=== PATIENT | female | born 1935 | race Caucasian/White ===

== ENCOUNTER → 2017-04-29 10:22 | Outpatient (CLI) | payer MEDICARE, SELFPAY ==
--- NOTE | 2017-04-29 10:33 | XR_ITS ---
XR DEXA axial skeleton HISTORY: Postmenopausal, chronic renal disease ITS.REASON: CKD 111 ORDERING PHYSICIAN: Sy Etienne PATIENT AGE: 81 years COMPARISON: 08/08/2013 FINDINGS: Lowest measurements are described. The BMD measured at the left femoral neck is 0.582 g/cm squared with a T score of -3.3. This is considered osteoporotic according to the World Health Organization criteria. Fracture risk is high. Pharmacological treatment should be started if not already prescribed. Recommend follow-up bone density in one year to monitor response. L1-L4 density has a T score of -1.5 with a 10% decrease in bone density of the lumbar spine and 9% decrease in density of the hips compared to 08/08/2013 IMPRESSION: Osteoporosis. Please see above for detail. Recommend follow-up exam in May 16, 2018
== END ==
PROVIDERS: PCP Family Medicine; Visit Provider Internal Medicine Nephrology
DX: N18.3 Chronic kidney disease, stage 3 (moderate) (principal); Z78.0 Asymptomatic menopausal state
CPT/HCPCS: 77080

== ENCOUNTER → 2017-05-19 10:42 | Outpatient (CLI) | payer MEDICARE, SELFPAY ==
[2017-05-19 14:01] LABS: Basophils % 0.3 % (0.1-2.0); Eosinophils # 0.1 K/mm3 (0.0-0.4); Eosinophils % 1.2 % (0.1-12.0); Lymphocytes # 1.1 K/mm3 (0.7-4.5); Lymphocytes % 21.2 K/mm3 (10-50); Mean Corpuscular HGB Conc 32.5 g/dL (31.8-35.4); Mean Corpuscular Hemoglobin 31.4 pg (27.0-31.2); Mean Corpuscular Volume 96.6 fl (81-99); Mean Platelet Volume 7.8 fl (7.4-10.4); Monocytes # 0.4 K/mm3 (0.1-1.0); Monocytes % 6.6 % (1.7-9.3); Neutrophils # 3.8 K/mm3 (1.8-7.8); Neutrophils % 70.7 % (37.0-80.0); Platelet Count 222 K/mm3 (142-424); Red Blood Count 3.83 M/mm3 (4.20-5.40); Red Cell Distribution Width 13.8 % (11.5-17.5); White Blood Count 5.3 K/mm3 (4.8-10.8)
[2017-05-19 14:11] LABS: Albumin Level 3.2 gm/dL (3.4-5.0); Anion Gap 14.1 mEq/L (5-15); Blood Urea Nitrogen 25 mg/dL (7-18); Calcium 8.9 mg/dL (8.5-10.1); Carbon Dioxide 25 mmol/L (21.0-32.0); Chloride 107 mmol/L (98-107); Estimated Glomerular Filt Rate 25 ml/min (>60); GFR (African American) 31 ML/MIN (>60); Glucose 113 mg/dL (74-106); Phosphorous 2.8 mg/dL (2.4-4.9); Potassium 4.1 mmoL/L (3.5-5.1); Sodium 142 mmol/L (136-145)
[2017-05-20 15:19] LABS: Albumin 3.1 g/dL (2.9-4.4); Alpha-1-Globulin 0.3 g/dL (0.0-0.4); Alpha-2-Globulin 0.9 g/dL (0.4-1.0); Gamma Globulin 1.4 g/dL (0.4-1.8); Protein, Total 6.7 g/dL (6.0-8.5)
[2017-05-21 08:49] LABS: Vitamin D 25 Hydroxy 36.4 ng/mL (30.0-100.0)
== END ==
PROVIDERS: PCP Family Medicine; Visit Provider Internal Medicine Nephrology
DX: N18.3 Chronic kidney disease, stage 3 (moderate) (principal)
CPT/HCPCS: 36415; 80069; 82652; 84165; 85025

== ENCOUNTER → 2017-05-20 11:21 | Outpatient (REF) | payer MEDICARE, SELFPAY ==
[2017-05-20 14:06] LABS: Creatinine,Urine Random 35 mg/dL (20-320); Total Protein,Urine Random 16.1 mg/dL (0.0-11.9)
== END ==
LOC: LAB.CARL 11:21
PROVIDERS: Visit Provider Internal Medicine Nephrology
DX: N18.3 Chronic kidney disease, stage 3 (moderate) (principal)
CPT/HCPCS: 82570; 84155

== ENCOUNTER → 2017-05-25 15:19 | Outpatient (POV) | payer MEDICARE, SELFPAY | PROVIDERS: Family Provider Family Medicine; PCP Family Medicine; Visit Provider Internal Medicine Nephrology | DX: Z00.00 Encounter for general adult medical examination without abnormal findings (principal) ==

== ENCOUNTER 2017-06-25 13:53 | Outpatient (CLI) | payer MEDICARE, SELFPAY ==
[2017-06-25 14:01] VITALS: BP 132/79; PULSE 74; RESP 18; TEMP 36.4; O2SAT 96
== END 2017-06-25 14:45 | disposition home or self-care (01) ==
LOC: INF 14:12
PROVIDERS: Family Provider Family Medicine; PCP Family Medicine; Visit Provider Internal Medicine Nephrology
DX: M81.0 Age-related osteoporosis without current pathological fracture (principal)
CPT/HCPCS: 96372; J0897

== ENCOUNTER 2017-07-25 12:54 | Emergency (ER) | payer MEDICARE, SELFPAY ==
[2017-07-25 13:07] VITALS: BP 151/73; PULSE 76; RESP 20; TEMP 36.7; O2SAT 99; BMI 24.1
--- NOTE | 2017-07-25 13:12 | HMH.EDUTC ---
[facility] [place] Disposition Clinical Impression: Right otitis media Qualifiers: Otitis media type: suppurative Chronicity: acute Recurrence: not specified as recurrent Spontaneous tympanic membrane rupture: without spontaneous rupture Qualified Code(s): H66.001 - Acute suppurative otitis media without spontaneous rupture of ear drum, right ear Sinusitis Qualifiers: Sinusitis location: frontal Chronicity: acute Disposition: Home, Self-Care Condition on Discharge: Good Instructions: DI for Sinusitis Prescriptions: Fluticasone Propionate [Flonase Allergy Relief NS] 1 spray NS BID 10 Days #1 bot cephALEXin [Keflex 500mg Cap] 500 mg PO TID 10 Days #30 cap Referrals: Danny Cano MD [Primary Care Provider] - Time of Disposition: 13:30 Medical Decision Making - Ed Inquiry Pt receiving controlled substance: No Vital Signs: 07/25/17 13:07 Temperature 98.1 F Temperature Source Oral Pulse Rate [Right Radial] 76 Respiratory Rate 20 Blood Pressure [Right Arm] 151/73 Blood Pressure Mean [Right Arm] 99 02 Sat by Pulse Oximetry 99 Oxygen Delivery Method Room Air - Lab Data Lab results reviewed: Yes: I reviewed the patient's lab results. [facility] [place] HPI - General Stated complaint: Sore throat Time Seen by Provider: 07/25/17 13:12 Mode of Arrival: Family Vehicle Source of Information: Patient Limitations: No Limitations Description of Symptoms (Recalled from Triage Doc. by RN): PT C/O SORE THROAT, HEADACHE. PT STATES SHE SEEN A WEEK AGO AND IS NOT ANY BETTER. HEENT Symptoms (Recalled from RN notes): Yes (SORE THROAT, HEADACHE) Resp Symptoms (Recalled from RN notes): No Skin Symptoms (Recalled from RN notes): No MS Symptoms (Recalled from RN notes): No Functional Status (Recalled from RN notes): NA - History of Present Illness Provider Complaint: Patient states that she has had right ear pain, headache, right sided throat pain and nasal congestion for several days. She has a history of allergies and asthma. She saw Dr Cano two weeks ago or so and was put on Prednisone for chest congestion. She states that is better but the headaches are keeping her awake at night and her throat feels swollen. No fever. No cough. No vomiting or diarrhea. Onset (ago): day(s) (5) Location: head - Related Data Previous Rx's Medication Instructions Recorded Fluticasone Propionate [Flonase 1 spray NS BID 10 Days #1 bot 07/25/17 Allergy Relief NS] cephALEXin [Keflex 500mg Cap] 500 mg PO TID 10 Days #30 cap 07/25/17 Allergies Allergy/AdvReac Type Severity Reaction Status Date / Time Penicillins [PENICILLINS] Allergy Severe S-SWELLS-OR Verified 07/25/17 13:07 AL/THROAT codeine [CODEINE] Allergy Unknown NA-DIARRHEA Verified 07/25/17 13:07 - Worker's Comp Is this a Worker's Comp case?: No [facility] History I have reviewed the patient's past medical history: Yes Medical History: Reports:: Asthma, Depression, Gastroesophageal Reflux Disease(GERD), Hyperlipidemia, Hypertension Denies:: Cancer, Diabetes Mellitus Type 1, Diabetes Mellitus Type 2, MRSA Amputation: No - Social History Smoking Status: Never smoker Alcohol Intake: never - Psychiatric History Expresses thoughts of harming self/others: None Suicide Plan Description: No Plan ROS Obtained: Yes All systems reviewed & no additional complaints - Constitutional Constitutional: Denies body ache, Denies fever(s), Reports headache(s), Reports malaise - ENT Ears, Nose, Mouth, and Throat: Reports otalgia, Reports headache(s), Reports nasal discharge, Reports sinus pain, Reports sinus pressure, Reports sore throat, Reports throat swelling Physical Exam - General General appearance: alert, in no apparent distress - Head Head exam: atraumatic, normocephalic, normal inspection - Eye Eye exam: Present: normal appearance, PERRL, EOMI - ENT ENT exam: Present: normal exam, normal oropharynx, mucous membranes moist, TM's normal bilaterally, normal evs tech
[2017-07-25 13:15] LABS: UTC Strep Screen (Rapid) Negative (Negative)
--- NOTE | 2017-07-25 13:24 | ED_ITS ---
[facility] [place] Clinical Impression: Right otitis media Qualifiers: Otitis media type: suppurative Chronicity: acute Recurrence: not specified as recurrent Spontaneous tympanic membrane rupture: without spontaneous rupture Qualified Code(s): H66.001 - Acute suppurative otitis media without spontaneous rupture of ear drum, right ear Sinusitis Qualifiers: Sinusitis location: frontal Chronicity: acute Disposition: Home, Self-Care Condition on Discharge: Good Instructions: DI for Sinusitis Prescriptions: Fluticasone Propionate [Flonase Allergy Relief NS] 1 spray NS BID 10 Days #1 bot cephALEXin [Keflex 500mg Cap] 500 mg PO TID 10 Days #30 cap Referrals: Danny Cano MD [Primary Care Provider] - Time of Disposition: 13:30 Medical Decision Making - Ed Inquiry Pt receiving controlled substance: No Vital Signs: 07/25/17 13:07 Temperature 98.1 F Temperature Source Oral Pulse Rate [Right Radial] 76 Respiratory Rate 20 Blood Pressure [Right Arm] 151/73 Blood Pressure Mean [Right Arm] 99 02 Sat by Pulse Oximetry 99 Oxygen Delivery Method Room Air - Lab Data Lab results reviewed: Yes: I reviewed the patient's lab results. [facility] [place]PI - General Stated complaint: Sore throat Time Seen by Provider: 07/25/17 13:12 Mode of Arrival: Family Vehicle Source of Information: Patient Limitations: No Limitations Description of Symptoms (Recalled from Triage Doc. by RN): PT C/O SORE THROAT, HEADACHE. PT STATES SHE SEEN A WEEK AGO AND IS NOT ANY BETTER. HEENT Symptoms (Recalled from RN notes): Yes (SORE THROAT, HEADACHE) Resp Symptoms (Recalled from RN notes): No Skin Symptoms (Recalled from RN notes): No MS Symptoms (Recalled from RN notes): No Functional Status (Recalled from RN notes): NA - History of Present Illness Provider Complaint: Patient states that she has had right ear pain, headache, right sided throat pain and nasal congestion for several days. She has a history of allergies and asthma. She saw Dr Cano two weeks ago or so and was put on Prednisone for chest congestion. She states that is better but the headaches are keeping her awake at night and her throat feels swollen. No fever. No cough. No vomiting or diarrhea. Onset (ago): day(s) (5) Location: head - Related Data Previous Rx's Medication Instructions Recorded Fluticasone Propionate [Flonase 1 spray NS BID 10 Days #1 bot 07/25/17 Allergy Relief NS] cephALEXin [Keflex 500mg Cap] 500 mg PO TID 10 Days #30 cap 07/25/17 Allergies Allergy/AdvReac Type Severity Reaction Status Date / Time Penicillins [PENICILLINS] Allergy Severe S-SWELLS-OR Verified 07/25/17 13:07 AL/THROAT codeine [CODEINE] Allergy Unknown NA-DIARRHEA Verified 07/25/17 13:07 - Worker's Comp Is this a Worker's Comp case?: No [facility] History I have reviewed the patient's past medical history: Yes Medical History: Reports:: Asthma, Depression, Gastroesophageal Reflux Disease( GERD), Hyperlipidemia, Hypertension Denies:: Cancer, Diabetes Mellitus Type 1, Diabetes Mellitus Type 2, MRSA Amputation: No - Social History Smoking Status: Never smoker Alcohol Intake: never - Psychiatric History Expresses thoughts of harming self/others: None Suicide Plan Description: No Plan ROS Obtained: Yes All systems reviewed & no additional complaints - Constitutional Constitutiona
[2017-07-25 13:41] VITALS: BP 146/79; PULSE 79; RESP 18; TEMP 36.8; O2SAT 100
== END 2017-07-25 13:42 | disposition home or self-care (01) ==
PROVIDERS: Emergency Provider Physician Assistant; Family Provider Family Medicine; PCP Family Medicine
DX: H66.001 Acute suppurative otitis media without spontaneous rupture of ear drum, right ear (principal); K21.9 Gastro-esophageal reflux disease without esophagitis; E78.5 Hyperlipidemia, unspecified; I10 Essential (primary) hypertension; J45.909 Unspecified asthma, uncomplicated
CPT/HCPCS: G0463; 87880; 99201

== ENCOUNTER → 2018-02-01 09:00 | Outpatient (CLI) | payer MEDICARE, SELFPAY ==
[2018-02-01 13:31] LABS: Basophils % 0.3 % (0.1-2.0); Eosinophils # 0.3 K/mm3 (0.0-0.4); Eosinophils % 5.8 % (0.1-12.0); Hematocrit 38.9 % (37.0-47.0); Hemoglobin 12.3 g/dL (12.2-16.2); Lymphocytes # 1.7 K/mm3 (0.7-4.5); Lymphocytes % 36.9 K/mm3 (10-50); Mean Corpuscular HGB Conc 31.6 g/dL (31.8-35.4); Mean Corpuscular Hemoglobin 31.3 pg (27.0-31.2); Mean Platelet Volume 7.7 fl (7.4-10.4); Monocytes # 0.3 K/mm3 (0.1-1.0); Monocytes % 6.5 % (1.7-9.3); Neutrophils # 2.4 K/mm3 (1.8-7.8); Neutrophils % 50.5 % (37.0-80.0); Platelet Count 290 K/mm3 (142-424); Red Blood Count 3.93 M/mm3 (4.20-5.40); Red Cell Distribution Width 13.4 % (11.5-17.5); White Blood Count 4.7 K/mm3 (4.8-10.8)
[2018-02-01 14:13] LABS: Albumin Level 3.1 gm/dL (3.4-5.0); Anion Gap 14.2 mEq/L (5-15); Blood Urea Nitrogen 24 mg/dL (7-18); Calcium 8.8 mg/dL (8.5-10.1); Carbon Dioxide 23 mmol/L (21.0-32.0); Chloride 110 mmol/L (98-107); Creatinine,Serum 2.01 mg/dL (0.55-1.02); Estimated Glomerular Filt Rate 24 ml/min (>60); GFR (African American) 29 ML/MIN (>60); Glucose 171 mg/dL (74-106); Phosphorous 3.1 mg/dL (2.4-4.9); Potassium 4.2 mmoL/L (3.5-5.1); Sodium 143 mmol/L (136-145); Uric Acid 6.3 mg/dL (2.6-7.2)
[2018-02-01 16:05] LABS: Creatinine,Urine Random 159 mg/dL (20-320); Total Protein,Urine Random 29.7 mg/dL (0.0-11.9)
[2018-02-02 07:39] LABS: Vitamin D 25 Hydroxy 42.4 ng/mL (30.0-100.0)
[2018-02-03 07:29] LABS: Calcium, Ionized 5.3 mg/dL (4.5-5.6); Parathyroid Hormone Intact 62 pg/mL (15-65)
[2018-02-04 07:10] LABS: Tandem-R Ostase 13.8 ug/L (.)
== END ==
PROVIDERS: PCP Family Medicine; Visit Provider Internal Medicine Nephrology
DX: M81.0 Age-related osteoporosis without current pathological fracture (principal); R71.8 Other abnormality of red blood cells
CPT/HCPCS: 36415; 80069; 82330; 82570; 82652; 83520; 83970; 84080; 84155; 84550; 85025

== ENCOUNTER → 2018-02-08 15:19 | Outpatient (POV) | payer MEDICARE, SELFPAY | PROVIDERS: Family Provider Family Medicine; PCP Family Medicine; Visit Provider Internal Medicine Nephrology | DX: Z00.00 Encounter for general adult medical examination without abnormal findings (principal) ==

== ENCOUNTER → 2018-09-22 12:43 | Outpatient (CLI) | payer MEDICARE, SELFPAY ==
--- NOTE | 2018-09-22 | CA_ITS ---
PROCEDURE: 2-D M-mode and color Doppler study INDICATIONS FOR THE TEST: Chest pain COPD Heart Murmur Tobacco Smoking Palpitations Fatigue Syncope Edema+ Hypertension+Diabetes Mellitus Rheumatic Fever SOB BURCH+Obesity Hyperlipidemia Family History HD+ Additional History Asthma, dizziness PATIENT INFORMATION HEIGHT: 65 WEIGHT: 150 GENDER: Female B/P: 151/73 2-D/M-MODE INTERPRETATION: 2-D MEASUREMENTS OBSERVED VALUES IN CMS Right Ventricular Dimension (RVDd) 2.0 Interventricular Septum (Thickness)(IVsd) 1.1 Left Ventricular Internal Dimensions(LVIDd) 4.5 Left Ventricular Posterior Wall (Thickness)(LVPWd) 0.9 Aortic Root 2.7 Aortic Cusp Separation 2.0 Left Atrial Dimensions (LAD) 3.7 2D 1. Left atrium is mildly enlarged, left ventricle is normal size, mild concentric left ventricular hypertrophy, visually estimated ejection fraction 55% with no regional wall motion abnormality. 2. The right atrium and right ventricle are normal size and contractility. 3. The aortic valve is thickened and calcified leaflet continue to display mobility. 4. The mitral and tricuspid valve leaflets are minimally thickened. 5. The pulmonic valve is poorly visualized. 6. No significant pericardial effusion noted. DOPPLER INTERROGATION: Doppler interrogation of the aortic, mitral and tricuspid valvular presence of trace aortic, mild mitral and tricuspid regurgitation, tricuspid regurgitation jet velocity is inadequate for calculation of the right ventricular systolic pressure, grade 1 diastolic dysfunction seen with tissue Doppler evidence of raised left atrial pressure. CONCLUSION: 1. Mildly enlarged left atrium, normal left ventricular size, mild concentric left ventricular hypertrophy, visually estimated ejection fraction 55% with no regional wall motion abnormality, grade 1 diastolic dysfunction seen with tissue Doppler evidence of raised left atrial pressure. 2. Trace aortic, mild mitral and tricuspid regurgitation 3. No significant pericardial effusion noted.
== END ==
PROVIDERS: PCP Family Medicine; Visit Provider Family Medicine
DX: I50.21 Acute systolic (congestive) heart failure (principal)
CPT/HCPCS: 93306

== ENCOUNTER 2018-10-09 19:17 | Emergency (ER) | payer MEDICARE, SELFPAY ==
[2018-10-09 19:18] VITALS: BP 195/110; PULSE 83; RESP 18; TEMP 36.6; O2SAT 95; BMI 25.7
--- NOTE | 2018-10-09 19:29 | XR_ITS ---
XR pelvis 1-2V HISTORY: Fall with injury and pain ITS.REASON: Fall ORDERING PHYSICIAN: Marvin Lutz MD PATIENT AGE: 82 years Comparison: None FINDINGS: There are mild osteoarthritic changes of the hips and SI joints. No acute fracture or dislocation. IMPRESSION: No acute finding
--- NOTE | 2018-10-09 19:29 | CT_ITS ---
CT CERVICAL SPINE WITHOUT CONTRAST CT RECONSTRUCTIONS HISTORY:Neck pain following injury ORDERING PHYSICIAN: Marvin Lutz MD PATIENT AGE: 82 years COMPARISON: 11/29/2016 Technique: All CT scans at the facility use one or more dose reduction, viz: automated exposure control, ma/kV adjustment per patient size (including targeted exams where dose is matched to indication, i.e. head), or iterative reconstruction technique PROCEDURE: Axial spiral CT scanning performed of the cervical spine beginning at the base of the skull and continuing to the upper T-spine. 3-D multiplanar reconstruction with 3-D manipulation of volumetric data set in image rendering was completed by the radiologist and/or technologist with the supervision of the radiologist on independent workstation. FINDINGS: There is normal alignment. No fracture or dislocation. There are slight reversal of the cervical lordosis. Minimal anterolisthesis noted at C4-C5 of 4 mm likely degenerative in nature. Mild multilevel spondylosis. C2-C3: Mild degenerative disc disease. Left-sided facet hypertrophic change. C3-C4: 2 mm anterolisthesis of C3 with degenerative disc disease and left-sided foraminal narrowing from uncovertebral and facet hypertrophy. C4-C5: Degenerative disc disease with facet hypertrophy and 4 mm anterolisthesis of C4 on spine. C5-C6: Degenerative disc disease with bilateral foraminal narrowing. C6-C7: Unremarkable. Fibrotic changes are present in the lung apices. IMPRESSION: 1. No acute fracture. 2. Multilevel cervical spondylosis. PLEASE SEE ABOVE FOR DETAILED DESCRIPTION AT EACH LEVEL
--- NOTE | 2018-10-09 19:29 | XR_ITS ---
XR knee LT 3V HISTORY: Posttraumatic pain ITS.REASON: fall ORDERING PHYSICIAN: Marvin Lutz MD PATIENT AGE: 82 years COMPARISON: None FINDINGS: There are severe osteoarthritic changes of the medial compartment with moderate osteoarthritis of the patellofemoral joint. Small calcific density is present medially at the knee joint but does appear chronic adjacent old fracture or loose body. No acute fracture or dislocation. There is a small suprapatellar effusion. IMPRESSION: No acute fracture. Osteoarthritis with chronic changes and small knee joint effusion
--- NOTE | 2018-10-09 19:29 | XR_ITS ---
XR chest AP HISTORY: Posttraumatic pain ITS.REASON: FALL ORDERING PHYSICIAN: Marvin Lutz MD PATIENT AGE: 82 years COMPARISON: None FINDINGS: Mild cardiomegaly without failure. Lungs are clear bilaterally. There are surgical clips in the left axilla. There is an old mid shaft clavicular fracture. IMPRESSION: Cardiomegaly, no change with no acute finding
--- NOTE | 2018-10-09 19:29 | CT_ITS ---
CT head/brain wo con HISTORY: Headache, pain, blunt trauma with contusion/hematoma ITS.REASON: Fall ORDERING PHYSICIAN: Marvin Lutz MD PATIENT AGE: 82 years COMPARISON: None TECHNIQUE: Axial images obtained without contrast. Brain and bone windows reviewed. All CT scans at the facility use one or more dose reduction, viz: automated exposure control, ma/kV adjustment per patient size (including targeted exams where dose is matched to indication, i.e. head), or iterative reconstruction technique. FINDINGS: No midline shift, mass effect, intracranial hemorrhage, or hydrocephalus. There is mild generalized atrophy with periventricular ischemic gliotic change. Encephalomalacia changes are present in the right frontal lobe. Prior right frontal/parietal craniotomy. There is a large hematoma in the left frontal area and supraorbital region of the scalp. Air-fluid levels are present in both maxillary sinuses and sphenoid sinus with intermediate density fluid and small air bubbles along the left orbital floor and with irregularity of the left sphenoid wall with possible pneumocephalus in the parasellar region. Skull base fracture is a consideration. Please see facial CT report for further discussion. There is mucosal thickening of the ethmoid sinuses. IMPRESSION: 1. No acute intracranial hemorrhage. 2. Moderate amount of intermediate density fluid within the bilateral maxillary sinuses with tiny gas bubbles along the left orbital floor and a moderate amount of fluid within the bilateral sphenoid sinuses with irregularity along the left sphenoid sinus wall with possible trace amount of pneumocephalus in the region of the sella. This does raise suspicion of a skull base fracture. Please see facial CT report 3. Large left frontal scalp hematoma
--- NOTE | 2018-10-09 19:29 | XR_ITS ---
XR wrist LT min 3V HISTORY posttraumatic pain ITS.REASON: fall ORDERING PHYSICIAN: Marvin Lutz MD PATIENT AGE: 82 years Comparison: FINDINGS: No obvious fracture or dislocation. There are mild osteoarthritic changes of the first metacarpal carpal joint. IMPRESSION: No acute finding
--- NOTE | 2018-10-09 19:29 | XR_ITS ---
XR shoulder LT min 2V HISTORY: Posttraumatic pain ITS.REASON: Fall ORDERING PHYSICIAN: Marvin Lutz MD PATIENT AGE: 82 years Comparison: FINDINGS: There is an old mid shaft clavicular fracture. Surgical clips present in the axilla. No acute fracture or dislocation. No lytic or blastic change. IMPRESSION: No acute finding
[2018-10-09 19:46] VITALS: BP 182/96
[2018-10-09 19:58] LABS: Basophils % 0.6 % (0.1-2.0); Eosinophils # 0.1 K/mm3 (0.0-0.4); Eosinophils % 2.7 % (0.1-12.0); Hematocrit 37.2 % (37.0-47.0); Hemoglobin 11.4 g/dL (12.2-16.2); Lymphocytes # 2.2 K/mm3 (0.7-4.5); Lymphocytes % 41.7 % (10-50); Mean Corpuscular HGB Conc 30.6 g/dL (31.8-35.4); Mean Corpuscular Hemoglobin 27.8 pg (27.0-31.2); Mean Platelet Volume 6.9 fl (7.4-10.4); Monocytes # 0.4 K/mm3 (0.1-1.0); Monocytes % 7.6 % (1.7-9.3); Neutrophils # 2.5 K/mm3 (1.8-7.8); Neutrophils % 47.6 % (37.0-80.0); Platelet Count 271 K/mm3 (142-424); Red Blood Count 4.09 M/mm3 (4.20-5.40); Red Cell Distribution Width 12.4 % (11.5-17.5); White Blood Count 5.3 K/mm3 (4.8-10.8)
[2018-10-09 20:10] LABS: Alanine Aminotransferase 27 U/L (12-78); Albumin Level 3.2 gm/dL (3.4-5.0); Albumin/Globulin Ratio 0.8 (1.1-1.8); Alkaline Phosphatase 118 U/L (46-116); Anion Gap 16.2 mEq/L (5-15); Aspartate Amino Transferase 22 U/L (15-37); Bilirubin,Total 0.7 mg/dL (0.2-1.0); Blood Urea Nitrogen 25 mg/dL (7-18); Calcium 8.8 mg/dL (8.5-10.1); Carbon Dioxide 25 mmol/L (21.0-32.0); Chloride 106 mmol/L (98-107); Creatinine Clearance Estimated 27 mL/min (50-200); Creatinine,Serum 1.77 mg/dL (0.55-1.02); Estimated Glomerular Filt Rate 27 ml/min (>60); GFR (African American) 33 ML/MIN (>60); Globulin 4.1 gm/dl (1.3-3.2); Glucose 183 mg/dL (74-106); Potassium 4.2 mmoL/L (3.5-5.1); Sodium 143 mmol/L (136-145); Total Protein,Serum 7.3 gm/dL (6.4-8.2)
[2018-10-09 20:23] VITALS: BP 182/100; PULSE 70; RESP 19; O2SAT 94
--- NOTE | 2018-10-09 20:32 | HMH.EDFALL ---
ED Disposition Clinical Impression: Pneumocephalus, traumatic, Fall Facial fracture due to fall Qualifiers: Encounter type: initial encounter Fracture type: closed Qualified Code(s): S02.92XA - Unspecified fracture of facial bones, initial encounter for closed fracture; W19.XXXA - Unspecified fall, initial encounter Orbital floor fracture Qualifiers: Encounter type: initial encounter Fracture type: closed Laterality: left Qualified Code(s): S02.32XA - Fracture of orbital floor, left side, initial encounter for closed fracture Disposition: Xfer Short-Term Hosp Condition on Discharge: Fair Referrals: Danny Cano MD [Primary Care Provider] - - Critical Care Critical Care Time: No Attestation: On 10/09/18, the high probability of a clinically significant, sudden or life threatening deterioration of the following system(s) required my full and direct attention, intervention and personal management. The time I documented below is in addition to time spent performing reported procedures but includes the following listed in this critical care notation. Medical Decision Making - Medical Records Medical records reviewed: Yes: I reviewed the patient's medical records. - Ed Inquiry Pt receiving controlled substance: No Vital Signs: 10/09/18 19:18 10/09/18 19:46 10/09/18 20:23 Temperature 97.9 F Temperature Source Oral Pulse Rate [Right Brachial] 83 70 Respiratory Rate 18 19 Blood Pressure [Right Arm] 195/110 H 182/96 H 182/100 H Blood Pressure Mean [Right Arm] 138 124 127 Blood Pressure Source [Right Arm] Automatic Cuff Manual Cuff/ Palpation Manual Cuff/ Auscultation Blood Pressure Position [Right Arm] Sitting Supine 02 Sat by Pulse Oximetry 95 94 L Oxygen Delivery Method Room Air Room Air 10/09/18 21:42 Temperature Temperature Source Pulse Rate [Right Brachial] 82 Respiratory Rate 18 Blood Pressure [Right Arm] 180/92 H Blood Pressure Mean [Right Arm] 121 Blood Pressure Source [Right Arm] Manual Cuff/ Palpation Blood Pressure Position [Right Arm] Sitting 02 Sat by Pulse Oximetry 97 Oxygen Delivery Method Room Air - Lab Data Lab results reviewed: Yes: I reviewed the patient's lab results. Lab Results 10/09/18 19:45: WBC 5.3, RBC 4.09 L, Hgb 11.4 L, Hct 37.2, MCV 91.0, MCH 27.8, MCHC 30.6 L, RDW 12.4, Plt Count 271, MPV 6.9 L, Neut % (Auto) 47.6, Lymph % (Auto) 41.7, Blair % (Auto) 7.6, Eos % (Auto) 2.7, Baso % (Auto) 0.6, Neut # (Auto) 2.5, Lymph # (Auto) 2.2, Blair # (Auto) 0.4, Eos # (Auto) 0.1, Baso # (Auto) 0.0 10/09/18 19:45: Sodium 143, Potassium 4.2, Chloride 106, Carbon Dioxide 25, Anion Gap 16.2 H, BUN 25 H, Creatinine 1.77 H, Estimated Creat Clear 27, Estimated GFR 27 L, Est GFR ( Amer) 33 L, Glucose 183 H, Calcium 8.8, Total Bilirubin 0.7, AST 22, ALT 27, Alkaline Phosphatase 118 H, Total Protein 7.3, Albumin 3.2 L, Globulin 4.1 H, Albumin/Globulin Ratio 0.8 L Result diagrams: 10/09/18 19:45 10/09/18 19:45 Orders (Tests/Meds): ORDERS Category Date Time Status CT cervical spine wo con Stat Cat Scan 10/09/18 19:[address] facial bones wo con Stat Cat Scan 10/09/18 21:[address] head/brain wo con Stat Cat Scan 10/09/18 19:29 Taken - Radiology Data #1 Image(s): Chest, Shoulder, Wrist, Pelvis, Knee Image Reviewed: Yes I reviewed the patient's radiology image Preliminary Findings: No Fracture Seen - CT Data CT Scan: Head, C-Spine, Sinus Time Received: 22:[address] Reviewed: Yes: I have viewed the radiologist's interpretation Preliminary Findings: Abnormal (facial fx pneumocephalus) - Physician Consults Physician Consulted: [facility]- trauma - dr brooks Reason -: Transfer to another facilty Fall HPI - General Chief Complaint: Fall Stated Complaint: Fall Time Seen by Provider: 10/09/18 20:00 Mode of Arrival: EMS Source of Information: Patient, Spouse, Relative, Medical Record Limitations: Physical Limitations Description of Symptoms (Recalled fro
--- NOTE | 2018-10-09 21:05 | CT_ITS ---
CT facial bones wo con CLINICAL INDICATION: Pain following injury, left periorbital hematoma ITS.REASON: fall ORDERING PHYSICIAN: Marvin Lutz MD PATIENT AGE: 82 years COMPARISON: None TECHNIQUE:Axial images obtained with sagittal and coronal reformats. All CT scans at the facility use one or more dose reduction, viz: automated exposure control, ma/kV adjustment per patient size (including targeted exams where dose is matched to indication, i.e. head), or iterative reconstruction technique. FINDINGS: There is a large left frontal and periorbital hematoma. There is a minimally displaced comminuted fracture of the floor of the left orbit with extension into the inferior orbital foramen. Nondisplaced fracture involves the posterior wall of the left maxillary sinus extending into the inferior wall. Nondisplaced fracture suspected of the right maxillary sinus anterior wall medially. Hyperdense fluid is present in both maxillary sinuses consistent with blood with air-fluid levels. There is cortical irregularity involving the lateral the left of the sphenoid sinus. Minimal amount of gas is present along the posterior clinoid and the anterior clinoid on the left. The orbits appear intact. There is mild mucosal thickening of the ethmoid sinuses. IMPRESSION: 1. Comminuted minimally displaced fracture of the left orbital floor involving the infraorbital foramen 2. Possible nondisplaced fracture of the left lateral wall the sphenoid sinus near the superior orbital fissure. 3. Trace amount of gas in the region of the sella suggesting a small pneumocephalus. 4. Air-fluid levels within the sphenoid sinus and bilateral maxillary sinuses with hyperdense material which may be due to blood. 5. Nondisplaced fracture posterior inferior wall of the left maxillary sinus and anterior wall the right maxillary sinus. 6. Large left frontal and supraorbital scalp hematoma
[2018-10-09 21:42] VITALS: BP 180/92; PULSE 82; RESP 18; O2SAT 97
[2018-10-09 22:19] VITALS: BP 188/94; PULSE 77; RESP 18; O2SAT 95
--- NOTE | 2018-10-09 22:32 | PC.NURSE ---
[facility] called for transport to [facility] pt excepted by Dr Chandler in the ER
--- NOTE | 2018-10-09 22:41 | PC.NURSE ---
Report called to Natalee Raphael RN from ER
[2018-10-09 22:43] VITALS: BP 186/90; PULSE 73; RESP 16; TEMP 36.9; O2SAT 96
== END 2018-10-09 22:49 | disposition short-term general hospital (02) ==
PROVIDERS: Emergency Provider Emergency Medicine; PCP Family Medicine
DX: S02.92XA Unspecified fracture of facial bones, initial encounter for closed fracture (principal); S02.32XA Fracture of orbital floor, left side, initial encounter for closed fracture; W01.0XXA Fall on same level from slipping, tripping and stumbling without subsequent striking against object, initial encounter; Y92.019 Unspecified place in single-family (private) house as the place of occurrence of the external cause; G93.89 Other specified disorders of brain; F33.1 Major depressive disorder, recurrent, moderate; K21.9 Gastro-esophageal reflux disease without esophagitis; J45.909 Unspecified asthma, uncomplicated; E78.5 Hyperlipidemia, unspecified; I10 Essential (primary) hypertension; Z88.0 Allergy status to penicillin; Z88.5 Allergy status to narcotic agent
CPT/HCPCS: 70450; 70486; 71045; 72125; 72170; 73030; 73110; 73562; 80053; 85025; 96374; 96375; 99285; J2405

== ENCOUNTER → 2018-11-24 13:00 | Outpatient (POV) | payer MEDICARE, SELFPAY ==
[2018-11-26 16:10] LABS: Calcium, Ionized 5.3 mg/dL (4.5-5.6)
[2018-11-26 17:09] LABS: Parathyroid Hormone Intact 41 pg/mL (15-65); Vitamin D 25 Hydroxy 36.8 ng/mL (30.0-100.0)
[2018-11-28 18:36] LABS: C-Telopeptide Serum 782 pg/mL (.)
[2018-11-29 20:27] LABS: Tandem-R Ostase 28.7 ug/L (.)
== END ==
PROVIDERS: Visit Provider Internal Medicine Nephrology
DX: M81.0 Age-related osteoporosis without current pathological fracture (principal)
CPT/HCPCS: 36415; 82330; 82523; 82652; 83970; 84080

== ENCOUNTER 2018-12-13 13:36 | Inpatient (IN) ==
[2018-12-13 16:03] LABS: Eosinophils % 0.2 % (0.1-12.0); Hematocrit 33.3 % (37.0-47.0); Hemoglobin 10.2 g/dL (12.2-16.2); Lymphocytes # 0.7 K/mm3 (0.7-4.5); Lymphocytes % 10.9 % (10-50); Mean Corpuscular HGB Conc 30.5 g/dL (31.8-35.4); Mean Corpuscular Volume 88.9 fl (81-99); Mean Platelet Volume 7.1 fl (7.4-10.4); Monocytes # 0.5 K/mm3 (0.1-1.0); Neutrophils # 5.4 K/mm3 (1.8-7.8); Neutrophils % 81.9 % (37.0-80.0); Platelet Count 370 K/mm3 (142-424); Red Blood Count 3.75 M/mm3 (4.20-5.40); Red Cell Distribution Width 14.3 % (11.5-17.5); White Blood Count 6.6 K/mm3 (4.8-10.8)
[2018-12-13 16:22] LABS: ABG Base Excess 0.9 mmol/L (-2.4-2.3); ABG HCO3 25.4 mmhg (22.0-26.0); ABG Oxygen Saturation 91 % (90-100); ABG PCO2 40.2 mmhg (35.0-45.0); ABG PH 7.42 mmol/L (7.35-7.45); ABG PO2 58.9 mmhg (80-100); ABG TCO2 26.6 mmhg (23-27)
[2018-12-13 16:25] LABS: Anion Gap 13.6 mEq/L (5-15); Blood Urea Nitrogen 28 mg/dL (7-18); Calcium 9.4 mg/dL (8.5-10.1); Carbon Dioxide 26 mmol/L (21.0-32.0); Chloride 103 mmol/L (98-107); Glucose 154 mg/dL (74-106); Sodium 139 mmol/L (136-145)
[2018-12-13 16:25] LABS: Allen's Test Acceptable; Oxygen 32 %
--- NOTE | 2018-12-13 17:46 | History & Physical Report ---
*Admission Date: 12/13/18 *Chief complaint: Shortness of breath *History of present illness: 82-year-old female seen in the office on December 10 with complaint of shortness of breath. Patient has long history of moderate to severe asthma for which she previously was also receiving allergy immunotherapy to help keep under control. At that visit patient reported cough and wheezing and cough was nonproductive. She was started on steroids and patient return to the office today when her called stating she was worse. Patient now had shortness of breath along with worsening wheezing. Cough remains nonproductive. She reported subjective chills and fevers. In the office patient appeared dehydrated and in mild distress with O2 sat of 84% on room air. Lung exam was abnormal and wheezing had improved but patient now had rhonchi on the right. Decision was made to admit the patient for higher hypoxia with a diagnosis of asthma exacerbation that did not respond to treatment with right lung pneumonia. Since admission patient has had a chest x-ray that shows bilateral pneumonia along with pleural effusion. Patient is been admitted and placed on oxygen via nasal cannula. [facility] History I have reviewed the patient's past medical history: Yes Medical History: Reports:: Asthma, Depression, Gastroesophageal Reflux Disease(GERD), Hyperlipidemia, Hypertension Denies:: Cancer, Diabetes Mellitus Type 1, Diabetes Mellitus Type 2, MRSA *Have you ever received a pneumonia vaccine?: Yes *Have you received a flu vaccine this season?: Yes Laterality Cases: Left: Mastectomy Amputation: No - *Social History Smoking Status: Never smoker Alcohol Intake: never *Occupational Status:: retired Housing: house Household Members: spouse *Travel in the last 8 weeks: None - Psychiatric History Pschychiatric History:: Reports:: Depression Family Hx:: Non-contributory Review of Systems - Review of Systems Review of systems:: unable to obtain, pertinent systems reviewed and negative unless documented below - Constitutional Reports anorexia, Reports chills, Reports fever(s), Denies body ache(s) - *Cardiovascular Denies chest pain, Denies chest pain at rest - *Respiratory Reports chest congestion, Reports cough, Reports shortness of breath, Reports wheezing - *Gastrointestinal Denies abdominal pain, Denies belching, Denies bloating Meds Home Medications Medication Instructions Recorded Confirmed Type Atorvastatin Calcium [Atorvastatin 40 mg PO HS 10/09/18 12/13/18 History 40mg Tab] Foreign Cit/D3/K/Mag Ox/Stron/Bor 1 each PO DAILY 10/09/18 12/13/18 History [Prosteon Tablet] Cetirizine HCl [24Hour Allergy] 10 mg PO DAILY 10/09/18 12/13/18 History Cranberry Fruit Extract [Cranberry] 250 mg PO DAILY 10/09/18 12/13/18 History Fluoxetine HCl [Prozac] 40 mg PO DAILY 10/09/18 12/13/18 History Montelukast Sodium 5 mg PO HS 10/09/18 12/13/18 History Omeprazole [Omeprazole 20mg 20 mg PO DAILY 10/09/18 12/13/18 History Capsule] Fluticasone Propionate [Flonase 1 spr NS DAILY 12/13/18 12/13/18 History 50mcg nasal spray 16gm] Fluticasone/Salmeterol [Advair 1 inh IH BID 12/13/18 12/13/18 History 250/50mcg Diskus] NIFEdipine [Procardia Xl] 30 mg PO DAILY 12/13/18 12/13/18 History Tiotropium [place] [Spiriva 2 puff IH DAILY 12/13/18 12/13/18 History 18mcg/puff inhaler] Allergies Allergy/AdvReac Type Severity Reaction Status Date / Time Penicillins [PENICILLINS] Allergy Severe S-SWELLS-OR Verified 12/13/18 15:46 AL/THROAT codeine [CODEINE] Allergy Unknown NA-DIARRHEA Verified 10/09/18 19:43 Exam Vital signs and Labs for Last 24 Hours: Temp Pulse Resp BP Pulse Ox 99.3 F 87 20 153/78 H 91 L 12/13/18 15:29 12/13/18 15:29 12/13/18 15:29 12/13/18 15:29 12/13/18 15:35 Laboratory Results - last 24 hr 12/13/18 15:17: Lactate 1.4 12/13/18 15:49: WBC 6.6, RBC 3.75 L, Hgb 10.2 L, Hct 33.3 L, MCV 88.9, MCH 27.2, MCHC 30.5 L, RDW 14.3, Plt Count 370, MPV 7.1 L, Neut % (Auto) 81.9 H, Lymph % (Auto) 10.9, [place] % (Auto) 7.0, Eos % (Auto) 0.2, Baso % (Auto) 0.0 L, Neut # (Auto) 5.4, Lymph # (Auto) 0.7, [place] # (Auto) 0.5, Eos # (Auto) 0.0, Baso # (Auto) 0.0 12/13/18 15:49: Mycoplasma pneumon IgM Non-reactive 12/13/18 15:49: Sodium 139, Potassium 3.6, Chloride 103, Carbon Dioxide 26, Anion Gap 13.6, BUN 28 H, Creatinine 1.47 H, Estimated Creat Clear 32, Estimated GFR 34 L, Est GFR ( Amer) 41 L, Glucose 154 H, Calcium 9.4, Troponin I < 0.02 12/13/18 15:49: B-Natriuretic Peptide 1070 H 12/13/18 16:15: Specimen Source Right brachial, O2 % 32, ABG pH 7.42, ABG pCO2 40.2, ABG pO2 58.9 L, ABG HCO3 25.4, ABG Total CO2 26.6, ABG O2 Saturation 91, ABG Base Excess 0.9, Colin Test Acceptable I & O for Last 24 hours: Intake & Output 12/11/18 12/12/18 12/13/18 12/14/18 11:59 11:59 11:59 11:59 Weight 154 lb 9 oz Narrative: Patient is in mild distress with increased work of breathing. While standing approximately 7 feet away from the patient I can hear an audible rattle coming from her chest. ENT exam is significant for dry mucous membranes of the oropharynx and dry lips. Neck is without lymphadenopathy or jugular venous distention. Lungs have faint expiratory wheezes bilaterally and rhonchi in the right midlung and right base. Heart has a rapid rate and rhythm. Abdomen is thin and soft. Extremities have 1-2+ edema Assessment and Plan (1) Bilateral pneumonia Current visit: Yes Status: Acute Category: Medical Code(s): J18.9 - Pneumonia, unspecified organism Patient will be treated as community-acquired pneumonia and has been started on Rocephin and azithromycin. (2) New onset atrial fibrillation Current visit: Yes Status: Acute Category: Medical Code(s): I48.91 - Unspecified atrial fibrillation Patient will be given Lovenox 1 mg/kg subcu. Echocardiogram is been ordered for the morning. Patient will be given oral Cardizem this evening (3) Asthma exacerbation Current visit: Yes Status: Acute Category: Medical Code(s): J45.901 - Unspecified asthma with (acute) exacerbation Patient will be given duo nebs 4 times daily with as needed Xopenex nebs. IV steroids have been ordered as well
[2018-12-14 03:54] LABS: Microscopic, Urine URINE MICROSCOPIC (MICROSCOPIC)
[2018-12-14 03:56] LABS: Appearance,Urine CLEAR (Clear); Bilirubin,Urine Negative (Negative); Blood, Urine TRACE-I (Negative); Color,Urine YELLOW (Yellow); Glucose,Urine (UA) Negative (Negative); Ketones,Urine Negative (Negative); Leukocyte Esterase,Urine Negative (Negative); PH,Urine 5.5 (5.0-8.5); Protein,Urine Negative (Negative); Urobilinogen,Urine 0.2 EU/dl (0.2)
[2018-12-14 04:02] LABS: Bacteria,Urine 1+ /lpf; RBC,Urine Occasional #/hpf (0-3)
--- NOTE | 2018-12-14 07:43 | Progress Note ---
Internal Medicine - PN: Subj *Date: 12/14/18 *Time: 07:41 Interval history: Patient reports resting better overnight. She still feels short of breath. Nursing staff reports cough is become more productive but they have still had difficulty obtaining a sample as the patient continually swallows her expectorated sputum Exam Vital signs and Labs for Last 24 Hours: Temp Pulse Resp BP Pulse Ox 97.8 F 98 H 22 125/62 91 L 12/14/18 04:00 12/14/18 06:11 12/14/18 04:00 12/14/18 04:00 12/14/18 06:11 Laboratory Results - last 24 hr 12/13/18 15:17: Lactate 1.4 12/13/18 15:49: WBC 6.6, RBC 3.75 L, Hgb 10.2 L, Hct 33.3 L, MCV 88.9, MCH 27.2, MCHC 30.5 L, RDW 14.3, Plt Count 370, MPV 7.1 L, Neut % (Auto) 81.9 H, Lymph % (Auto) 10.9, [place] % (Auto) 7.0, Eos % (Auto) 0.2, Baso % (Auto) 0.0 L, Neut # (Auto) 5.4, Lymph # (Auto) 0.7, [place] # (Auto) 0.5, Eos # (Auto) 0.0, Baso # (Auto) 0.0 12/13/18 15:49: Mycoplasma pneumon IgM Non-reactive 12/13/18 15:49: Sodium 139, Potassium 3.6, Chloride 103, Carbon Dioxide 26, Anion Gap 13.6, BUN 28 H, Creatinine 1.47 H, Estimated Creat Clear 32, Estimated GFR 34 L, Est GFR ( Amer) 41 L, Glucose 154 H, Calcium 9.4, Troponin I < 0.02 12/13/18 15:49: B-Natriuretic Peptide 1070 H 12/13/18 16:15: Specimen Source Right brachial, O2 % 32, ABG pH 7.42, ABG pCO2 40.2, ABG pO2 58.9 L, ABG HCO3 25.4, ABG Total CO2 26.6, ABG O2 Saturation 91, ABG Base Excess 0.9, Colin Test Acceptable 12/14/18 00:00: Urine Color Yellow, Urine Appearance Clear, Urine pH 5.5, Ur Specific [place] 1.010, Urine Protein Negative, Urine Glucose (UA) Negative, Urine Ketones Negative, Urine Blood Trace-i, Urine Nitrate Negative, Urine Bilirubin Negative, Urine Urobilinogen 0.2, Ur Leukocyte Esterase Negative, Urine RBC Occasional, Urine WBC 3-5, Urine Bacteria 1+, Hyaline Casts 3-5 I & O for Last 24 hours: Intake & Output 12/11/18 12/12/18 12/13/18 12/14/18 11:59 11:59 11:59 11:59 Intake Total 396 / 396 Output Total 600 / 600 Balance -204 / -204 Weight 154 lb 8.987 oz Narrative: Patient is resting comfortably. Physically she looks a little better and mucous membranes are not dry. Lungs have rhonchi bilaterally more audible today than yesterday. Right is louder than left. Heart rate is irregular. Abdomen is sof t. Swelling in the lower legs has improved slightly and there is less erythema. Patient has 2 superficial abrasions on the left [place] that were present on admission Assessment and Plan (1) Bilateral pneumonia Current visit: Yes Status: Acute Category: Medical Code(s): J18.9 - Pneumonia, unspecified organism (2) New onset atrial fibrillation Current visit: Yes Status: Acute Category: Medical Code(s): I48.91 - Unspecified atrial fibrillation (3) Asthma exacerbation Current visit: Yes Status: Acute Category: Medical Code(s): J45.901 - Unspecified asthma with (acute) exacerbation - Assessment and plan all Dx Assessment and Plan for all problems:: Continue current care. Echocardiogram is been ordered for this morning. Continue IV Lovenox. Oral Cardizem will be increased
--- NOTE | 2018-12-14 07:55 | Pharmacy Consult Notes ---
[facility] Pharmacy VTE Monitoring - Patient Demographics Admission date: 12/13/18 Report Date: 12/14/18 Time: 07:54 Allergies/Adverse Reactions: Patient Allergies Penicillins [PENICILLINS] Allergy (Severe, Verified 12/13/18 15:46) [id number]/THROAT codeine [CODEINE] Allergy (Unknown, Verified 10/09/18 19:43) NA-DIARRHEA Height: 1.65 m Weight: 70.108 kg Patient Problems: Current Active Problems Chronic anemia (Acute) Bilateral pneumonia (Acute) New onset atrial fibrillation (Acute) Asthma exacerbation (Acute) - VTE Risk Labs: VTE Related Lab Results Hgb 10.2 g/dL (12.2-16.2) L 12/13/18 15:49 Hct 33.3 % (37.0-47.0) L 12/13/18 15:49 Plt Count 370 K/mm3 (142-424) 12/13/18 15:49 BUN 28 mg/dL (7-18) H 12/13/18 15:49 Creatinine 1.47 mg/dL (0.55-1.02) H 12/13/18 15:49 Estimated Creat Clear 32 mL/min (50-200) 12/13/18 15:49 - Prophylaxis VTE Prophylaxis Ordered?: Yes Types of VTE Prophylaxis: Pharmacological Pharmacologic Type: Enoxaparin - VTE Diagnosis Confirmed Treatment or plan recommended: Continue Current Treatment
[2018-12-14 08:35] LABS: Hematocrit 31.7 % (37.0-47.0); Hemoglobin 9.9 g/dL (12.2-16.2); Lymphocytes # 0.5 K/mm3 (0.7-4.5); Lymphocytes % 7.5 % (10-50); Mean Corpuscular HGB Conc 31.2 g/dL (31.8-35.4); Mean Corpuscular Volume 89.3 fl (81-99); Mean Platelet Volume 7.4 fl (7.4-10.4); Monocytes # 0.2 K/mm3 (0.1-1.0); Monocytes % 3.5 % (1.7-9.3); Neutrophils # 5.6 K/mm3 (1.8-7.8); Neutrophils % 88.9 % (37.0-80.0); Platelet Count 339 K/mm3 (142-424); Red Blood Count 3.55 M/mm3 (4.20-5.40); Red Cell Distribution Width 14.3 % (11.5-17.5); White Blood Count 6.3 K/mm3 (4.8-10.8)
[2018-12-14 08:44] LABS: Anion Gap 12.6 mEq/L (5-15)
[2018-12-14 09:51] LABS: Hypochromasia 2+; Lymphocytes % 8 % (10-50); Monocytes % 1 % (2-9); Neutrophils % 84 % (42-76); Total Cells Counted 100
--- NOTE | 2018-12-14 17:09 | Electrocardiograph Report ---
APPROVED REPORT Exam: Resting ECG HR:101 bpm ECG Measurements Heart Rate 101 AXES QRSd 80 QRS 21 QT 374 T91 QTc 484 <Conclusion> Atrial fibrillation with rapid ventricular response with premature ventricular or aberrantly conducted complexes Nonspecific ST and T wave abnormality, probably digitalis effect Abnormal ECG Electronically signed by : Lev Quiroga, 12/14/2018 17:08:40
[2018-12-15 07:11] LABS: Hematocrit 31.8 % (37.0-47.0); Hemoglobin 9.8 g/dL (12.2-16.2); Lymphocytes # 0.4 K/mm3 (0.7-4.5); Lymphocytes % 4.7 % (10-50); Mean Corpuscular HGB Conc 30.7 g/dL (31.8-35.4); Mean Corpuscular Volume 89.1 fl (81-99); Mean Platelet Volume 7.4 fl (7.4-10.4); Monocytes # 0.4 K/mm3 (0.1-1.0); Monocytes % 4.7 % (1.7-9.3); Neutrophils # 8.5 K/mm3 (1.8-7.8); Neutrophils % 90.6 % (37.0-80.0); Platelet Count 402 K/mm3 (142-424); Red Blood Count 3.57 M/mm3 (4.20-5.40); Red Cell Distribution Width 14.3 % (11.5-17.5); White Blood Count 9.4 K/mm3 (4.8-10.8)
[2018-12-15 07:18] LABS: Anion Gap 11.2 mEq/L (5-15); Calcium 8.9 mg/dL (8.5-10.1)
--- NOTE | 2018-12-15 07:39 | Progress Note ---
Internal Medicine - PN: Subj *Date: 12/15/18 *Time: 07:36 Interval history: Patient did not sleep very well last night. Patient has still been unable to give a sputum sample. Exam Vital signs and Labs for Last 24 Hours: Temp Pulse Resp BP Pulse Ox 97.6 F 70 24 120/58 L 91 L 12/15/18 04:00 12/15/18 05:56 12/15/18 04:00 12/15/18 04:00 12/15/18 05:56 Laboratory Results - last 24 hr 12/14/18 08:20: WBC 6.3, RBC 3.55 L, Hgb 9.9 L, Hct 31.7 L, MCV 89.3, MCH 27.8, MCHC 31.2 L, RDW 14.3, Plt Count 339, MPV 7.4, Neut % (Auto) 88.9 H, Lymph % (Auto) 7.5 L, [place] % (Auto) 3.5, Eos % (Auto) 0.0 L, Baso % (Auto) 0.0 L, Neut # (Auto) 5.6, Lymph # (Auto) 0.5 L, [place] # (Auto) 0.2, Eos # (Auto) 0.0, Baso # (Auto) 0.0, Total Counted 100, Neutrophils % (Manual) 84 H, Band Neutrophils % 7.0, Lymphocytes % (Manual) 8 L, Monocytes % (Manual) 1 L, Platelet Estimate Normal, Hypochromasia 2+ 12/14/18 08:20: Sodium 141, Potassium 3.6, Chloride 104, Carbon Dioxide 28, Anion Gap 12.6, BUN 28 H, Creatinine 1.56 H, Estimated Creat Clear 30, Estimated GFR 32 L, Est GFR ( Amer) 38 L, Glucose 207 H D, Calcium 9.0 12/15/18 06:35: Sodium 141, Potassium 3.2 L, Chloride 105, Carbon Dioxide 28, Anion Gap 11.2, BUN 46 H D, Creatinine 2.01 H D, Estimated Creat Clear 23, Estimated GFR 24 L, Est GFR ( Amer) 29 L D, Glucose 239 H, Calcium 8.9 I & O for Last 24 hours: Intake & Output 12/12/18 12/13/18 12/14/18 12/15/18 11:59 11:59 11:59 11:59 Intake Total 516 / 516 581 / 581 Output Total 600 / 600 1100 / 1100 Balance -84 / -84 -519 / -519 Weight 154 lb 8.987 oz 154 lb 6 oz Narrative: She does not appear to be in any respiratory distress. Mucous membranes are dry again today which I believe is coming primarily from mouth breathing. Lungs have loud diffuse rhonchi on the right with audible rhonchi in the left base as well. Heart rate is irregularly irregular Assessment and Plan (1) Bilateral pneumonia Current visit: Yes Status: Acute Category: Medical Code(s): J18.9 - Pneumonia, unspecified organism (2) New onset atrial fibrillation Current visit: Yes Status: Acute Category: Medical Code(s): I48.91 - Unspecified atrial fibrillation (3) Asthma exacerbation Current visit: Yes Status: Acute Category: Medical Code(s): J45.901 - Unspecified asthma with (acute) exacerbation (4) Acute kidney injury (nontraumatic) Current visit: Yes Status: Acute Category: Medical Code(s): N17.9 - Acute kidney failure, unspecified - Assessment and plan all Dx Assessment and Plan for all problems:: 1. Restart IV fluids with D5 half-normal saline +20 mEq of potassium chloride. Repeat BMP in a.m. 2. DC Lovenox and start Xarelto 3. Patient be given Mucomyst nebs to try to produce a sputum. Also start incentive spirometry 4. Increase ambulation. DC [place] to allow for better movement.
[2018-12-15 11:19] LABS: Lymphocytes % 4 % (10-50); Monocytes % 3 % (2-9); Myelocytes % 1 (0-1); Neutrophils % 89 % (42-76); Total Cells Counted 100
[2018-12-15 11:20] LABS: Hypochromasia 2+
[2018-12-16 07:11] LABS: Anion Gap 12.5 mEq/L (5-15)
--- NOTE | 2018-12-16 07:22 | Progress Note ---
Internal Medicine - PN: Subj *Date: 12/16/18 *Time: 07:20 Interval history: Patient has no new complaints this morning. Patient reports she has still been unable to provide a sputum sample. Mucomyst breathing treatments did not aid with expectoration of sputum. Exam Vital signs and Labs for Last 24 Hours: Temp Pulse Resp BP Pulse Ox 97.9 F 82 24 149/72 H 91 L 12/16/18 03:50 12/16/18 06:19 12/16/18 03:50 12/16/18 03:50 12/16/18 06:19 Laboratory Results - last 24 hr 12/15/18 06:35: WBC 9.4 D, RBC 3.57 L, Hgb 9.8 L, Hct 31.8 L, MCV 89.1, MCH 27.4, MCHC 30.7 L, RDW 14.3, Plt Count 402, MPV 7.4, Neut % (Auto) 90.6 H, Lymph % (Auto) 4.7 L, [place] % (Auto) 4.7, Eos % (Auto) 0.0 L, Baso % (Auto) 0.0 L, Neut # (Auto) 8.5 H, Lymph # (Auto) 0.4 L, [place] # (Auto) 0.4, Eos # (Auto) 0.0, Baso # (Auto) 0.0, Total Counted 100, Neutrophils % (Manual) 89 H, Band Neutrophils % 1.0, Lymphocytes % (Manual) 4 L, Monocytes % (Manual) 3, Metamyelocytes % 2.0 H, Myelocytes % 1, Platelet Estimate Normal, Hypochromasia 2+ 12/15/18 06:35: Sodium 141, Potassium 3.2 L, Chloride 105, Carbon Dioxide 28, Anion Gap 11.2, BUN 46 H D, Creatinine 2.01 H D, Estimated Creat Clear 23, Estimated GFR 24 L, Est GFR ( Amer) 29 L D, Glucose 239 H, Calcium 8.9 12/16/18 06:22: Sodium 140, Potassium 3.5, Chloride 105, Carbon Dioxide 26, Anion Gap 12.5, BUN 47 H, Creatinine 2.01 H, Estimated Creat Clear 24, Estimated GFR 24 L, Est GFR ( Amer) 29 L, Glucose 279 H, Calcium 9.0 I & O for Last 24 hours: Intake & Output 08/19/19 08/20/19 08/21/19 08/22/19 11:59 11:59 11:59 11:59 Intake Total 516 / 516 821 / 821 1678 / 1678 Output Total 600 / 600 1100 / 1100 1500 / 1500 Balance -84 / -84 -279 / -279 178 / 178 Weight 154 lb 8.987 oz 154 lb 6 oz 155 lb 9 oz Microbiology Reports for the Last 24 Hours: Microbiology 12/13/18 16:30 Blood Blood Culture - Preliminary NO GROWTH AFTER 48 HOURS 12/13/18 15:49 Blood Blood Culture - Preliminary NO GROWTH AFTER 48 HOURS Narrative: She is resting comfortably and awakens easily. Her lung exam is unchanged with diffuse rhonchi bilaterally, right more prominent than left. Heart has an irregular rate and rhythm. Abdomen is soft. Extremities have no edema Assessment and Plan (1) Bilateral pneumonia Current visit: Yes Status: Acute Category: Medical Code(s): J18.9 - Pneumonia, unspecified organism (2) New onset atrial fibrillation Current visit: Yes Status: Acute Category: Medical Code(s): I48.91 - Unspecified atrial fibrillation (3) Asthma exacerbation Current visit: Yes Status: Acute Category: Medical Code(s): J45.901 - Unspecified asthma with (acute) exacerbation (4) Acute kidney injury (nontraumatic) Current visit: Yes Status: Acute Category: Medical Code(s): N17.9 - Acute kidney failure, unspecified - Assessment and plan all Dx Assessment and Plan for all problems:: 1. Repeat chest x-ray today as patient has clinically shown very little improvement 2. PT eval today 3. Continues to have spirometry 4. Care management consult to investigate whether patient has any available alf facility rehab days as she was recently discharged from [facility] after a stay there for a broken arm
[2018-12-16 08:14] LABS: Basophils % 0.1 % (0.1-2.0); Hematocrit 31.9 % (37.0-47.0); Hemoglobin 9.7 g/dL (12.2-16.2); Lymphocytes # 0.5 K/mm3 (0.7-4.5); Lymphocytes % 3.6 % (10-50); Mean Corpuscular HGB Conc 30.4 g/dL (31.8-35.4); Mean Platelet Volume 7.3 fl (7.4-10.4); Monocytes # 0.6 K/mm3 (0.1-1.0); Monocytes % 5.1 % (1.7-9.3); Neutrophils # 11.4 K/mm3 (1.8-7.8); Neutrophils % 91.1 % (37.0-80.0); Platelet Count 423 K/mm3 (142-424); Red Blood Count 3.58 M/mm3 (4.20-5.40); Red Cell Distribution Width 14.2 % (11.5-17.5); White Blood Count 12.5 K/mm3 (4.8-10.8)
--- NOTE | 2018-12-16 08:20 | Progress Note ---
Internal Medicine - PN: Subj *Date: 12/16/18 *Time: 08:19 Exam Vital signs and Labs for Last 24 Hours: Temp Pulse Resp BP Pulse Ox 97.9 F 82 24 149/72 H 91 L 12/16/18 03:50 12/16/18 06:19 12/16/18 03:50 12/16/18 03:50 12/16/18 06:19 Laboratory Results - last 24 hr 12/15/18 06:35: WBC 9.4 D, RBC 3.57 L, Hgb 9.8 L, Hct 31.8 L, MCV 89.1, MCH 27.4, MCHC 30.7 L, RDW 14.3, Plt Count 402, MPV 7.4, Neut % (Auto) 90.6 H, Lymph % (Auto) 4.7 L, [place] % (Auto) 4.7, Eos % (Auto) 0.0 L, Baso % (Auto) 0.0 L, Neut # (Auto) 8.5 H, Lymph # (Auto) 0.4 L, [place] # (Auto) 0.4, Eos # (Auto) 0.0, Baso # (Auto) 0.0, Total Counted 100, Neutrophils % (Manual) 89 H, Band Neutrophils % 1.0, Lymphocytes % (Manual) 4 L, Monocytes % (Manual) 3, Metamyelocytes % 2.0 H, Myelocytes % 1, Platelet Estimate Normal, Hypochromasia 2+ 12/16/18 06:22: Sodium 140, Potassium 3.5, Chloride 105, Carbon Dioxide 26, Anion Gap 12.5, BUN 47 H, Creatinine 2.01 H, Estimated Creat Clear 24, Estimated GFR 24 L, Est GFR ( Amer) 29 L, Glucose 279 H, Calcium 9.0 I & O for Last 24 hours: Intake & Output 12/13/18 12/14/18 12/15/18 12/16/18 23:59 23:59 23:59 23:59 Intake Total 396 / 396 581 / 581 840 / 960 1198 / 1198 Output Total 400 / 600 500 / 500 1100 / 1400 1200 / 1200 Balance -4 / -204 81 / 81 -260 / -440 -2 / -2 Weight 70.108 kg 70.108 kg 70.023 kg 70.562 kg Microbiology Reports for the Last 24 Hours: Microbiology 12/13/18 16:30 Blood Blood Culture - Preliminary NO GROWTH AFTER 48 HOURS 12/13/18 15:49 Blood Blood Culture - Preliminary NO GROWTH AFTER 48 HOURS Assessment and Plan (1) Bilateral pneumonia Current visit: Yes Status: Acute Category: Medical Code(s): J18.9 - Pneumonia, unspecified organism (2) New onset atrial fibrillation Current visit: Yes Status: Acute Category: Medical Code(s): I48.91 - Unspecified atrial fibrillation (3) Asthma exacerbation Current visit: Yes Status: Acute Category: Medical Code(s): J45.901 - Unspecified asthma with (acute) exacerbation (4) Acute kidney injury (nontraumatic) Current visit: Yes Status: Acute Category: Medical Code(s): N17.9 - Acute kidney failure, unspecified The patient's infection will respond to the chosen ABx?: Yes Is the patient receiving the right drug, dose, and route?: Yes Could a more targeted ABx be ordered?: No (AFEBRILE, NO GROWTH IN BLOOD CULTURES)
[2018-12-16 09:21] LABS: Lymphocytes % 5 % (10-50); Monocytes % 5 % (2-9); Neutrophils % 86 % (42-76); Total Cells Counted 100
--- NOTE | 2018-12-16 16:03 | Cardiology Report ---
[facility] RADIOLOGICAL CONSULTATION Patient Name : GUANAKITO OLIVA X-RAY # : [id number] Physician: JASEN GAUTAM AGE: 82Y : 1935 00:00:00 ( F ) Exam : CA ECHO DOPPLER COMPLETE ACC # : [id number] Study Date : 12/14/2018 07:02:48 Patient Class : I FINAL REPORT CLINICAL DATA: FINDINGS: IMPRESSION: Dictated by Kandy Dervies at 12/15/2018 12:43:58 PM Transcribed by at
[2018-12-17 05:32] LABS: Basophils % 0.2 % (0.1-2.0); Hematocrit 33.4 % (37.0-47.0); Hemoglobin 9.9 g/dL (12.2-16.2); Lymphocytes # 0.5 K/mm3 (0.7-4.5); Lymphocytes % 4.1 % (10-50); Mean Corpuscular HGB Conc 29.7 g/dL (31.8-35.4); Mean Platelet Volume 7.3 fl (7.4-10.4); Monocytes # 0.8 K/mm3 (0.1-1.0); Neutrophils # 11.5 K/mm3 (1.8-7.8); Neutrophils % 89.7 % (37.0-80.0); Platelet Count 391 K/mm3 (142-424); Red Blood Count 3.75 M/mm3 (4.20-5.40); Red Cell Distribution Width 14.3 % (11.5-17.5); White Blood Count 12.9 K/mm3 (4.8-10.8)
--- NOTE | 2018-12-17 07:08 | Progress Note ---
Internal Medicine - PN: Subj *Date: 12/17/18 *Time: 07:06 Interval history: Patient has no complaints this morning. Blood sugars have risen due to a combination of her IV fluids and steroids. She is now on medium intensity sliding scale. Nursing staff reports patient is eating well. Patient continues to cough but cough remains nonproductive Exam Vital signs and Labs for Last 24 Hours: Temp Pulse Resp BP Pulse Ox 97.5 F L 95 H 28 H 140/92 H 95 12/17/18 04:00 12/17/18 06:33 12/17/18 04:00 12/17/18 04:00 12/17/18 06:33 Laboratory Results - last 24 hr 12/16/18 06:22: WBC 12.5 H D, RBC 3.58 L, Hgb 9.7 L, Hct 31.9 L, MCV 89.0, MCH 27.1, MCHC 30.4 L, RDW 14.2, Plt Count 423, MPV 7.3 L, Neut % (Auto) 91.1 H, Lymph % (Auto) 3.6 L, [place] % (Auto) 5.1, Eos % (Auto) 0.0 L, Baso % (Auto) 0.1, Neut # (Auto) 11.4 H, Lymph # (Auto) 0.5 L, [place] # (Auto) 0.6, Eos # (Auto) 0.0, Baso # (Auto) 0.0, Total Counted 100, Neutrophils % (Manual) 86 H, Band Neutrophils % 2.0, Lymphocytes % (Manual) 5 L, Monocytes % (Manual) 5, Metamyelocytes % 2.0 H, Platelet Estimate Normal 12/16/18 06:22: Sodium 140, Potassium 3.5, Chloride 105, Carbon Dioxide 26, Anion Gap 12.5, BUN 47 H, Creatinine 2.01 H, Estimated Creat Clear 24, Estimated GFR 24 L, Est GFR ( Amer) 29 L, Glucose 279 H, Calcium 9.0 12/16/18 16:14: POC Glucose 378 H* 12/16/18 20:40: POC Glucose 417 H* 12/17/18 05:24: WBC 12.9 H, RBC 3.75 L, Hgb 9.9 L, Hct 33.4 L, MCV 89.0, MCH 26.4 L, MCHC 29.7 L, RDW 14.3, Plt Count 391, MPV 7.3 L, Neut % (Auto) 89.7 H, Lymph % (Auto) 4.1 L, [place] % (Auto) 6.0, Eos % (Auto) 0.0 L, Baso % (Auto) 0.2, Neut # (Auto) 11.5 H, Lymph # (Auto) 0.5 L, [place] # (Auto) 0.8, Eos # (Auto) 0.0, Baso # (Auto) 0.0 12/17/18 05:24: Sodium 137, Potassium 4.0, Chloride 105, Carbon Dioxide 25, Anion Gap 11.0, BUN 43 H, Creatinine 2.00 H, Estimated Creat Clear 24, Estimated GFR 24 L, Est GFR ( Amer) 29 L, Glucose 259 H, Calcium 9.0 12/17/18 06:19: POC Glucose 250 H I & O for Last 24 hours: Intake & Output 12/14/18 12/15/18 12/16/18 12/17/18 11:59 11:59 11:59 11:59 Intake Total 516 / 516 821 / 821 1918 / 1918 1810 / 1810 Output Total 600 / 600 1100 / 1100 1500 / 1500 700 / 700 Balance -84 / -84 -279 / -279 418 / 418 1110 / 1110 Weight 154 lb 8.987 oz 154 lb 6 oz 155 lb 9 oz 159 lb 6 oz Narrative: Patient appears comfortable laying in bed. She awakens easily. She is conversant. Lungs continue to have bilateral rhonchi. Rhonchi are not as loose today. Heart has an irregular rate and rhythm. Assessment and Plan (1) Bilateral pneumonia Current visit: Yes Status: Acute Category: Medical Code(s): J18.9 - Pneumonia, unspecified organism (2) New onset atrial fibrillation Current visit: Yes Status: Acute Category: Medical Code(s): I48.91 - Unspecified atrial fibrillation (3) Asthma exacerbation Current visit: Yes Status: Acute Category: Medical Code(s): J45.901 - Unspecified asthma with (acute) exacerbation (4) Acute kidney injury (nontraumatic) Current visit: Yes Status: Acute Category: Medical Code(s): N17.9 - Acute kidney failure, unspecified - Assessment and plan all Dx Assessment and Plan for all problems:: 1. Discontinue D5 half-normal saline with potassium 2. Continue sliding scale insulin 3. Due to mild elevation in white blood cell count that I do not think can be wholly attributed to her steroids of going to change antibiotics to cefepime and Levaquin for broader coverage. 4. Continue oral Cardizem and Xarelto for patient's atrial fibrillation
[2018-12-17 08:17] LABS: Hypochromasia 1+; Lymphocytes % 3 % (10-50); Monocytes % 3 % (2-9); Neutrophils % 94 % (42-76); Total Cells Counted 100
[2018-12-18 07:38] LABS: Basophils % 0.2 % (0.1-2.0); Hematocrit 34.5 % (37.0-47.0); Hemoglobin 10.1 g/dL (12.2-16.2); Lymphocytes # 0.6 K/mm3 (0.7-4.5); Lymphocytes % 4.2 % (10-50); Mean Corpuscular HGB Conc 29.3 g/dL (31.8-35.4); Mean Corpuscular Volume 90.4 fl (81-99); Mean Platelet Volume 7.1 fl (7.4-10.4); Monocytes # 0.6 K/mm3 (0.1-1.0); Monocytes % 4.1 % (1.7-9.3); Neutrophils % 91.6 % (37.0-80.0); Platelet Count 432 K/mm3 (142-424); Red Blood Count 3.81 M/mm3 (4.20-5.40); Red Cell Distribution Width 14.4 % (11.5-17.5); White Blood Count 15.3 K/mm3 (4.8-10.8)
[2018-12-18 07:53] LABS: Calcium 9.1 mg/dL (8.5-10.1)
[2018-12-18 08:04] LABS: Lymphocytes % 9 % (10-50); Monocytes % 3 % (2-9); Neutrophils % 88 % (42-76); RBC Morphology Normal; Total Cells Counted 100
--- NOTE | 2018-12-18 08:10 | Progress Note ---
Internal Medicine - PN: Subj *Date: 12/18/18 *Time: 08:08 Interval history: Patient had a fairly restful night. Continues to cough without much sputum production. Nurses report that she is been somewhat constipated. Exam Vital signs and Labs for Last 24 Hours: Temp Pulse Resp BP Pulse Ox 97.6 F 108 H 22 148/88 H 97 12/18/18 04:00 12/18/18 06:31 12/18/18 04:00 12/18/18 04:00 12/18/18 06:31 Laboratory Results - last 24 hr 12/17/18 05:24: Total Counted 100, Neutrophils % (Manual) 94 H, Lymphocytes % (Manual) 3 L, Monocytes % (Manual) 3, Platelet Estimate Normal, Hypochromasia 1+ 12/17/18 11:00: POC Glucose 372 H* 12/17/18 16:28: POC Glucose 290 H 12/17/18 20:03: POC Glucose 243 H 12/18/18 06:12: POC Glucose 268 H 12/18/18 06:40: WBC 15.3 H, RBC 3.81 L, Hgb 10.1 L, Hct 34.5 L, MCV 90.4, MCH 26.5 L, MCHC 29.3 L, RDW 14.4, Plt Count 432 H, MPV 7.1 L, Neut % (Auto) 91.6 H, Lymph % (Auto) 4.2 L, [place] % (Auto) 4.1, Eos % (Auto) 0.0 L, Baso % (Auto) 0.2, Neut # (Auto) 14.0 H, Lymph # (Auto) 0.6 L, [place] # (Auto) 0.6, Eos # (Auto) 0.0, Baso # (Auto) 0.0, Total Counted 100, Neutrophils % (Manual) 88 H, Lymphocytes % (Manual) 9 L, Monocytes % (Manual) 3, Platelet Estimate Normal, RBC Morphology Normal 12/18/18 06:40: Sodium 140, Potassium 4.0, Chloride 106, Carbon Dioxide 25, Anion Gap 13.0, BUN 41 H, Creatinine 1.93 H, Estimated Creat Clear 26, Estimated GFR 25 L, Est GFR ( Amer) 30 L, Glucose 283 H, Calcium 9.1 I & O for Last 24 hours: Intake & Output 12/15/18 12/16/18 12/17/18 12/18/18 11:59 11:59 11:59 11:59 Intake Total 821 / 821 1918 / 1918 2170 / 2170 580 / 580 Output Total 1100 / 1100 1500 / 1500 700 / 700 1600 / 1600 Balance -279 / -279 418 / 418 1470 / 1470 -1020 / -1020 Weight 154 lb 6 oz 155 lb 9 oz 159 lb 6 oz 162 lb Narrative: Patient is awake, eating breakfast, pleasant. Audible rhonchi. Lungs have rhonchi and some crackles in both bases. However air movement is good. Heart rate regular. Abdomen soft nontender. Neurologically she is intact. No perfusion deficits. No edema noted. Oropharynx clear. Assessment and Plan (1) Bilateral pneumonia Current visit: Yes Status: Acute Category: Medical Code(s): J18.9 - Pneumonia, unspecified organism (2) New onset atrial fibrillation Current visit: Yes Status: Acute Category: Medical Code(s): I48.91 - Unspecified atrial fibrillation (3) Asthma exacerbation Current visit: Yes Status: Acute Category: Medical Code(s): J45.901 - Unspecified asthma with (acute) exacerbation (4) Acute kidney injury (nontraumatic) Current visit: Yes Status: Acute Category: Medical Code(s): N17.9 - Acute kidney failure, unspecified - Assessment and plan all Dx Assessment and Plan for all problems:: Lacks for mild constipation. Mucomyst to try to mobilize secretions. Kidney injury improving. Will follow in the next 48 hours. Blood counts also improving with essentially stable white count
[2018-12-19 07:04] LABS: Basophils % 0.1 % (0.1-2.0); Hematocrit 33.6 % (37.0-47.0); Lymphocytes # 0.4 K/mm3 (0.7-4.5); Lymphocytes % 2.8 % (10-50); Mean Corpuscular HGB Conc 29.8 g/dL (31.8-35.4); Mean Corpuscular Volume 89.2 fl (81-99); Mean Platelet Volume 7.2 fl (7.4-10.4); Monocytes # 0.5 K/mm3 (0.1-1.0); Monocytes % 3.3 % (1.7-9.3); Neutrophils # 14.7 K/mm3 (1.8-7.8); Neutrophils % 93.8 % (37.0-80.0); Platelet Count 407 K/mm3 (142-424); Red Blood Count 3.76 M/mm3 (4.20-5.40); Red Cell Distribution Width 14.4 % (11.5-17.5); White Blood Count 15.7 K/mm3 (4.8-10.8)
[2018-12-19 07:14] LABS: Anion Gap 11.5 mEq/L (5-15); Calcium 8.9 mg/dL (8.5-10.1)
[2018-12-19 07:23] LABS: Hypochromasia 1+; Lymphocytes % 6 % (10-50); Monocytes % 1 % (2-9); Neutrophils % 86 % (42-76); Total Cells Counted 100
--- NOTE | 2018-12-19 08:29 | Progress Note ---
Internal Medicine - PN: Subj *Date: 12/19/18 *Time: 08:28 Interval history: Patient is up in a chair eating breakfast. States that Mucomyst has helped her a little bit but she has not been able to produce sputum. Exam Vital signs and Labs for Last 24 Hours: Temp Pulse Resp BP Pulse Ox 97.5 F L 96 H 24 153/87 H 97 12/19/18 04:00 12/19/18 06:58 12/19/18 04:00 12/19/18 04:00 12/19/18 06:58 Laboratory Results - last 24 hr 12/18/18 11:08: POC Glucose 255 H 12/18/18 16:35: POC Glucose 265 H 12/18/18 20:56: POC Glucose 265 H 12/19/18 06:25: WBC 15.7 H, RBC 3.76 L, Hgb 10.0 L, Hct 33.6 L, MCV 89.2, MCH 26.6 L, MCHC 29.8 L, RDW 14.4, Plt Count 407, MPV 7.2 L, Neut % (Auto) 93.8 H, Lymph % (Auto) 2.8 L, [place] % (Auto) 3.3, Eos % (Auto) 0.0 L, Baso % (Auto) 0.1, Neut # (Auto) 14.7 H, Lymph # (Auto) 0.4 L, [place] # (Auto) 0.5, Eos # (Auto) 0.0, Baso # (Auto) 0.0, Total Counted 100, Neutrophils % (Manual) 86 H, Band Neutrophils % 7.0, Lymphocytes % (Manual) 6 L, Monocytes % (Manual) 1 L, Platelet Estimate Normal, Hypochromasia 1+, Poikilocytosis 1+ 12/19/18 06:25: Sodium 141, Potassium 4.5, Chloride 106, Carbon Dioxide 28, Anion Gap 11.5, BUN 39 H, Creatinine 1.77 H, Estimated Creat Clear 28, Estimated GFR 27 L, Est GFR ( Amer) 33 L, Glucose 253 H, Calcium 8.9 I & O for Last 24 hours: Intake & Output 12/16/18 12/17/18 12/18/18 12/19/18 11:59 11:59 11:59 11:59 Intake Total 1918 / 1918 2170 / 2170 760 / 760 646 / 646 Output Total 1500 / 1500 700 / 700 1600 / 1600 400 / 400 Balance 418 / 418 1470 / 1470 -840 / -840 246 / 246 Weight 155 lb 9 oz 159 lb 6 oz 162 lb 161 lb 6 oz Microbiology Reports for the Last 24 Hours: Microbiology 12/13/18 16:30 Blood Blood Culture - Final NO GROWTH AFTER 5 DAYS 12/13/18 15:49 Blood Blood Culture - Final NO GROWTH AFTER 5 DAYS Narrative: Up in a chair, oriented. Talkative. Oropharynx clear. Heart rate regular. Lungs have loose rhonchi, slightly better air entry. No edema or clubbing. Abdomen soft and nontender. Assessment and Plan (1) Bilateral pneumonia Current visit: Yes Status: Acute Category: Medical Code(s): J18.9 - Pneumonia, unspecified organism (2) New onset atrial fibrillation Current visit: Yes Status: Acute Category: Medical Code(s): I48.91 - Unspecified atrial fibrillation (3) Asthma exacerbation Current visit: Yes Status: Acute Category: Medical Code(s): J45.901 - Unspecified asthma with (acute) exacerbation (4) Acute kidney injury (nontraumatic) Current visit: Yes Status: Acute Category: Medical Code(s): N17.9 - Acute kidney failure, unspecified - Assessment and plan all Dx Assessment and Plan for all problems:: Labs improving this morning. Continue current plan. Discussed increasing mobilization and using incentive spirometry.
[2018-12-20 06:34] LABS: Anion Gap 9.5 mEq/L (5-15); Calcium 8.7 mg/dL (8.5-10.1)
--- NOTE | 2018-12-20 07:00 | Progress Note ---
Internal Medicine - PN: Subj *Date: 12/20/18 *Time: 06:58 Interval history: Patient tells me she feels "about the same". Her cough remains nonproductive. She denies chest pain Exam Vital signs and Labs for Last 24 Hours: Temp Pulse Resp BP Pulse Ox 97.6 F 98 H 20 150/82 H 98 12/20/18 04:00 12/20/18 06:38 12/20/18 04:00 12/20/18 04:00 12/20/18 06:38 Laboratory Results - last 24 hr 12/19/18 06:25: WBC 15.7 H, RBC 3.76 L, Hgb 10.0 L, Hct 33.6 L, MCV 89.2, MCH 26.6 L, MCHC 29.8 L, RDW 14.4, Plt Count 407, MPV 7.2 L, Neut % (Auto) 93.8 H, Lymph % (Auto) 2.8 L, [place] % (Auto) 3.3, Eos % (Auto) 0.0 L, Baso % (Auto) 0.1, Neut # (Auto) 14.7 H, Lymph # (Auto) 0.4 L, [place] # (Auto) 0.5, Eos # (Auto) 0.0, Baso # (Auto) 0.0, Total Counted 100, Neutrophils % (Manual) 86 H, Band Neutrophils % 7.0, Lymphocytes % (Manual) 6 L, Monocytes % (Manual) 1 L, Plat elet Estimate Normal, Hypochromasia 1+, Poikilocytosis 1+ 12/19/18 06:25: Sodium 141, Potassium 4.5, Chloride 106, Carbon Dioxide 28, Anion Gap 11.5, BUN 39 H, Creatinine 1.77 H, Estimated Creat Clear 28, Estimated GFR 27 L, Est GFR ( Amer) 33 L, Glucose 253 H, Calcium 8.9 12/19/18 06:32: POC Glucose 255 H 12/19/18 11:16: POC Glucose 265 H 12/19/18 16:28: POC Glucose 260 H 12/20/18 05:45: Sodium 139, Potassium 4.5, Chloride 106, Carbon Dioxide 28, Anion Gap 9.5, BUN 38 H, Creatinine 1.56 H, Estimated Creat Clear 32, Estimated GFR 32 L, Est GFR ( Amer) 38 L, Glucose 261 H, Calcium 8.7 I & O for Last 24 hours: Intake & Output 12/17/18 12/18/18 12/19/18 12/20/18 11:59 11:59 11:59 11:59 Intake Total 2320 / 2320 760 / 760 1006 / 1006 511 / 511 Output Total 700 / 700 1600 / 1600 800 / 800 900 / 900 Balance 1620 / 1620 -840 / -840 206 / 206 -389 / -389 Weight 159 lb 6 oz 162 lb 161 lb 6 oz 165 lb 6 oz Narrative: Patient looks comfortable and is in no respiratory distress. Lungs have dry rhonchi that have decreased in intensity. Left is more prominent than right. There is expiratory wheezing. Heart has a regular rate and rhythm. Assessment and Plan (1) Bilateral pneumonia Current visit: Yes Status: Acute Category: Medical Code(s): J18.9 - Pneumonia, unspecified organism (2) New onset atrial fibrillation Current visit: Yes Status: Acute Category: Medical Code(s): I48.91 - Unspecified atrial fibrillation (3) Asthma exacerbation Current visit: Yes Status: Acute Category: Medical Code(s): J45.901 - Unspecified asthma with (acute) exacerbation (4) Acute kidney injury (nontraumatic) Current visit: Yes Status: Acute Category: Medical Code(s): N17.9 - Acute kidney failure, unspecified - Assessment and plan all Dx Assessment and Plan for all problems:: 1. Patient will be discharged to [facility] today to complete a course of rehab 2. Finish steroid taper as well as antibiotics
--- NOTE | 2018-12-20 07:03 | Discharge Summary ---
General - General Admission date:: 12/13/18 Discharge date: 12/20/18 HPI HPI: 82-year-old female seen in the office on December 10 with complaint of shortness of breath. Patient has long history of moderate to severe asthma for which she previously was also receiving allergy immunotherapy to help keep under control. At that visit patient reported cough and wheezing and cough was nonproductive. She was started on steroids and patient return to the office today when her called stating she was worse. Patient now had shortness of breath along with worsening wheezing. Cough remains nonproductive. She reported subjective chills and fevers. In the office patient appeared dehydrated and in mild distress with O2 sat of 84% on room air. Lung exam was abnormal and wheezing had improved but patient now had rhonchi on the right. Decision was made to admit the patient for higher hypoxia with a diagnosis of asthma exacerbation that did not respond to treatment with right lung pneumonia. Since admission patient has had a chest x-ray that shows bilateral pneumonia along with pleural effusion. Patient is been admitted and placed on oxygen via nasal cannula. Hospital Course Hospital Course: Patient was admitted with suspected pneumonia and asthma exacerbation. Chest x- ray confirmed the presence of bilateral pneumonia. Regarding patient's pneumonia she was placed on supplemental oxygen which improved her overall mentation, appearance, breathlessness. She was maintained on supplemental oxygen during the rest of hospitalization. She will need to continue supplemental oxygen at discharge. Bilateral pneumonia was treated as a community-acquired pneumonia with Rocephin and azithromycin. Antibiotics were changed midway through patient's hospitalization due to a gradually rising white count. Patient was changed to cefepime and Levaquin. Lung exam actually developed loose rhonchi which the patient was not able to clear and so a sputum culture was never collected. Wheezing was treated with duo nebs and as needed Xopenex nebs. Patient was started on Solu-Medrol 60 mg every 8 hours. [place] through admission weaning of steroids began. Patient was transitioned to oral steroids at discharge. On the day of discharge patient had better air entry with decreased intensity of rhonchi. Faint expiratory wheezing was heard intermittently. Patient was quite weak from her illness. Physical therapy eval confirmed patient's need for assistance. [facility] facility for rehab was felt best. Precertification was obtained. On admission patient's pulse was noted to be irregular and EKG confirmed atrial fibrillation which was a new diagnosis. Echocardiogram was performed which revealed a normal ejection fraction. Patient was started on Lovenox subcutaneously and this was transitioned to Xarelto. To keep atrial fibrillation under control patient was placed on Cardizem orally. This kept Patient's pulse under 100. During hospitalization patient's creatinine gradually erika to a high of 2.1 and then decrease to patient's baseline of around 1.5 Jack developed hyperglycemia while on steroids and Medium intensity SSI was started and will need to be continued until jack has completed steroid taper On December 20 patient was discharged to [facility] Re[facility] potential: Good Prognosis: Good Mental status: Average Objective Vital signs: Temp Pulse Resp BP Pulse Ox 97.6 F 98 H 20 150/82 H 98 12/20/18 04:00 12/20/18 06:38 12/20/18 04:00 12/20/18 04:00 12/20/18 06:38 Results Labs on day of discharge: Labs from last 24 hours 12/20/18 12/19/18 12/19/18 05:45 16:28 11:16 WBC RBC Hgb Hct MCV MCH MCHC RDW Plt Count MPV Neut % (Auto) Lymph % (Auto) [place] % (Auto) Eos % (Auto) Baso % (Auto) Neut # (Auto) Lymph # (Auto) [place] # (Auto) Eos # (Auto) Baso # (Auto) Total Counted Neutrophils % (Manual) Band Neutrophils % Lymphocytes % (Manual) Monocytes % (Manual) Platelet Estimate Hypochromasia Poikilocytosis Sodium 139 Potassium 4.5 Chloride 106 Carbon Dioxide 28 Anion Gap 9.5 BUN 38 H Creatinine 1.56 H Estimated Creat Clear 32 Estimated GFR 32 L Est GFR ( Amer) 38 L Glucose 261 H POC Glucose 260 H 265 H Calcium 8.7 12/19/18 12/19/18 12/19/18 06:32 06:25 06:25 WBC 15.7 H RBC 3.76 L Hgb 10.0 L Hct 33.6 L MCV 89.2 MCH 26.6 L MCHC 29.8 L RDW 14.4 Plt Count 407 MPV 7.2 L Neut % (Auto) 93.8 H Lymph % (Auto) 2.8 L [place] % (Auto) 3.3 Eos % (Auto) 0.0 L Baso % (Auto) 0.1 Neut # (Auto) 14.7 H Lymph # (Auto) 0.4 L [place] # (Auto) 0.5 Eos # (Auto) 0.0 Baso # (Auto) 0.0 Total Counted 100 Neutrophils % (Manual) 86 H Band Neutrophils % 7.0 Lymphocytes % (Manual) 6 L Monocytes % (Manual) 1 L Platelet Estimate Normal Hypochromasia 1+ Poikilocytosis 1+ Sodium 141 Potassium 4.5 Chloride 106 Carbon Dioxide 28 Anion Gap 11.5 BUN 39 H Creatinine 1.77 H Estimated Creat Clear 28 Estimated GFR 27 L Est GFR ( Amer) 33 L Glucose 253 H POC Glucose 255 H Calcium 8.9 DS: Diagnosis - Discharge Diagnosis (1) Bilateral pneumonia Status: Acute (2) New onset atrial fibrillation Status: Acute (3) Asthma exacerbation Status: Acute (4) Acute kidney injury (nontraumatic) Status: Acute Discharge Plan - Patient Discharge Instructions ACTIVITY: Continue current activity DIET: continue same diet Patient Instructions: Atrial Fibrillation, DI for Pneumonia -- Adult, DI for Atrial Fibrillation - Follow up Plan Follow up with: Danny Cano MD [Primary Care Provider] - 1 month Disposition: Xfer [facility] Home Medications: Home Medications Medication Instructions Recorded Confirmed Type Atorvastatin Calcium [Atorvastatin 40 mg PO HS 10/09/18 12/13/18 History 40mg Tab] Foreign Cit/D3/K/Mag Ox/Stron/Bor 1 each PO DAILY 10/09/18 12/13/18 History [Prosteon Tablet] Cetirizine HCl [24Hour Allergy] 10 mg PO DAILY 10/09/18 12/13/18 History Cranberry Fruit Extract [Cranberry] 250 mg PO DAILY 10/09/18 12/13/18 History Fluoxetine HCl [Prozac] 40 mg PO DAILY 10/09/18 12/13/18 History Montelukast Sodium 5 mg PO HS 10/09/18 12/13/18 History Omeprazole [Omeprazole 20mg 20 mg PO DAILY 10/09/18 12/13/18 History Capsule] Fluticasone Propionate [Flonase 1 spr NS DAILY 12/13/18 12/13/18 History 50mcg nasal spray 16gm] Fluticasone/Salmeterol [Advair 1 inh IH BID 12/13/18 12/13/18 History 250/50mcg Diskus] Tiotropium [place] [Spiriva 2 puff IH DAILY 12/13/18 12/13/18 History 18mcg/puff inhaler] Albuterol Sulfate [Albuterol HFA 2 puff IH Q4HP PRN 12/14/18 12/14/18 History Inhaler] Lisinopril [Lisinopril 5mg 5 mg PO DAILY 12/14/18 12/14/18 History Tablet] Insulin Lispro [HumaLOG 100 0 unit SQ ACHS ml 12/20/18 Rx units/mL 3mL vial (SSI)] Rivaroxaban [Xarelto 15mg tablet] 15 mg PO QPMWM #30 tab 12/20/18 Rx dilTIAZem HCl [Cardizem ER 240mg 240 mg PO DAILY #30 cap.er.24h 12/20/18 Rx Capsule] levoFLOXacin [Levofloxacin 750MG 750 mg PO QODHS #5 tab 12/20/18 Rx Tablet] predniSONE [Deltasone 10mg tablet] 10 mg PO DIRECTED #21 tab 12/20/18 Rx Prescriptions/Medication Reconciliation: New dilTIAZem HCl [Cardizem ER 240mg Capsule] 240 mg PO DAILY #30 cap.er.24h predniSONE [Deltasone 10mg tablet] 10 mg PO DIRECTED #21 tab levoFLOXacin [Levofloxacin 750MG Tablet] 750 mg PO QODHS #5 tab Rivaroxaban [Xarelto 15mg tablet] 15 mg PO QPMWM #30 tab Insulin Lispro [HumaLOG 100 units/mL 3mL vial (SSI)] 0 unit SQ ACHS ml Continued Omeprazole [Omeprazole 20mg Capsule] 20 mg PO DAILY Montelukast Sodium 5 mg PO HS Fluoxetine HCl [Prozac] 40 mg PO DAILY Cetirizine HCl [24Hour Allergy] 10 mg PO DAILY Cranberry Fruit Extract [Cranberry] 250 mg PO DAILY Fluticasone/Salmeterol [Advair 250/50mcg Diskus] 1 inh IH BID Fluticasone Propionate [Flonase 50mcg nasal spray 16gm] 1 spr NS DAILY Albuterol Sulfate [Albuterol HFA Inhaler] 2 puff IH Q4HP PRN PRN Reason: SHORTNESS OF BREATH Atorvastatin Calcium [Atorvastatin 40mg Tab] 40 mg PO HS Foreign Cit/D3/K/Mag Ox/Stron/Bor [Prosteon Tablet] 1 each PO DAILY Tiotropium [place] [Spiriva 18mcg/puff inhaler] 2 puff IH DAILY Lisinopril [Lisinopril 5mg Tablet] 5 mg PO DAILY Discontinued NIFEdipine [Procardia Xl] 30 mg PO DAILY - Problem Reconciliation Problems Reviewed?: Yes
== END 2018-12-20 10:47 | DRG 202 ==
LOC: RAD 13:36 → 2ND 13:36 → OBSVTOIN 14:34 → 2ND 14:54
PROVIDERS: ADMIT Family Medicine; ATTEND Family Medicine
CPT/HCPCS: 36415; 71020; 71046; 80048; 81001; 82803; 82962; 83605; 83880; 84484; 85007; 85025; 86738; 87040; 93005; 93306; 94640; 94761; 97110; 97116; 97162; J0456; J1956

== ENCOUNTER 2019-01-04 11:55 | Observation (INO) ==
[2019-01-04 12:23] LABS: Basophils % 0.2 % (0.1-2.0); Eosinophils # 0.1 K/mm3 (0.0-0.4); Eosinophils % 1.3 % (0.1-12.0); Lymphocytes # 0.8 K/mm3 (0.7-4.5); Lymphocytes % 15.3 % (10-50); Mean Corpuscular Volume 87.9 fl (81-99); Mean Platelet Volume 7.4 fl (7.4-10.4); Monocytes # 0.2 K/mm3 (0.1-1.0); Monocytes % 4.3 % (1.7-9.3); Neutrophils # 4.2 K/mm3 (1.8-7.8); Platelet Count 247 K/mm3 (142-424); Red Cell Distribution Width 17.6 % (11.5-17.5); White Blood Count 5.3 K/mm3 (4.8-10.8)
[2019-01-04 12:28] LABS: Hemoglobin 7.1 g/dL (12.2-16.2)
[2019-01-04 12:29] LABS: Hematocrit 22.9 % (37.0-47.0)
[2019-01-04 12:35] LABS: Albumin Level 2.2 gm/dL (3.4-5.0); Albumin/Globulin Ratio 0.5 (1.1-1.8); Bilirubin,Total 0.6 mg/dL (0.2-1.0); Calcium 8.5 mg/dL (8.5-10.1); Globulin 4.1 gm/dl (1.3-3.2); Total Protein,Serum 6.3 gm/dL (6.4-8.2)
--- NOTE | 2019-01-04 12:39 | Emergency Department Note ---
ED Disposition Clinical Impression: Blood loss anemia, Lower GI bleed Disposition: Admitted As Inpatient Condition on Discharge: Fair - Critical Care Critical Care Time: No Attestation: On , the high probability of a clinically significant, sudden or life threatening deterioration of the following system(s) required my full and direct attention, intervention and personal management. The time I documented below is in addition to time spent performing reported procedures but includes the following listed in this critical care notation. Medical Decision Making - Ed Inquiry Pt receiving controlled substance: No Vital Signs: 01/04/19 11:39 01/04/19 11:50 01/04/19 14:12 Temperature 97.9 F Temperature Source Oral Pulse Rate [Right Radial] 70 67 71 Respiratory Rate 20 Blood Pressure [Right Arm] 134/58 L 134/58 L 116/47 L Blood Pressure Mean [Right Arm] 83 83 70 Blood Pressure Source [Right Arm] Automatic Cuff Automatic Cuff Automatic Cuff Blood Pressure Position [Right Arm] Sitting Sitting Supine 02 Sat by Pulse Oximetry 98 98 96 Oxygen Delivery Method Nasal Cannula Room Air Nasal Cannula Oxygen Flow Rate (LPM) 2 2 - Lab Data Lab Results 01/04/19 12:05: WBC 5.3, RBC 2.60 L, Hgb 7.1 L*, Hct 22.9 L*, MCV 87.9, MCH 27.2, MCHC 31.0 L, RDW 17.6 H, Plt Count 247, MPV 7.4, Neut % (Auto) 79.0, Lymph % (Auto) 15.3, [place] % (Auto) 4.3, Eos % (Auto) 1.3, Baso % (Auto) 0.2, Neut # (Auto) 4.2, Lymph # (Auto) 0.8, [place] # (Auto) 0.2, Eos # (Auto) 0.1, Baso # (Auto) 0.0 01/04/19 12:05: Sodium 136, Potassium 5.0, Chloride 100, Carbon Dioxide 29, Anion Gap 12.0, BUN 64 H, Creatinine 2.35 H, Estimated Creat Clear 27, Estimated GFR 20 L, Est GFR ( Amer) 24 L, Glucose 201 H, Calcium 8.5, Total Bilirubin 0.6, AST 20, ALT 28, Alkaline Phosphatase 87, Total Protein 6.3 L, Albumin 2.2 L, Globulin 4.1 H, Albumin/Globulin Ratio 0.5 L 01/04/19 12:05: Troponin I < 0.02 01/04/19 12:45: Stool Occult Blood Positive A Result diagrams: 01/04/19 12:05 01/04/19 12:05 - CT Data CT Scan: Abdomen, Pelvis Time Received: 13:[address] Reviewed: Yes: I have viewed the radiologist's interpretation Findings Narrative: FINDINGS: Lower thoracic images show patchy density in the right middle lobe, lingula, right lower lobe, and left lower lobe. Focal parenchymal opacity in the right lower lobe posteriorly and in the left lung base posteriorly. These areas are incompletely imaged. There are trace bilateral effusions. Sub cm isodense to the is present in the hepatic dome. Hypodense lesion is present in the right hepatic lobe at 13 mm near the gallbladder fossa. An additional 5 mm isodense is present in the right hepatic lobe inferiorly. These areas are not readily apparent on the previous exam. The spleen, adrenal glands, and pancreas have an unremarkable appearance. There is bilateral renal cortical atrophy with a nonobstructing 3 mm stone in the mid polar region of the right kidney. There is mild bilateral ureteral dilatation to the lower aspect of the right ureter and lower aspect of the left ureter without obvious stones. There is a moderate amount of retained colonic feces throughout the colon with suspected rectal fecal impaction with the rectum measuring 7.3 cm. There is an appendicoliths present at the proximal aspect of the appendix with mild prominence at the appendix at this area however the distal aspect of the appendix does not appear distended. No definite evidence of appendicitis. There is diverticulosis of the colon but no evidence of diverticulitis. No evidence of small-bowel obstruction or free air. There are degenerative changes of the lumbar spine but no evidence acute bony abnormality. IMPRESSION: 1. Bilateral parenchymal opacities in the lower lung zones. These are incompletely imaged. Atelectasis and/or infiltrate is considered. Cannot exclude pulmonary nodules in the lower lobes as they are incompletely imaged. 2. Constipation with rectal fecal impaction. 3. Right nephrolithiasis. There is dilatation of the renal collecting systems to the lower ureteral level. No ureteral stones apparent. This could be due to reflux, urinary tract infections, or distal ureteral strictures. 4. Three isodense lesions of the liver nonspecific possibly due to developing hepatic cysts Dictated by: Colin Redding MD 01/04/2019 13:50 Electronically signed by Colin Redding MD in [place] 01/04/2019 13:50 - ECG Data Tracing #1 EKG interpreted by Marko Og MD: Rhythm: sinus Rate: 69 [place]: normal Ectopy: Premature atrial contractions Conduction: normal ST Segment Changes: none T Wave Changes: none Q Waves: none No evidence of acute ischemia or injury - Physician Consults Physician Consulted: Gilberto Cristobal Time: 14:04 Reason -: Admission Comment/Response: Agrees to admit the patient to the hospital. We discussed the patient's clinical information, including history, exam, laboratory and radiology results and ED course. Per hospital procedure, I will write temporary bridge inpatient orders on the patient. Specific orders requested by the admitting physician: Transfused 2 units of packed red blood cells, normal saline maintenance rate, hold Xarelto and continue other occasions. General Adult HPI - General Chief complaint: Recheck/Abnormal Lab/Rx Stated complaint: CRITICAL LABS Time Seen by Provider: 01/04/19 12:39 Mode of Arrival: EMS Limitations: No Limitations Description of Symptoms (Recalled from ER Triage Doc. by RN): PT BROUGHT IN VIA EMS FROM [facility] WHERE STAFF REPORTS PT HAD A CRITICAL H&H. - History of Present Illness HPI narrative: Brought in by ambulance from [facility]. Has a critically low H&H, 6.9 and 21.6. They report that she complained of shortness of breath. The patient complains of feeling generally weak to me. She denies prior history of anemia. No history of transfusions. When asked about any recent blood loss, she says that she bleeds from her hemorrhoids. She has bright red blood. She says her stool is dark, but not black. She denies hematemesis. She denies any other bleeding. She has lower abdominal pain, but no vomiting. She is noted to be on Xarelto, presumably for atrial fibrillation. - Related Data Home Medications Medication Instructions Recorded Confirmed Atorvastatin Calcium [Atorvastatin 40 mg PO HS 10/09/18 01/04/19 40mg Tab] Foreign Cit/D3/K/Mag Ox/Stron/Bor 1 each PO DAILY 10/09/18 01/04/19 [Prosteon Tablet] Cetirizine HCl [24Hour Allergy] 10 mg PO DAILY 10/09/18 01/04/19 Cranberry Fruit Extract [Cranberry] 250 mg PO DAILY 10/09/18 01/04/19 Fluoxetine HCl [Prozac] 40 mg PO DAILY 10/09/18 01/04/19 Montelukast Sodium 5 mg PO HS 10/09/18 01/04/19 Omeprazole [Omeprazole 20mg 20 mg PO DAILY 10/09/18 01/04/19 Capsule] Fluticasone Propionate [Flonase 1 spr NS DAILY 12/13/18 01/04/19 50mcg nasal spray 16gm] Tiotropium [place] [Spiriva 2 puff IH DAILY 12/13/18 01/04/19 18mcg/puff inhaler] Lisinopril [Lisinopril 5mg 5 mg PO DAILY 12/14/18 01/04/19 Tablet] Insulin Lispro [HumaLOG 100 0 unit SQ ACHS 01/04/19 01/04/19 units/mL 3mL vial (SSI)] NIFEdipine [Nifedipine ER] 30 mg PO DAILY 01/04/19 01/04/19 Rivaroxaban [Xarelto 15mg tablet] 15 mg PO QPMWM 01/04/19 01/04/19 dilTIAZem HCl [Cardizem ER 240mg 240 mg PO DAILY 01/04/19 01/04/19 Capsule] Previous Rx's Medication Instructions Recorded predniSONE [Deltasone 10mg tablet] 10 mg PO DIRECTED #21 tab 12/20/18 Allergies Allergy/AdvReac Type Severity Reaction Status Date / Time Penicillins [PENICILLINS] Allergy Severe S-SWELLS-OR Verified 12/13/18 15:46 AL/THROAT codeine [CODEINE] Allergy Unknown NA-DIARRHEA Verified 10/09/18 19:43 [facility] History - Hepatitis A Screen Drug use history?: No High risk sexual behaviors?: No History of sexually transmitted infection?: No Currently employed?: No Childcare worker?: No Do you have indoor plumbing?: Yes Do you have electricity?: Yes Attestation statement:: This patient has been screened for Hepatitis A risk factors. I have reviewed the patient's past medical history: Yes Medical History: Reports:: Asthma, Atrial Fibrillation, Depression, Gastroesophageal Reflux Disease(GERD), Hyperlipidemia, Hypertension Denies:: Cancer, Diabetes Mellitus Type 1, Diabetes Mellitus Type 2, MRSA Laterality Cases: Left: Mastectomy Amputation: No - Social History Smoking Status: Never smoker Alcohol Intake: never Occupational Status: retired Housing: [facility] Household Members: spouse - Psychiatric History Pschychiatric History:: Reports:: Depression Family Hx:: Non-contributory ROS Obtained: Yes All systems reviewed & no additional complaints - Constitutional Constitutional: Denies fever(s), Reports weakness - Cardiovascular Cardiovascular: Denies chest pain - Respiratory Respiratory: Yes dyspnea - Gastrointestinal Gastrointestingal: Reports: abdominal pain, bright red blood in stools. Denies: nausea, vomiting Physical Exam - General General appearance: alert, in no apparent distress - Head Head exam: atraumatic, normocephalic - Eye Eye exam: Present: normal appearance, EOMI. Absent: scleral icterus - ENT ENT exam: Present: mucous membranes moist - Neck Neck exam: Present: normal inspection, trachea midline - Chest Chest inspection: Present: normal inspection, symmetric chest wall rise - Respiratory Respiratory exam: Present: normal lung sounds bilaterally. Absent: respiratory distress - Cardiovascular Cardiovascular exam: Present: regular rate, normal rhythm, normal heart sounds - Abdominal Exam Abdominal exam: Present: distention, tenderness, guarding, normal bowel sounds. Absent: rebound - Rectal Exam Rectal exam: Present: bloody stool, hemorrhoids (Large external hemorrhoids) comment: Large amount of firm stool in the rectum mixed with bright red blood. - Extremities Exam Extremities exam: Absent: calf tenderness - Neurological Exam Neurological exam: Present: alert - Psychiatric Psychiatric exam: Present: normal affect, normal mood - Skin Skin exam: Present: warm, dry
--- NOTE | 2019-01-04 15:25 | Pharmacy Consult Notes ---
[facility] Pharmacy VTE Monitoring - Patient Demographics Admission date: 01/04/19 Report Date: 01/04/19 Time: 15:25 Allergies/Adverse Reactions: Patient Allergies Penicillins [PENICILLINS] Allergy (Severe, Verified 12/13/18 15:46) [id number]/THROAT codeine [CODEINE] Allergy (Unknown, Verified 10/09/18 19:43) NA-DIARRHEA Height: 1.65 m Weight: 75.07 kg Patient Problems: Current Active Problems Blood loss anemia (Acute) Lower GI bleed (Acute) - VTE Risk Labs: VTE Related Lab Results Hgb 7.1 g/dL (12.2-16.2) L* 01/04/19 12:05 Hct 22.9 % (37.0-47.0) L* 01/04/19 12:05 Plt Count 247 K/mm3 (142-424) 01/04/19 12:05 BUN 64 mg/dL (7-18) H 01/04/19 12:05 Creatinine 2.35 mg/dL (0.55-1.02) H 01/04/19 12:05 Estimated Creat Clear 27 mL/min (50-200) 01/04/19 12:05 - Prophylaxis VTE Prophylaxis Ordered?: Yes Types of VTE Prophylaxis: TEDS Knee High Location of Applied Device: Bilateral Lower Extremeties - VTE Diagnosis Confirmed Treatment or plan recommended: Continue Current Treatment
--- NOTE | 2019-01-04 17:11 | History & Physical Report ---
*Admission Date: 01/04/19 *Chief complaint: anemia, BRBPR *History of present illness: Ms. Curtis is an 83-year-old female who is been residing at [facility] since admitted to the hospital last month on 12/13/2018 for acute on chronic respiratory failure. She was treated for pneumonia and discharged to the long-term on supplemental oxygen. She presents to the ER today via ambulance from her long-term due to a critically low H&H, 6.9 and 21.6. They report that she complained of shortness of breath above baseline. She has been feeling weak and fatigued. No known history of prior anemia. Of note patient is on Xarelto for A. fib. Has been having bright red blood per rectum since being at the long-term attributed primarily to hemorrhoids, however she also notes she has not had a bowel movement since getting to the long-term on the of last month. No history of transfusions. She says her stool is dark, but not black. She denies hematemesis. She denies any other bleeding. She has lower abdominal pain, but no vomiting. She is afebrile, alert and oriented, hemodynamically stable. Complains of significant edema globally, baseline shortness of breath, and fullness in her abdomen due to constipation. Complains of incontinence and wears a diaper [facility] History Medical History: Reports:: Asthma, Atrial Fibrillation, Cancer (LEFT BREAST LUMPECTOMY), Depression, Gastroesophageal Reflux Disease(GERD), Hyperlipidemia, Hypertension Denies:: Diabetes Mellitus Type 1, Diabetes Mellitus Type 2, MRSA *Have you ever received a pneumonia vaccine?: Yes *Have you received a flu vaccine this season?: No (NOT FLU SEASON) Other Medical History: Reports: Anemia, Arthritis Laterality Cases: Left: Mastectomy Amputation: No Fractures: No - *Social History Educational Level: Attended Grade School Smoking Status: Former smoker Alcohol Intake: never *Occupational Status:: retired Housing: long-term Household Members: spouse *Travel in the last 8 weeks: None - Psychiatric History Pschychiatric History:: Reports:: Depression Family Hx:: Cancer, Hypertension Review of Systems - *Neurologic Reports weakness Meds Home Medications Medication Instructions Recorded Confirmed Type Atorvastatin Calcium [Atorvastatin 40 mg PO HS 10/09/18 01/04/19 History 40mg Tab] Cetirizine HCl [24Hour Allergy] 10 mg PO DAILY 10/09/18 01/04/19 History Cranberry Fruit Extract [Cranberry] 250 mg PO DAILY 10/09/18 01/04/19 History Fluoxetine HCl [Prozac] 40 mg PO DAILY 10/09/18 01/04/19 History Montelukast Sodium 5 mg PO HS 10/09/18 01/04/19 History Omeprazole [Omeprazole 20mg 20 mg PO DAILY 10/09/18 01/04/19 History Capsule] Fluticasone Propionate [Flonase 1 spr NS DAILY 12/13/18 01/04/19 History 50mcg nasal spray 16gm] Tiotropium [place] [Spiriva 2 puff IH DAILY 12/13/18 01/04/19 History 18mcg/puff inhaler] Lisinopril [Lisinopril 5mg 5 mg PO DAILY 12/14/18 01/04/19 History Tablet] Acetaminophen [Acetaminophen 325mg 650 mg PO Q6HP PRN 01/04/19 01/04/19 History tab] Albuterol Sulfate [Albuterol HFA 2 puff IH Q4HP PRN 01/04/19 01/04/19 History Inhaler] Arginine/Ascorbate Sod/[place] AC 1 each PO BID 01/04/19 01/04/19 History [Arginaid Powder] Calcium Citrate 500 mg PO DAILY 01/04/19 01/04/19 History Cholecalciferol (Vitamin D3) 1,000 unit PO DAILY 01/04/19 01/04/19 History [Vitamin D3 1,000 Unit Tab] Denosumab [Denosumab 60mg/mL 60 mg SQ DIRECTED 01/04/19 01/04/19 History syringe] Fluticasone Propion/Salmeterol 1 each IH BID 01/04/19 01/04/19 History [[place] 250-50 Inhub] Insulin Lispro [HumaLOG 100 0 unit SQ ACHS 01/04/19 01/04/19 History units/mL 3mL vial (SSI)] Loperamide HCl [Imodium 2 mg 4 mg PO NEEDED PRN 01/04/19 01/04/19 History capsule] Magnesium Oxide 125 mg PO DAILY 01/04/19 01/04/19 History NIFEdipine [Nifedipine ER] 30 mg PO DAILY 01/04/19 01/04/19 History Polyethylene Glycol 3350 [Miralax 17 gm PO DAILYP PRN 01/04/19 01/04/19 History 17gm Packet] Rivaroxaban [Xarelto 15mg tablet] 15 mg PO QPMWM 01/04/19 01/04/19 History dilTIAZem HCl [Cardizem ER 240mg 240 mg PO DAILY 01/04/19 01/04/19 History Capsule] guaiFENesin [Robitussin 200mg/10mL 200 mg PO QIDP PRN 01/04/19 01/04/19 History Syrup Udc] Allergies Allergy/AdvReac Type Severity Reaction Status Date / Time Penicillins [PENICILLINS] Allergy Severe S-SWELLS-OR Verified 12/13/18 15:46 AL/THROAT codeine [CODEINE] Allergy Unknown NA-DIARRHEA Verified 10/09/18 19:43 Exam Vital signs and Labs for Last 24 Hours: Temp Pulse Resp BP Pulse Ox 97.9 F 65 20 118/82 93 L 01/04/19 15:20 01/04/19 15:20 01/04/19 15:20 01/04/19 15:20 01/04/19 15:55 Laboratory Results - last 24 hr 01/04/19 12:05: WBC 5.3, RBC 2.60 L, Hgb 7.1 L*, Hct 22.9 L*, MCV 87.9, MCH 27.2, MCHC 31.0 L, RDW 17.6 H, Plt Count 247, MPV 7.4, Neut % (Auto) 79.0, Lymph % (Auto) 15.3, [place] % (Auto) 4.3, Eos % (Auto) 1.3, Baso % (Auto) 0.2, Neut # (Auto) 4.2, Lymph # (Auto) 0.8, [place] # (Auto) 0.2, Eos # (Auto) 0.1, Baso # (Auto) 0.0 01/04/19 12:05: Sodium 136, Potassium 5.0, Chloride 100, Carbon Dioxide 29, Anion Gap 12.0, BUN 64 H, Creatinine 2.35 H, Estimated Creat Clear 27, Estimated GFR 20 L, Est GFR ( Amer) 24 L, Glucose 201 H, Calcium 8.5, Total Bilirubin 0.6, AST 20, ALT 28, Alkaline Phosphatase 87, Total Protein 6.3 L, Albumin 2.2 L, Globulin 4.1 H, Albumin/Globulin Ratio 0.5 L 01/04/19 12:05: Troponin I < 0.02 01/04/19 12:45: Stool Occult Blood Positive A 01/04/19 15:29: Blood Type A Positive, Antibody Screen Negative, Crossmatch (AHG) See Detail 01/04/19 16:28: POC Glucose 172 H I & O for Last 24 hours: Intake & Output 01/01/19 01/02/19 01/03/19 01/04/19 23:59 23:59 23:59 23:59 Weight 75.07 kg - Constitutional mild distress Comments: Elderly appearing, chronically ill-appearing, anasarca - *Routine HEENT Exam Head: Present: normocephalic, atraumatic Eye: Present: EOMI, PERRL ENT: Present: mucous membranes moist - *Routine Neck Exam Present: supple, full ROM - *Routine Respiratory Exam Comments: Coarse breath sounds bilaterally with rhonchi that change with cough, bibasilar crackles, supplemental oxygen 2 L via nasal cannula. Respiratory sounds obscure heart sounds - *Routine Cardiovascular Exam Present: Normal S1, irregular rhythm. Absent: murmur - *Routine Abdominal Exam Present: soft, normoactive bowel sounds, tenderness (In lower abdomen), distended - *Routine Rectal Exam Comments: Large hemorrhoids that protrude from the anus, no active bleeding, fecal impaction with stool felt just inside rectal vault there is firm and blood- tinged - *Routine Exam Patient deferred: external exam - *Routine Extremities Exam Present: edema. Absent: cyanosis, clubbing Comments: 3+ edema globally - *Routine Skin Exam Present: intact, dry, pallor. Absent: cyanosis, erythema - *Routine Neurological Exam Present: alert, oriented X3. Absent: altered mental status Assessment and Plan (1) Hypoalbuminemia due to protein-calorie malnutrition Current visit: Yes Status: Chronic Category: Medical Code(s): E46 - Unspecified protein-calorie malnutrition (2) ARF (acute renal failure) Current visit: Yes Status: Chronic Category: Medical Code(s): N17.9 - Acute kidney failure, unspecified (3) Chronic respiratory failure Current visit: Yes Status: Acute Category: Medical Code(s): J96.10 - Chronic respiratory failure, unspecified whether with hypoxia or hypercapnia (4) Blood loss anemia Current visit: Yes Status: Acute Category: Medical Code(s): D50.0 - Iron deficiency anemia secondary to blood loss (chronic) (5) Acute kidney injury (nontraumatic) Current visit: No Status: Acute Category: Medical Code(s): N17.9 - Acute kidney failure, unspecified (6) Anasarca Current visit: Yes Status: Acute Category: Medical Code(s): R60.1 - Generalized edema - Assessment and plan all Dx Assessment and Plan for all problems:: 83-year-old female with finding of anemia on labs obtained at long-term. Continues to have respiratory distress suspect due to resolving pneumonia and anemia. Admitted for transfusion and further work-up. Plan to transfuse 2 units this afternoon. If develops respiratory distress will obtain chest x-ray and diuresis with 40 mg IV Lasix. Asked nursing to please wrap the patient's legs and right arm to assist with improvement in edema which is suspected to be secondary to her hypoalbuminemia. Renal failure noted on admission with creatinine of 2.4 with creatinine baseline of 1.8. Monitor for improvement with treatment of anemia. Elevated BUN secondary to either prerenal status of ELINOR or GI bleed. As patient has been constipated, have low suspicion for upper GI bleed. Will treat constipation with enema and MiraLAX. Initiate Protonix for GI prophylaxis in the setting of potential GI bleed. Patient's condition is serious, prognosis poor. Requires inpatient management for acute needs
--- NOTE | 2019-01-04 19:57 | Electrocardiograph Report ---
APPROVED REPORT Exam: Resting ECG HR:78 bpm ECG Measurements Heart Rate 78 AXES QRSd 80 QRS 35 QT 398 T44 QTc 453 <Conclusion> Atrial fibrillation with a competing junctional pacemaker Abnormal ECG Electronically signed by : Danny Cristobal, 01/04/2019 19:56:59
[2019-01-05 00:50] LABS: Hematocrit 31.1 % (37.0-47.0)
[2019-01-05 00:55] LABS: Hemoglobin 10.2 g/dL (12.2-16.2)
[2019-01-05 06:45] LABS: Basophils % 0.1 % (0.1-2.0); Eosinophils % 0.4 % (0.1-12.0); Hematocrit 33.1 % (37.0-47.0); Hemoglobin 10.5 g/dL (12.2-16.2); Lymphocytes # 0.4 K/mm3 (0.7-4.5); Lymphocytes % 8.5 % (10-50); Mean Corpuscular HGB Conc 31.8 g/dL (31.8-35.4); Mean Corpuscular Volume 87.1 fl (81-99); Mean Platelet Volume 7.4 fl (7.4-10.4); Monocytes # 0.2 K/mm3 (0.1-1.0); Monocytes % 4.1 % (1.7-9.3); Neutrophils # 4.2 K/mm3 (1.8-7.8); Neutrophils % 86.9 % (37.0-80.0); Platelet Count 255 K/mm3 (142-424); Red Cell Distribution Width 16.9 % (11.5-17.5); White Blood Count 4.8 K/mm3 (4.8-10.8)
[2019-01-05 07:02] LABS: Anion Gap 13.9 mEq/L (5-15); Calcium 9.1 mg/dL (8.5-10.1)
[2019-01-05 07:50] LABS: Lymphocytes % 5 % (10-50); Monocytes % 2 % (2-9); Neutrophils % 90 % (42-76); Total Cells Counted 100
--- NOTE | 2019-01-05 08:48 | Discharge Summary ---
General - General Admission date:: 01/04/19 Discharge date: 01/05/19 HPI HPI: Ms. Curtis is an 83-year-old female who is been residing at [facility] since admitted to the hospital last month on 12/13/2018 for acute on chronic respiratory failure. She was treated for pneumonia and discharged to the retirement on supplemental oxygen. She presents to the ER today via ambulance from her retirement due to a critically low H&H, 6.9 and 21.6. They report that she complained of shortness of breath above baseline. She has been feeling weak and fatigued. No known history of prior anemia. Of note patient is on Xarelto for A. fib. Has been having bright red blood per rectum since being at the retirement attributed primarily to hemorrhoids, however she also notes she has not had a bowel movement since getting to the retirement on the of last month. No history of transfusions. She says her stool is dark, but not black. She denies hematemesis. She denies any other bleeding. She has lower abdominal pa in, but no vomiting. She is afebrile, alert and oriented, hemodynamically stable. Complains of significant edema globally, baseline shortness of breath, and fullness in her abdomen due to constipation. Complains of incontinence and wears a diaper Hospital Course Hospital Course: Patient was admitted, given 2 units of packed cells responded well to this, hemoglobin up to 12. She did well overnight and had good bowel movements. This morning she is more alert, able to eat and drink fluids, has been taking some MiraLAX. Belly exam improved. Blood counts stabilized overnight. She continued to have renal insufficiency but at her baseline. Plan will be to discharge back to the retirement, I will hold her anticoagulation therapy given her significant bleeding episode, as well as her advanced age and comorbidities given the issues with anticoagulation therapy. We will put her on a daily bowel regimen, I will check labs again tomorrow bakari bro at the retirement. Please order BMP and CBC for tomorrow morning at [facility]. We will see her on regular nursing on rounds tomorrow. Objective Vital signs: Temp Pulse Resp BP Pulse Ox 98.0 F 67 20 125/74 93 L 01/05/19 08:00 01/05/19 08:36 01/05/19 08:00 01/05/19 08:00 01/05/19 08:36 Narrative: Patient is alert. Oriented x2. Lungs have rhonchi but clear than on admission. Heart rate regular. Abdomen soft, some distention in the lower abdominal areas but improved over admission. No perfusion deficits. Extremities are warm, good distal pulses. She is globally weak but otherwise neurologic exam intact, no oral lesions, no JVD. Results Labs on day of discharge: Labs from last 24 hours 01/05/19 01/05/19 01/05/19 05:35 05:35 05:33 WBC 4.8 RBC 3.80 L D Hgb 10.5 L Hct 33.1 L MCV 87.1 MCH 27.7 MCHC 31.8 RDW 16.9 Plt Count 255 MPV 7.4 Neut % (Auto) 86.9 H Lymph % (Auto) 8.5 L [place] % (Auto) 4.1 Eos % (Auto) 0.4 Baso % (Auto) 0.1 Neut # (Auto) 4.2 Lymph # (Auto) 0.4 L [place] # (Auto) 0.2 Eos # (Auto) 0.0 Baso # (Auto) 0.0 Total Counted 100 Neutrophils % (Manual) 90 H Band Neutrophils % 3.0 Lymphocytes % (Manual) 5 L Monocytes % (Manual) 2 Platelet Estimate Normal Sodium 137 Potassium 4.9 Chloride 101 Carbon Dioxide 27 Anion Gap 13.9 BUN 64 H Creatinine 2.43 H Estimated Creat Clear 20 Estimated GFR 19 L* Est GFR ( Amer) 23 L Glucose 175 H POC Glucose 183 H Calcium 9.1 Total Bilirubin AST ALT Alkaline Phosphatase Troponin I Total Protein Albumin Globulin Albumin/Globulin Ratio Stool Occult Blood Blood Type Blood Type Confirm Antibody Screen Crossmatch ([facility]) 01/05/19 01/04/19 01/04/19 00:30 20:54 16:28 WBC RBC Hgb 10.2 L D Hct 31.1 L MCV MCH MCHC RDW Plt Count MPV Neut % (Auto) Lymph % (Auto) [place] % (Auto) Eos % (Auto) Baso % (Auto) Neut # (Auto) Lymph # (Auto) [place] # (Auto) Eos # (Auto) Baso # (Auto) Total Counted Neutrophils % (Manual) Band Neutrophils % Lymphocytes % (Manual) Monocytes % (Manual) Platelet Estimate Sodium Potassium Chloride Carbon Dioxide Anion Gap BUN Creatinine Estimated Creat Clear Estimated GFR Est GFR ( Amer) Glucose POC Glucose 169 H 172 H Calcium Total Bilirubin AST ALT Alkaline Phosphatase Troponin I Total Protein Albumin Globulin Albumin/Globulin Ratio Stool Occult Blood Blood Type Blood Type Confirm Antibody Screen Crossmatch ([facility]) 01/04/19 01/04/19 01/04/19 15:29 15:29 12:45 WBC RBC Hgb Hct MCV MCH MCHC RDW Plt Count MPV Neut % (Auto) Lymph % (Auto) [place] % (Auto) Eos % (Auto) Baso % (Auto) Neut # (Auto) Lymph # (Auto) [place] # (Auto) Eos # (Auto) Baso # (Auto) Total Counted Neutrophils % (Manual) Band Neutrophils % Lymphocytes % (Manual) Monocytes % (Manual) Platelet Estimate Sodium Potassium Chloride Carbon Dioxide Anion Gap BUN Creatinine Estimated Creat Clear Estimated GFR Est GFR ( Amer) Glucose POC Glucose Calcium Total Bilirubin AST ALT Alkaline Phosphatase Troponin I Total Protein Albumin Globulin Albumin/Globulin Ratio Stool Occult Blood Positive A Blood Type A Positive Blood Type Confirm A Positive Antibody Screen Negative Crossmatch ([facility]) See Detail 01/04/19 01/04/19 01/04/19 12:05 12:05 12:05 WBC 5.3 RBC 2.60 L Hgb 7.1 L* Hct 22.9 L* MCV 87.9 MCH 27.2 MCHC 31.0 L RDW 17.6 H Plt Count 247 MPV 7.4 Neut % (Auto) 79.0 Lymph % (Auto) 15.3 [place] % (Auto) 4.3 Eos % (Auto) 1.3 Baso % (Auto) 0.2 Neut # (Auto) 4.2 Lymph # (Auto) 0.8 [place] # (Auto) 0.2 Eos # (Auto) 0.1 Baso # (Auto) 0.0 Total Counted Neutrophils % (Manual) Band Neutrophils % Lymphocytes % (Manual) Monocytes % (Manual) Platelet Estimate Sodium 136 Potassium 5.0 Chloride 100 Carbon Dioxide 29 Anion Gap 12.0 BUN 64 H Creatinine 2.35 H Estimated Creat Clear 27 Estimated GFR 20 L Est GFR ( Amer) 24 L Glucose 201 H POC Glucose Calcium 8.5 Total Bilirubin 0.6 AST 20 ALT 28 Alkaline Phosphatase 87 Troponin I < 0.02 Total Protein 6.3 L Albumin 2.2 L Globulin 4.1 H Albumin/Globulin Ratio 0.5 L Stool Occult Blood Blood Type Blood Type Confirm Antibody Screen Crossmatch ([facility]) DS: Diagnosis - Discharge Diagnosis (1) Hypoalbuminemia due to protein-calorie malnutrition Status: Chronic (2) ARF (acute renal failure) Status: Chronic (3) Chronic respiratory failure Status: Acute (4) Blood loss anemia Status: Resolved (5) Acute kidney injury (nontraumatic) Status: Acute (6) Anasarca Status: Acute Discharge Plan - Patient Discharge Instructions ACTIVITY: Continue current activity DIET: continue same diet Patient Instructions: Anemia, Gastrointestinal Bleeding - Follow up Plan Follow up with: Paulina Long APRN [Nurse Practitioner] - 1 day Disposition: er [facility] Home Medications: Home Medications Medication Instructions Recorded Confirmed Type Atorvastatin Calcium [Atorvastatin 40 mg PO HS 10/09/18 01/04/19 History 40mg Tab] Cetirizine HCl [24Hour Allergy] 10 mg PO DAILY 10/09/18 01/04/19 History Cranberry Fruit Extract [Cranberry] 250 mg PO DAILY 10/09/18 01/04/19 History Fluoxetine HCl [Prozac] 40 mg PO DAILY 10/09/18 01/04/19 History Montelukast Sodium 5 mg PO HS 10/09/18 01/04/19 History Omeprazole [Omeprazole 20mg 20 mg PO DAILY 10/09/18 01/04/19 History Capsule] Fluticasone Propionate [Flonase 1 spr NS DAILY 12/13/18 01/04/19 History 50mcg nasal spray 16gm] Tiotropium Epps [Spiriva 2 puff IH DAILY 12/13/18 01/04/19 History 18mcg/puff inhaler] Lisinopril [Lisinopril 5mg 5 mg PO DAILY 12/14/18 01/04/19 History Tablet] Acetaminophen [Acetaminophen 325mg 650 mg PO Q6HP PRN 01/04/19 01/04/19 History tab] Albuterol Sulfate [Albuterol HFA 2 puff IH Q4HP PRN 01/04/19 01/04/19 History Inhaler] Arginine/Ascorbate Sod/Byron AC 1 each PO BID 01/04/19 01/04/19 History [Arginaid Powder] Calcium Citrate 500 mg PO DAILY 01/04/19 01/04/19 History Cholecalciferol (Vitamin D3) 1,000 unit PO DAILY 01/04/19 01/04/19 History [Vitamin D3 1,000 Unit Tab] Denosumab [Denosumab 60mg/mL 60 mg SQ DIRECTED 01/04/19 01/04/19 History syringe] Insulin Lispro [HumaLOG 100 0 unit SQ ACHS 01/04/19 01/04/19 History units/mL 3mL vial (SSI)] Loperamide HCl [Imodium 2 mg 4 mg PO NEEDED PRN 01/04/19 01/04/19 History capsule] Magnesium Oxide 125 mg PO DAILY 01/04/19 01/04/19 History NIFEdipine [Nifedipine ER] 30 mg PO DAILY 01/04/19 01/04/19 History Polyethylene Glycol 3350 [Miralax 17 gm PO DAILYP PRN 01/04/19 01/04/19 History 17gm Packet] Rivaroxaban [Xarelto 15mg tablet] 15 mg PO QPMWM 01/04/19 01/04/19 History dilTIAZem HCl [Cardizem ER 240mg 240 mg PO DAILY 01/04/19 01/04/19 History Capsule] guaiFENesin [Robitussin 200mg/10mL 200 mg PO QIDP PRN 01/04/19 01/04/19 History Syrup Udc] Bisacodyl [Dulcolax 5mg Tab] 5 mg PO DAILY #30 tablet. 01/05/19 Rx Fluticasone Propion/Salmeterol 1 inh IH BID 01/05/19 01/05/19 History [Wixela 500-50 Inhub] Prescriptions/Medication Reconciliation: New Bisacodyl [Dulcolax 5mg Tab] 5 mg PO DAILY #30 tablet. Continued Omeprazole [Omeprazole 20mg Capsule] 20 mg PO DAILY Montelukast Sodium 5 mg PO HS Fluoxetine HCl [Prozac] 40 mg PO DAILY Cetirizine HCl [24Hour Allergy] 10 mg PO DAILY Cranberry Fruit Extract [Cranberry] 250 mg PO DAILY Fluticasone Propionate [Flonase 50mcg nasal spray 16gm] 1 spr NS DAILY Insulin Lispro [HumaLOG 100 units/mL 3mL vial (SSI)] 0 unit SQ ACHS Magnesium Oxide 125 mg PO DAILY Calcium Citrate 500 mg PO DAILY Arginine/Ascorbate Sod/Byron AC [Arginaid Powder] 1 each PO BID Denosumab [Denosumab 60mg/mL syringe] 60 mg SQ DIRECTED guaiFENesin [Robitussin 200mg/10mL Syrup Udc] 200 mg PO QIDP PRN PRN Reason: COUGH/COLD Polyethylene Glycol 3350 [Miralax 17gm Packet] 17 gm PO DAILYP PRN PRN Reason: Constipation Albuterol Sulfate [Albuterol HFA Inhaler] 2 puff IH Q4HP PRN PRN Reason: Shortness Of Breath Or Wheezing Acetaminophen [Acetaminophen 325mg tab] 650 mg PO Q6HP PRN PRN Reason: As Needed For Fever Or Pain Atorvastatin Calcium [Atorvastatin 40mg Tab] 40 mg PO HS Tiotropium Epps [Spiriva 18mcg/puff inhaler] 2 puff IH DAILY NIFEdipine [Nifedipine ER] 30 mg PO DAILY Cholecalciferol (Vitamin D3) [Vitamin D3 1,000 Unit Tab] 1,000 unit PO DAILY Fluticasone Propion/Salmeterol [Wixela 500-50 Inhub] 1 inh IH BID Discontinued Rivaroxaban [Xarelto 15mg tablet] 15 mg PO QPMWM dilTIAZem HCl [Cardizem ER 240mg Capsule] 240 mg PO DAILY Loperamide HCl [Imodium 2 mg capsule] 4 mg PO NEEDED PRN PRN Reason: LOOSE STOOLS Lisinopril [Lisinopril 5mg Tablet] 5 mg PO DAILY - Problem Reconciliation Problems Reviewed?: Yes
== END 2019-01-05 11:00 | disposition home or self-care (01) | DRG 812 ==
LOC: ER 11:55 → 2ND 14:30 → INTOOBSV 15:04
PROVIDERS: ADMIT Internal Medicine Adolescent Medicine; ATTEND Internal Medicine Adolescent Medicine
CPT/HCPCS: 36415; 71010; 71045; 74176; 80048; 80053; 82272; 82962; 84484; 85007; 85014; 85018; 85025; 86850; 93005; 94640; 94761; 99284; G0328; G0378; P9016

== ENCOUNTER → 2019-02-08 18:03 | Outpatient (CLI) | payer MEDICARE, SELFPAY ==
[2019-02-08 18:06] LABS: Microscopic, Urine URINE MICROSCOPIC (MICROSCOPIC)
[2019-02-08 18:34] LABS: Appearance,Urine CLEAR (Clear); Bilirubin,Urine Negative (Negative); Blood, Urine 2+ (Negative); Color,Urine YELLOW (Yellow); Glucose,Urine (UA) Negative (Negative); Ketones,Urine Negative (Negative); Leukocyte Esterase,Urine 2+ (Negative); Nitrate,Urine POSITIVE (Negative); PH,Urine 5.5 (5.0-8.5); Protein,Urine 1+ (Negative); Urobilinogen,Urine 0.2 EU/dl (0.2)
[2019-02-08 18:47] LABS: Bacteria,Urine 2+ /lpf; WBC,Urine TNTC #/hpf (0-3)
== END ==
PROVIDERS: Visit Provider Internal Medicine Adolescent Medicine
DX: R10.9 Unspecified abdominal pain (principal); R30.0 Dysuria
CPT/HCPCS: 81001; 87086; 87088; 87186

== ENCOUNTER → 2020-06-28 07:37 | Outpatient (CLI) | payer MEDICARE, SELFPAY ==
[2020-06-28 14:28] LABS: Basophils % 0.3 % (0.1-2.0); Eosinophils # 0.2 K/mm3 (0.0-0.4); Eosinophils % 3.1 % (0.1-12.0); Hematocrit 31.7 % (37.0-47.0); Hemoglobin 9.9 g/dL (12.2-16.2); Lymphocytes # 2.4 K/mm3 (0.7-4.5); Lymphocytes % 46.6 % (10-50); Mean Corpuscular HGB Conc 31.1 g/dL (31.8-35.4); Mean Corpuscular Hemoglobin 28.3 pg (27.0-31.2); Mean Corpuscular Volume 90.7 fl (81-99); Mean Platelet Volume 7.9 fl (7.4-10.4); Monocytes # 0.3 K/mm3 (0.1-1.0); Monocytes % 5.9 % (1.7-9.3); Neutrophils # 2.3 K/mm3 (1.8-7.8); Neutrophils % 44.2 % (37.0-80.0); Platelet Count 275 K/mm3 (142-424); Red Blood Count 3.49 M/mm3 (4.20-5.40); Red Cell Distribution Width 14.7 % (11.5-17.5); White Blood Count 5.1 K/mm3 (4.8-10.8)
[2020-06-28 14:50] LABS: Anion Gap 9.4 mEq/L (5-15); Blood Urea Nitrogen 31 mg/dl (7-17); Carbon Dioxide 27 mmol/L (22.0-30.0); Chloride 107 mmol/L (98-107); Estimated Glomerular Filt Rate 36 ml/min (>60); GFR (African American) 43 ML/MIN (>60); Glucose 116 mg/dl (74-100); Potassium 4.4 mmoL/L (3.5-5.1); Sodium 139 mmol/L (136-145)
[2020-06-28 15:02] LABS: Hemoglobin A1C 6.4 % (4.0-6.0)
== END ==
PROVIDERS: Visit Provider Internal Medicine Adolescent Medicine
DX: E11.9 Type 2 diabetes mellitus without complications (principal); Z79.4 Long term (current) use of insulin
CPT/HCPCS: 36415; 80048; 83036; 85025

== ENCOUNTER → 2020-07-03 09:30 | Outpatient (CLI) | payer MEDICARE, SELFPAY ==
[2020-07-03 14:07] LABS: Chloride 106 mmol/L (98-107); Sodium 141 mmol/L (136-145)
[2020-07-03 14:08] LABS: Potassium 3.9 mmoL/L (3.5-5.1)
[2020-07-03 14:11] LABS: Anion Gap 8.9 mEq/L (5-15); Blood Urea Nitrogen 28 mg/dl (7-17); Calcium 8.9 mg/dl (8.4-10.2); Carbon Dioxide 30 mmol/L (22.0-30.0); Estimated Glomerular Filt Rate 36 ml/min (>60); GFR (African American) 43 ML/MIN (>60); Glucose 110 mg/dl (74-100)
[2020-07-03 14:26] LABS: Basophils % 0.4 % (0.1-2.0); Eosinophils # 0.1 K/mm3 (0.0-0.4); Eosinophils % 1.5 % (0.1-12.0); Hematocrit 33.8 % (37.0-47.0); Hemoglobin 10.6 g/dL (12.2-16.2); Lymphocytes # 2.2 K/mm3 (0.7-4.5); Lymphocytes % 41.5 % (10-50); Mean Corpuscular HGB Conc 31.4 g/dL (31.8-35.4); Mean Corpuscular Hemoglobin 28.4 pg (27.0-31.2); Mean Corpuscular Volume 90.4 fl (81-99); Mean Platelet Volume 8.2 fl (7.4-10.4); Monocytes # 0.4 K/mm3 (0.1-1.0); Monocytes % 7.6 % (1.7-9.3); Neutrophils # 2.6 K/mm3 (1.8-7.8); Platelet Count 256 K/mm3 (142-424); Red Blood Count 3.74 M/mm3 (4.20-5.40); Red Cell Distribution Width 14.6 % (11.5-17.5); White Blood Count 5.4 K/mm3 (4.8-10.8)
[2020-07-03 15:07] LABS: Hemoglobin A1C 6.5 % (4.0-6.0)
== END ==
PROVIDERS: Visit Provider Internal Medicine Adolescent Medicine
DX: D64.9 Anemia, unspecified (principal); E11.9 Type 2 diabetes mellitus without complications; Z79.4 Long term (current) use of insulin
CPT/HCPCS: 36415; 80048; 83036; 85025

== ENCOUNTER → 2020-07-30 17:00 | Outpatient (CLI) | payer MEDICARE, MEDICAID, SELFPAY ==
[2020-07-31 07:05] LABS: Microscopic, Urine URINE MICROSCOPIC (MICROSCOPIC)
[2020-07-31 13:58] LABS: Appearance,Urine CLEAR (Clear); Bilirubin,Urine Negative (Negative); Blood, Urine Negative (Negative); Color,Urine YELLOW (Yellow); Glucose,Urine (UA) Negative (Negative); Ketones,Urine Negative (Negative); Leukocyte Esterase,Urine Negative (Negative); Nitrate,Urine Negative (Negative); Protein,Urine Negative (Negative); Urobilinogen,Urine 0.2 EU/dl (0.2)
[2020-07-31 14:43] LABS: Bacteria,Urine 1+ /lpf
== END ==
PROVIDERS: Visit Provider Internal Medicine Adolescent Medicine
DX: N18.9 Chronic kidney disease, unspecified (principal)
CPT/HCPCS: 81001

== ENCOUNTER → 2020-07-31 11:07 | Outpatient (CLI) | payer MEDICARE, MEDICAID, SELFPAY ==
[2020-07-31 14:17] LABS: Basophils % 0.8 % (0.1-2.0); Eosinophils # 0.1 K/mm3 (0.0-0.4); Eosinophils % 1.9 % (0.1-12.0); Hematocrit 35.1 % (37.0-47.0); Hemoglobin 11.2 g/dL (12.2-16.2); Lymphocytes # 2.2 K/mm3 (0.7-4.5); Lymphocytes % 40.8 % (10-50); Mean Corpuscular HGB Conc 31.8 g/dL (31.8-35.4); Mean Corpuscular Hemoglobin 28.5 pg (27.0-31.2); Mean Corpuscular Volume 89.5 fl (81-99); Monocytes # 0.4 K/mm3 (0.1-1.0); Monocytes % 7.5 % (1.7-9.3); Neutrophils # 2.6 K/mm3 (1.8-7.8); Platelet Count 254 K/mm3 (142-424); Red Blood Count 3.92 M/mm3 (4.20-5.40); Red Cell Distribution Width 15.3 % (11.5-17.5); White Blood Count 5.3 K/mm3 (4.8-10.8)
[2020-07-31 19:56] LABS: Chloride 108 mmol/L (98-107); Potassium 4.7 mmoL/L (3.5-5.1); Sodium 138 mmol/L (136-145)
[2020-07-31 19:59] LABS: Alanine Aminotransferase 15 U/L (12-78); Albumin Level 4.1 g/dl (3.5-5.0); Albumin/Globulin Ratio 1.3 (1.1-1.8); Alkaline Phosphatase 152 U/L (38-126); Anion Gap 14.7 mEq/L (5-15); Aspartate Amino Transferase 26 U/L (14-36); Bilirubin,Total 0.7 mg/dl (0.2-1.3); Blood Urea Nitrogen 34 mg/dl (7-17); Calcium 9.5 mg/dl (8.4-10.2); Carbon Dioxide 20 mmol/L (22.0-30.0); Estimated Glomerular Filt Rate 33 ml/min (>60); GFR (African American) 40 ML/MIN (>60); Globulin 3.2 g/dL (1.3-3.2); Glucose 115 mg/dl (74-100); Total Protein,Serum 7.3 g/dl (6.3-8.2)
== END ==
PROVIDERS: Visit Provider Internal Medicine Adolescent Medicine
DX: I10 Essential (primary) hypertension (principal); N18.9 Chronic kidney disease, unspecified
CPT/HCPCS: 80053; 85025

== ENCOUNTER → 2020-09-07 16:41 | Outpatient (CLI) | payer MEDICARE, MEDICAID, SELFPAY ==
[2020-09-07 16:55] LABS: Microscopic, Urine URINE MICROSCOPIC (MICROSCOPIC)
[2020-09-07 17:04] LABS: Appearance,Urine CLEAR (Clear); Bilirubin,Urine Negative (Negative); Blood, Urine 1+ (Negative); Color,Urine YELLOW (Yellow); Glucose,Urine (UA) Negative (Negative); Ketones,Urine Negative (Negative); Leukocyte Esterase,Urine Negative (Negative); Nitrate,Urine Negative (Negative); PH,Urine 6.5 (5.0-8.5); Protein,Urine Negative (Negative); Urobilinogen,Urine 0.2 EU/dl (0.2)
[2020-09-07 17:10] LABS: Estimated Glomerular Filt Rate 36 ml/min (>60); GFR (African American) 43 ML/MIN (>60); Uric Acid 4.6 mg/dl (2.5-6.2)
[2020-09-07 17:12] LABS: Bacteria,Urine Trace /lpf
[2020-09-07 17:22] LABS: Intact Parathyroid Hormone 55.6 pg/mL (7.5-53.5)
[2020-09-07 17:27] LABS: 25-OH Vitamin D, Total 45.6 ng/mL (30-100)
== END ==
PROVIDERS: Visit Provider Internal Medicine Adolescent Medicine
DX: M81.0 Age-related osteoporosis without current pathological fracture (principal); I50.9 Heart failure, unspecified; I11.0 Hypertensive heart disease with heart failure; N18.9 Chronic kidney disease, unspecified; E55.9 Vitamin D deficiency, unspecified
CPT/HCPCS: 81001; 82043; 82306; 82565; 83970; 84155; 84550

== ENCOUNTER → 2020-09-10 07:30 | Outpatient (CLI) | payer MEDICARE, MEDICAID, SELFPAY ==
[2020-09-10 14:58] LABS: Basophils % 0.3 % (0.1-2.0); Eosinophils # 0.1 K/mm3 (0.0-0.4); Eosinophils % 0.7 % (0.1-12.0); Hematocrit 36.7 % (37.0-47.0); Hemoglobin 11.1 g/dL (12.2-16.2); Lymphocytes # 1.6 K/mm3 (0.7-4.5); Lymphocytes % 16.2 % (10-50); Mean Corpuscular HGB Conc 30.2 g/dL (31.8-35.4); Mean Corpuscular Hemoglobin 27.4 pg (27.0-31.2); Mean Corpuscular Volume 90.7 fl (81-99); Mean Platelet Volume 7.6 fl (7.4-10.4); Monocytes # 0.6 K/mm3 (0.1-1.0); Monocytes % 6.2 % (1.7-9.3); Neutrophils # 7.7 K/mm3 (1.8-7.8); Neutrophils % 76.6 % (37.0-80.0); Platelet Count 218 K/mm3 (142-424); Red Blood Count 4.05 M/mm3 (4.20-5.40); Red Cell Distribution Width 15.1 % (11.5-17.5); White Blood Count 10.1 K/mm3 (4.8-10.8)
== END ==
PROVIDERS: Visit Provider Internal Medicine Adolescent Medicine
DX: I50.9 Heart failure, unspecified (principal)
CPT/HCPCS: 36415; 85025

== ENCOUNTER → 2020-09-12 14:46 | Outpatient (CLI) | payer MEDICARE, MEDICAID, SELFPAY ==
[2020-09-12 15:13] LABS: Basophils % 0.1 % (0.1-2.0); Eosinophils % 0.1 % (0.1-12.0); Hematocrit 32.9 % (37.0-47.0); Hemoglobin 10.2 g/dL (12.2-16.2); Lymphocytes # 0.5 K/mm3 (0.7-4.5); Lymphocytes % 3.7 % (10-50); Mean Corpuscular HGB Conc 30.9 g/dL (31.8-35.4); Mean Corpuscular Hemoglobin 28.1 pg (27.0-31.2); Mean Corpuscular Volume 90.7 fl (81-99); Mean Platelet Volume 8.8 fl (7.4-10.4); Monocytes # 0.3 K/mm3 (0.1-1.0); Monocytes % 1.9 % (1.7-9.3); Neutrophils # 12.8 K/mm3 (1.8-7.8); Neutrophils % 94.2 % (37.0-80.0); Platelet Count 230 K/mm3 (142-424); Red Blood Count 3.62 M/mm3 (4.20-5.40); Red Cell Distribution Width 15.5 % (11.5-17.5); White Blood Count 13.6 K/mm3 (4.8-10.8)
[2020-09-12 15:15] LABS: MANUAL DIFFERENTIAL MANUAL DIFFERENTIAL (MANUAL DIFF)
[2020-09-12 16:06] LABS: Lymphocytes % 8 % (10-50); Monocytes % 6 % (2-9); Neutrophils % 86 % (42-76); Total Cells Counted 100
[2020-09-12 16:07] LABS: Alanine Aminotransferase 22 U/L (12-78); Alkaline Phosphatase 122 U/L (38-126); Anion Gap 15.1 mEq/L (5-15); Aspartate Amino Transferase 27 U/L (14-36); Blood Urea Nitrogen 39 mg/dl (7-17); Calcium 8.4 mg/dl (8.4-10.2); Carbon Dioxide 20 mmol/L (22.0-30.0); Chloride 100 mmol/L (98-107); Estimated Glomerular Filt Rate 22 ml/min (>60); GFR (African American) 27 ML/MIN (>60); Hypochromasia 2+; Platelet Estimate Normal; Potassium 4.1 mmoL/L (3.5-5.1); Sodium 131 mmol/L (136-145)
[2020-09-12 16:25] LABS: Glucose 441 mg/dl (74-100)
== END ==
PROVIDERS: Visit Provider Nurse Practitioner Family
DX: D64.9 Anemia, unspecified (principal)
CPT/HCPCS: 80053; 85007; 85025

== ENCOUNTER → 2020-09-13 07:26 | Outpatient (CLI) | payer MEDICARE, MEDICAID, SELFPAY ==
[2020-09-13 07:31] LABS: Microscopic, Urine URINE MICROSCOPIC (MICROSCOPIC)
[2020-09-13 14:22] LABS: Chloride 100 mmol/L (98-107)
[2020-09-13 14:23] LABS: Potassium 3.9 mmoL/L (3.5-5.1); Sodium 134 mmol/L (136-145)
[2020-09-13 14:26] LABS: Anion Gap 17.9 mEq/L (5-15); Blood Urea Nitrogen 51 mg/dl (7-17); Calcium 9.1 mg/dl (8.4-10.2); Carbon Dioxide 20 mmol/L (22.0-30.0); Estimated Glomerular Filt Rate 19 ml/min (>60); GFR (African American) 23 ML/MIN (>60); Glucose 253 mg/dl (74-100)
[2020-09-13 14:45] LABS: Appearance,Urine CLEAR (Clear); Bilirubin,Urine Negative (Negative); Blood, Urine Negative (Negative); Color,Urine YELLOW (Yellow); Glucose,Urine (UA) Negative (Negative); Ketones,Urine TRACE (Negative); Leukocyte Esterase,Urine Negative (Negative); Nitrate,Urine Negative (Negative); Protein,Urine Negative (Negative); Urobilinogen,Urine 0.2 EU/dl (0.2)
[2020-09-13 16:34] LABS: WBC,Urine Occasional #/hpf (0-3)
[2020-09-13 17:04] LABS: Acetone, Serum (Rapid) None Detected (None Detect)
== END ==
PROVIDERS: Visit Provider Nurse Practitioner Family
DX: N31.9 Neuromuscular dysfunction of bladder, unspecified (principal)
CPT/HCPCS: 36415; 80048; 81001; 82009

== ENCOUNTER → 2020-09-14 10:00 | Outpatient (CLI) | payer MEDICARE, MEDICAID, SELFPAY ==
[2020-09-14 11:40] LABS: Chloride 105 mmol/L (98-107)
[2020-09-14 11:41] LABS: Sodium 139 mmol/L (136-145)
[2020-09-14 11:44] LABS: Blood Urea Nitrogen 49 mg/dl (7-17); Calcium 9.1 mg/dl (8.4-10.2); Carbon Dioxide 21 mmol/L (22.0-30.0); Estimated Glomerular Filt Rate 29 ml/min (>60); GFR (African American) 35 ML/MIN (>60); Glucose 127 mg/dl (74-100)
== END ==
PROVIDERS: Visit Provider Nurse Practitioner Family
DX: N17.9 Acute kidney failure, unspecified (principal)
CPT/HCPCS: 80048

== ENCOUNTER 2020-09-26 10:00 | Inpatient (IN) | payer MEDICARE, MEDICAID, SELFPAY ==
[2020-09-26] VITALS (25 sets, daily range): BP systolic 128–158; BP diastolic 50–69; PULSE 78–95; RESP 18–39; TEMP 36.6–36.7; O2SAT 76–96; BMI 29.0; BMI 25.2
--- NOTE | 2020-09-26 10:01 | XR_ITS ---
PROCEDURE: XR CHEST PORTABLE CLINICAL HISTORY: SOB COMPARISON: CR XR CHEST 2V from 12/13/2018 DX XR CHEST 2V from 12/16/2018 CR XR CHEST PORTABLE from 01/04/2019 FINDINGS: There is whiteout of the left lung mild mediastinal shift toward the left consistent with left lung collapse/volume loss.. Minimal aeration noted in the left upper lobe. Surgical clips are present in the left axilla. There are mild atelectatic changes in the right lower lobe. No acute bony abnormalities. There is an old left clavicular fracture. IMPRESSION: Nearly completely opacified left hemithorax with volume loss with right lower lobe atelectasis Dictated by: Colin Redding MD 09/26/2020 12:17 Colin Redding MD in [place] 09/26/2020 12:17
--- NOTE | 2020-09-26 10:03 | PC.NURSE ---
RT at bedside
--- NOTE | 2020-09-26 10:12 | ECG_ITS ---
APPROVED REPORT Exam: Resting ECG HR:92 bpm ECG Measurements Heart Rate [address] 204 P 83 QRSd 82 QRS 72 QT 348 T 64 QTc 430 Conclusion Normal sinus rhythm Normal ECG Electronically signed by : Danny Cristobal, 09/26/2020 17:56:22
--- NOTE | 2020-09-26 10:13 | HMH.EDGENADL ---
ED Disposition Clinical Impression: Lung collapse Respiratory failure with hypoxia Qualifiers: Chronicity: acute Qualified Code(s): J96.01 - Acute respiratory failure with hypoxia Disposition: Admitted As Inpatient Condition on Discharge: Serious - Critical Care Critical Care Time: Yes Attestation: On 09/26/20, the high probability of a clinically significant, sudden or life threatening deterioration of the following system(s) required my full and direct attention, intervention and personal management. The time I documented below is in addition to time spent performing reported procedures but includes the following listed in this critical care notation. Total Critical Care Time: 35 Vital system(s) involved:: Respiratory Failure My critical care processes included: Assessment & monitoring of V/S, Initial and Re-exams, Data Review/Interpretation, Coordinating Care, Medication Orders and management, Documentation Medical Decision Making - Ed Inquiry Pt receiving controlled substance: No Vital Signs: 09/26/20 10:00 09/26/20 10:40 09/26/20 11:09 Temperature 98.1 F Temperature Source Rectal Pulse Rate 88 88 Pulse Rate [Left Radial] 95 H Respiratory Rate 38 H 30 H Blood Pressure 144/67 H Blood Pressure [Right Arm] 155/62 H Blood Pressure Mean 80 Blood Pressure Mean [Right Arm] 93 Blood Pressure Source Blood Pressure Source [Right Arm] Automatic Cuff Blood Pressure Position Blood Pressure Position [Right Arm] Sitting 02 Sat by Pulse Oximetry 76 L 92 L 91 L Oxygen Delivery Method Non-Rebreather Oxygen Flow Rate (LPM) 15 09/26/20 11:12 09/26/20 11:30 09/26/20 12:00 Temperature Temperature Source Pulse Rate 89 87 87 Pulse Rate [Left Radial] Respiratory Rate 34 H 35 H 32 H Blood Pressure 145/61 H 150/57 H 136/50 L Blood Pressure [Right Arm] Blood Pressure Mean Blood Pressure Mean [Right Arm] Blood Pressure Source Blood Pressure Source [Right Arm] Blood Pressure Position Blood Pressure Position [Right Arm] 02 Sat by Pulse Oximetry 88 L 91 L 96 Oxygen Delivery Method Oxygen Flow Rate (LPM) 09/26/20 12:30 09/26/20 13:01 09/26/20 14:10 Temperature Temperature Source Pulse Rate 85 86 Pulse Rate [Left Radial] Respiratory Rate 30 H 36 H Blood Pressure 145/58 H 145/58 H Blood Pressure [Right Arm] Blood Pressure Mean 83 87 Blood Pressure Mean [Right Arm] Blood Pressure Source Blood Pressure Source [Right Arm] Blood Pressure Position Blood Pressure Position [Right Arm] 02 Sat by Pulse Oximetry 95 96 90 L Oxygen Delivery Method BiPAP BiPAP Vapotherm Oxygen Flow Rate (LPM) 40 09/26/20 14:26 09/26/20 14:28 09/26/20 14:30 Temperature Temperature Source Pulse Rate 83 82 78 Pulse Rate [Left Radial] Respiratory Rate 35 H 30 H 35 H Blood Pressure 148/56 H 148/56 H 137/62 Blood Pressure [Right Arm] Blood Pressure Mean 86 Blood Pressure Mean [Right Arm] Blood Pressure Source Automatic Cuff Blood Pressure Source [Right Arm] Blood Pressure Position Sitting Blood Pressure Position [Right Arm] 02 Sat by Pulse Oximetry 87 L 87 L 88 L Oxygen Delivery Method Vapotherm Vapotherm Vapotherm Oxygen Flow Rate (LPM) 09/26/20 15:00 Temperature Temperature Source Pulse Rate 86 Pulse Rate [Left Radial] Respiratory Rate 39 H Blood Pressure 139/59 L Blood Pressure [Right Arm] Blood Pressure Mean Blood Pressure Mean [Right Arm] Blood Pressure Source Blood Pressure Source [Right Arm] Blood Pressure Position Blood Pressure Position [Right Arm] 02 Sat by Pulse Oximetry 85 L Oxygen Delivery Method Vapotherm Oxygen Flow Rate (LPM) - Lab Data Lab Results 09/26/20 10:11: Specimen Source L radial, O2 % Nrb, ABG pH 7.46 H, ABG pCO2 42.3, ABG pO2 42.3 L, ABG HCO3 29.5 H, ABG Total CO2 30.8 H, ABG O2 Saturation 80 L*, ABG Base Excess 5.7 H, Colin Test Acceptable 09/26/20 10:11
[2020-09-26 10:14] LABS: ABG Base Excess 5.7 mmol/L (-2.4-2.3); ABG HCO3 29.5 mmhg (22.0-26.0); ABG Oxygen Saturation 80 % (90-100); ABG PCO2 42.3 mmhg (35.0-45.0); ABG PH 7.46 mmol/L (7.35-7.45); ABG TCO2 30.8 mmhg (23-27)
[2020-09-26 10:15] LABS: Allen's Test ACCEPTABLE; Oxygen NRB %; Source L RADIAL
[2020-09-26 10:16] LABS: ABG PO2 42.3 mmhg (80-100)
--- NOTE | 2020-09-26 10:16 | PC.NURSE ---
ABG results called to Janae Rodas RN and he gave them to
[2020-09-26 10:30] LABS: Microscopic, Urine URINE MICROSCOPIC (MICROSCOPIC)
[2020-09-26 10:37] LABS: Appearance,Urine CLEAR (Clear); Bilirubin,Urine Negative (Negative); Blood, Urine TRACE-I (Negative); Color,Urine YELLOW (Yellow); Glucose,Urine (UA) Negative (Negative); Ketones,Urine Negative (Negative); Leukocyte Esterase,Urine Negative (Negative); Nitrate,Urine Negative (Negative); PH,Urine 7.5 (5.0-8.5); Protein,Urine 1+ (Negative); Urobilinogen,Urine 0.2 EU/dl (0.2)
--- NOTE | 2020-09-26 10:40 | CT_ITS ---
PROCEDURE: CT CHEST WO CON Double syncope CLINICAL INDICATION: collapse left lung - white out COMPARISON: CT ABDPELW/O CT ABD PELVIS W/O CONTRAST from 11/16/[address] ABDOMEN PELVIS WO CON from 01/04/2019 CR XR CHEST PORTABLE from 09/26/2020 TECHNIQUE: Axial images obtained with sagittal and coronal reformats. All CT scans at the facility use one or more dose reduction, viz: automated exposure control, ma/kV adjustment per patient size (including targeted exams where dose is matched to indication, i.e. head), or iterative reconstruction technique. FINDINGS: There is left lung collapse with mediastinal shift toward the left. There are few small mediastinal lymph nodes. The left hilum is obscured by the collapse lung and unopacified vessels. On the coronal reformatted images it appears that there is occlusion the distal aspect of the left mainstem bronchus. The etiology of occlusion is undetermined. There is a small left pleural effusion. Motion artifact also obscures fine detail. The The right lung is hyperexpanded. Patchy atelectasis and/or infiltrate is noted in the right lower lobe in the lung base posteriorly. The are scattered areas of bronchial opacification in the right lower lobe posteriorly. Aspiration would be a consideration. Surgical clips are present in the left axilla. There is a irregular density just anterior to the chest wall within the posterior aspect of the left breast which measures approximately 13 mm and could be due to scarring or neoplasm.. This could be related to scar or neoplasm. I so density is a once again noted in the liver possibly due to hepatic cysts the largest in the left hepatic lobe segment 4 B. nonobstructing 3 mm stone is present in the right kidney. There is bilateral renal cortical thinning. No acute bony findings. There is an old right 4th and 5th rib fracture laterally. IMPRESSION: 1. Left lung collapse with mediastinal shift to the left and small left pleural effusion. Cannot exclude the possibility of pulmonary nodules within the collapse left lung. The left hilum is also somewhat obscured secondary to the unopacified vessels and collapse lung. There are some mildly prominent mediastinal lymph nodes present. 2. There is occlusion of the mid aspect of the left mainstem bronchus this could be due to aspiration or even neoplasm. 3. There is atelectasis/infiltrate in the right lower lobe with some fluid in the right lower lobe bronchi which may also be seen with aspiration. 4. Left breast lesion which could be due to scarring or neoplasm. There has been prior left axillary surgery. 5. Dictated by: Colin Redding MD 09/26/2020 11:41 Colin Redding MD in [place] 09/26/2020 11:41
--- NOTE | 2020-09-26 10:40 | PC.NURSE ---
BARI HUERTA has consulted with Dr. Arcos with pulmonology
--- NOTE | 2020-09-26 10:41 | PC.NURSE ---
Rad notified of Ct order
[2020-09-26 10:48] LABS: Bacteria,Urine Trace /lpf; RBC,Urine Occasional #/hpf (0-3); Squamous Epithelial Cell,Urine Occasional #/hpf (0-5); WBC,Urine Occasional #/hpf (0-3)
[2020-09-26 10:52] LABS: Basophils % 0.3 % (0.1-2.0); Eosinophils % 0.3 % (0.1-12.0); Hematocrit 33.4 % (37.0-47.0); Lymphocytes # 1.3 K/mm3 (0.7-4.5); Lymphocytes % 11.5 % (10-50); Mean Corpuscular Hemoglobin 28.9 pg (27.0-31.2); Mean Corpuscular Volume 87.8 fl (81-99); Mean Platelet Volume 7.4 fl (7.4-10.4); Monocytes # 0.5 K/mm3 (0.1-1.0); Monocytes % 4.6 % (1.7-9.3); Neutrophils # 9.3 K/mm3 (1.8-7.8); Neutrophils % 83.3 % (37.0-80.0); Platelet Count 438 K/mm3 (142-424); Red Cell Distribution Width 15.5 % (11.5-17.5); White Blood Count 11.2 K/mm3 (4.8-10.8)
[2020-09-26 11:03] LABS: Alanine Aminotransferase 16 U/L (12-78); Albumin Level 3.8 g/dl (3.5-5.0); Albumin/Globulin Ratio 0.8 (1.1-1.8); Alkaline Phosphatase 128 U/L (38-126); Aspartate Amino Transferase 25 U/L (14-36); Blood Urea Nitrogen 24 mg/dl (7-17); Calcium 8.9 mg/dl (8.4-10.2); Carbon Dioxide 33 mmol/L (22.0-30.0); Chloride 99 mmol/L (98-107); Creatinine Clearance Estimated 33 mL/min (50-200); Estimated Glomerular Filt Rate 31 ml/min (>60); GFR (African American) 37 ML/MIN (>60); Globulin 4.5 g/dL (1.3-3.2); Glucose 167 mg/dl (74-100); Lactic Acid 1.8 mmol/L (0.7-2.1); Sodium 136 mmol/L (136-145); Total Protein,Serum 8.3 g/dl (6.3-8.2)
[2020-09-26 11:33] LABS: NT Pro Brain Natriuretic Pep. 1790 pg/mL (0-450)
[2020-09-26 11:37] LABS: Troponin I < 0.01 ng/ml (0.00-0.034)
--- NOTE | 2020-09-26 12:00 | PC.NURSE ---
BARI HUERTA speaking with Dr. Cristobal
--- NOTE | 2020-09-26 12:03 | PC.NURSE ---
notified care management of admission
--- NOTE | 2020-09-26 12:03 | PC.NURSE ---
spoke with dr. cristobal to clarify type of bed pt needs, Dr. Cristobal states for pt to go to step down relayed the need for step down bed for pt to greenhouse technician. States she is working on a bed assignment for pt, pt will board in ER until a bed available.
--- NOTE | 2020-09-26 12:59 | PC.NURSE ---
Dr. Jensen with pt at this time.
--- NOTE | 2020-09-26 14:04 | PC.NURSE ---
RT at BS per percussion vest treatment on pt
[2020-09-26 14:20] LABS: Troponin I 0.02 ng/ml (0.00-0.034)
--- NOTE | 2020-09-26 14:29 | P.CONPHA_ITS ---
[facility] Pharmacy VTE Monitoring - Patient Demographics Admission date: 09/26/20 Report Date: 09/26/20 Time: 14:29 Allergies/Adverse Reactions: Patient Allergies Penicillins [PENICILLINS] Allergy (Severe, Verified 12/13/18 15:46) [id number]/THROAT codeine [CODEINE] Allergy (Unknown, Verified 10/09/18 19:43) NA-DIARRHEA Height: 1.68 m Weight: 81.647 kg Patient Problems: Current Active Problems Lung collapse (Acute) Respiratory failure with hypoxia (Acute) - VTE Risk Labs: VTE Related Lab Results Hgb 11.0 g/dL (12.2-16.2) L 09/26/20 10:35 Hct 33.4 % (37.0-47.0) L 09/26/20 10:35 Plt Count 438 K/mm3 (142-424) H 09/26/20 10:35 BUN 24 mg/dl (7-17) H 09/26/20 10:35 Creatinine 1.60 mg/dl (0.52-1.04) H 09/26/20 10:35 Estimated Creat Clear 33 mL/min (50-200) 09/26/20 10:35 Clinical Trial Participant: No - Prophylaxis VTE Prophylaxis Ordered?: Yes Types of VTE Prophylaxis: TEDS Knee High
--- NOTE | 2020-09-26 14:42 | HMH.PHAINT ---
HOME MEDICATION RECONCILIATION COMPLETED USING LIST FROM [facility]
--- NOTE | 2020-09-26 14:47 | SW/DCPLANNER ---
Addendum entered by Cherie Healy 10/03/20 10:51: PATIENT IS IMPROVING AND COULD BE READY TO DISCHARGE POSSIBLY IN THE AM AND IF NOT THEN MAYBE THURSDAY PENDING NO SETBACKS.. I HAVE NOTIFIED NAJMA NAVARRO SINCE SHE IS ON A BEDHOLD AND WILL SEND UPDATED MEDICAL INFORMATION.... Original Note: PATIENT WAS ADMITTED TO [facility] WITH RESPIRATORY DISTRESS AND HYPOXIA....SHE IS A RESIDENT OF [facility] AND IS ON A 14 DAY MEDICAID BEDHOLD... SHE WILL RETURN THERE ONCE SHE IS MEDICALLY STABLE TO DO SO....
--- NOTE | 2020-09-26 15:39 | PC.NURSE ---
allergy bracelet placed on patient
--- NOTE | 2020-09-26 16:48 | PC.NURSE ---
report called to [facility] Arenas on second floor will transport pt to assigned room when RT comes down to assist.
--- NOTE | 2020-09-26 17:44 | HMH.HP ---
*Admission Date: 09/26/20 *Chief complaint: Dyspnea and cough, hypoxia *History of present illness: 84-year-old white female, resident [facility]term [facility], came to the emergency department via EMS with relatively sudden onset of shortness of air, cough, difficulty breathing, new onset hypoxia. ER work-up revealed whiteout of the left lung, CT scan showed evidence of constricted bronchus and probable masses. Admitted to [facility] for high flow oxygen, pulmonary consultation and IV antibiotic therapy. [facility] History I have reviewed the patient's past medical history: Yes Medical History: Reports:: Asthma, Atrial Fibrillation, Cancer (LEFT BREAST LUMPECTOMY), Congestive Heart Failure, Depression, Diabetes Mellitus Type 2, Gastroesophageal Reflux Disease(GERD), Hyperlipidemia, Hypertension Denies:: Diabetes Mellitus Type 1, MRSA *Have you ever received a pneumonia vaccine?: Yes *Have you received a flu vaccine this season?: Yes Other Medical History: Reports: Anemia, Arthritis Laterality Cases: Left: Mastectomy Amputation: No Fractures: No - *Social History Smoking Status: Former smoker Alcohol Intake: never *Occupational Status:: unemployed Housing: [facility] Household Members: spouse *Travel in the last 8 weeks: None - Psychiatric History Pschychiatric History:: Reports:: Depression Family Hx:: Unable to obtain Review of Systems - Review of Systems Review of systems:: pertinent systems reviewed and negative unless documented below Other than dyspnea patient feels good. Feels much better on high flow Vapotherm oxygen. Denies pain. Denies angina, denies swelling Meds Home Medications Medication Instructions Recorded Confirmed Type Atorvastatin Calcium [Lipitor 40mg 40 mg PO HS 10/09/18 09/26/20 History Tab] Cetirizine HCl [24Hour Allergy] 10 mg PO DAILY 10/09/18 09/26/20 History Cranberry Fruit Extract [Cranberry] 250 mg PO DAILY 10/09/18 09/26/20 History Montelukast Sodium 5 mg PO HS 10/09/18 09/26/20 History Omeprazole [Omeprazole 20mg 20 mg PO DAILY 10/09/18 09/26/20 History Capsule] Fluticasone Propionate [Flonase 1 spr NS DAILY 12/13/18 09/26/20 History 50mcg nasal spray 16gm] Tiotropium [place] [Spiriva 2 puff IH DAILY 12/13/18 09/26/20 History 18mcg/puff inhaler] Acetaminophen [Acetaminophen 325mg 650 mg PO Q6HP PRN 01/04/19 09/26/20 History tab] Albuterol Sulfate [Ventolin HFA 2 puff IH Q4HP PRN 01/04/19 09/26/20 History Inhaler] Calcium Citrate 500 mg PO DAILY 01/04/19 09/26/20 History Cholecalciferol (Vitamin D3) 1,000 unit PO DAILY 01/04/19 09/26/20 History [Vitamin D3 1,000 Unit Tab] Magnesium Oxide 125 mg PO DAILY 01/04/19 09/26/20 History NIFEdipine [Nifedipine ER] 30 mg PO DAILY 01/04/19 09/26/20 History guaiFENesin [Robitussin 200mg/10mL 200 mg PO QIDP PRN 01/04/19 09/26/20 History Syrup Udc] Fluticasone Propion/Salmeterol 1 inh IH BID 01/05/19 09/26/20 History [Wixela 500-50 Inhub] Furosemide [Furosemide 40MG tAB*] 40 mg PO DAILY 09/26/20 09/26/20 History Insulin Regular, Human [Novolin R] 0 units SQ ACHS PRN 09/26/20 09/26/20 History Psyllium Husk [Metamucil] 0.36 gm PO DAILY 09/26/20 09/26/20 History bisacodyL [Dulcolax 5mg Tab] 5 mg PO DAILY 09/26/20 09/26/20 History Allergies Allergy/AdvReac Type Severity Reaction Status Date / Time Penicillins [PENICILLINS] Allergy Severe S-SWELLS-OR Verified 12/13/18 15:46 AL/THROAT codeine [CODEINE] Allergy Unknown NA-DIARRHEA Verified 10/09/18 19:43 Exam Vital signs and Labs for Last 24 Hours: Temp Pulse Resp BP Pulse Ox 98.1 F 83 38 H 128/60 91 L 09/26/20 16:54 09/26/20 16:54 09/26/20 16:54 09/26/20 16:54 09/26/20 16:30 Laboratory Results - last 24 hr 09/26/20 10:11: Specimen Source L radial, O2 % Nrb, ABG pH 7.46 H, ABG pCO2 42.3, ABG pO2 42.3 L, ABG HCO3 29.5 H, ABG Total CO2 30.8 H, ABG O2 Saturation 80 L*, ABG Base Excess 5.7 H, Colin Test Acceptable 09/26/20 10:11: U
[2020-09-26 17:58] LABS: POC Glucose,Bedside 117 (70-110)
--- NOTE | 2020-09-26 19:24 | PC.NURSE ---
GAVE PT SPUTUM CUP. PT UNABLE TO COUGH UP ANYTHING. INSTRUCTED PT USE SPUTUM CUP IF SHE COUGHS ANYTHING UP.
[2020-09-26 21:40] LABS: POC Glucose,Bedside 128 (70-110)
[2020-09-27] VITALS (28 sets, daily range): BP systolic 105–187; BP diastolic 47–87; PULSE 60–101; RESP 10–47; TEMP 36.6–38.2; O2SAT 80–95; BMI 24.9; BMI 24.4
--- NOTE | 2020-09-27 03:04 | PC.NURSE ---
0245 chest percussion started, patients o2 sats dropped to 79%. patient sustained sats 79-81% consistently for 15 min. resp rate in the 30s. patient does not appear labored, able to speak in full sentences. has began to cough more, bipap placed back on patient.
[2020-09-27 05:20] LABS: POC Glucose,Bedside 134 (70-110)
--- NOTE | 2020-09-27 05:42 | PC.NURSE ---
patient has had a difficult time tolerating bipap resulting in rr up to 45 and decrease in sats sustaining 85%. dr. josue feliz, new order received and carried out.
--- NOTE | 2020-09-27 08:34 | XR_ITS ---
PROCEDURE: XR CHEST PORTABLE CLINICAL HISTORY: hypoxia COMPARISON: DX XR CHEST 2V from 12/16/2018 CR XR CHEST PORTABLE from 01/04/2019 CR XR CHEST PORTABLE from 09/26/[address] CHEST WO CON from 09/26/2020 FINDINGS: Consolidation with volume loss of the left lung once again noted. There is some minimal improvement in aeration of the left upper lobe compared to the previous exam. Increasing alveolar opacification is present in the right lower lobe. The heart is obscured by the pulmonary opacification. There is an old left clavicular fracture. Surgical clips present in the left axilla. IMPRESSION: Consolidated left lung with volume loss/collapse once again noted and mild mediastinal shift toward the left. There is some improvement in aeration in the left upper lobe. Increasing consolidation in the right lower lobe consistent with pneumonia and/or volume loss Dictated by: Colin Redding MD 09/27/2020 09:24 Colin Redding MD in [facility] 09/27/2020 09:24
--- NOTE | 2020-09-27 08:41 | HMH.ACPN2 ---
Internal Medicine - PN: Subj *Date: 09/27/20 *Time: 08:41 Interval history: Overnight patient transitioned to BiPAP to keep her O2 saturations above 85%. She is alert but becomes somewhat agitated and anxious on BiPAP but Ativan did well with this. Labs are pending for this morning. Exam Vital signs and Labs for Last 24 Hours: Temp Pulse Resp BP Pulse Ox 100.1 F H 89 40 H 143/72 H 90 L 09/27/20 08:00 09/27/20 08:00 09/27/20 08:00 09/27/20 08:00 09/27/20 08:00 Laboratory Results - last 24 hr 09/26/20 10:11: Specimen Source L radial, O2 % Nrb, ABG pH 7.46 H, ABG pCO2 42.3, ABG pO2 42.3 L, ABG HCO3 29.5 H, ABG Total CO2 30.8 H, ABG O2 Saturation 80 L*, ABG Base Excess 5.7 H, Colin Test Acceptable 09/26/20 10:11: Urine Color Yellow, Urine Appearance Clear, Urine pH 7.5, Ur Specific [place] 1.010, Urine Protein 1+, Urine Glucose (UA) Negative, Urine Ketones Negative, Urine Blood Trace-i, Urine Nitrate Negative, Urine Bilirubin Negative, Urine Urobilinogen 0.2, Ur Leukocyte Esterase Negative, Urine RBC Occasional, Urine WBC Occasional, Ur Squamous Epith Cells Occasional, Urine Bacteria Trace 09/26/20 10:35: WBC 11.2 H, RBC 3.80 L, Hgb 11.0 L, Hct 33.4 L, MCV 87.8, MCH 28.9, MCHC 33.0, RDW 15.5, Plt Count 438 H, MPV 7.4, Neut % (Auto) 83.3 H, Lymph % (Auto) 11.5, [place] % (Auto) 4.6, Eos % (Auto) 0.3, Baso % (Auto) 0.3, Neut # (Auto) 9.3 H, Lymph # (Auto) 1.3, [place] # (Auto) 0.5, Eos # (Auto) 0.0, Baso # (Auto) 0.0 09/26/20 10:35: Sodium 136, Potassium 4.0, Chloride 99, Carbon Dioxide 33 H, Anion Gap 8.0, BUN 24 H, Creatinine 1.60 H, Estimated Creat Clear 33, Estimated GFR 31 L, Est GFR ( Amer) 37 L, Glucose 167 H, Calcium 8.9, Total Bilirubin 1.0, AST 25, ALT 16, Alkaline Phosphatase 128 H, Troponin I < 0.01, Total Protein 8.3 H D, Albumin 3.8, Globulin 4.5 H, Albumin/Globulin Ratio 0.8 L 09/26/20 10:35: Lactate 1.8 09/26/20 10:35: NT-Pro-B Natriuret Pep 1790 H 09/26/20 13:40: Troponin I 0.02 09/26/20 17:48: POC Glucose 117 H 09/26/20 21:34: POC Glucose 128 H 09/27/20 05:13: POC Glucose 134 H I & O for Last 24 hours: Intake & Output 09/24/20 09/25/20 09/26/20 09/27/20 11:59 11:59 11:59 11:59 Intake Total 1431 / 1431 Output Total 900 / 900 Balance 531 / 531 Weight 180 lb 146 lb 9 oz Microbiology Reports for the Last 24 Hours: Microbiology 09/26/20 10:35 Nasopharyngeal Coronavirus COVID-19 PCR - Final Narrative: Patient on BiPAP, asleep but when awakened is pleasant, does note that she feels somewhat chilled. Fever overnight noted. Lung exam reveals rhonchorous air sounds in the right lung, almost no air movement in the left upper and middle lung field, similar to yesterday's exam. No tracheal deviation. No edema noted. Heart rate regular. Abdomen is soft. Neurologic exam nonfocal. Assessment and Plan (1) Lung collapse Status: Acute Category: Medical Code(s): J98.19 - Other pulmonary collapse (2) Respiratory failure with hypoxia Status: Acute Qualifiers: Chronicity: acute Qualified Code(s): J96.01 - Acute respiratory failure with hypoxia Category: Medical Code(s): J96.91 - Respiratory failure, unspecified with hypoxia - Assessment and plan all Dx Assessment and Plan for all problems:: Patient is stable as long as she has maximal oxygen support. This will continue. Continue antibiotics as recommended by pulmonary. Pulmonary consultation today, appreciate ongoing input.
--- NOTE | 2020-09-27 09:33 | HMH.PULMPN ---
Internal Medicine - PN: Subj *Date: 09/27/20 *Time: 09:33 Interval history: Patient failed high flow nasal cannula, it escalated to BiPAP overnight. Repeat chest x-ray showed continued opacification. Worsening oxygenation. Exam - Constitutional Constitutional:: Absent: no acute distress - HENMT Exam HENMT: Present: normocephalic, atraumatic - Neck Exam Neck:: Present: normal visual inspection - Respiratory Exam Respiratory:: Present: respiratory distress, decreased breath sounds, crackles - Cardiovascular Exam Cardiac:: Present: S1, S2 - GI Exam GI:: Present: soft - Skin Exam Skin: Present: warm, no rash - Neurological Exam Neurological: Present: alert, awake, normal cognition - Extremities Exam Extremities: Present: no cyanosis, no clubbing Assessment and Plan (1) Lung collapse Status: Acute Category: Medical Code(s): J98.19 - Other pulmonary collapse (2) Respiratory failure with hypoxia Status: Acute Qualifiers: Chronicity: acute Qualified Code(s): J96.01 - Acute respiratory failure with hypoxia Category: Medical Code(s): J96.91 - Respiratory failure, unspecified with hypoxia
--- NOTE | 2020-09-27 09:35 | HMH.PULMCON ---
*Admission Date: 09/26/20 *Reason for consult:: Acute hypoxic respiratory failure *History of present illness: Ms. Johnson is a 84-[facility]-old shelter resident currently not on any inhalers, no prior respiratory complaints presented now with worsening respiratory failure pneumonia is confirmed to have opacification of the left lung followed by a CT chest that concerning for lung collapse and pulmonary was called for further management. [facility] History Medical History: Reports:: Asthma, Atrial Fibrillation, Cancer (LEFT BREAST LUMPECTOMY), Congestive Heart Failure, Depression, Diabetes Mellitus Type 2, Gastroesophageal Reflux Disease(GERD), Hyperlipidemia, Hypertension Denies:: Diabetes Mellitus Type 1, MRSA *Have you ever received a pneumonia vaccine?: Yes *Have you received a flu vaccine this season?: Yes Other Medical History: Reports: Anemia, Arthritis Laterality Cases: Left: Mastectomy Amputation: No Fractures: No - *Social History Smoking Status: Former smoker Alcohol Intake: never *Occupational Status:: unemployed Housing: shelter Household Members: spouse *Travel in the last 8 weeks: None - Psychiatric History Pschychiatric History:: Reports:: Depression Family Hx:: Unable to obtain ROS - ENT Reports abnormal hearing - Card Reports shortness of breath with activity - Resp Respiratory: Reports dyspnea, Reports dyspnea on exertion, Denies excessive phlegm production, Denies cough with sputum production - GI Gastrointestingal: Denies: abdominal pain Meds Home Medications Medication Instructions Recorded Confirmed Type Atorvastatin Calcium [Lipitor 40mg 40 mg PO HS 10/09/18 09/26/20 History Tab] Cetirizine HCl [24Hour Allergy] 10 mg PO DAILY 10/09/18 09/26/20 History Cranberry Fruit Extract [Cranberry] 250 mg PO DAILY 10/09/18 09/26/20 History Montelukast Sodium 5 mg PO HS 10/09/18 09/26/20 History Omeprazole [Omeprazole 20mg 20 mg PO DAILY 10/09/18 09/26/20 History Capsule] Fluticasone Propionate [Flonase 1 spr NS DAILY 12/13/18 09/26/20 History 50mcg nasal spray 16gm] Tiotropium [place] [Spiriva 2 puff IH DAILY 12/13/18 09/26/20 History 18mcg/puff inhaler] Acetaminophen [Acetaminophen 325mg 650 mg PO Q6HP PRN 01/04/19 09/26/20 History tab] Albuterol Sulfate [Ventolin HFA 2 puff IH Q4HP PRN 01/04/19 09/26/20 History Inhaler] Calcium Citrate 500 mg PO DAILY 01/04/19 09/26/20 History Cholecalciferol (Vitamin D3) 1,000 unit PO DAILY 01/04/19 09/26/20 History [Vitamin D3 1,000 Unit Tab] Magnesium Oxide 125 mg PO DAILY 01/04/19 09/26/20 History NIFEdipine [Nifedipine ER] 30 mg PO DAILY 01/04/19 09/26/20 History guaiFENesin [Robitussin 200mg/10mL 200 mg PO QIDP PRN 01/04/19 09/26/20 History Syrup Udc] Fluticasone Propion/Salmeterol 1 inh IH BID 01/05/19 09/26/20 History [Wixela 500-50 Inhub] Furosemide [Furosemide 40MG tAB*] 40 mg PO DAILY 09/26/20 09/26/20 History Insulin Regular, Human [Novolin R] 0 units SQ ACHS PRN 09/26/20 09/26/20 History Psyllium Husk [Metamucil] 0.36 gm PO DAILY 09/26/20 09/26/20 History bisacodyL [Dulcolax 5mg Tab] 5 mg PO DAILY 09/26/20 09/26/20 History Allergies Allergy/AdvReac Type Severity Reaction Status Date / Time Penicillins [PENICILLINS] Allergy Severe S-SWELLS-OR Verified 12/13/18 15:46 AL/THROAT codeine [CODEINE] Allergy Unknown NA-DIARRHEA Verified 10/09/18 19:43 Exam - Constitutional Constitutional:: Absent: no acute distress, comfortable - HENMT Exam HENMT: Present: normocephalic, atraumatic - Neck Exam Neck:: Present: normal visual inspection - Respiratory Exam Respiratory:: Present: respiratory distress, decreased breath sounds. Absent: able to speak in complete sentences - Cardiovascular Exam Cardiac:: Present: S1, S2 - GI Exam GI:: Present: soft - Skin Exam Skin: Present: warm, no rash - Neurological Exam Neurological: Present: awake, normal cognition. Absent: alert - Extremiti
--- NOTE | 2020-09-27 10:45 | SUR.OPER ---
No sedation given during procedure per Dr Jensen's request.
[2020-09-27 11:44] LABS: POC Glucose,Bedside 133 (70-110)
--- NOTE | 2020-09-27 12:58 | PC.NURSE ---
Addendum entered by Sara Rosen RN 09/27/20 14:52: very little air movement in the lt lung branch Original Note: PT IS RESTING IN BED WITH FAMILY AT BEDSIDE. PT TOLERATED PROCEDURE WELL THIS MORNING. BP WAS ELEVATED DURING PROCEDURE BUT IS NOW WNL. O2 SATURATION 88-93% ON VAPOTHERM 40 LPM WITH 100% FIO2 AND 100% NON REBREATHER. LUNG SOUNDS DIMINISHED. VERY LITTLE AIR MOVEMENT ON THE RT SIDE. ABDOMEN SOFT/NON TENDER WITH ACTIVE BOWEL SOUNDS. VERBAL ORDER WAS GIVEN THIS MORNING IF PT BECOMES ANXIOUS SHE CAN HAVE ATIVAN 0.5 MG IV Q6H PRN. SKIN C/D/I. TURNED AND REPOSITIONED IN BED. ORAL CARE FREQUENTLY. PT WAS GIVEN A RECTAL SUPPOSITORY FOR ELEVATED TEMP. PT WILL ANSWER SIMPLE YES OR NO QUESTIONS AND AWAKEN EASILY TO NAME. WILL CONTINUE TO MONITOR.
[2020-09-27 16:54] LABS: POC Glucose,Bedside 118 (70-110)
--- NOTE | 2020-09-27 21:34 | PC.NURSE ---
pt asleep unable to arouse for chest percussion via vest.
[2020-09-27 21:47] LABS: POC Glucose,Bedside 226 (70-110)
[2020-09-28] VITALS (32 sets, daily range): BP systolic 91–162; BP diastolic 48–76; PULSE 64–100; RESP 18–30; TEMP 36.7–39.1; O2SAT 10–100; BMI 24.4; BMI 24.2
--- NOTE | 2020-09-28 02:47 | PC.NURSE ---
PT RESFUSED CHEST PERCUSSION VIA VEST. SHE STATED SHE IS COLD ALL THE TIME. I HAVE HAD A HARD TIME GETTING HER TO WAKE UP TONIGHT.
[2020-09-28 05:25] LABS: POC Glucose,Bedside 133 (70-110)
--- NOTE | 2020-09-28 06:34 | PC.NURSE ---
Pt rested well t/o night and remained on vapotherm 40 L 100%. At 0320, pt was repositioned in bed and O2 sats declined as low as 75%. Pt was placed on NRB. RT was called. Pt recovered slowly and sats increased to loer 90s. Pt is currently getting tx per RT at this time. VSS. Will continue to monitor.
[2020-09-28 06:43] LABS: Basophils % 0.1 % (0.1-2.0); Eosinophils % 0.3 % (0.1-12.0); Hematocrit 29.3 % (37.0-47.0); Hemoglobin 9.6 g/dL (12.2-16.2); Lymphocytes # 1.2 K/mm3 (0.7-4.5); Lymphocytes % 8.6 % (10-50); Mean Corpuscular HGB Conc 32.6 g/dL (31.8-35.4); Mean Corpuscular Hemoglobin 28.8 pg (27.0-31.2); Mean Corpuscular Volume 88.5 fl (81-99); Mean Platelet Volume 7.7 fl (7.4-10.4); Monocytes # 0.7 K/mm3 (0.1-1.0); Monocytes % 5.2 % (1.7-9.3); Neutrophils % 85.9 % (37.0-80.0); Platelet Count 309 K/mm3 (142-424); Red Blood Count 3.32 M/mm3 (4.20-5.40); Red Cell Distribution Width 15.4 % (11.5-17.5)
[2020-09-28 06:49] LABS: Chloride 104 mmol/L (98-107); Potassium 3.7 mmoL/L (3.5-5.1); Sodium 137 mmol/L (136-145)
[2020-09-28 06:51] LABS: MANUAL DIFFERENTIAL MANUAL DIFFERENTIAL (MANUAL DIFF)
[2020-09-28 06:52] LABS: Alanine Aminotransferase 10 U/L (12-78); Albumin Level 3.2 g/dl (3.5-5.0); Albumin/Globulin Ratio 0.8 (1.1-1.8); Alkaline Phosphatase 108 U/L (38-126); Anion Gap 9.7 mEq/L (5-15); Aspartate Amino Transferase 20 U/L (14-36); Bilirubin,Total 1.1 mg/dl (0.2-1.3); Blood Urea Nitrogen 16 mg/dl (7-17); Calcium 8.3 mg/dl (8.4-10.2); Carbon Dioxide 27 mmol/L (22.0-30.0); Creatinine Clearance Estimated 33 mL/min (50-200); Estimated Glomerular Filt Rate 39 ml/min (>60); GFR (African American) 47 ML/MIN (>60); Glucose 132 mg/dl (74-100); Total Protein,Serum 7.2 g/dl (6.3-8.2)
--- NOTE | 2020-09-28 07:29 | HMH.ACPN2 ---
Internal Medicine - PN: Subj *Date: 09/28/20 *Time: 17:28 Interval history: Patient mild respiratory distress this morning. On maximal noninvasive therapy with saturations in the high 80s on exam this morning. Alert and oriented. Denies chest pain or nausea or vomiting. Discussion about goals of care this morning. Patient does not want heroic measures to save her life if her heart stops or she dies. She is open to elective intubation however for treatable and possibly reversible conditions such as infection. No drastic improvement after bronchoscopy yesterday. Reviewed x-ray from this morning and labs. Marginal improvement in creatinine. Improved aeration in x-ray, does not correlate clinically however. Exam Vital signs and Labs for Last 24 Hours: Temp Pulse Resp BP Pulse Ox 99.3 F 87 28 H 141/67 H 91 L 09/28/20 04:00 09/28/20 07:00 09/28/20 07:00 09/28/20 07:00 09/28/20 07:00 Laboratory Results - last 24 hr 09/27/20 11:17: POC Glucose 133 H 09/27/20 16:42: POC Glucose 118 H 09/27/20 20:32: POC Glucose 226 H 09/28/20 05:17: POC Glucose 133 H 09/28/20 05:29: WBC 14.0 H, RBC 3.32 L, Hgb 9.6 L, Hct 29.3 L, MCV 88.5, MCH 28.8, MCHC 32.6, RDW 15.4, Plt Count 309 D, MPV 7.7, Neut % (Auto) 85.9 H, Lymph % (Auto) 8.6 L, [place] % (Auto) 5.2, Eos % (Auto) 0.3, Baso % (Auto) 0.1, Neut # (Auto) 12.0 H, Lymph # (Auto) 1.2, [place] # (Auto) 0.7, Eos # (Auto) 0.0, Baso # (Auto) 0.0 09/28/20 05:29: Sodium 137, Potassium 3.7, Chloride 104, Carbon Dioxide 27, Anion Gap 9.7, BUN 16 D, Creatinine 1.30 H, Estimated Creat Clear 33, Estimated GFR 39 L, Est GFR ( Amer) 47 L D, Glucose 132 H, Calcium 8.3 L, Total Bilirubin 1.1, AST 20, ALT 10 L D, Alkaline Phosphatase 108, Total Protein 7.2, Albumin 3.2 L, Globulin 4.0 H, Albumin/Globulin Ratio 0.8 L I & O for Last 24 hours: Intake & Output 09/25/20 09/26/20 09/27/20 09/28/20 23:59 23:59 23:59 23:59 Intake Total 259 / 259 1866 / 1866 Output Total 2200 / 2200 600 / 600 Balance 259 / 259 -334 / -334 -600 / -600 Weight 68.946 kg 66.48 kg Microbiology Reports for the Last 24 Hours: Microbiology 09/27/20 10:00 Bronchial Washings Gram Stain - Final 09/27/20 10:00 Bronchial Lavage JIGNA Preparation - Final 09/27/20 10:00 Bronchial Lavage - Final Not Reportable 09/27/20 10:00 Bronchial Lavage - Final Not Reportable 09/27/20 10:00 Bronchial Lavage Microbiology Comment - Final Not Reportable - Constitutional moderate distress - *Routine HEENT Exam Head: Present: normocephalic Eye: Present: EOMI, PERRL ENT: Present: mucous membranes moist - *Routine Neck Exam Present: supple. Absent: lymphadenopathy - *Routine Respiratory Exam Present: rhonchi, wheezes, crackles, diminished air movement (left lung field) - *Routine Cardiovascular Exam Present: RRR - *Routine Abdominal Exam Present: soft, normoactive bowel sounds. Absent: tenderness - *Routine Extremities Exam Absent: cyanosis, clubbing, edema - *Routine Skin Exam Present: warm. Absent: rash - *Routine Neurological Exam Present: alert, oriented X3 Assessment and Plan (1) Acute hypoxemic respiratory failure Status: Acute Category: Medical Code(s): J96.01 - Acute respiratory failure with hypoxia (2) Lung collapse Status: Acute Category: Medical Code(s): J98.19 - Other pulmonary collapse (3) Respiratory failure with hypoxia Status: Acute Qualifiers: Chronicity: acute Qualified Code(s): J96.01 - Acute respiratory failure with hypoxia Category: Medical Code(s): J96.91 - Respiratory failure, unspecified with hypoxia (4) ELINOR (acute kidney injury) Status: Acute Category: Medical Code(s): N17.9 - Acute kidney failure, unspecified (5) Diabetes Status: Acute Qualifiers: Diabetes mellitus type: type 2 Category: Medical Code(s): E11.9 - Type
--- NOTE | 2020-09-28 07:35 | XR_ITS ---
PROCEDURE: XR CHEST PORTABLE CLINICAL HISTORY: hypoxia COMPARISON: CR XR CHEST PORTABLE from 01/04/2019 CR XR CHEST PORTABLE from 09/26/[address] CHEST WO CON from 09/26/2020 CR XR CHEST PORTABLE from 09/27/2020 FINDINGS: There is mild patient rotation. There remains consolidation in the left mid lower lung zone not significantly changed. There is some increased density in the left upper lobe medially which may be due to an area of volume loss. Right lower lobe infiltrate once again noted with increasing size right effusion. Surgical clips are present in the left axillary region. IMPRESSION: Persistent left-sided lung volume loss with consolidation overall not significantly changed. There is some increasing consolidation in the left upper lobe medially. Right lower lobe pneumonia/volume loss with slight increase in size of right effusion Dictated by: Colin Redding MD 09/28/2020 08:41 Colin Redding MD in [facility] 09/28/2020 08:41
--- NOTE | 2020-09-28 08:54 | XR_ITS ---
PROCEDURE: XR CHEST PORTABLE PICC PLAC CLINICAL HISTORY: Confirm PICC line placement COMPARISON: CR XR CHEST PORTABLE from 09/26/[address] CHEST WO CON from 09/26/2020 CR XR CHEST PORTABLE from 09/27/2020 CR XR CHEST PORTABLE from 09/28/2020 FINDINGS: Left upper extremity PICC line has been inserted. The tip overlies the region the right atrium superiorly and should be withdrawn approximately 4 cm. There has been improvement in aeration in the left upper lobe. Dense consolidation is present in the left lower lobe. The mediastinal shift has shown some improvement. The volume loss in the left apex medially has improved. There remains patchy density in the right lung base consistent with atelectasis or infiltrate with small right effusion. Surgical clips left axilla IMPRESSION: Left upper extremity PICC line tip is in the region of the right atrium. Improvement in left upper lobe volume loss. Persistent consolidation in the left lower lobe and right lung base with small right effusion Dictated by: Colin Redding MD 09/28/2020 14:35 Colin Redding MD in [facility] 09/28/2020 14:35
[2020-09-28 09:20] LABS: Lymphocytes % 12 % (10-50); Monocytes % 2 % (2-9); Neutrophils % 86 % (42-76); Platelet Estimate Normal; RBC Morphology Normal; Total Cells Counted 100
--- NOTE | 2020-09-28 10:41 | PC.NURSE ---
patient began maintaining sats at 70%-83% so returned the nonrebreather back over the vapotherm
--- NOTE | 2020-09-28 12:11 | HMH.PULMPN ---
Internal Medicine - PN: Subj *Date: 09/28/20 *Time: 18:51 Interval history: No acute respiratory vents overnight. Patient tolerated the bron well however patient respiratory status showed no improvement. Exam - Constitutional Constitutional:: Present: no acute distress, comfortable - HENMT Exam HENMT: Present: normocephalic, atraumatic - Eye Exam Eyes:: Present: normal appearance both eyes and related structures - Neck Exam Neck:: Present: normal visual inspection - Respiratory Exam Respiratory:: Present: able to speak in complete sentences, respiratory distress Comments: Improved aeration in the left upper peripherals however no breath sounds heard on the left lower lung branch. - Cardiovascular Exam Cardiac:: Present: S1, S2 - GI Exam GI:: Present: soft - Skin Exam Skin: Present: warm, no rash - Neurological Exam Neurological: Present: alert, awake, normal cognition - Extremities Exam Extremities: Present: no cyanosis, no clubbing, no edema Assessment and Plan (1) Lung collapse Status: Acute Category: Medical Code(s): J98.19 - Other pulmonary collapse (2) Respiratory failure with hypoxia Status: Acute Qualifiers: Chronicity: acute Qualified Code(s): J96.01 - Acute respiratory failure with hypoxia Category: Medical Code(s): J96.91 - Respiratory failure, unspecified with hypoxia - Assessment and plan all Dx Assessment and Plan for all problems:: #Acute hypoxic respiratory failure: #Left lung collapse: #Community-acquired pneumonia: 84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 CT chest reviewed showed complete collapse of the left lung along with small effusion. The possible underlying lung mass cannot be completely ruled out. We have attempted a big bronchoscopy yesterday and have suctioned significant amount of mucus plugging from her right lung repeat chest x-ray today showed improved aeration of the left upper lung branch however continued collapse of the left lower lung branch worsening airspace disease in the right lower lobe. Despite the bronchoscopy and airway clearance patient respiratory status did not improve and she continued to need high oxygen supplementation. Bronchoscopy also concerning for tracheobronchitis. Given no improvement in respiratory status and worsening pneumonia , after extensive discussion with patient and her , plan was made to intubate and mechanically ventilate and redo bronchoscopy. Broncoscopy showedsevere bronchimalacia along with diffure erythematous fragile mucosa along with raised patchy hypervascular bonchial lesions lesionsconcerning for SCC or FUngal infections. After eveluating patients airway - this condition apeear to be more chronic / subacute in nature that acute onset and patients likely been gradually worsening for some time. Plan -Change levofloxacin to cefepime. -Follow final BAL cultures, purulent staining showing gram-positive cocci in pairs. -Follow with nasal MRSA PCR - F/U Cytopathology of BAL adn endobronchal biopsies - Continue mechanical ventilatory support - Continue AnalgoSedation with Propofol and Fentanyl with CPOT gal less than or euqal to 2 and RASS goal of 0 to 1 (Deep sedation) - Recommend VAP bundle Elevate head of the bed at 30 to 45 degrees Oral care with chlorhexidne GI ulcer prophylaxis - Famotidine 20mg IV BID Chemical DVT prophylaxis #Thank for involving pulmonary in this patient care. We will continue to follow. Please call with any questions or concerns.
--- NOTE | 2020-09-28 12:14 | HMH.BRONCH ---
- Procedure: Date: 09/27/20 Patient Date of :: 1935 Procedure Performed:: Therapeutic bronchoscopy with airway examination and bronchoalveolar lavage Indications:: Acute hypoxic respiratory failure, lung collapse Performing Provider:: Nayeli Jensen MD Referring Provider:: Dr. Cristobal Sedation:: Conscious sedation Procedure:: Therapeutic bronchoscopy with airway examination and bronchoalveolar lavage Findings:: Procedure was challenging and examination was limited given patient's hypoxic respiratory failure and on high oxygen requirements. Every effort was made not to intubate the patient. Therapeutic bronchoscopy was advanced through the oral oropharynx, significant papillomatous lesions noted on the posterior oropharynx. 5 cc 1% Lidocaine was given at the vocal cords and bronchoscope advanced into the main bronchi. 5 cc 1% lidocaine was instilled each in the main bronchi right and left mainstem. Main bronchi appear significantly erythematous with white plaque lesion. Significant mucoid impaction is noted in the left mainstem bronchus which were gradually suction. Bronchoalveolar lavage was performed the right lower lobe and were sent for analysis. Overall patient finds it concerning for severe tracheobronchitis with left main bronchi and mucoid impaction resulting in left lung collapse. Patient tolerated the procedure well. We will follow the microbiology and culture results. Specimens:: Bronchoalveolar lavage Recommendations:: Please see the procedure and progress notes Complications:: None Estimated blood obtained (mL): 10
--- NOTE | 2020-09-28 15:08 | HMH.PROC ---
[facility] Procedure Note Procedure Note:: Consulted for intubation for worsening respiratory distress. Discussed plan of care with pt and family member. Both verbalized understanding of plan of care. See Nurses notes for vital signs. 1505- Propofol 50 mg, Succinylcholine 100 mg IV, DVL x1 with Sherwood 2 blade, 7.5 ETT secured at 20cm at the lip on right side. +ETCO2, +Bilateral Breath Sounds. Propofol gtt started.
--- NOTE | 2020-09-28 15:16 | XR_ITS ---
PROCEDURE: XR CHEST PORTABLE CLINICAL HISTORY: intubation Check tube placement COMPARISON: CT CT CHEST WO CON from 09/26/2020 CR XR CHEST PORTABLE from 09/27/2020 CR XR CHEST PORTABLE PICC PLAC from 09/28/2020 CR XR CHEST PORTABLE from 09/28/2020 FINDINGS: Endotracheal tube is in good position 4 cm above the livier at the T5 level. Left upper extremity PICC line is in good position in the region of the SVC. There is recurrence left upper lobe collapse with mediastinal shift toward the left with persistent consolidation in the left lower lobe. There is now complete whiteout of the left lung. There is consolidation/volume loss in the right lower lobe. IMPRESSION: 1. Good position of PICC line. 2. Good position of endotracheal tube. 3. Worsening left lung collapse with mediastinal shift to the left and persistent consolidation in the right lower lobe and left lower lobe Dictated by: Colin Redding MD 09/28/2020 15:30 Colin Redding MD in OV 09/28/2020 15:30
--- NOTE | 2020-09-28 16:35 | XR_ITS ---
PROCEDURE INFORMATION: Exam: XR Chest Exam date and time: 09/28/2020 4:35 PM Age: 84 years old Clinical indication: Device placement; Ng tube; Additional info: Confirm ng tube placement TECHNIQUE: Imaging protocol: XR of the chest. Views: 1 view. COMPARISON: CR XR CHEST PORTABLE 09/28/2020 3:17 PM FINDINGS: Tubes, catheters and devices: A left peripherally inserted central venous catheter lies with its tip in the superior vena cava. Endotracheal tube terminates 4 cm above the livier in good position An enteric feeding tube is present, with its tip located in the stomach . Gastric side hole is at the gastroesophageal junction. Recommend advancement of the tube 7 cm. Lungs: Opacities in both bases may represent atelectasis or pneumonia.. Pleural spaces: Mild left pleural effusion.. Heart/Mediastinum: Unremarkable. No cardiomegaly. Bones/joints: Unremarkable. Soft tissues: Surgical clips in the left axilla IMPRESSION: 1. Opacities in both bases may represent atelectasis or pneumonia.. 2. Mild left pleural effusion.. 3. An enteric feeding tube is present, with its tip located in the stomach . Gastric side hole is at the gastroesophageal junction. Recommend advancement of the tube 7 cm.
[2020-09-28 16:45] LABS: ABG Base Excess 1.2 mmol/L (-2.4-2.3); ABG HCO3 25.3 mmhg (22.0-26.0); ABG Oxygen Saturation 96 % (90-100); ABG PCO2 37.8 mmhg (35.0-45.0); ABG PH 7.44 mmol/L (7.35-7.45); ABG PO2 73.7 mmhg (80-100); ABG TCO2 26.5 mmhg (23-27); Oxygen 100 %
[2020-09-28 16:46] LABS: Allen's Test Patient Unable; PEEP 12; Source Right Radial; Tidal Volume 440; Vent Rate 18
--- NOTE | 2020-09-28 16:59 | PC.NURSE ---
[address] joel that patient sats had been maintaining mostly at the highest 83% majority of the day. he stated he wanted bipap initiated. 1430 dr joel called back and stated he wanted to intubate patient and do another bronch. patient and patient notified and educated 1500 patient intubated by anesthesia with a 7.5 et tube 20 at the lip. 1500 vital 141/73 96 heart rate 85% spo2 1505 vital 117/49 heart rate 94% o2 sat 81%. during bronch patient required propofol drip at 55mcg/kg/min once procedure was done this was decreased down and is now at 15mcg/kg/min during bronch patient also had a 75mcg of fentanyl bolus and then was started on drip at 25mcg/hr
[2020-09-28 17:02] LABS: POC Glucose,Bedside 120 (70-110)
--- NOTE | 2020-09-28 17:29 | PC.NURSE ---
1615 ng tube placed- 18french 55 at nostril. xray to confirm placement
--- NOTE | 2020-09-28 19:00 | HMH.BRONCH ---
- Procedure: Date: 09/28/20 Patient Date of :: 1935 Procedure Performed:: Bronscoscopy with airway exam Indications:: Respiratory failure and lung collapse Performing Provider:: Nayeli Jensen MD Referring Provider:: Dr. Cristobal Sedation:: Intubated and sedated with propofol and Fentanyl Procedure:: Bronchoscopy with airway examination, endobronchial biopsy and alveolar lavage Findings:: Clean therapeutic bronchoscope was advanced into airway va 7.5 ET tube and airways were examined up segmental bronci. Main trachea along with bronchi on both lung appear erythematous with raised plaque lesion noted predominantly at the livier and left lung bronchi with increased vascularity noted on narrow band imaging. Black mold like plaque lesion noted at the JENA-LLL livier and endobronchial biopsy of the lesion was performed and was sent for cytopathology along with bacterial and fungal cultures. BAL was performed in the LLL with thick mucoid secretions suctioned and were sent to BAL diff, Bacterial, fungal cultures along with cytopathology. Patient tolerate the procedure well. No active bleeding/oozing sites noted post procedure Will follow with the results. Consent was obtained from both patient and he before intubation. Recommendations:: F/U results. Please see progress noted from today for detailed plan of care Complications:: None Estimated blood obtained (mL): 15
[2020-09-28 19:57] LABS: POC Glucose,Bedside 148 (70-110)
[2020-09-28 19:57] LABS: POC Glucose,Bedside 160 (70-110)
--- NOTE | 2020-09-28 20:37 | PC.NURSE ---
Per report NG was to be at 55 and after verifying during report it was noted that she was laying on her NG tubing and that it was at 45. Tube advanced back to 55. Placement will be reverified in am with ETT placement verification.
--- NOTE | 2020-09-28 21:10 | PC.NURSE ---
She is intubated and sedated. GCS 6, RASS -3, CPOT 1. HOB elevated. She is being turned and repositioned and provided oral care q 2 hours. Vent settings are as follows: AC mode, TV 440, R 18, PEEP 12 FiO2 90%. She is intubated with a 7.5ETT that is 20 @ the lip. She is a left limb alert r/t to PICC. F/C patent with yellow, clear urine. Glucose was 160 at bedtime. NSR on telemetry.
[2020-09-29] VITALS (33 sets, daily range): BP systolic 92–126; BP diastolic 45–64; PULSE 58–93; RESP 0–20; TEMP 36.6–37.6; O2SAT 6–100; BMI 26.2
--- NOTE | 2020-09-29 05:00 | XR_ITS ---
PROCEDURE INFORMATION: Exam: XR Chest Exam date and time: 09/29/2020 5:00 AM Age: 84 years old Clinical indication: Device placement; Ett placement (vent status); Patient HX: PT intubated TECHNIQUE: Imaging protocol: XR of the chest. Views: 1 view. COMPARISON: CR XR CHEST PORTABLE 09/28/2020 5:10 PM FINDINGS: Tubes, catheters and devices: NG tube terminates gastric fundus, proximal port again at the GE junction, again recommend advancing the tube. Tip of ET tube lies 4.5 cm from the livier. Left upper extremity PICC line terminates inferior SVC. Lungs: Stable airspace disease on the right. Improved aeration left mid lung, otherwise left pulmonary opacities are similar. Similar retrocardiac consolidation. Pleural spaces: Decreasing small left pleural effusion. No pneumothorax. Heart/Mediastinum: Unremarkable. No cardiomegaly. Vasculature: The aorta demonstrates moderate atherosclerotic calcification. Bones/joints: Unremarkable. IMPRESSION: 1. Overall no change except for decreasing size of small left pleural effusion. 2. NG tube terminates gastric fundus, proximal port again at the GE junction, again recommend advancing the tube. 3. Remainder of support lines and tubes as above.
[2020-09-29 05:28] LABS: POC Glucose,Bedside 101 (70-110)
[2020-09-29 05:35] LABS: Eosinophils # 0.1 K/mm3 (0.0-0.4); Mean Corpuscular HGB Conc 32.1 g/dL (31.8-35.4); Mean Corpuscular Hemoglobin 28.2 pg (27.0-31.2); Red Cell Distribution Width 15.4 % (11.5-17.5)
[2020-09-29 05:39] LABS: Chloride 109 mmol/L (98-107); Sodium 140 mmol/L (136-145)
[2020-09-29 05:40] LABS: Potassium 3.5 mmoL/L (3.5-5.1)
[2020-09-29 05:42] LABS: Alanine Aminotransferase 10 U/L (12-78); Alkaline Phosphatase 97 U/L (38-126); Anion Gap 12.5 mEq/L (5-15); Aspartate Amino Transferase 22 U/L (14-36); Basophils % 0.3 % (0.1-2.0); Bilirubin,Total 0.9 mg/dl (0.2-1.3); Blood Urea Nitrogen 21 mg/dl (7-17); Carbon Dioxide 22 mmol/L (22.0-30.0); Creatinine Clearance Estimated 29 mL/min (50-200); Eosinophils % 0.6 % (0.1-12.0); Estimated Glomerular Filt Rate 31 ml/min (>60); GFR (African American) 37 ML/MIN (>60); Hematocrit 26.3 % (37.0-47.0); Lymphocytes # 1.3 K/mm3 (0.7-4.5); Lymphocytes % 14.5 % (10-50); Monocytes # 0.4 K/mm3 (0.1-1.0); Monocytes % 4.7 % (1.7-9.3); Neutrophils # 7.1 K/mm3 (1.8-7.8); Neutrophils % 79.9 % (37.0-80.0); Platelet Count 240 K/mm3 (142-424); Red Blood Count 2.99 M/mm3 (4.20-5.40); White Blood Count 8.8 K/mm3 (4.8-10.8)
[2020-09-29 05:43] LABS: Albumin Level 2.8 g/dl (3.5-5.0); Albumin/Globulin Ratio 0.8 (1.1-1.8); Calcium 7.9 mg/dl (8.4-10.2); Globulin 3.7 g/dL (1.3-3.2); Glucose 102 mg/dl (74-100); Magnesium 2.1 mg/dl (1.6-2.3); Total Protein,Serum 6.5 g/dl (6.3-8.2)
[2020-09-29 05:51] LABS: Hemoglobin 8.4 g/dL (12.2-16.2)
[2020-09-29 07:14] LABS: ABG Base Excess -1.6 mmol/L (-2.4-2.3); ABG HCO3 21.1 mmhg (22.0-26.0); ABG Oxygen Saturation 99 % (90-100); ABG PCO2 26.1 mmhg (35.0-45.0); ABG PH 7.53 mmol/L (7.35-7.45); ABG PO2 100.2 mmhg (80-100); ABG TCO2 21.9 mmhg (23-27)
[2020-09-29 07:19] LABS: Allen's Test Patient Unable; Oxygen 60 %; PEEP 12; Source Right Radial; Tidal Volume 440; Vent Rate 18
--- NOTE | 2020-09-29 07:56 | HMH.ACPN2 ---
Internal Medicine - PN: Subj *Date: 09/29/20 *Time: 07:56 Interval history: Patient remains sedated, intubated in the intensive care unit. No issues overnight with blood pressure or pulse issues. I reviewed chest x-ray and labs from this morning. Exam Vital signs and Labs for Last 24 Hours: Temp Pulse Resp BP Pulse Ox 98.6 F 70 18 109/56 L 100 09/29/20 06:35 09/29/20 06:35 09/29/20 06:35 09/29/20 06:35 09/29/20 06:35 Laboratory Results - last 24 hr 09/28/20 05:29: Total Counted 100, Neutrophils % (Manual) 86 H, Lymphocytes % (Manual) 12, Monocytes % (Manual) 2, Platelet Estimate Normal, RBC Morphology Normal 09/28/20 11:53: POC Glucose 120 H 09/28/20 18:19: POC Glucose 148 H 09/28/20 19:28: POC Glucose 160 H 09/28/20 : Specimen Source Right radial, O2 % 100, ABG pH 7.44, ABG pCO2 37.8, ABG pO2 73.7 L, ABG HCO3 25.3, ABG Total CO2 26.5, ABG O2 Saturation 96, ABG Base Excess 1.2, Colin Test Patient unable, Vent Rate 18, Tidal Volume 440, PEEP 12 09/29/20 05:20: POC Glucose 101 09/29/20 05:23: WBC 8.8 D, RBC 2.99 L, Hgb 8.4 L D, Hct 26.3 L, MCV 88.0, MCH 28.2, MCHC 32.1, RDW 15.4, Plt Count 240, MPV 8.0, Neut % (Auto) 79.9, Lymph % (Auto) 14.5, [place] % (Auto) 4.7, Eos % (Auto) 0.6, Baso % (Auto) 0.3, Neut # (Auto) 7.1, Lymph # (Auto) 1.3, [place] # (Auto) 0.4, Eos # (Auto) 0.1, Baso # (Auto) 0.0 09/29/20 05:23: Sodium 140, Potassium 3.5, Chloride 109 H, Carbon Dioxide 22, Anion Gap 12.5, BUN 21 H D, Creatinine 1.60 H D, Estimated Creat Clear 29, Estimated GFR 31 L, Est GFR ( Amer) 37 L D, Glucose 102 H D, Calcium 7.9 L, Magnesium 2.1, Total Bilirubin 0.9, AST 22, ALT 10 L, Alkaline Phosphatase 97, Total Protein 6.5, Albumin 2.8 L D, Globulin 3.7 H, Albumin/Globulin Ratio 0.8 L 09/29/20 07:00: Specimen Source Right radial, O2 % 60, ABG pH 7.53 H, ABG pCO2 26.1 L, ABG pO2 100.2 H, ABG HCO3 21.1 L, ABG Total CO2 21.9 L, ABG O2 Saturation 99, ABG Base Excess -1.6, Colin Test Patient unable, Vent Rate 18, Tidal Volume 440, PEEP 12 I & O for Last 24 hours: Intake & Output 09/26/20 09/27/20 09/28/20 09/29/20 11:59 11:59 11:59 11:59 Intake Total 1431 / 1431 814 / 814 4333 / 4333 Output Total 900 / 900 1900 / 1900 1595 / 1595 Balance 531 / 531 -1086 / -1086 2738 / 2738 Weight 180 lb 146 lb 9 oz 146 lb 9.013 oz 157 lb Microbiology Reports for the Last 24 Hours: Microbiology 09/28/20 15:15 Sputum - Endotracheal Tube Aspirate Gram Stain - Final 09/28/20 15:15 Sputum - Endotracheal Tube Aspirate Sputum Culture - Preliminary 09/28/20 16:10 Bronchial Washings Gram Stain - Final 09/28/20 16:10 Bronchial Lavage JIGNA Preparation - Final 09/28/20 16:10 Bronchial Brushings - Final Not Reportable 09/28/20 16:10 Bronchial Brushings - Final Not Reportable 09/28/20 16:10 Bronchial Brushings - Final Not Reportable 09/28/20 16:10 Bronchial Brushings - Final Not Reportable 09/28/20 16:10 Bronchial Lavage - Final Not Reportable 09/28/20 16:10 Bronchial Lavage - Final Not Reportable 09/27/20 10:00 Bronchial Lavage Acid Fast Bacilli Smear - Final 09/26/20 10:35 Blood Blood Culture - Preliminary NO GROWTH AFTER 48 HOURS 09/26/20 10:35 Blood Blood Culture - Preliminary NO GROWTH AFTER 48 HOURS Narrative: Patient intubated, ET tube in good position. NG tube in place. Sedated. Does respond to tactile stimuli. Lungs have much better air entry, especially in the left with better aeration of the top half of the lung field. Right side remains fairly well aerated. Abdomen soft. Heart rate regular. Extremities warm and well-perfused. Assessment and Plan (1) Lung collapse Status: Acute Category: Medical Code(s): J98.19 - Other pulmonary
--- NOTE | 2020-09-29 08:39 | XR_ITS ---
PROCEDURE INFORMATION: Exam: XR Chest Exam date and time: 09/29/2020 8:39 AM Age: 84 years old Clinical indication: Device placement; Ett placement (vent status); Additional info: Et advancement TECHNIQUE: Imaging protocol: XR of the chest. Views: 1 view. COMPARISON: CR XR CHEST PORTABLE 09/29/2020 4:49 AM FINDINGS: Tubes, catheters and devices: Endotracheal tube terminates 1 cm above the livier and needs to be withdrawn 2 cm.. Enteric tube terminates in the stomach but the gastric side hole is at the gastroesophageal junction. Recommend advancement of the tube 8 cm.. Lungs: Opacities in both bases may represent atelectasis or pneumonia.. Pleural spaces: Unremarkable. No pleural effusion. No pneumothorax. Heart/Mediastinum: Stable cardiac silhouette Bones/joints: Unremarkable. Soft tissues: Surgical clips in the left axilla IMPRESSION: 1. Endotracheal tube terminates 1 cm above the livier and needs to be withdrawn 2 cm.. 2. Enteric tube terminates in the stomach but the gastric side hole is at the gastroesophageal junction. Recommend advancement of the tube 8 cm.. 3. Opacities in both bases may represent atelectasis or pneumonia..
--- NOTE | 2020-09-29 09:57 | PC.NURSE ---
Pt restless and agitated. Increased Prop gtt to 35mcg/kg/min.
--- NOTE | 2020-09-29 10:01 | PC.NURSE ---
Notified Ector Chaudhry RN [facility] results that were called to me. Dr Jensen is aware of ETT position and stated to put ETT at 20. Viola to advance NG tube as well.
--- NOTE | 2020-09-29 10:05 | PC.NURSE ---
pt attempting to pull out ET tube. Propofol gtt increased to 40mcg/kg/min.
--- NOTE | 2020-09-29 10:07 | XR_ITS ---
PROCEDURE INFORMATION: Exam: XR Chest Exam date and time: 09/29/2020 10:07 AM Age: 84 years old Clinical indication: Device placement; Ett placement (vent status); Additional info: Et tube and ng placement TECHNIQUE: Imaging protocol: XR of the chest. Views: 1 view. COMPARISON: CR XR CHEST PORTABLE 09/29/2020 8:45 AM FINDINGS: Tubes, catheters and devices: Endotracheal tube, feeding tube, and left PICC line. The endotracheal tube terminates 6.2 cm above the livier. Lungs: COPD, interstitial prominence, and basilar airspace disease. Pleural spaces: Left pleural effusion obscuring the left hemidiaphragm. Heart/Mediastinum: Cardiac silhouette upper limits of normal size. Bones/joints: Osteopenia, degenerative change, and old rib fractures. Soft tissues: Surgical clips in the left axilla. Status post right mastectomy. IMPRESSION: 1. Endotracheal tube, feeding tube, and left PICC line. The endotracheal tube terminates 6.2 cm above the livier. 2. COPD, interstitial prominence, and basilar airspace disease. 3. Left pleural effusion. 4. Additional findings as described above.
--- NOTE | 2020-09-29 10:49 | DIET.NUTRFU ---
Addendum entered by Beatris Duffy 10/03/20 14:17: Pt doing okay nutritionally, eats well with encouragement, voices understanding importance nutrition. [employer]NAGER [employer] upgraded her today to honey thickened liquids, she continues on puree diet. I was able to get her to eat 75% of lunch today. She states she does the best she can but is very weak. Encouraged prioritization protein shakes and protein/protein fortified foods. BID supplements and TID protein fortification on diet order. BG moderate- avg. 120, weight down 6#. Do suspect inaccuracies in weights t/o stay, have communicated this with nursing. Addendum entered by Beatris Duffy 10/01/20 17:07: Pt tolerated tube feeds without issue, electrolytes wnl, BG moderate/unchanged, did not get to goal rate before pt was extubated today. Pt will have swallow evaluation tomorrow. Of concern pt has not had a BM since admission-6d. Continuing to monitor, will add supplements as indicated as diet advances. Original Note: Pt intubated, nutrition consult to initiate enteral nutrition received. Pt with CHF and DM in ARF, minimal po intakes past 1-2w rt SOA. MAP>60. Renal function poor, BG moderate, Ca slightly low other electrolytes wnl. Enteral nutrition to start tomorrow pending pt stability. Pulmocare most appropriate formula for respiratory support. Pt currently receiving IVF and ~300kcal from propofol. Will monitor pt tolerance, fluids, meds, labs to alter regimen as indicated. Upon MD order, recommend initiating continuous TF regimen of Pulmocare 1.5 at 20ml/h and advance by 10ml/h q 8h as tolerated to goal rate of 42ml/h. Pt currently receiving IVF, recommend minimal water flushes of 30-60ml at GRV checks/for irrigation. If IVF dc'd, recommend water flushes of 175ml q 4h to meet additional (conservative) fluid needs not provided by formula. This regimen will provide 1500kcal, 63g protein, 106g cho, 93g fat, and 785ml free water. (1835ml total fluids with flushes)
--- NOTE | 2020-09-29 11:31 | PC.NURSE ---
pt continues with restless and agitation. Fentanyl gtt increased to 40mcg/hr.
[2020-09-29 11:32] LABS: POC Glucose,Bedside 104 (70-110)
[2020-09-29 16:36] LABS: POC Glucose,Bedside 84 (70-110)
--- NOTE | 2020-09-29 17:17 | PC.NURSE ---
FSBS @ 7509 was 104. Now it is 84. Updated Dr. Cristobal, who ordered to switch NS to D5. [facility]
[2020-09-29 20:56] LABS: POC Glucose,Bedside 142 (70-110)
[2020-09-30] VITALS (36 sets, daily range): BP systolic 83–117; BP diastolic 38–60; PULSE 52–94; RESP 15–116; TEMP 36.6–38; O2SAT 94–100; BMI 26.2
--- NOTE | 2020-09-30 03:49 | PC.NURSE ---
PT SEDATED AND INTUBATED. TURNED Q2H. ORAL CARE Q2H. ET TUBE REPOSITIONED THIS SHIFT TO LEFT SIDE BY RESPIRATORY. ACOSTA IN PLACE AND DRAINING CLEAR TWIN URINE. IV PATENT AND PICC LINE PATENT AND INFUSING PER ORDER. NG TUBE TO RIGHT NARE AND NO RESIDUAL NOTED. VSS. WILL CONTINUE TO MONITOR
--- NOTE | 2020-09-30 05:00 | XR_ITS ---
PROCEDURE INFORMATION: Exam: XR Chest Exam date and time: 09/30/2020 5:00 AM Age: 84 years old Clinical indication: Device placement; Ett placement (vent status); Patient HX: Intubated TECHNIQUE: Imaging protocol: XR of the chest. Views: 1 view. COMPARISON: CR XR CHEST PORTABLE 09/29/2020 10:28 AM FINDINGS: Tubes, catheters and devices: The endotracheal tube is 6.5 cm above the livier. The NG tube is positioned into the abdomen off the inferior margin the film. There is a left upper extremity PICC line with the tip crossing the midline through the brachiocephalic vein and then directed cephalad into the right jugular vein. Lungs: The perihilar/basilar infiltrates have worsened slightly on the right and improved slightly on the left. Pleural spaces: There are small pleural effusions but no pneumothorax. Heart/Mediastinum: There is slightly improving mild cardiomegaly. Bones/joints: The bones are demineralized. Soft tissues: Status post left mastectomy and axillary baldemar dissection. IMPRESSION: As detailed above.
[2020-09-30 05:56] LABS: Chloride 107 mmol/L (98-107); Sodium 132 mmol/L (136-145)
[2020-09-30 05:57] LABS: Potassium 3.5 mmoL/L (3.5-5.1)
[2020-09-30 06:00] LABS: Anion Gap 8.5 mEq/L (5-15); Blood Urea Nitrogen 20 mg/dl (7-17); Calcium 7.9 mg/dl (8.4-10.2); Carbon Dioxide 20 mmol/L (22.0-30.0); Creatinine Clearance Estimated 36 mL/min (50-200); Estimated Glomerular Filt Rate 39 ml/min (>60); GFR (African American) 47 ML/MIN (>60); Glucose 165 mg/dl (74-100)
[2020-09-30 06:32] LABS: Basophils % 0.3 % (0.1-2.0); Eosinophils # 0.1 K/mm3 (0.0-0.4); Eosinophils % 2.1 % (0.1-12.0); Hematocrit 24.9 % (37.0-47.0); Lymphocytes # 0.9 K/mm3 (0.7-4.5); Lymphocytes % 14.6 % (10-50); Mean Corpuscular HGB Conc 32.1 g/dL (31.8-35.4); Mean Corpuscular Hemoglobin 28.2 pg (27.0-31.2); Mean Corpuscular Volume 87.9 fl (81-99); Mean Platelet Volume 7.9 fl (7.4-10.4); Monocytes # 0.3 K/mm3 (0.1-1.0); Monocytes % 5.3 % (1.7-9.3); Neutrophils # 4.6 K/mm3 (1.8-7.8); Neutrophils % 77.7 % (37.0-80.0); Platelet Count 221 K/mm3 (142-424); Red Blood Count 2.84 M/mm3 (4.20-5.40); Red Cell Distribution Width 15.5 % (11.5-17.5)
[2020-09-30 06:39] LABS: ABG Base Excess -2.5 mmol/L (-2.4-2.3); ABG HCO3 20.8 mmhg (22.0-26.0); ABG Oxygen Saturation 98 % (90-100); ABG PCO2 27.5 mmhg (35.0-45.0); ABG PO2 102.2 mmhg (80-100); ABG TCO2 21.6 mmhg (23-27)
[2020-09-30 06:40] LABS: Oxygen 50 %; PEEP 12; Source Right Radial; Tidal Volume 400; Vent Rate 18
--- NOTE | 2020-09-30 07:52 | HMH.ACPN2 ---
Internal Medicine - PN: Subj *Date: 09/30/20 *Time: 07:52 Interval history: Patient remains intubated and sedated in the intensive care unit. Nurses report that when her anesthesia vials are changed she is very combative and restless. However currently she is sedated and very calm. Exam Vital signs and Labs for Last 24 Hours: Temp Pulse Resp BP Pulse Ox 97.8 F 59 L 18 103/48 L 98 09/30/20 06:49 09/30/20 06:49 09/30/20 06:49 09/30/20 06:00 09/30/20 06:49 Laboratory Results - last 24 hr 09/29/20 11:21: POC Glucose 104 09/29/20 16:28: POC Glucose 84 09/29/20 19:58: POC Glucose 142 H 09/30/20 05:39: WBC 6.0 D, RBC 2.84 L, Hgb 8.0 L, Hct 24.9 L, MCV 87.9, MCH 28.2, MCHC 32.1, RDW 15.5, Plt Count 221, MPV 7.9, Neut % (Auto) 77.7, Lymph % (Auto) 14.6, [place] % (Auto) 5.3, Eos % (Auto) 2.1, Baso % (Auto) 0.3, Neut # (Auto) 4.6, Lymph # (Auto) 0.9, [place] # (Auto) 0.3, Eos # (Auto) 0.1, Baso # (Auto) 0.0 09/30/20 05:39: Sodium 132 L, Potassium 3.5, Chloride 107, Carbon Dioxide 20 L, Anion Gap 8.5, BUN 20 H, Creatinine 1.30 H, Estimated Creat Clear 36, Estimated GFR 39 L, Est GFR ( Amer) 47 L D, Glucose 165 H, Calcium 7.9 L 09/30/20 07:00: Specimen Source Right radial, O2 % 50, ABG pH 7.50 H, ABG pCO2 27.5 L, ABG pO2 102.2 H, ABG HCO3 20.8 L, ABG Total CO2 21.6 L, ABG O2 Saturation 98, ABG Base Excess -2.5 L, Colin Test Unacceptable, Vent Rate 18, Tidal Volume 400, PEEP 12 I & O for Last 24 hours: Intake & Output 09/27/20 09/28/20/09/1409/30/20 11:59 11:59 11:59 11:59 Intake Total 1431 / 1431 814 / 814 4333 / 4333 2919.958 / 2919.958 Output Total 900 / 900 1900 / 1900 1681 / 1689 393 / 393 Balance 531 / 531 -1086 / -1086 2652 / 2644 2526.958 / 2526.958 Weight 146 lb 9 oz 146 lb 9.013 oz 157 lb 157 lb 1 oz Microbiology Reports for the Last 24 Hours: Microbiology 09/28/20 15:15 Sputum - Endotracheal Tube Aspirate Gram Stain - Final 09/28/20 15:15 Sputum - Endotracheal Tube Aspirate Sputum Culture - Preliminary 09/27/20 10:00 Bronchial Lavage - Final 09/27/20 10:00 Bronchial Lavage Acid Fast Bacilli Smear - Final 09/27/20 10:00 Bronchial Lavage JIGNA Preparation - Final 09/27/20 10:00 Bronchial Washings Gram Stain - Final 09/27/20 10:00 Bronchial Washings Bronchoalveolar Lavage Culture - Final Staphylococcus aureus Narrative: Patient is intubated, NG tube in place, PICC line in place. Lines look to be in good position. Avila catheter draining clear yellow urine. Lungs have much better aeration on the left side than previous exams. Right side also with good aeration, rhonchi throughout. Heart rate regular. Abdomen soft. Oropharynx clear, ET tube as noted. Extremities are warm and well-perfused. Assessment and Plan (1) Lung collapse Status: Acute Category: Medical Code(s): J98.19 - Other pulmonary collapse (2) Respiratory failure with hypoxia Status: Acute Qualifiers: Chronicity: acute Qualified Code(s): J96.01 - Acute respiratory failure with hypoxia Category: Medical Code(s): J96.91 - Respiratory failure, unspecified with hypoxia (3) On mechanically assisted ventilation Status: Acute Category: Medical Code(s): Z99.11 - Dependence on respirator [ventilator] status (4) Acute hypoxemic respiratory failure Status: Acute Category: Medical Code(s): J96.01 - Acute respiratory failure with hypoxia (5) MRSA pneumonia Status: Acute Category: Medical Code(s): J15.212 - Pneumonia due to Methicillin resistant Staphylococcus aureus - Assessment and plan all Dx Assessment and Plan for all problems:: Patient remains intubated. Respiratory parameters are acceptable. Continue to watch overnight. Consider extubation tomorrow as lungs appear clearer, chest x-ray in the morning. MRSA culture positive from bronchoalveolar lavage specimen from September 27 that became positive this morning. We will in
--- NOTE | 2020-09-30 08:07 | PC.NURSE ---
tubefeeds started @ 20mL/hr. Goal rate of 42mL/hr. D5W switched to NS @ 100mL/hr per Dr. Cristobal. Order faxed to pharmacy
--- NOTE | 2020-09-30 08:40 | PC.NURSE ---
received call from Dr. Jensen with the following orders: - advance ET tube 2cm to 22 @ the lip (no CXR to confirm) - decrease rate to 15 - decreased PEEP to 8 - SBT @ noon today for 2hrs then put back on rate - SBT again tomorrow @ 0600, then obtain ABG prior to placing back on a rate Notified RT (Dayana) with new orders
--- NOTE | 2020-09-30 08:55 | PC.NURSE ---
Advanced tube to 22 at the lip. PEEP down to 8 and rate to 15. New orders per Dr. Jensen.
--- NOTE | 2020-09-30 09:30 | HMH.PHACONS ---
- Pharmacy Consult Date: 09/30/20 Time: 09:30 Referring provider: DR. GARRISON Reason for Consult:: VANCOMYCIN DOSING Allergies and ADEs:: Allergies Allergy/AdvReac Type Severity Reaction Status Date / Time Penicillins [PENICILLINS] Allergy Severe S-SWELLS-OR Verified 12/13/18 15:46 AL/THROAT codeine [CODEINE] Allergy Unknown NA-DIARRHEA Verified 10/09/18 19:43 Home Medications:: Home Medications Medication Instructions Recorded Confirmed Type Atorvastatin Calcium [Lipitor 40mg 40 mg PO HS 10/09/18 09/26/20 History Tab] Cetirizine HCl [24Hour Allergy] 10 mg PO DAILY 10/09/18 09/26/20 History Cranberry Fruit Extract [Cranberry] 250 mg PO DAILY 10/09/18 09/26/20 History Montelukast Sodium 5 mg PO HS 10/09/18 09/26/20 History Omeprazole [Omeprazole 20mg 20 mg PO DAILY 10/09/18 09/26/20 History Capsule] Fluticasone Propionate [Flonase 1 spr NS DAILY 12/13/18 09/26/20 History 50mcg nasal spray 16gm] Tiotropium [place] [Spiriva 2 puff IH DAILY 12/13/18 09/26/20 History 18mcg/puff inhaler] Acetaminophen [Acetaminophen 325mg 650 mg PO Q6HP PRN 01/04/19 09/26/20 History tab] Albuterol Sulfate [Ventolin HFA 2 puff IH Q4HP PRN 01/04/19 09/26/20 History Inhaler] Calcium Citrate 500 mg PO DAILY 01/04/19 09/26/20 History Cholecalciferol (Vitamin D3) 1,000 unit PO DAILY 01/04/19 09/26/20 History [Vitamin D3 1,000 Unit Tab] Magnesium Oxide 125 mg PO DAILY 01/04/19 09/26/20 History NIFEdipine [Nifedipine ER] 30 mg PO DAILY 01/04/19 09/26/20 History guaiFENesin [Robitussin 200mg/10mL 200 mg PO QIDP PRN 01/04/19 09/26/20 History Syrup Udc] Fluticasone Propion/Salmeterol 1 inh IH BID 01/05/19 09/26/20 History [Wixela 500-50 Inhub] Furosemide [Furosemide 40MG tAB*] 40 mg PO DAILY 09/26/20 09/26/20 History Insulin Regular, Human [Novolin R] 0 units SQ ACHS PRN 09/26/20 09/26/20 History Psyllium Husk [Metamucil] 0.36 gm PO DAILY 09/26/20 09/26/20 History bisacodyL [Dulcolax 5mg Tab] 5 mg PO DAILY 09/26/20 09/26/20 History Height: 1.65 m Weight: 71.242 kg Laboratory Results:: Laboratory Results - last 24 hr 09/29/20 11:21: POC Glucose 104 09/29/20 16:28: POC Glucose 84 09/29/20 19:58: POC Glucose 142 H 09/30/20 05:39: WBC 6.0 D, RBC 2.84 L, Hgb 8.0 L, Hct 24.9 L, MCV 87.9, MCH 28.2, MCHC 32.1, RDW 15.5, Plt Count 221, MPV 7.9, Neut % (Auto) 77.7, Lymph % (Auto) 14.6, [place] % (Auto) 5.3, Eos % (Auto) 2.1, Baso % (Auto) 0.3, Neut # (Auto) 4.6, Lymph # (Auto) 0.9, [place] # (Auto) 0.3, Eos # (Auto) 0.1, Baso # (Auto) 0.0 09/30/20 05:39: Sodium 132 L, Potassium 3.5, Chloride 107, Carbon Dioxide 20 L, Anion Gap 8.5, BUN 20 H, Creatinine 1.30 H, Estimated Creat Clear 36, Estimated GFR 39 L, Est GFR ( Amer) 47 L D, Glucose 165 H, Calcium 7.9 L 09/30/20 07:00: Specimen Source Right radial, O2 % 50, ABG pH 7.50 H, ABG pCO2 27.5 L, ABG pO2 102.2 H, ABG HCO3 20.8 L, ABG Total CO2 21.6 L, ABG O2 Saturation 98, ABG Base Excess -2.5 L, Colin Test Unacceptable, Vent Rate 18, Tidal Volume 400, PEEP 12 Medical History: Reports:: Asthma, Atrial Fibrillation, Cancer (LEFT BREAST LUMPECTOMY), Congestive Heart Failure, Depression, Diabetes Mellitus Type 2, Gastroesophageal Reflux Disease(GERD), Hyperlipidemia, Hypertension Denies:: Diabetes Mellitus Type 1, MRSA Assessment and Plan (1) Lung collapse Status: Acute Category: Medical Code(s): J98.19 - Other pulmonary collapse (2) Respiratory failure with hypoxia Status: Acute Qualifiers: Chronicity: acute Qualified Code(s): J96.01 - Acute respiratory failure with hypoxia Category: Medical Code(s): J96.91 - Respiratory failure, unspecified with hypoxia (3) On mechanically assisted ventilation Status: Acute Category: Medical Code(s): Z99.11 - Dependence on respirator [ventilator] status (4) Acute hypoxemic respiratory failure Status: Acute Category: Medical Code(s): J96.01 - Acute respiratory failure with hypoxia
--- NOTE | 2020-09-30 09:34 | PC.NURSE ---
weaned Propofol gtt to 35mcg/kg/min
--- NOTE | 2020-09-30 10:01 | PC.NURSE ---
Propofol gtt decreased to 30mcg/kg/min and Fentanyl gtt decreased to 35mcg/hr.
--- NOTE | 2020-09-30 11:13 | PC.NURSE ---
Fentanyl gtt decreased to 25mcg/hr and Propofol gtt decreased to 25mcg/kg/min
--- NOTE | 2020-09-30 11:50 | PC.NURSE ---
Pt started on SBT, settings 8/5 50%. Rate ranging 12-30 with tidal volumes ranging 250-420.
--- NOTE | 2020-09-30 12:00 | PC.NURSE ---
Pt on SBT pulling TVs 200-350mL with RR 20-30s
[2020-09-30 12:33] LABS: POC Glucose,Bedside 117 (70-110)
--- NOTE | 2020-09-30 12:48 | PC.NURSE ---
SBT continues. Pt is agitated/restless, following commands by nodding head, and attempting to bite ET tube. Fentanyl gtt increased to 30mcg/hr and Propofol gtt increased to 30mcg/kg/min.
--- NOTE | 2020-09-30 16:00 | PC.NURSE ---
tubefeed rate increased to 30mL/hr.
[2020-09-30 16:24] LABS: POC Glucose,Bedside 124 (70-110)
[2020-09-30 21:14] LABS: POC Glucose,Bedside 157 (70-110)
[2020-10-01] VITALS (37 sets, daily range): BP systolic 88–149; BP diastolic 41–85; PULSE 60–114; RESP 16–35; TEMP 36.4–37.7; O2SAT 88–100; BMI 26.2; BMI 27.1
[2020-10-01 00:48] LABS: POC Glucose,Bedside 156 (70-110)
--- NOTE | 2020-10-01 02:30 | PC.NURSE ---
She continues to be intubated and sedated. Sedation decreased r/t SBP dropping to 80s. Gag reflex present. Turned and repositioned q 2 hours. No BM. Hourly urine output has increased in comparison to previous nights. Temp 100.4 at the beginning of the shift. HOB elevated 30 degrees.
--- NOTE | 2020-10-01 05:00 | XR_ITS ---
PROCEDURE INFORMATION: Exam: XR Chest Exam date and time: 10/01/2020 5:00 AM Age: 84 years old Clinical indication: Device placement; Ett placement (vent status); Patient HX: Intubated; Additional info: PT intubated TECHNIQUE: Imaging protocol: XR of the chest. Views: 1 view. COMPARISON: CR XR CHEST PORTABLE 09/30/2020 4:54 AM FINDINGS: Tubes, catheters and devices: The ET tube is 5 cm from the livier. The nasogastric tube overlies the stomach. Lungs: Underlying COPD is noted. Minimal patchy bilateral airspace disease is noted. Pleural spaces: Unremarkable. No pleural effusion. No pneumothorax. Heart/Mediastinum: Unremarkable. No cardiomegaly. Bones/joints: Unremarkable. Soft tissues: Multiple left axillary surgical clips are present. Probable bilateral effusions are unchanged. IMPRESSION: Overall stable examination.
--- NOTE | 2020-10-01 05:22 | PC.NURSE ---
Sedation turned off at 0500.
[2020-10-01 05:27] LABS: POC Glucose,Bedside 142 (70-110)
[2020-10-01 05:46] LABS: Alanine Aminotransferase 16 U/L (12-78); Albumin Level 2.5 g/dl (3.5-5.0); Albumin/Globulin Ratio 0.7 (1.1-1.8); Alkaline Phosphatase 102 U/L (38-126); Anion Gap 7.6 mEq/L (5-15); Aspartate Amino Transferase 33 U/L (14-36); Bilirubin,Total 0.5 mg/dl (0.2-1.3); Blood Urea Nitrogen 19 mg/dl (7-17); Calcium 7.8 mg/dl (8.4-10.2); Carbon Dioxide 18 mmol/L (22.0-30.0); Chloride 114 mmol/L (98-107); Creatinine Clearance Estimated 36 mL/min (50-200); Estimated Glomerular Filt Rate 39 ml/min (>60); GFR (African American) 47 ML/MIN (>60); Globulin 3.8 g/dL (1.3-3.2); Glucose 154 mg/dl (74-100); Potassium 3.6 mmoL/L (3.5-5.1); Sodium 136 mmol/L (136-145); Total Protein,Serum 6.3 g/dl (6.3-8.2)
--- NOTE | 2020-10-01 05:49 | PC.NURSE ---
Placed on low sedation r/t anxiousness.
[2020-10-01 05:57] LABS: Basophils % 0.3 % (0.1-2.0); Eosinophils # 0.2 K/mm3 (0.0-0.4); Hematocrit 26.1 % (37.0-47.0); Hemoglobin 8.4 g/dL (12.2-16.2); Lymphocytes % 13.7 % (10-50); Mean Corpuscular HGB Conc 32.1 g/dL (31.8-35.4); Mean Corpuscular Hemoglobin 28.5 pg (27.0-31.2); Mean Corpuscular Volume 88.6 fl (81-99); Mean Platelet Volume 8.2 fl (7.4-10.4); Monocytes # 0.4 K/mm3 (0.1-1.0); Monocytes % 5.1 % (1.7-9.3); Neutrophils # 5.8 K/mm3 (1.8-7.8); Neutrophils % 78.9 % (37.0-80.0); Platelet Count 249 K/mm3 (142-424); Red Blood Count 2.94 M/mm3 (4.20-5.40); Red Cell Distribution Width 15.5 % (11.5-17.5); White Blood Count 7.3 K/mm3 (4.8-10.8)
--- NOTE | 2020-10-01 06:00 | PC.NURSE ---
SBT at this time.
--- NOTE | 2020-10-01 06:05 | PC.NURSE ---
Placed Pt on Spontaneous Breathing Trial. Pt tolerating well at this time, vitals are stable. No respiratory distress noted, will continue to monitor.
--- NOTE | 2020-10-01 07:55 | PC.NURSE ---
aware of sputum culture
[2020-10-01 08:06] LABS: ABG Base Excess -6.5 mmol/L (-2.4-2.3); ABG HCO3 19.2 mmhg (22.0-26.0); ABG Oxygen Saturation 90 % (90-100); ABG PCO2 36.2 mmhg (35.0-45.0); ABG PH 7.34 mmol/L (7.35-7.45); ABG PO2 59.1 mmhg (80-100); ABG TCO2 20.3 mmhg (23-27)
[2020-10-01 08:09] LABS: Allen's Test Patient Unable; Oxygen 50 %; PEEP 8; Pressure Support 10; Source Left Radial
--- NOTE | 2020-10-01 08:16 | HMH.ACPN2 ---
Internal Medicine - PN: Subj *Date: 10/01/20 *Time: 08:16 Interval history: Patient did well through the night. Pulmonary consultation noted. Patient is off sedation in preparation for possible extubation later. Exam Vital signs and Labs for Last 24 Hours: Temp Pulse Resp BP Pulse Ox 98.9 F 79 32 H 108/47 L 96 10/01/20 06:31 10/01/20 06:31 10/01/20 06:31 10/01/20 06:31 10/01/20 06:31 Laboratory Results - last 24 hr 09/30/20 05:05: POC Glucose 157 H 09/30/20 11:44: POC Glucose 117 H 09/30/20 16:13: POC Glucose 124 H 09/30/20 19:30: POC Glucose 156 H 10/01/20 05:15: WBC 7.3, RBC 2.94 L, Hgb 8.4 L, Hct 26.1 L, MCV 88.6, MCH 28.5, MCHC 32.1, RDW 15.5, Plt Count 249, MPV 8.2, Neut % (Auto) 78.9, Lymph % (Auto) 13.7, [place] % (Auto) 5.1, Eos % (Auto) 2.0, Baso % (Auto) 0.3, Neut # (Auto) 5.8, Lymph # (Auto) 1.0, [place] # (Auto) 0.4, Eos # (Auto) 0.2, Baso # (Auto) 0.0 10/01/20 05:15: Sodium 136, Potassium 3.6, Chloride 114 H, Carbon Dioxide 18 L, Anion Gap 7.6, BUN 19 H, Creatinine 1.30 H, Estimated Creat Clear 36, Estimated GFR 39 L, Est GFR ( Amer) 47 L, Glucose 154 H, Calcium 7.8 L, Total Bilirubin 0.5, AST 33 D, ALT 16 D, Alkaline Phosphatase 102, Total Protein 6.3, Albumin 2.5 L, Globulin 3.8 H, Albumin/Globulin Ratio 0.7 L 10/01/20 05:19: POC Glucose 142 H 10/01/20 08:00: Specimen Source Left radial, O2 % 50, ABG pH 7.34 L, ABG pCO2 36.2, ABG pO2 59.1 L, ABG HCO3 19.2 L, ABG Total CO2 20.3 L, ABG O2 Saturation 90, ABG Base Excess -6.5 L, Colin Test Patient unable, PEEP 8 I & O for Last 24 hours: Intake & Output 09/28/20 09/29/20 09/30/20 10/01/20 11:59 11:59 11:59 11:59 Intake Total 814 / 814 4333 / 4333 3093.958 / 3093.958 2987.333 / 2987.333 Output Total 1900 / 1900 1681 / 1689 707 / 732 689 / 689 Balance -1086 / -1086 2652 / 2644 2386.958 / 2361.958 2298.333 / 2298.333 Weight 146 lb 9.013 oz 157 lb 157 lb 1 oz 157 lb 0.987 oz Microbiology Reports for the Last 24 Hours: Microbiology 09/28/20 15:15 Sputum - Endotracheal Tube Aspirate Gram Stain - Final 09/28/20 15:15 Sputum - Endotracheal Tube Aspirate Sputum Culture - Final Staphylococcus aureus 09/27/20 10:00 Bronchial Lavage - Final 09/27/20 10:00 Bronchial Lavage Acid Fast Bacilli Smear - Final 09/27/20 10:00 Bronchial Lavage JIGNA Preparation - Final 09/27/20 10:00 Bronchial Washings Gram Stain - Final 09/27/20 10:00 Bronchial Washings Bronchoalveolar Lavage Culture - Final Staphylococcus aureus Narrative: Patient is awake, alert, follows with her eyes. Very globally weak. Lungs continue to be about the same as yesterday. Much better air entry than admission on the left side. Rhonchi throughout. Abdomen soft, Avila catheter draining clear yellow urine. Heart rate regular. Assessment and Plan (1) Lung collapse Status: Acute Category: Medical Code(s): J98.19 - Other pulmonary collapse (2) Respiratory failure with hypoxia Status: Acute Qualifiers: Chronicity: acute Qualified Code(s): J96.01 - Acute respiratory failure with hypoxia Category: Medical Code(s): J96.91 - Respiratory failure, unspecified with hypoxia (3) On mechanically assisted ventilation Status: Acute Category: Medical Code(s): Z99.11 - Dependence on respirator [ventilator] status (4) Acute hypoxemic respiratory failure Status: Acute Category: Medical Code(s): J96.01 - Acute respiratory failure with hypoxia (5) MRSA pneumonia Status: Acute Category: Medical Code(s): J15.212 - Pneumonia due to Methicillin resistant Staphylococcus aureus - Assessment and plan all Dx Assessment and Plan for all problems:: Overall good improvement. Appreciate pulmonary input. Continue antibiotics. Holding tube feeds in preparation for possible extubation.
--- NOTE | 2020-10-01 09:00 | P.PN_ITS ---
Internal Medicine - PN: Subj *Date: 10/01/20 *Time: 09:00 Exam Vital signs and Labs for Last 24 Hours: Temp Pulse Resp BP Pulse Ox 98.9 F 79 32 H 108/47 L 91 L 10/01/20 06:31 10/01/20 06:31 10/01/20 06:31 10/01/20 06:31 10/01/20 08:00 Laboratory Results - last 24 hr 09/30/20 05:05: POC Glucose 157 H 09/30/20 11:44: POC Glucose 117 H 09/30/20 16:13: POC Glucose 124 H 09/30/20 19:30: POC Glucose 156 H 10/01/20 05:15: WBC 7.3, RBC 2.94 L, Hgb 8.4 L, Hct 26.1 L, MCV 88.6, MCH 28.5, MCHC 32.1, RDW 15.5, Plt Count 249, MPV 8.2, Neut % (Auto) 78.9, Lymph % (Auto) 13.7, [place] % (Auto) 5.1, Eos % (Auto) 2.0, Baso % (Auto) 0.3, Neut # (Auto) 5.8, Lymph # (Auto) 1.0, [place] # (Auto) 0.4, Eos # (Auto) 0.2, Baso # (Auto) 0.0 10/01/20 05:15: Sodium 136, Potassium 3.6, Chloride 114 H, Carbon Dioxide 18 L, Anion Gap 7.6, BUN 19 H, Creatinine 1.30 H, Estimated Creat Clear 36, Estimated GFR 39 L, Est GFR ( Amer) 47 L, Glucose 154 H, Calcium 7.8 L, Total Bilirubin 0.5, AST 33 D, ALT 16 D, Alkaline Phosphatase 102, Total Protein 6.3, Albumin 2.5 L, Globulin 3.8 H, Albumin/Globulin Ratio 0.7 L 10/01/20 05:19: POC Glucose 142 H 10/01/20 08:00: Specimen Source Left radial, O2 % 50, ABG pH 7.34 L, ABG pCO2 36.2, ABG pO2 59.1 L, ABG HCO3 19.2 L, ABG Total CO2 20.3 L, ABG O2 Saturation 90, ABG Base Excess -6.5 L, Colin Test Patient unable, PEEP 8 I & O for Last 24 hours: Intake & Output 09/28/20 09/29/20 09/30/20 10/01/20 23:59 23:59 23:59 23:59 Intake Total 3533 / 3648 2787.958 / 2906.958 3446.333 / 3446.333 767 / 767 Output Total 2095 / 2105 394 / 429 933 / 933 255 / 255 Balance 1438 / 1543 2393.958 / 2477.958 2513.333 / 2513.333 512 / 512 Weight 66 kg 71.214 kg 71.242 kg 71.242 kg Microbiology Reports for the Last 24 Hours: Microbiology 09/28/20 15:15 Sputum - Endotracheal Tube Aspirate Gram Stain - Final 09/28/20 15:15 Sputum - Endotracheal Tube Aspirate Sputum Culture - Final Staphylococcus aureus 09/27/20 10:00 Bronchial Lavage - Final 09/27/20 10:00 Bronchial Lavage Acid Fast Bacilli Smear - Final 09/27/20 10:00 Bronchial Lavage JIGNA Preparation - Final 09/27/20 10:00 Bronchial Washings Gram Stain - Final 09/27/20 10:00 Bronchial Washings Bronchoalveolar Lavage Culture - Final Staphylococcus aureus Assessment and Plan (1) Lung collapse Status: Acute Category: Medical Code(s): J98.19 - Other pulmonary collapse (2) Respiratory failure with hypoxia Status: Acute Qualifiers: Chronicity: acute Qualified Code(s): J96.01 - Acute respiratory failure with hypoxia Category: Medical Code(s): J96.91 - Respiratory failure, unspecified with hypoxia (3) On mechanically assisted ventilation Status: Acute Category: Medical Code(s): Z99.11 - Dependence on respirator [ventilator] status (4) Acute hypoxemic respiratory failure Status: Acute Category: Medical Code(s): J96.01 - Acute respiratory failure with hypoxia (5) MRSA pneumonia Status: Acute Category: Medical Code(s): J15.212 - Pneumonia due to Methicillin resistant Staphylococcus aureus The patient's infection will respond to the chosen ABx?: Yes Is the patient receiving the right drug, dose, and route?: Yes Could a more targeted ABx be ordered?: No (PATIENT WITH MRSA PNA-ON VANCOMYCIN WELL CEFEPIME.)
--- NOTE | 2020-10-01 10:15 | PC.NURSE ---
DR MELGOZA STATED TO LEAVE PATIENT OFF OF SEDATION AND TRY TO ONLY USE PRN FENTANYL.
--- NOTE | 2020-10-01 10:26 | HMH.PULMPN ---
Internal Medicine - PN: Subj *Date: 10/01/20 *Time: 10:26 Interval history: No acute respiratory vents overnight. Patient respiratory status continued to improve. Exam - Constitutional Constitutional:: Present: no acute distress, comfortable - HENMT Exam HENMT: Present: normocephalic, atraumatic - Eye Exam Eyes:: Present: normal appearance both eyes and related structures - Neck Exam Neck:: Present: normal visual inspection - Respiratory Exam Respiratory:: Present: respiratory distress, crackles, rales. Absent: wheezing - Cardiovascular Exam Cardiac:: Present: S1, S2 - GI Exam GI:: Present: soft - Skin Exam Skin: Present: no rash - Neurological Exam Neurological: Absent: alert, awake - Extremities Exam Extremities: Present: no cyanosis, no clubbing Assessment and Plan (1) Lung collapse Status: Acute Category: Medical Code(s): J98.19 - Other pulmonary collapse (2) Respiratory failure with hypoxia Status: Acute Qualifiers: Chronicity: acute Qualified Code(s): J96.01 - Acute respiratory failure with hypoxia Category: Medical Code(s): J96.91 - Respiratory failure, unspecified with hypoxia (3) On mechanically assisted ventilation Status: Acute Category: Medical Code(s): Z99.11 - Dependence on respirator [ventilator] status (4) Acute hypoxemic respiratory failure Status: Acute Category: Medical Code(s): J96.01 - Acute respiratory failure with hypoxia (5) MRSA pneumonia Status: Acute Category: Medical Code(s): J15.212 - Pneumonia due to Methicillin resistant Staphylococcus aureus - Assessment and plan all Dx Assessment and Plan for all problems:: #Acute hypoxic respiratory failure: #Left lung collapse: #Community-acquired pneumonia: 84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 CT chest on admission reviewed showed complete collapse of the left lung along with small effusion. Patient has a bronchoscopy with suctioning copious amounts of thick mucoid secretions. Chest x-ray post bronchoscopy showed improved aeration in both lung branch bilateral airspace disease Bronchoscopy showed severe bronchomalacia along with friable erythematous bronchial mucosa with patchy bronchial lesions which are hypervascular. Patient BAL cultures positive for MRSA pneumonia patient discharged on vancomycin over the weekend. Plan: -Continue vancomycin and cefepime to complete total of 7-day course. -Follow final BAL cultures along with endobronchial biopsy cultures -F/U Cytopathology of BAL and endobronchal biopsies -Continue mechanical ventilatory support, patient currently PEEP of patient lethargic. We will continue to leave the patient off sedation and will perform daily SBT's - Continue AnalgoSedation with Propofol and Fentanyl with CPOT gal less than or euqal to 2 and RASS goal of 0 to 1 (Deep sedation) - Recommend VAP bundle Elevate head of the bed at 30 to 45 degrees Oral care with chlorhexidne GI ulcer prophylaxis - Famotidine 20mg IV BID Chemical DVT prophylaxis #Thank for involving pulmonary in this patient care. We will continue to follow. Please call with any questions or concerns.
[2020-10-01 12:22] LABS: POC Glucose,Bedside 132 (70-110)
--- NOTE | 2020-10-01 14:04 | PC.NURSE ---
PATIENT HAS HAD AN OKAY DAY. AWAKES TO VOICE AND STIMULATION. SOME COUGHING AGAINST VENT NOTED. THICK SECRETIONS WITH SUCTIONING. ORAL CARE PROVIDED. TURNS DONE. NO DISTRESS NOTED. HOLDING TUBE FEEDS AT THIS TIME WITH ANTICIPATION TO EXTUBATE TODAY OR IN MORNING. NO SEDATION AT THIS TIME. MD WANTS HER TO REMAIN OFF AND USE PRN MEDS. URINE OUTPUT HAS BEEN GOOD. VITALS STABLE
--- NOTE | 2020-10-01 15:25 | PC.NURSE ---
PT EXTUBATED AT THIS TIME. ANNJERONIMO AT BEDSIDE. PT PLACED ON 4L NC. SATURATIONS TO STAY 88%-92%. IF NEEDED BIPAP @ 14/8, RR16. NT SUCTIONED PT AND GOT COPIOUS BROWNISH/RED SECRETIONS OUT.
--- NOTE | 2020-10-01 15:29 | PC.NURSE ---
Addendum entered by Kathrine Peters RN 10/01/20 15:31: SWALLOW EVAL TOMORROW. Original Note: PATIENT HAS BEEN EXTUBATED. NG TUBE ALSO REMOVED. PATIENT CURRENTLY ON 4L NASAL CANNULA ANNANGI OKAY WITH PATIENT BEING 88%. IF PATIENT WAS TO DESAT OVER NIGHT THEN CAN GO ON THE BIPAP. SWALLOW EVAL IN 24 HOURS
--- NOTE | 2020-10-01 15:30 | PC.NURSE ---
PT PLACED ON VENTI MASK 50% AT 15L
--- NOTE | 2020-10-01 15:54 | PC.NURSE ---
PATIENT ON 50% VENTI AND TOLERATING WELL
[2020-10-01 18:07] LABS: POC Glucose,Bedside 125 (70-110)
--- NOTE | 2020-10-01 18:07 | PC.NURSE ---
during assessment, pt will withdraw from sternal rub, but is aphasic and will attempt to open eyes but closes them right back. lungs contain rhonchi throughout and wheezes in the right lung field. bowel sounds are active.
[2020-10-01 22:02] LABS: POC Glucose,Bedside 124 (70-110)
--- NOTE | 2020-10-01 22:03 | PC.NURSE ---
She continues in contact precautions. She is wearing a bipap with 45% FiO2. She is being turned and repositioned q 2 hours. HOB elevated. Oral care provided. Complete bed bath and linen change provided. 1+ non-pitting edema to right hand that is new in relation to previous night. Generalized edema around kiley-area/ lower abdomen. DAFNE hose and non-skid removed and replaced. NPO at this time with swallow eval planned for tomorrow.
[2020-10-02] VITALS (25 sets, daily range): BP systolic 109–151; BP diastolic 47–78; PULSE 60–83; RESP 16–32; TEMP 36.4–37.1; O2SAT 92–100; BMI 26.3
[2020-10-02 05:54] LABS: POC Glucose,Bedside 91 (70-110)
--- NOTE | 2020-10-02 08:59 | HMH.ACPN2 ---
Internal Medicine - PN: Subj *Date: 10/02/20 *Time: 11:31 Interval history: Ms. Lay remains afebrile. Wore BiPAP overnight. Transitioning to Ventimask this morning once more awake. Denies any chest pain, nausea, vomiting, abdominal pain. Continues to do quite well since extubation. Reviewed labs this morning, potassium low. Exam Vital signs and Labs for Last 24 Hours: Temp Pulse Resp BP Pulse Ox 97.6 F 75 24 109/47 L 94 L 10/02/20 07:57 10/02/20 08:00 10/02/20 08:00 10/02/20 08:00 10/02/20 08:00 Laboratory Results - last 24 hr 10/01/20 12:10: POC Glucose 132 H 10/01/20 17:51: POC Glucose 125 H 10/01/20 19:29: POC Glucose 124 H 10/02/20 05:18: POC Glucose 91 I & O for Last 24 hours: Intake & Output 09/29/20 09/30/20 10/01/20 10/02/20 23:59 23:59 23:59 23:59 Intake Total 2787.958 / 2906.958 3446.333 / 3446.333 2587 / 2687 700 / 700 Output Total 394 / 429 933 / 933 6105 / 6285 1230 / 1230 Balance 2393.958 / 2477.958 2513.333 / 2513.333 -3518 / -3598 -530 / -530 Weight 71.214 kg 71.242 kg 74.049 kg 71.696 kg Microbiology Reports for the Last 24 Hours: Microbiology 09/26/20 10:35 Blood Blood Culture - Final NO GROWTH AFTER 5 DAYS 09/26/20 10:35 Blood Blood Culture - Final NO GROWTH AFTER 5 DAYS 09/28/20 15:15 Sputum - Endotracheal Tube Aspirate Gram Stain - Final 09/28/20 15:15 Sputum - Endotracheal Tube Aspirate Sputum Culture - Final Staphylococcus aureus Narrative: Patient is awake, alert, oriented to person and palce. Very globally weak. On BiPap during exam. Interval improvement in air movement in the left hemithorax. Still with significant rhonchi and crackles. Right lung fairly clear with minimal crackles in base. Heart rate regular Abdomen soft, no focal tenderness Avila catheter draining clear yellow urine. Assessment and Plan (1) Lung collapse Status: Acute Category: Medical Code(s): J98.19 - Other pulmonary collapse (2) Respiratory failure with hypoxia Status: Acute Qualifiers: Chronicity: acute Qualified Code(s): J96.01 - Acute respiratory failure with hypoxia Category: Medical Code(s): J96.91 - Respiratory failure, unspecified with hypoxia (3) On mechanically assisted ventilation Status: Acute Category: Medical Code(s): Z99.11 - Dependence on respirator [ventilator] status (4) Acute hypoxemic respiratory failure Status: Acute Category: Medical Code(s): J96.01 - Acute respiratory failure with hypoxia (5) MRSA pneumonia Status: Acute Category: Medical Code(s): J15.212 - Pneumonia due to Methicillin resistant Staphylococcus aureus (6) Hypokalemia Status: Acute Category: Medical Code(s): E87.6 - Hypokalemia - Assessment and plan all Dx Assessment and Plan for all problems:: 84-year-old female with MRSA pneumonia status post extubation. Continues to require significant respiratory support but showing gradual daily improvement. Still awaiting culture finalization for antibiotic/antimicrobial stewardship. Patient remains afebrile and hemodynamically stable. Pulmonology consulted, appreciate their continued recommendations and assistance in care. Patient has hypokalemia today, will replete with IV potassium. Repeat labs in the morning. Wean oxygen as tolerated, transition to Ventimask today. Is awaiting swallow study prior to advancing diet. Goal saturations greater than 92% while awake, greater than 88% while asleep. Remains full code Continues to require inpatient management, will transition to stepdown therapy at this time. No longer necessitating ICU level care.
[2020-10-02 09:31] LABS: Basophils % 0.4 % (0.1-2.0); Eosinophils # 0.2 K/mm3 (0.0-0.4); Eosinophils % 2.1 % (0.1-12.0); Hematocrit 27.7 % (37.0-47.0); Hemoglobin 9.1 g/dL (12.2-16.2); Lymphocytes # 1.1 K/mm3 (0.7-4.5); Lymphocytes % 14.7 % (10-50); Mean Corpuscular HGB Conc 32.8 g/dL (31.8-35.4); Mean Corpuscular Hemoglobin 28.7 pg (27.0-31.2); Mean Corpuscular Volume 87.3 fl (81-99); Mean Platelet Volume 7.8 fl (7.4-10.4); Monocytes # 0.4 K/mm3 (0.1-1.0); Monocytes % 5.7 % (1.7-9.3); Neutrophils # 5.8 K/mm3 (1.8-7.8); Neutrophils % 77.2 % (37.0-80.0); Platelet Count 316 K/mm3 (142-424); Red Blood Count 3.17 M/mm3 (4.20-5.40); Red Cell Distribution Width 15.4 % (11.5-17.5); White Blood Count 7.5 K/mm3 (4.8-10.8)
[2020-10-02 09:38] LABS: Chloride 109 mmol/L (98-107); Sodium 140 mmol/L (136-145)
[2020-10-02 09:41] LABS: Anion Gap 8.8 mEq/L (5-15); Blood Urea Nitrogen 14 mg/dl (7-17); Carbon Dioxide 25 mmol/L (22.0-30.0); Creatinine Clearance Estimated 42 mL/min (50-200); Estimated Glomerular Filt Rate 47 ml/min (>60); GFR (African American) 57 ML/MIN (>60)
[2020-10-02 09:42] LABS: Calcium 8.4 mg/dl (8.4-10.2); Glucose 112 mg/dl (74-100)
[2020-10-02 09:48] LABS: Potassium 2.8 mmoL/L (3.5-5.1)
--- NOTE | 2020-10-02 09:56 | P.PN_ITS ---
Internal Medicine - PN: Subj *Date: 10/02/20 *Time: 09:56 Interval history: No acute respiratory events overnight. Exam - Constitutional Constitutional:: Present: no acute distress, comfortable - HENMT Exam HENMT: Present: normocephalic - Eye Exam Eyes:: Present: normal appearance both eyes and related structures - Neck Exam Neck:: Present: normal visual inspection - Respiratory Exam Respiratory:: Present: able to speak in complete sentences, respiratory distress, crackles, rales - Cardiovascular Exam Cardiac:: Present: S1, S2 - GI Exam GI:: Present: soft - Skin Exam Skin: Present: warm, no rash - Neurological Exam Neurological: Present: alert, awake. Absent: normal cognition - Extremities Exam Extremities: Present: no cyanosis, no clubbing, edema Assessment and Plan (1) Lung collapse Status: Acute Category: Medical Code(s): J98.19 - Other pulmonary collapse (2) Respiratory failure with hypoxia Status: Acute Qualifiers: Chronicity: acute Qualified Code(s): J96.01 - Acute respiratory failure with hypoxia Category: Medical Code(s): J96.91 - Respiratory failure, unspecified with hypoxia (3) On mechanically assisted ventilation Status: Acute Category: Medical Code(s): Z99.11 - Dependence on respirator [ventilator] status (4) Acute hypoxemic respiratory failure Status: Acute Category: Medical Code(s): J96.01 - Acute respiratory failure with hypoxia (5) MRSA pneumonia Status: Acute Category: Medical Code(s): J15.212 - Pneumonia due to Methicillin resistant Staphylococcus aureus - Assessment and plan all Dx Assessment and Plan for all problems:: #Acute hypoxic respiratory failure: #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 CT chest on admission reviewed showed complete collapse of the left lung along with small effusion. Patient was also intubated with worsening respiratory failure and suctioned significant mucoid secretions eventually patient has both lungs inflated. Patient was extubated extubated yesterday. Patient BAL also growing MRSA and was initiated on vancomycin. BAL cytopathology no evidence of malignancy, no evidence of fungal elements. Even though this patient is having MRSA pneumonia, her predominant respiratory pathophysiology limiting her respiratory status include significant weakness risk of aspiration and inability to cough. After the airway exam and mucoid secretions suctioned per the patient it appears that patient current clinical condition is more of a subacute or chronic onset than acute onset. Along with antibiotics patient will benefit from aggressive pulmonary toilet and PT OT evaluation. Plan: -Lasix 80mg IV once after potassium repletion and repeat BMP -NPO untill patient swallow evaluation -Aggressive PT OT -DuoNebs every 6 hours scheduled Mucomyst and chest vest -Continue oxygen supplement to maintain O2 saturation goal of 85 and above, patient currently on Ventimask 50%. -Continue vancomycin and cefepime to complete total of 7-day course. -Follow final BAL cultures along with endobronchial biopsy cultures -F/U Cytopathology of endobronchal biopsies #Thank for involving pulmonary in this patient care. We will continue to follow. Please call with any questions or concerns.
--- NOTE | 2020-10-02 11:47 | HMH.SLDYSPHA ---
Speech & Language Evaluation Speech/Language Dysphagia Evaluation Start: 10/02/20 11:30 Freq: ONCE Status: Active Protocol: Document 10/02/20 11:30 ELDER (Rec: 10/02/20 11:46 ELDER [id number]) Dysphagia Assess/Goals/Plan Assessment Date of Evaluation: 10/02/20 Evaluation Type Initial Certification Assessment/Problems Determine least restictive diet Does Patient Qualify for Service No Qualify/Failure Comment Patient will be reassessed tomorrow for possible diet upgrade and to change therapy status. Recommendations PHYSICIAN CERTIFICATION: The specified therapy services are required, authorized, and reviewed every 30 days. Diet Recommendations Pureed Liquid Type Recommendations Pudding Consistency SL Swallow Guidelines Assist w/all meals,High aspiration risk Crush Meds Crush all meds Dysphagia Swallow Precautions/Strategies Sitting Upright (90 deg),Small Bites and Sips,Alternate Liquids/Solids Plan Pt/Guardian verbally ack understanding Yes: RN notified of dx/prognosis/goals G -code Required No Education Instructions provided Sit upright for 1 hour once meal is finished. General Information General Current Food Consistancy NPO Dentition Edentulous Oxygen Status Venturi Mask Facial Symmetry Symmetrical Ability to Follow Directions Fair Communication Ability Moderate Impairment Dysphagia:Food Presentation Evaluation Food Type Pureed,Regular,Liquid,Pudding Normal/Thin Liquid Response Coughing after swallow,Wet voice [place] Consistency Liquid Response Coughing after swallow,Wet voice Honey Consistency Liquid Response Coughing after swallow,Clears throat,Wet voice Dysphagia Evaluation Summary Ms. Curtis was given the following consistencies: thins via straw and open cup, nectar, honey, pudding, and pureed. Ms. Curtis coughed excessively for 3 minutes after each trial of thin liquids. She exhibited wet vocal quality. She exhibited coughing and wet vocal quality with trials of nectar and honey consistency. At this time, the luis
--- NOTE | 2020-10-02 15:06 | PC.NURSE ---
Patient remains on 50% venti mask, has tolerated well this shift. Nonproductive hacking cough noted intermittently, has been turned q2h and provided oral care, swallow radhaal completed this shift, patient started on pureed diet with pudding thick liquids, speech states they will reevaluate her tomorrow, has been assisted with meals, tolerated well. FC patent and draining clear yellow urine, alert to person and place only at this time, vital signs have remained stable, no s/s of distress noted, will continue to monitor.
--- NOTE | 2020-10-02 15:36 | PC.NURSE ---
Notified PT/OT about eval on this pt.
--- NOTE | 2020-10-02 16:12 | HMH.OTEV ---
OT Inpatient Evaluation Rehab OT IP Evaluation Start: 10/02/20 15:33 Freq: ONCE Status: Complete Protocol: Document 10/02/20 16:06 [facility] (Rec: 10/02/20 16:11 [facility] [id number]) Rehab OT IP Assessment Subjective History Pt oriented x 2 on arrival. Pt agreeable to engage in therapy evaluation. Pt was admitted via ED on 09/26/20 due to SOB and hypoxia. Pt has a past medial history of Asthma, A-fib, CA, CHF, Depression, DM type 2, GERD, Hyperlipidemia, and HTN. Prior to hospital patient was living at [facility]. Pt reports she was independent with dressing, eathing, and bathing. Pt did use a walker during ambulation to improve balance. Subjective I feel better. Objective Patient Orientation Person,Place,Birthday Upper Extremity Gross ROM WFL Bed Mobility bed mobility-scooting,bed mobility - supine/sit,bed mobility - rolling Assist Level Moderate x 2 (50% assist) Rehab OT IP prob,goals,plan Problems Date of Evaluation: 10/02/20 OT IP Problems Bed Mobility,Transfers,Gait, Balance,Self care,Safety Rehab Potential Rehab Potential Good Equipment Needs Assistive Devices Rolling / Wheeled Walker Plan OT intervention Plan Bed Mobility,Transfers,Gait, Balance,Self care,Safety, Therapeutic Exercise OT Plan Frequency BID Duration LOS Discharge Goals Bed Mobility Ability Assistance x1 Sit to Stand Chair Transfer Ability Minimal x 1 (25% assist) Chair Transfer Ability Moderate x 1 (50% assist) Chair Transfer Technique Sit to/from Ambulatory Chair Transfer Assistive Devices Rolling Walker Feeding Ability Assist with Tray Set Up Lower Body Dressing Ability Assistance X1 Upper Body Dressing Ability Standby Assistance Bathing Ability Assistance x1 Performing Toilet Hygiene Ability Assistance X1 Overall Commode/Toilet Transfer Ability Assistance x1 Commode/Toilet Transfer Technique Sit to/from Ambulatory Discharge Plan OT Discharge Plan Pt can return back to [facility] once medically stable.
[2020-10-02 16:19] LABS: POC Glucose,Bedside 120 (70-110)
[2020-10-02 17:28] LABS: Anion Gap 6.9 mEq/L (5-15); Blood Urea Nitrogen 14 mg/dl (7-17); Calcium 8.3 mg/dl (8.4-10.2); Carbon Dioxide 25 mmol/L (22.0-30.0); Chloride 112 mmol/L (98-107); Creatinine Clearance Estimated 47 mL/min (50-200); Estimated Glomerular Filt Rate 53 ml/min (>60); GFR (African American) 64 ML/MIN (>60); Glucose 130 mg/dl (74-100); Potassium 3.9 mmoL/L (3.5-5.1); Sodium 140 mmol/L (136-145)
[2020-10-02 21:11] LABS: Vancomycin,Trough 13.2 ug/mL (5.0-10.0)
[2020-10-02 21:36] LABS: POC Glucose,Bedside 123 (70-110)
[2020-10-03] VITALS (16 sets, daily range): BP systolic 130–163; BP diastolic 62–73; PULSE 60–88; RESP 16–20; TEMP 36.4–37.2; O2SAT 90–97; BMI 25.2
--- NOTE | 2020-10-03 00:04 | PC.NURSE ---
She was able to state her name, birthday, and the year but could not answer place. She later developed the confusion. She was talking about the girl bringing her meds from [facility] and the doctor not knowing her. No family in the room. NSR on telemetry. She is being turned and repositioned. HOB elevated. She has a cough. Have not witnessed sputum production. She continues on 50% venti. Safety set.
--- NOTE | 2020-10-03 03:37 | PC.NURSE ---
Placed on 2LPM n/c.
[2020-10-03 05:50] LABS: Basophils % 0.3 % (0.1-2.0); Eosinophils # 0.2 K/mm3 (0.0-0.4); Eosinophils % 3.2 % (0.1-12.0); Hematocrit 28.6 % (37.0-47.0); Hemoglobin 9.2 g/dL (12.2-16.2); Lymphocytes # 1.7 K/mm3 (0.7-4.5); Lymphocytes % 22.8 % (10-50); Mean Corpuscular HGB Conc 32.1 g/dL (31.8-35.4); Mean Corpuscular Hemoglobin 27.8 pg (27.0-31.2); Mean Corpuscular Volume 86.5 fl (81-99); Mean Platelet Volume 7.8 fl (7.4-10.4); Monocytes # 0.6 K/mm3 (0.1-1.0); Monocytes % 7.8 % (1.7-9.3); Neutrophils # 4.9 K/mm3 (1.8-7.8); Neutrophils % 65.8 % (37.0-80.0); Platelet Count 418 K/mm3 (142-424); Red Cell Distribution Width 15.6 % (11.5-17.5); White Blood Count 7.4 K/mm3 (4.8-10.8)
[2020-10-03 05:57] LABS: Chloride 106 mmol/L (98-107); Potassium 3.2 mmoL/L (3.5-5.1); Sodium 139 mmol/L (136-145)
[2020-10-03 05:59] LABS: Alanine Aminotransferase 18 U/L (12-78); Aspartate Amino Transferase 29 U/L (14-36); Blood Urea Nitrogen 14 mg/dl (7-17); Creatinine Clearance Estimated 39 mL/min (50-200); Estimated Glomerular Filt Rate 43 ml/min (>60); GFR (African American) 52 ML/MIN (>60)
[2020-10-03 06:00] LABS: Albumin/Globulin Ratio 0.7 (1.1-1.8); Alkaline Phosphatase 115 U/L (38-126); Anion Gap 8.2 mEq/L (5-15); Bilirubin,Total 0.8 mg/dl (0.2-1.3); Calcium 8.5 mg/dl (8.4-10.2); Carbon Dioxide 28 mmol/L (22.0-30.0); Globulin 4.5 g/dL (1.3-3.2); Glucose 115 mg/dl (74-100); Total Protein,Serum 7.5 g/dl (6.3-8.2)
[2020-10-03 07:03] LABS: POC Glucose,Bedside 113 (70-110)
--- NOTE | 2020-10-03 08:55 | HMH.ACPN2 ---
Internal Medicine - PN: Subj *Date: 10/03/20 *Time: 08:56 Interval history: Patient has made remarkable improvement over the past 24 hours. She is up in a chair. She is alert, talkative, pleasant. Exam Vital signs and Labs for Last 24 Hours: Temp Pulse Resp BP Pulse Ox 97.6 F 78 23 154/62 H 97 10/03/20 08:00 10/03/20 06:08 10/02/20 22:00 10/03/20 06:00 10/03/20 06:00 Laboratory Results - last 24 hr 10/02/20 09:08: WBC 7.5, RBC 3.17 L, Hgb 9.1 L, Hct 27.7 L, MCV 87.3, MCH 28.7, MCHC 32.8, RDW 15.4, Plt Count 316 D, MPV 7.8, Neut % (Auto) 77.2, Lymph % (Auto) 14.7, [place] % (Auto) 5.7, Eos % (Auto) 2.1, Baso % (Auto) 0.4, Neut # (Auto) 5.8, Lymph # (Auto) 1.1, [place] # (Auto) 0.4, Eos # (Auto) 0.2, Baso # (Auto) 0.0 10/02/20 09:08: Sodium 140, Potassium 2.8 L* D, Chloride 109 H, Carbon Dioxide 25 D, Anion Gap 8.8, BUN 14 D, Creatinine 1.10 H, Estimated Creat Clear 42, Estimated GFR 47 L, Est GFR ( Amer) 57 L D, Glucose 112 H, Calcium 8.4 10/02/20 15:56: POC Glucose 120 H 10/02/20 17:05: Sodium 140, Potassium 3.9 D, Chloride 112 H, Carbon Dioxide 25, Anion Gap 6.9, BUN 14, Creatinine 1.00, Estimated Creat Clear 47, Estimated GFR 53 L, Est GFR ( Amer) 64, Glucose 130 H, Calcium 8.3 L 10/02/20 20:15: Vancomycin Trough 13.2 H 10/02/20 21:09: POC Glucose 123 H 10/03/20 05:35: POC Glucose 113 H 10/03/20 05:39: WBC 7.4, RBC 3.30 L, Hgb 9.2 L, Hct 28.6 L, MCV 86.5, MCH 27.8, MCHC 32.1, RDW 15.6, Plt Count 418 D, MPV 7.8, Neut % (Auto) 65.8, Lymph % (Auto) 22.8, [place] % (Auto) 7.8, Eos % (Auto) 3.2, Baso % (Auto) 0.3, Neut # (Auto) 4.9, Lymph # (Auto) 1.7, [place] # (Auto) 0.6, Eos # (Auto) 0.2, Baso # (Auto) 0.0 10/03/20 05:39: Sodium 139, Potassium 3.2 L, Chloride 106, Carbon Dioxide 28, Anion Gap 8.2, BUN 14, Creatinine 1.20 H, Estimated Creat Clear 39, Estimated GFR 43 L, Est GFR ( Amer) 52 L, Glucose 115 H, Calcium 8.5, Magnesium 2.0, Total Bilirubin 0.8, AST 29, ALT 18, Alkaline Phosphatase 115, Total Protein 7.5, Albumin 3.0 L, Globulin 4.5 H, Albumin/Globulin Ratio 0.7 L I & O for Last 24 hours: Intake & Output 09/30/20 10/01/20 10/02/20 10/03/20 11:59 11:59 11:59 11:59 Intake Total 3093.958 / 3093.958 3570.333 / 3655.333 1937 / 1937 3993 / 3993 Output Total 707 / 732 1924 / 2874 5845 / 5845 3400 / 3400 Balance 2386.958 / 2361.958 1646.333 / 781.333 -3908 / -3908 593 / 593 Weight 157 lb 1 oz 157 lb 0.987 oz 158 lb 1 oz 151 lb 3 oz Narrative: Alert, oriented x3. Nasal bandage from her previous BiPAP looks good. Lungs have scattered rhonchi but much better air entry, especially in the left side that was completely blocked. Heart rate regular. Abdomen soft, extremities are warm and well-perfused. Avila catheter draining clear yellow urine. Assessment and Plan (1) Lung collapse Status: Acute Category: Medical Code(s): J98.19 - Other pulmonary collapse (2) Respiratory failure with hypoxia Status: Acute Qualifiers: Chronicity: acute Qualified Code(s): J96.01 - Acute respiratory failure with hypoxia Category: Medical Code(s): J96.91 - Respiratory failure, unspecified with hypoxia (3) On mechanically assisted ventilation Status: Acute Category: Medical Code(s): Z99.11 - Dependence on respirator [ventilator] status (4) Acute hypoxemic respiratory failure Status: Acute Category: Medical Code(s): J96.01 - Acute respiratory failure with hypoxia (5) MRSA pneumonia Status: Acute Category: Medical Code(s): J15.212 - Pneumonia due to Methicillin resistant Staphylococcus aureus (6) Hypokalemia Status: Acute Category: Medical Code(s): E87.6 - Hypokalemia - Assessment and plan all Dx Assessment and Plan for all problems:: Excellent improvement from lung white out with what appears to be mucous plugging. Pathology reports fortunately no evidence of malignancy in the bronchioloalveolar lavage samples. Plan will be to continue vancomycin for MRSA
--- NOTE | 2020-10-03 08:59 | HMH.PTEV ---
Physical Therapy Evaluation Rehab PT IP Evaluation Start: 10/02/20 15:33 Freq: ONCE Status: Active Protocol: Document 10/03/20 08:53 MARJORIE (Rec: 10/03/20 08:58 [email or web address] [id number]) Subjective/History History History This is the initial IP PT evaluation for Filomena Curtis. [facility] a [facility] for respiratory failure. Pt required high flow oxygen and eventually intubation. Pt has recently been extubated and now is ready for physical therapy evaluation Subjective Subjective Pt reports she feels very weak but would like to get OOB Rehab PT IP Eval Objective Appearance Patient Behavior Cooperative,Confused Patient Orientation Place,Name Difficulty following instructions mild Speech Pattern Appropriate Ambulation Patient Able to Ambulate Yes Ambulation Observation IP General Gait Pattern Observation Shuffling Step Ambulation Distance (feet) 2 Ambulation Assistive Device None Ambulation Ability Maximum x 1 (75% assist) Balance Ability to Arise Unable Sitting Balance Steady, safe Standing Balance Unsteady Dynamic Sitting Balance Ability Fair Dynamic Standing Balance Ability Zero Transfers Bed Transfer Ability Minimal x 1 (25% assist) Chair Transfer Ability Minimal x 1 (25% assist) Sit to Stand Bed Transfer Ability Maximum x 1 (75% assist) Sit to Stand Chair Transfer Ability Maximum x 1 (75% assist) Rehab PT IP prob,goals,plan Problems Date of Evaluation: 10/03/20 PT IP Problems Bed Mobility,Transfers,Gait, Balance,Self care,Safety,Other Other Pt Problem cardio-pulmonary Rehab Potential Rehab Potential Fair Equipment Needs Assistive Devices Rolling / Wheeled Walker Plan PT Intervention Plan Bed Mobility,Transfers,Gait, Balance,Self care,Safety, Therapeutic Exercise PT Plan Frequency BID Duration LOS Discharge Goals Bed Transfer Ability Minimal x 1 (25% assist) Sit to Stand Chair Transfer Ability Maximum x 1 (75% assist) Ambulation Distance (feet) 3 Discharge Plan PT Discharge Plan Pt will need SNF placement for continued care and extended skilled therapy to return to [facility]
--- NOTE | 2020-10-03 09:13 | P.PN_ITS ---
Internal Medicine - PN: Subj *Date: 10/03/20 *Time: 09:13 Interval history: No acute respiratory events overnight. Patient respiratory status improved and her oxygenation weaned to nasal cannula 2 L this morning Exam - Constitutional Constitutional:: Present: no acute distress, comfortable - HENMT Exam HENMT: Present: normocephalic, atraumatic - Neck Exam Neck:: Present: normal visual inspection - Respiratory Exam Respiratory:: Present: able to speak in complete sentences, no respiratory distress, normal respiratory effort, crackles - Cardiovascular Exam Cardiac:: Present: S1, S2 - GI Exam GI:: Present: soft - Skin Exam Skin: Present: warm - Neurological Exam Neurological: Present: alert, awake, normal cognition - Extremities Exam Extremities: Present: no cyanosis, no clubbing, no edema Assessment and Plan (1) Lung collapse Status: Acute Category: Medical Code(s): J98.19 - Other pulmonary collapse (2) Respiratory failure with hypoxia Status: Acute Qualifiers: Chronicity: acute Qualified Code(s): J96.01 - Acute respiratory failure with hypoxia Category: Medical Code(s): J96.91 - Respiratory failure, unspecified with hypoxia (3) On mechanically assisted ventilation Status: Acute Category: Medical Code(s): Z99.11 - Dependence on respirator [ventilator] status (4) Acute hypoxemic respiratory failure Status: Acute Category: Medical Code(s): J96.01 - Acute respiratory failure with hypoxia (5) MRSA pneumonia Status: Acute Category: Medical Code(s): J15.212 - Pneumonia due to Methicillin resistant Staphylococcus aureus (6) Hypokalemia Status: Acute Category: Medical Code(s): E87.6 - Hypokalemia - Assessment and plan all Dx Assessment and Plan for all problems:: #Acute hypoxic respiratory failure: #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 CT chest on admission reviewed showed complete collapse of the left lung along with small effusion. Patient was also intubated with worsening respiratory failure and suctioned significant mucoid secretions eventually patient has both lungs inflated. Patient BAL also growing MRSA and was initiated on vancomycin. BAL cytopathology no evidence of malignancy, no evidence of fungal elements. Endobronchial biopsy pulmonary: Negative for malignancy and fungal elements awaiting final report. Patient resp status also significantly improved after diuresis from Venti 50% to 2 L nasal cannula this morning. Patient respiratory rate significantly improved from prior but she will have bilateral coarse breath sounds her speech and swallow evaluated her high risk for aspiration, recommended mechanical pur?ed diet with assistance. Awaiting PT OT's recommendations. Plan: -Discontinue cefepime -Strict aspiration precautions -Continue vancomycin for a total of 7-day course. -Speech and swallow recommendations -Aggressive PT OT -DuoNebs every 6 hours scheduled. Will discontinue Mucomyst. Will make chest vest twice a day -Continue oxygen supplement to maintain O2 saturation goal of 90 and above, patient currently on 2L NC -Follow final BAL cultures along with endobronchial biopsy cultures #Thank for involving pulmonary in this patient care. We will continue to follow. Please call with any questions or concerns.
--- NOTE | 2020-10-03 10:22 | HMH.PHACONS ---
- Pharmacy Consult Date: 10/03/20 Time: 10:22 Referring provider: DR. GARRISON Reason for Consult:: VANCOMYCIN TROUGH LEVEL Allergies and ADEs:: Allergies Allergy/AdvReac Type Severity Reaction Status Date / Time Penicillins [PENICILLINS] Allergy Severe S-SWELLS-OR Verified 12/13/18 15:46 AL/THROAT codeine [CODEINE] Allergy Unknown NA-DIARRHEA Verified 10/09/18 19:43 Home Medications:: Home Medications Medication Instructions Recorded Confirmed Type Atorvastatin Calcium [Lipitor 40mg 40 mg PO HS 10/09/18 09/26/20 History Tab] Cetirizine HCl [24Hour Allergy] 10 mg PO DAILY 10/09/18 09/26/20 History Cranberry Fruit Extract [Cranberry] 250 mg PO DAILY 10/09/18 09/26/20 History Montelukast Sodium 5 mg PO HS 10/09/18 09/26/20 History Omeprazole [Omeprazole 20mg 20 mg PO DAILY 10/09/18 09/26/20 History Capsule] Fluticasone Propionate [Flonase 1 spr NS DAILY 12/13/18 09/26/20 History 50mcg nasal spray 16gm] Tiotropium [place] [Spiriva 2 puff IH DAILY 12/13/18 09/26/20 History 18mcg/puff inhaler] Acetaminophen [Acetaminophen 325mg 650 mg PO Q6HP PRN 01/04/19 09/26/20 History tab] Albuterol Sulfate [Ventolin HFA 2 puff IH Q4HP PRN 01/04/19 09/26/20 History Inhaler] Calcium Citrate 500 mg PO DAILY 01/04/19 09/26/20 History Cholecalciferol (Vitamin D3) 1,000 unit PO DAILY 01/04/19 09/26/20 History [Vitamin D3 1,000 Unit Tab] Magnesium Oxide 125 mg PO DAILY 01/04/19 09/26/20 History NIFEdipine [Nifedipine ER] 30 mg PO DAILY 01/04/19 09/26/20 History guaiFENesin [Robitussin 200mg/10mL 200 mg PO QIDP PRN 01/04/19 09/26/20 History Syrup Udc] Fluticasone Propion/Salmeterol 1 inh IH BID 01/05/19 09/26/20 History [Wixela 500-50 Inhub] Furosemide [Furosemide 40MG tAB*] 40 mg PO DAILY 09/26/20 09/26/20 History Insulin Regular, Human [Novolin R] 0 units SQ ACHS PRN 09/26/20 09/26/20 History Psyllium Husk [Metamucil] 0.36 gm PO DAILY 09/26/20 09/26/20 History bisacodyL [Dulcolax 5mg Tab] 5 mg PO DAILY 09/26/20 09/26/20 History Height: 1.65 m Weight: 68.577 kg Laboratory Results:: Laboratory Results - last 24 hr 10/02/20 15:56: POC Glucose 120 H 10/02/20 17:05: Sodium 140, Potassium 3.9 D, Chloride 112 H, Carbon Dioxide 25, Anion Gap 6.9, BUN 14, Creatinine 1.00, Estimated Creat Clear 47, Estimated GFR 53 L, Est GFR ( Amer) 64, Glucose 130 H, Calcium 8.3 L 10/02/20 20:15: Vancomycin Trough 13.2 H 10/02/20 21:09: POC Glucose 123 H 10/03/20 05:35: POC Glucose 113 H 10/03/20 05:39: WBC 7.4, RBC 3.30 L, Hgb 9.2 L, Hct 28.6 L, MCV 86.5, MCH 27.8, MCHC 32.1, RDW 15.6, Plt Count 418 D, MPV 7.8, Neut % (Auto) 65.8, Lymph % (Auto) 22.8, [place] % (Auto) 7.8, Eos % (Auto) 3.2, Baso % (Auto) 0.3, Neut # (Auto) 4.9, Lymph # (Auto) 1.7, [place] # (Auto) 0.6, Eos # (Auto) 0.2, Baso # (Auto) 0.0 10/03/20 05:39: Sodium 139, Potassium 3.2 L, Chloride 106, Carbon Dioxide 28, Anion Gap 8.2, BUN 14, Creatinine 1.20 H, Estimated Creat Clear 39, Estimated GFR 43 L, Est GFR ( Amer) 52 L, Glucose 115 H, Calcium 8.5, Magnesium 2.0, Total Bilirubin 0.8, AST 29, ALT 18, Alkaline Phosphatase 115, Total Protein 7.5, Albumin 3.0 L, Globulin 4.5 H, Albumin/Globulin Ratio 0.7 L Medical History: Reports:: Asthma, Atrial Fibrillation, Cancer (LEFT BREAST LUMPECTOMY), Congestive Heart Failure, Depression, Diabetes Mellitus Type 2, Gastroesophageal Reflux Disease(GERD), Hyperlipidemia, Hypertension Denies:: Diabetes Mellitus Type 1, MRSA Assessment and Plan (1) Lung collapse Status: Acute Category: Medical Code(s): J98.19 - Other pulmonary collapse (2) Respiratory failure with hypoxia Status: Acute Qualifiers: Chronicity: acute Qualified Code(s): J96.01 - Acute respiratory failure with hypoxia Category: Medical Code(s): J96.91 - Respiratory failure, unspecified with hypoxia (3) On mechanically assisted ventilation Status: Acute Category: Medical Code(s): Z99.11 - Dependence on respi
[2020-10-03 11:37] LABS: POC Glucose,Bedside 134 (70-110)
[2020-10-03 16:26] LABS: POC Glucose,Bedside 138 (70-110)
--- NOTE | 2020-10-03 16:35 | PC.NURSE ---
Patient has been alert and oriented x3 this shift, oxygen titrated down to 2LNC today, patient has tolerated well, was up to chair for most of the day, worked with physical and occupational therapy, tolerated pureed diet with honey thickened liquids well, jimenez catheter removed this shift, educated patient on use of IS this shift, vitals signs have remained stable, no s/s of distress noted, will continue to monitor.
[2020-10-03 23:07] LABS: Aspergillus flavus Negative (Neg:<1:1); Aspergillus fumigatus Negative (Neg:<1:1); Aspergillus niger Negative (Neg:<1:1); Blastomyces Antibody Negative (Neg:<1:1)
[2020-10-04] VITALS: BP 156/75; PULSE 70; PULSE 80; RESP 16; TEMP 36.9; O2SAT 94
[2020-10-04 00:40] LABS: POC Glucose,Bedside 112 (70-110)
[2020-10-04 04:00] VITALS: BP 143/65; PULSE 79; PULSE 80; RESP 18; TEMP 36.9; O2SAT 93
--- NOTE | 2020-10-04 04:08 | PC.NURSE ---
Patient has had a wet cough throughout the night. Patient's vital signs have been stable throughout the night. She has maintained O2 saturation of 90-94% on 2L NC throughout the night. She is assist to the bedside commode. She has had no complaints throughout the night. She has normal saline at 100mL/hr through her PICC line located in her upper left arm. Bed is in lowest position, call light is within reach. Will continue to monitor patient.
[2020-10-04 05:11] VITALS: BMI 25.2
[2020-10-04 05:40] LABS: Basophils % 0.5 % (0.1-2.0); Eosinophils # 0.3 K/mm3 (0.0-0.4); Hematocrit 27.5 % (37.0-47.0); Hemoglobin 8.8 g/dL (12.2-16.2); Lymphocytes # 1.6 K/mm3 (0.7-4.5); Lymphocytes % 29.6 % (10-50); Mean Corpuscular HGB Conc 32.2 g/dL (31.8-35.4); Mean Corpuscular Hemoglobin 27.7 pg (27.0-31.2); Mean Corpuscular Volume 85.9 fl (81-99); Mean Platelet Volume 7.8 fl (7.4-10.4); Monocytes # 0.4 K/mm3 (0.1-1.0); Monocytes % 7.9 % (1.7-9.3); Neutrophils # 3.1 K/mm3 (1.8-7.8); Neutrophils % 56.9 % (37.0-80.0); Platelet Count 420 K/mm3 (142-424); Red Cell Distribution Width 15.5 % (11.5-17.5); White Blood Count 5.4 K/mm3 (4.8-10.8)
[2020-10-04 05:49] LABS: Chloride 106 mmol/L (98-107); Sodium 139 mmol/L (136-145)
[2020-10-04 05:52] LABS: Anion Gap 6.9 mEq/L (5-15); Blood Urea Nitrogen 11 mg/dl (7-17); Calcium 8.3 mg/dl (8.4-10.2); Carbon Dioxide 29 mmol/L (22.0-30.0); Creatinine Clearance Estimated 45 mL/min (50-200); Estimated Glomerular Filt Rate 53 ml/min (>60); GFR (African American) 64 ML/MIN (>60); Glucose 115 mg/dl (74-100)
[2020-10-04 05:55] LABS: Potassium 2.9 mmoL/L (3.5-5.1)
[2020-10-04 06:01] VITALS: PULSE 67; PULSE 77
--- NOTE | 2020-10-04 06:02 | PC.NURSE ---
Pt refusing CPT at this time.
[2020-10-04 06:25] LABS: POC Glucose,Bedside 108 (70-110)
--- NOTE | 2020-10-04 06:30 | XR_ITS ---
PROCEDURE INFORMATION: Exam: XR Chest Exam date and time: 10/04/2020 6:30 AM Age: 84 years old Clinical indication: Dyspnea; Patient HX: SOB. . F/u; Additional info: F/u lung whiteout TECHNIQUE: Imaging protocol: XR of the chest. Views: 1 view. COMPARISON: CR XR CHEST PORTABLE 10/01/2020 4:58 AM FINDINGS: Tubes, catheters and devices: There is a left-sided PICC line with the tip located in proper position. Lungs: Stable left-sided retrocardiac consolidation. Lungs are otherwise clear. Pleural spaces: Unremarkable. No pleural effusion. No pneumothorax. Heart/Mediastinum: Unremarkable. No cardiomegaly. Bones/joints: Unremarkable. There is no acute fracture present. IMPRESSION: Stable left-sided retrocardiac consolidation.
--- NOTE | 2020-10-04 07:37 | HMH.DCSUM ---
General - General Admission date:: 09/26/20 Discharge date: 10/04/20 HPI HPI: 84-year-old white female, resident of long-term half-way, came to the emergency department via EMS with relatively sudden onset of shortness of air, cough, difficulty breathing, new onset hypoxia. ER work-up revealed whiteout of the left lung, CT scan showed evidence of constricted bronchus and probable masses. Admitted to [facility] for high flow oxygen, pulmonary consultation and IV antibiotic therapy. Hospital Course Hospital Course: Patient was admitted. Pulmonary consulted, felt that she would deserve bronchoscopy given the significant evidence of bronchial obstruction. This was done which revealed a significant mucous plug and bronchioloalveolar lavage washings were taken for cytology and culture. Patient tolerated the procedure well, but a couple of days after the procedure had significant respiratory distress and hypercapnia and required intubation for 2 days. She tolerated this well was extubated -- bronchioloalveolar lavage results showed evidence of MRSA in the mucous plug but no evidence of malignancy or suspicious cells on cytology. After extubation patient improved, was able to participate in physical therapy. She is reached maximal medical improvement in the hospital, she will be transferred back to [facility] today. She has a PICC line in place, we will leave this and and she will require vancomycin 1 g IV daily for the next 5 days to complete a 10-day course. Please note she will require percussion and postural drainage 4 times daily with a therapy vest. Please note she is slightly hypokalemic. She will need BMP level done tomorrow morning. She will need CBC and BMP on October 08 on Thursday morning. She will need PT/OT evaluation. She had a swallowing evaluation here that revealed evidence of aspiration risk and she is on a pur?ed diet. She will need speech therapy evaluation at the half-way to see if her diet can be advanced. Objective Vital signs: Temp Pulse Resp BP Pulse Ox 98.4 F 77 18 143/65 H 93 L 10/04/20 04:00 10/04/20 06:01 10/04/20 04:00 10/04/20 04:00 10/04/20 04:00 no acute distress, thin, chronically ill appearing - *Routine HEENT Exam Head: Present: normocephalic Eye: Present: EOMI, PERRL ENT: Present: mucous membranes moist - *Routine Neck Exam Present: supple - *Routine Respiratory Exam Comments: Rhonchi in both lungs. Left lung is vastly improved with reasonable air movement, symmetric with the right side. Still has loose rhonchi. - *Routine Cardiovascular Exam Present: RRR - *Routine Abdominal Exam Present: soft, normoactive bowel sounds. Absent: tenderness - *Routine Extremities Exam Absent: cyanosis, clubbing, edema - *Routine Skin Exam Present: warm. Absent: rash Comments: PICC line in left upper arm - Detailed Eye Exam Eyelids: Bilateral normal inspection Results Labs on day of discharge: Labs from last 24 hours 10/04/20 10/04/20 10/04/20 05:30 05:30 05:29 WBC 5.4 D RBC 3.20 L Hgb 8.8 L Hct 27.5 L MCV 85.9 MCH 27.7 MCHC 32.2 RDW 15.5 Plt Count 420 MPV 7.8 Neut % (Auto) 56.9 Lymph % (Auto) 29.6 [place] % (Auto) 7.9 Eos % (Auto) 5.0 Baso % (Auto) 0.5 Neut # (Auto) 3.1 Lymph # (Auto) 1.6 [place] # (Auto) 0.4 Eos # (Auto) 0.3 Baso # (Auto) 0.0 Sodium 139 Potassium 2.9 L* Chloride 106 Carbon Dioxide 29 Anion Gap 6.9 BUN 11 Creatinine 1.00 Estimated Creat Clear 45 Estimated GFR 53 L Est GFR ( Amer) 64 D Glucose 115 H POC Glucose 108 Calcium 8.3 L Blastomyces Antibody Aspergillus flavus Ab Aspergill fumigatus Ab Aspergillus niger Ab 10/03/20 10/03/20 10/03/20 20:26 16:19 11:20 WBC RBC Hgb Hct MCV MCH MCHC RDW Plt Count MPV Neut % (Auto) Lymph
[2020-10-04 08:00] VITALS: BP 153/75; PULSE 98; RESP 18; O2SAT 95
--- NOTE | 2020-10-04 09:14 | PC.NURSE ---
report called to Adela @ [facility].
--- NOTE | 2020-10-04 10:24 | HMH.PULMPN ---
Internal Medicine - PN: Subj *Date: 10/04/20 *Time: 10:27 Interval history: No acute respite events overnight. Exam - Constitutional Constitutional:: Present: no acute distress, comfortable - HENMT Exam HENMT: Present: normocephalic, atraumatic - Eye Exam Eyes:: Present: normal appearance both eyes and related structures - Neck Exam Neck:: Present: normal visual inspection - Respiratory Exam Respiratory:: Present: able to speak in complete sentences, no respiratory distress, normal respiratory effort, crackles. Absent: accessory muscle use - Cardiovascular Exam Cardiac:: Present: S1, S2 - GI Exam GI:: Present: soft - Skin Exam Skin: Present: warm, no rash, dry - Neurological Exam Neurological: Present: alert, awake, normal cognition - Extremities Exam Extremities: Present: no cyanosis, no clubbing, no edema Assessment and Plan (1) Lung collapse Status: Resolved Category: Medical Code(s): J98.19 - Other pulmonary collapse (2) Respiratory failure with hypoxia Status: Resolved Qualifiers: Chronicity: acute Qualified Code(s): J96.01 - Acute respiratory failure with hypoxia Category: Medical Code(s): J96.91 - Respiratory failure, unspecified with hypoxia (3) On mechanically assisted ventilation Status: Resolved Category: Medical Code(s): Z99.11 - Dependence on respirator [ventilator] status (4) Acute hypoxemic respiratory failure Status: Resolved Category: Medical Code(s): J96.01 - Acute respiratory failure with hypoxia (5) MRSA pneumonia Status: Acute Category: Medical Code(s): J15.212 - Pneumonia due to Methicillin resistant Staphylococcus aureus (6) Hypokalemia Status: Acute Category: Medical Code(s): E87.6 - Hypokalemia - Assessment and plan all Dx Assessment and Plan for all problems:: #Acute hypoxic respiratory failure: #MRSA Pneumonia 84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 CT chest on admission reviewed showed complete collapse of the left lung along with small effusion. Patient was also intubated with worsening respiratory failure and suctioned significant mucoid secretions eventually patient has both lungs inflated. Patient BAL also growing MRSA and was initiated on vancomycin. BAL cytopathology no evidence of malignancy, no evidence of fungal elements. Endobronchial biopsy pulmonary: Negative for malignancy and fungal elements awaiting final report. Patient resp status also significantly improved after diuresis from Venti 50% to 2 L nasal cannula this morning. Plan: -Strict aspiration precautions -Continue vancomycin for a total of 7-day course. -DuoNebs every 6 hours scheduled. Will discontinue Mucomyst. Will make chest vest twice a day -Continue oxygen supplement to maintain O2 saturation goal of 90 and above, patient currently on 2L NC -Follow final BAL cultures along with endobronchial biopsy cultures -Recommend to follow follow with PT recommendations as copied below -recommendations conveyed to primary team and administrator social welfare - Pt will need SNF placement for continued care and extended skilled therapy to return to PLOF. W/out skilled therapy pt has increased risk of falls , fractures, wounds, deconditioning, decreased cardiovascular status and increased burden of care. #Thank for involving pulmonary in this patient care. We will follow patient in pulmonary clinic
[2020-10-04 11:42] LABS: M003-IgE Aspergillus fumigatus <0.10 kU/L (Class 0)
== END 2020-10-04 10:09 | DRG 166 ==
LOC: ER 12:00 → 2ND 12:20
PROVIDERS: Internal Medicine Adolescent Medicine; Internal Medicine Pulmonary Disease; Admitting Provider Internal Medicine Adolescent Medicine; Emergency Provider Emergency Medicine; PCP Internal Medicine Adolescent Medicine; Visit Provider Internal Medicine Adolescent Medicine
PROC: 0BBG8ZX Excision of Left Upper Lung Lobe, Via Natural or Artificial Opening Endoscopic, Diagnostic (ICD-10-PCS; principal; 2020-09-28 15:00)
DX: J15.212 Pneumonia due to Methicillin resistant Staphylococcus aureus (principal); J96.01 Acute respiratory failure with hypoxia; J98.19 Other pulmonary collapse; T17.590A Other foreign object in bronchus causing asphyxiation, initial encounter; Z79.4 Long term (current) use of insulin; Z20.822 Contact with and (suspected) exposure to COVID-19; F32.9 Major depressive disorder, single episode, unspecified; E78.5 Hyperlipidemia, unspecified; K21.9 Gastro-esophageal reflux disease without esophagitis; Z87.891 Personal history of nicotine dependence; M19.90 Unspecified osteoarthritis, unspecified site; Z88.5 Allergy status to narcotic agent; Z88.0 Allergy status to penicillin; E87.6 Hypokalemia; J45.909 Unspecified asthma, uncomplicated; E11.9 Type 2 diabetes mellitus without complications; I11.0 Hypertensive heart disease with heart failure; I50.9 Heart failure, unspecified
CPT/HCPCS: 31624; 31625; 31500; 94002; 36415; 36569; 71045; 71250; 80048; 80053; 80202; 81001; 82803; 82962; 83605; 83735; 83880; 84484; 85007; 85025; 86003; 86606; 86612; 87040; 87070; 87077; 87102; 87116; 87186; 87205; 87206; 87220; 88112; 88305; 88312; 89051; 92526; 92610; 93005; 94003; 94640; 94660; 94761; 96365; 97110; 97163; 97166; 97530; 99152; 99153; 99285; C1751; J1956; J2704; J3370; U0003

== ENCOUNTER → 2020-10-08 06:46 | Outpatient (CLI) | payer MEDICARE, MEDICAID, SELFPAY ==
[2020-10-08 13:37] LABS: Basophils % 0.4 % (0.1-2.0); Eosinophils # 0.3 K/mm3 (0.0-0.4); Eosinophils % 4.4 % (0.1-12.0); Hematocrit 28.8 % (37.0-47.0); Hemoglobin 9.2 g/dL (12.2-16.2); Lymphocytes # 2.5 K/mm3 (0.7-4.5); Lymphocytes % 37.6 % (10-50); Mean Corpuscular Volume 87.4 fl (81-99); Monocytes # 0.5 K/mm3 (0.1-1.0); Monocytes % 7.4 % (1.7-9.3); Neutrophils # 3.4 K/mm3 (1.8-7.8); Neutrophils % 50.3 % (37.0-80.0); Platelet Count 459 K/mm3 (142-424); Red Blood Count 3.29 M/mm3 (4.20-5.40); Red Cell Distribution Width 16.4 % (11.5-17.5); White Blood Count 6.7 K/mm3 (4.8-10.8)
[2020-10-08 13:43] LABS: Chloride 107 mmol/L (98-107); Sodium 140 mmol/L (136-145)
[2020-10-08 13:44] LABS: Potassium 3.5 mmoL/L (3.5-5.1)
[2020-10-08 13:46] LABS: Anion Gap 6.5 mEq/L (5-15); Blood Urea Nitrogen 14 mg/dl (7-17); Carbon Dioxide 30 mmol/L (22.0-30.0); Estimated Glomerular Filt Rate 39 ml/min (>60); GFR (African American) 47 ML/MIN (>60)
[2020-10-08 13:47] LABS: Calcium 8.7 mg/dl (8.4-10.2); Glucose 108 mg/dl (74-100)
== END ==
PROVIDERS: Visit Provider Nurse Practitioner Family
DX: I10 Essential (primary) hypertension (principal); E87.6 Hypokalemia
CPT/HCPCS: 36415; 80048; 85025

== ENCOUNTER → 2020-10-18 07:59 | Outpatient (CLI) | payer MEDICARE, MEDICAID, SELFPAY ==
[2020-10-18 14:11] LABS: Alanine Aminotransferase 10 U/L (12-78); Albumin Level 2.7 g/dl (3.5-5.0); Albumin/Globulin Ratio 0.8 (1.1-1.8); Alkaline Phosphatase 101 U/L (38-126); Anion Gap 7.9 mEq/L (5-15); Aspartate Amino Transferase 18 U/L (14-36); Bilirubin,Total 0.6 mg/dl (0.2-1.3); Blood Urea Nitrogen 26 mg/dl (7-17); Carbon Dioxide 32 mmol/L (22.0-30.0); Chloride 104 mmol/L (98-107); Estimated Glomerular Filt Rate 29 ml/min (>60); GFR (African American) 35 ML/MIN (>60); Globulin 3.4 g/dL (1.3-3.2); Glucose 84 mg/dl (74-100); Potassium 3.9 mmoL/L (3.5-5.1); Sodium 140 mmol/L (136-145); Total Protein,Serum 6.1 g/dl (6.3-8.2)
[2020-10-18 14:43] LABS: Basophils % 0.3 % (0.1-2.0); Eosinophils # 0.1 K/mm3 (0.0-0.4); Eosinophils % 1.6 % (0.1-12.0); Hematocrit 28.7 % (37.0-47.0); Hemoglobin 9.2 g/dL (12.2-16.2); Lymphocytes # 2.5 K/mm3 (0.7-4.5); Lymphocytes % 37.6 % (10-50); Mean Corpuscular HGB Conc 31.9 g/dL (31.8-35.4); Mean Corpuscular Hemoglobin 28.1 pg (27.0-31.2); Mean Platelet Volume 8.2 fl (7.4-10.4); Monocytes # 0.6 K/mm3 (0.1-1.0); Monocytes % 8.8 % (1.7-9.3); Neutrophils # 3.4 K/mm3 (1.8-7.8); Neutrophils % 51.7 % (37.0-80.0); Platelet Count 252 K/mm3 (142-424); Red Blood Count 3.26 M/mm3 (4.20-5.40); Red Cell Distribution Width 16.3 % (11.5-17.5); White Blood Count 6.6 K/mm3 (4.8-10.8)
== END ==
PROVIDERS: Visit Provider Internal Medicine Adolescent Medicine
DX: I50.9 Heart failure, unspecified (principal)
CPT/HCPCS: 36415; 80053; 85025

== ENCOUNTER → 2020-11-01 07:07 | Outpatient (CLI) | payer MEDICARE, MEDICAID, SELFPAY ==
[2020-11-01 14:33] LABS: Chloride 105 mmol/L (98-107); Potassium 4.4 mmoL/L (3.5-5.1); Sodium 140 mmol/L (136-145)
[2020-11-01 14:36] LABS: Anion Gap 8.4 mEq/L (5-15); Blood Urea Nitrogen 20 mg/dl (7-17); Carbon Dioxide 31 mmol/L (22.0-30.0); Estimated Glomerular Filt Rate 33 ml/min (>60); GFR (African American) 40 ML/MIN (>60)
[2020-11-01 14:37] LABS: Glucose 84 mg/dl (74-100)
== END ==
PROVIDERS: Visit Provider Internal Medicine Adolescent Medicine
DX: I50.9 Heart failure, unspecified (principal); I10 Essential (primary) hypertension; E78.5 Hyperlipidemia, unspecified
CPT/HCPCS: 36415; 80048

== ENCOUNTER → 2020-11-21 16:07 | Outpatient (CLI) | payer MEDICARE, MEDICAID, SELFPAY ==
[2020-11-21 16:10] LABS: Microscopic, Urine URINE MICROSCOPIC (MICROSCOPIC)
[2020-11-21 16:25] LABS: Appearance,Urine SL CLOUDY (Clear); Bilirubin,Urine Negative (Negative); Blood, Urine Negative (Negative); Color,Urine YELLOW (Yellow); Glucose,Urine (UA) Negative (Negative); Ketones,Urine Negative (Negative); Leukocyte Esterase,Urine Negative (Negative); Nitrate,Urine Negative (Negative); Protein,Urine Negative (Negative); Specific Gravity, Urine 1.015 (1.005-1.030); Urobilinogen,Urine 0.2 EU/dl (0.2)
[2020-11-21 16:40] LABS: Bacteria,Urine Trace /lpf; RBC,Urine Occasional #/hpf (0-3); Squamous Epithelial Cell,Urine Occasional #/hpf (0-5)
[2020-11-21 16:41] LABS: Transitional Epi Cells,Urine OCC #/lpf (0-3)
== END ==
PROVIDERS: Visit Provider Internal Medicine Adolescent Medicine
DX: N39.0 Urinary tract infection, site not specified (principal); B96.20 Unspecified Escherichia coli [E. coli] as the cause of diseases classified elsewhere
CPT/HCPCS: 81001; 87086; 87088; 87186

== ENCOUNTER → 2020-11-22 08:22 | Outpatient (CLI) | payer MEDICARE, MEDICAID, SELFPAY ==
[2020-11-22 15:46] LABS: Chloride 107 mmol/L (98-107); Potassium 4.1 mmoL/L (3.5-5.1); Sodium 141 mmol/L (136-145)
[2020-11-22 15:49] LABS: Anion Gap 10.1 mEq/L (5-15); Blood Urea Nitrogen 10 mg/dl (7-17); Calcium 8.9 mg/dl (8.4-10.2); Carbon Dioxide 28 mmol/L (22.0-30.0); Estimated Glomerular Filt Rate 43 ml/min (>60); GFR (African American) 52 ML/MIN (>60); Glucose 94 mg/dl (74-100)
== END ==
PROVIDERS: Visit Provider Internal Medicine Adolescent Medicine
DX: I10 Essential (primary) hypertension (principal)
CPT/HCPCS: 36415; 80048

== ENCOUNTER → 2021-01-29 07:27 | Outpatient (CLI) | payer MEDICARE, MEDICAID, SELFPAY ==
[2021-01-29 13:56] LABS: Basophils # 0.1 K/mm3 (0-0.2); Eosinophils # 0.1 K/mm3 (0.0-0.4); Eosinophils % 1.1 % (0.1-12.0); Hematocrit 35.7 % (37.0-47.0); Hemoglobin 11.1 g/dL (12.2-16.2); Lymphocytes # 2.3 K/mm3 (0.7-4.5); Lymphocytes % 35.3 % (10-50); Mean Corpuscular Hemoglobin 27.8 pg (27.0-31.2); Mean Corpuscular Volume 89.8 fl (81-99); Monocytes # 0.5 K/mm3 (0.1-1.0); Monocytes % 6.9 % (1.7-9.3); Neutrophils # 3.6 K/mm3 (1.8-7.8); Neutrophils % 55.7 % (37.0-80.0); Platelet Count 275 K/mm3 (142-424); Red Blood Count 3.97 M/mm3 (4.20-5.40); Red Cell Distribution Width 15.2 % (11.5-17.5); White Blood Count 6.4 K/mm3 (4.8-10.8)
[2021-01-29 14:05] LABS: Alanine Aminotransferase 14 U/L (12-78); Albumin Level 3.1 g/dl (3.5-5.0); Alkaline Phosphatase 103 U/L (38-126); Anion Gap 8.8 mEq/L (5-15); Aspartate Amino Transferase 21 U/L (14-36); Bilirubin,Total 0.6 mg/dl (0.2-1.3); Blood Urea Nitrogen 18 mg/dl (7-17); Calcium 8.8 mg/dl (8.4-10.2); Carbon Dioxide 28 mmol/L (22.0-30.0); Chloride 108 mmol/L (98-107); Chol/HDL Ratio 3.8 (1-3.5); Cholesterol 141 mg/dl (140-200); Estimated Glomerular Filt Rate 43 ml/min (>60); GFR (African American) 52 ML/MIN (>60); Glucose 90 mg/dl (74-100); HDL Cholesterol 37 mg/dl (40-60); Magnesium 2.1 mg/dl (1.6-2.3); Potassium 4.8 mmoL/L (3.5-5.1); Sodium 140 mmol/L (136-145); Total Protein,Serum 6.1 g/dl (6.3-8.2); Triglycerides 139 mg/dl (30-150); VLDL Cholesterol 28 mg/dL (0-40)
[2021-01-29 14:47] LABS: Hemoglobin A1C 6.6 % (4.0-6.0)
== END ==
PROVIDERS: Visit Provider Nurse Practitioner Family
DX: I10 Essential (primary) hypertension (principal); E11.9 Type 2 diabetes mellitus without complications; E78.5 Hyperlipidemia, unspecified; Z79.4 Long term (current) use of insulin
CPT/HCPCS: 36415; 80053; 80061; 83036; 83735; 85025

== ENCOUNTER → 2021-04-02 06:59 | Outpatient (CLI) | payer MEDICARE, MEDICAID, SELFPAY ==
[2021-04-02 14:46] LABS: Uric Acid 2.7 mg/dl (2.5-6.2)
== END ==
PROVIDERS: Visit Provider Nurse Practitioner Family
DX: N17.9 Acute kidney failure, unspecified (principal)
CPT/HCPCS: 36415; 84550

== ENCOUNTER → 2021-06-06 07:42 | Outpatient (CLI) | payer MEDICARE, MEDICAID, SELFPAY ==
[2021-06-06 15:02] LABS: Basophils % 0.4 % (0.1-2.0); Eosinophils # 0.1 K/mm3 (0.0-0.4); Hematocrit 35.7 % (37.0-47.0); Hemoglobin 10.9 g/dL (12.2-16.2); Lymphocytes # 2.2 K/mm3 (0.7-4.5); Lymphocytes % 45.6 % (10-50); Mean Corpuscular HGB Conc 30.5 g/dL (31.8-35.4); Mean Corpuscular Hemoglobin 28.5 pg (27.0-31.2); Mean Corpuscular Volume 93.4 fl (81-99); Mean Platelet Volume 8.4 fl (7.4-10.4); Monocytes # 0.3 K/mm3 (0.1-1.0); Monocytes % 6.8 % (1.7-9.3); Neutrophils # 2.2 K/mm3 (1.8-7.8); Neutrophils % 45.1 % (37.0-80.0); Platelet Count 270 K/mm3 (142-424); Red Blood Count 3.82 M/mm3 (4.20-5.40); Red Cell Distribution Width 14.5 % (11.5-17.5); White Blood Count 4.8 K/mm3 (4.8-10.8)
[2021-06-06 15:07] LABS: Alanine Aminotransferase 14 U/L (12-78); Albumin Level 3.4 g/dl (3.5-5.0); Albumin/Globulin Ratio 1.2 (1.1-1.8); Alkaline Phosphatase 100 U/L (38-126); Anion Gap 8.7 mEq/L (5-15); Aspartate Amino Transferase 23 U/L (14-36); Bilirubin,Total 0.7 mg/dl (0.2-1.3); Blood Urea Nitrogen 28 mg/dl (7-17); Calcium 8.5 mg/dl (8.4-10.2); Carbon Dioxide 28 mmol/L (22.0-30.0); Chloride 108 mmol/L (98-107); Chol/HDL Ratio 3.4 (1-3.5); Cholesterol 132 mg/dl (140-200); Estimated Glomerular Filt Rate 36 ml/min (>60); GFR (African American) 43 ML/MIN (>60); Globulin 2.9 g/dL (1.3-3.2); Glucose 100 mg/dl (74-100); HDL Cholesterol 39 mg/dl (40-60); Magnesium 2.2 mg/dl (1.6-2.3); Potassium 4.7 mmoL/L (3.5-5.1); Sodium 140 mmol/L (136-145); Total Protein,Serum 6.3 g/dl (6.3-8.2); Triglycerides 98 mg/dl (30-150); VLDL Cholesterol 20 mg/dL (0-40)
== END ==
PROVIDERS: Visit Provider Internal Medicine Adolescent Medicine
DX: E11.9 Type 2 diabetes mellitus without complications (principal); Z79.4 Long term (current) use of insulin
CPT/HCPCS: 36415; 80053; 80061; 83036; 83735; 85025

== ENCOUNTER → 2021-06-19 08:49 | Outpatient (CLI) | payer MEDICARE, MEDICAID, SELFPAY ==
--- NOTE | 2021-06-19 08:58 | XR_ITS ---
FINAL REPORT TECHNIQUE: Bone densitometry calculations of the lumbar spine and left hip were obtained. CLINICAL HISTORY: . post menopausal FINDINGS: Using L1-4, the bone mineral density of the spine is 0.884 g/cm2, corresponding to T-score of -1.5. Using the left hip, the bone mineral density of the femoral neck is 0.391 g/cm2, corresponding to a T-score of -4.1. Using the right hip, the bone mineral density of the femoral neck is 0.476 g/cm2, corresponding to a T-score of -3.4. IMPRESSION: Diminished bone mineral density of the right hip and left hip consistent with osteoporosis. Diminished bone mineral density of the lumbar spine consistent with osteopenia. Reviewed, Interpreted and Dictated by Sy Pichardo MD Transcribed by Autumn Solares Authenticated by Sy Pichardo MD on 06/19/2021 04:33:10 PM [facility]
== END ==
PROVIDERS: PCP Internal Medicine Adolescent Medicine; Visit Provider Internal Medicine Nephrology
DX: M81.0 Age-related osteoporosis without current pathological fracture (principal)
CPT/HCPCS: 77080

== ENCOUNTER → 2021-06-29 04:44 | Outpatient (REF) | payer MEDICARE, MEDICAID, SELFPAY ==
[2021-06-29 05:16] LABS: Microscopic, Urine URINE MICROSCOPIC (MICROSCOPIC)
[2021-06-29 05:22] LABS: Basophils # 0.1 K/mm3 (0-0.2); Basophils % 1.9 % (0.1-2.0); Eosinophils # 0.1 K/mm3 (0.0-0.4); Eosinophils % 1.2 % (0.1-12.0); Hematocrit 35.5 % (37.0-47.0); Hemoglobin 11.1 g/dL (12.2-16.2); Lymphocytes % 32.3 % (10-50); Mean Corpuscular HGB Conc 31.3 g/dL (31.8-35.4); Mean Corpuscular Hemoglobin 29.5 pg (27.0-31.2); Mean Corpuscular Volume 94.3 fl (81-99); Mean Platelet Volume 9.5 fl (7.4-10.4); Monocytes # 0.5 K/mm3 (0.1-1.0); Monocytes % 8.7 % (1.7-9.3); Neutrophils # 3.5 K/mm3 (1.8-7.8); Neutrophils % 55.9 % (37.0-80.0); Platelet Count 321 K/mm3 (142-424); Red Blood Count 3.76 M/mm3 (4.20-5.40); White Blood Count 6.2 K/mm3 (4.8-10.8)
[2021-06-29 05:25] LABS: Appearance,Urine CLEAR (Clear); Bilirubin,Urine Negative (Negative); Blood, Urine Negative (Negative); Color,Urine YELLOW (Yellow); Glucose,Urine (UA) Negative (Negative); Ketones,Urine Negative (Negative); Leukocyte Esterase,Urine Negative (Negative); Nitrate,Urine Negative (Negative); Protein,Urine Negative (Negative); Specific Gravity, Urine 1.015 (1.005-1.030); Urobilinogen,Urine 0.2 EU/dl (0.2)
[2021-06-29 05:40] LABS: Squamous Epithelial Cell,Urine Occasional #/hpf (0-5); WBC,Urine Occasional #/hpf (0-3)
[2021-06-29 06:11] LABS: Anion Gap 15.2 mEq/L (5-15); Blood Urea Nitrogen 38 mg/dl (7-17); Calcium 8.8 mg/dl (8.4-10.2); Carbon Dioxide 22 mmol/L (22.0-30.0); Chloride 107 mmol/L (98-107); Estimated Glomerular Filt Rate 33 ml/min (>60); GFR (African American) 40 ML/MIN (>60); Glucose 154 mg/dl (74-100); Phosphorous 4.5 mg/dl (2.5-4.5); Potassium 5.2 mmoL/L (3.5-5.1); Sodium 139 mmol/L (136-145); Total Protein,Serum 7.5 g/dl (6.3-8.2)
[2021-06-29 06:23] LABS: Intact Parathyroid Hormone 107.3 pg/mL (7.5-53.5)
[2021-06-29 06:29] LABS: 25-OH Vitamin D, Total 45.5 ng/mL (30-100)
== END ==
LOC: LAB.DROPOF 04:44
PROVIDERS: Visit Provider Internal Medicine Adolescent Medicine
DX: I10 Essential (primary) hypertension (principal); E78.5 Hyperlipidemia, unspecified; E11.9 Type 2 diabetes mellitus without complications; D64.9 Anemia, unspecified; M81.0 Age-related osteoporosis without current pathological fracture; Z79.4 Long term (current) use of insulin
CPT/HCPCS: 80069; 81001; 82306; 83970; 84155; 85025

== ENCOUNTER → 2021-07-01 11:58 | Outpatient (POV) | payer MEDICARE, MEDICAID, SELFPAY ==
[2021-07-02 10:18] LABS: C-Peptide 7.8 ng/mL (1.1-4.4)
[2021-07-04 08:16] LABS: Tandem-R Ostase 29.3 ug/L (.)
[2021-07-04 15:14] LABS: Osteocalcin 22.3 ng/mL (.)
== END ==
PROVIDERS: Visit Provider Internal Medicine Nephrology
DX: N18.30 Chronic kidney disease, stage 3 unspecified (principal); M81.0 Age-related osteoporosis without current pathological fracture
CPT/HCPCS: 36415; 83937; 84080; 84681

== ENCOUNTER → 2021-07-02 09:39 | Outpatient (CLI) | payer MEDICARE, MEDICAID, SELFPAY ==
[2021-07-02 09:56] LABS: Microscopic, Urine URINE MICROSCOPIC (MICROSCOPIC)
[2021-07-02 10:51] LABS: Appearance,Urine CLEAR (Clear); Bilirubin,Urine Negative (Negative); Blood, Urine Negative (Negative); Color,Urine YELLOW (Yellow); Glucose,Urine (UA) Negative (Negative); Ketones,Urine Negative (Negative); Leukocyte Esterase,Urine TRACE (Negative); Nitrate,Urine Negative (Negative); Protein,Urine Negative (Negative); Urobilinogen,Urine 0.2 EU/dl (0.2)
[2021-07-02 11:33] LABS: Bacteria,Urine Trace /lpf; Transitional Epi Cells,Urine OCC #/lpf (0-3); WBC,Urine Occasional #/hpf (0-3)
== END ==
PROVIDERS: Visit Provider Internal Medicine Adolescent Medicine
DX: E11.9 Type 2 diabetes mellitus without complications (principal); Z79.4 Long term (current) use of insulin
CPT/HCPCS: 81001; 84155

== ENCOUNTER → 2021-07-08 13:02 | Outpatient (CLI) | payer MEDICARE, MEDICAID, SELFPAY ==
[2021-07-09 11:13] LABS: C-Peptide 18.1 ng/mL (1.1-4.4)
== END ==
PROVIDERS: Visit Provider Internal Medicine Adolescent Medicine
DX: I50.9 Heart failure, unspecified (principal)
CPT/HCPCS: 84681

== ENCOUNTER 2021-09-30 14:39 | Observation (INO) | payer MEDICARE, MEDICAID, SELFPAY ==
[2021-09-30] VITALS (10 sets, daily range): BP systolic 101–151; BP diastolic 50–78; PULSE 72–82; RESP 16–20; TEMP 36.5–37.2; O2SAT 2–98; BMI 26.9; BMI 27.0
--- NOTE | 2021-09-30 14:42 | XR_ITS ---
FINAL REPORT CLINICAL HISTORY: short of breath h/o lt. breast cancer h/o covid over one year ago COMPARISON: October 04, 2020 FINDINGS: A single portable view of the chest was obtained. The heart size and pulmonary vascularity are within normal limits. The mediastinum is within normal limits. There is mild scarring in the lungs. There is no active disease. The bony thorax is intact. There are postoperative changes in the left axilla. IMPRESSION: No active cardiopulmonary disease. Reviewed, Interpreted and Dictated by Leland Anderson III, MD Transcribed by Cherie Segal Authenticated and . [facility]
--- NOTE | 2021-09-30 14:42 | HMH.EDGENADL ---
ED Disposition Clinical Impression: Dependent edema Fluid overload Qualifiers: Hypervolemia type: other Qualified Code(s): E87.79 - Other fluid overload CHF exacerbation Qualifiers: Heart failure type: unspecified Qualified Code(s): I50.9 - Heart failure, unspecified Disposition: Admitted As Inpatient Condition on Discharge: Fair Time of Disposition: 16:14 - Critical Care Critical Care Time: No Attestation: On , the high probability of a clinically significant, sudden or life threatening deterioration of the following system(s) required my full and direct attention, intervention and personal management. The time I documented below is in addition to time spent performing reported procedures but includes the following listed in this critical care notation. Medical Decision Making - Medical Records Medical records reviewed: Yes: I reviewed the patient's medical records. - Ed Inquiry Pt receiving controlled substance: No Vital Signs: 09/30/21 14:40 09/30/21 15:38 09/30/21 16:00 Temperature 99 F Temperature Source Oral Pulse Rate 74 78 Pulse Rate [Radial] 72 Respiratory Rate 20 18 16 Blood Pressure 107/51 L 107/51 L Blood Pressure [Right Radial Artery] 110/50 L Blood Pressure Mean 69 69 Blood Pressure Mean [Right Radial Artery] 70 Blood Pressure Position Blood Pressure Position [Right Radial Artery] Sitting 02 Sat by Pulse Oximetry 96 96 97 Oxygen Delivery Method Nasal Cannula Nasal Cannula Oxygen Flow Rate (LPM) 2 2 09/30/21 16:30 09/30/21 17:00 09/30/21 17:30 Temperature Temperature Source Pulse Rate 80 79 80 Pulse Rate [Radial] Respiratory Rate 16 16 16 Blood Pressure 123/55 L 101/76 L 125/58 L Blood Pressure [Right Radial Artery] Blood Pressure Mean 71 84 83 Blood Pressure Mean [Right Radial Artery] Blood Pressure Position Blood Pressure Position [Right Radial Artery] 02 Sat by Pulse Oximetry 97 96 Oxygen Delivery Method Oxygen Flow Rate (LPM) 2 09/30/21 18:00 09/30/21 18:34 Temperature 98 F Temperature Source Oral Pulse Rate 82 78 Pulse Rate [Radial] Respiratory Rate 16 20 Blood Pressure 110/53 L 135/78 Blood Pressure [Right Radial Artery] Blood Pressure Mean 72 Blood Pressure Mean [Right Radial Artery] Blood Pressure Position Sitting Blood Pressure Position [Right Radial Artery] 02 Sat by Pulse Oximetry 95 Oxygen Delivery Method Nasal Cannula Oxygen Flow Rate (LPM) 2 - Lab Data Lab Results 09/30/21 15:05: WBC 8.5, RBC 3.72 L, Hgb 10.6 L, Hct 33.8 L, MCV 91.0, MCH 28.4, MCHC 31.3 L, RDW 15.8, Plt Count 276, MPV 8.1, Neut % (Auto) 60.6, Lymph % (Auto) 30.8, [place] % (Auto) 6.2, Eos % (Auto) 1.3, Baso % (Auto) 1.2, Neut # (Auto) 5.1, Lymph # (Auto) 2.6, [place] # (Auto) 0.5, Eos # (Auto) 0.1, Baso # (Auto) 0.1 09/30/21 15:05: Sodium 139, Potassium 4.6, Chloride 108 H, Carbon Dioxide 26, Anion Gap 9.6, BUN 22 H, Creatinine 1.40 H, Estimated Creat Clear 32, Estimated GFR 36 L, Est GFR ( Amer) 43 L, Glucose 122 H, Calcium 9.3, Total Bilirubin 0.9, AST 30, ALT 19, Alkaline Phosphatase 128 H, NT-Pro-B Natriuret Pep 1200 H, Total Protein 7.6, Albumin 3.9, Globulin 3.7 H, Albumin/Globulin Ratio 1.1 09/30/21 15:05: SARS-CoV-2 (PCR) Not detected, Influenza A Untype (PCR) Not detected, Influenza Type B (PCR) Not detected 09/30/21 17:04: Urine Color Yellow, Urine Appearance Clear, Urine pH 6.0, Ur Specific [place] 1.010, Urine Protein Negative, Urine Glucose (UA) Negative, Urine Ketones Negative, Urine Blood Trace-i, Urine Nitrate Negative, Urine Bilirubin Negative, Urine Urobilinogen 0.2, Ur Leukocyte Esterase Negative, Urine RBC None, Urine WBC 3-5, Ur Squamous Epith Cells Occasional, Urine Bacteria Trace Result diagrams: 09/30/21 15:05 09/30/21 15:05 Orders (Tests/Meds): ED MEDICATIONS Discontinued Medications Generic Name Dose Route Start Last Admin Trade Name Freq PRN Reason Stop Dose Admin Furosemide 40 m
--- NOTE | 2021-09-30 14:43 | ECG_ITS ---
APPROVED REPORT Exam: Resting ECG HR:82 bpm ECG Measurements Heart Rate 82 AXES LA 117 P -78 QRSd 84 QRS 5 QT 359 T 34 QTc 397 Conclusion JUNCTIONAL RHYTHM WITH FREQUENT VENTRICULAR PREMATURE COMPLEXES NONSPECIFIC T-WAVE ABNORMALITY ABNORMAL RHYTHM ECG UNCONFIRMED REPORT Electronically signed by : Danny Cristobal MD 10/01/2021 18:42:08
--- NOTE | 2021-09-30 15:10 | PC.NURSE ---
rad at BS for portable xray
--- NOTE | 2021-09-30 15:26 | PC.NURSE ---
son updated about pt status.
[2021-09-30 15:36] LABS: Basophils # 0.1 K/mm3 (0-0.2); Basophils % 1.2 % (0.1-2.0); Coronavirus 19, PCR Not Detected (NotDetected); Eosinophils # 0.1 K/mm3 (0.0-0.4); Eosinophils % 1.3 % (0.1-12.0); Hematocrit 33.8 % (37.0-47.0); Hemoglobin 10.6 g/dL (12.2-16.2); Influenza A, PCR Not Detected (NotDetected); Influenza B, PCR Not Detected (NotDetected); Lymphocytes # 2.6 K/mm3 (0.7-4.5); Lymphocytes % 30.8 % (10-50); Mean Corpuscular HGB Conc 31.3 g/dL (31.8-35.4); Mean Corpuscular Hemoglobin 28.4 pg (27.0-31.2); Mean Platelet Volume 8.1 fl (7.4-10.4); Monocytes # 0.5 K/mm3 (0.1-1.0); Monocytes % 6.2 % (1.7-9.3); Neutrophils # 5.1 K/mm3 (1.8-7.8); Neutrophils % 60.6 % (37.0-80.0); Platelet Count 276 K/mm3 (142-424); Red Blood Count 3.72 M/mm3 (4.20-5.40); Red Cell Distribution Width 15.8 % (11.5-17.5); White Blood Count 8.5 K/mm3 (4.8-10.8)
[2021-09-30 15:37] LABS: Chloride 108 mmol/L (98-107); Potassium 4.6 mmoL/L (3.5-5.1); Sodium 139 mmol/L (136-145)
[2021-09-30 15:39] LABS: Alanine Aminotransferase 19 U/L (12-78); Aspartate Amino Transferase 30 U/L (14-36); Blood Urea Nitrogen 22 mg/dl (7-17); Creatinine Clearance Estimated 32 mL/min (50-200); Estimated Glomerular Filt Rate 36 ml/min (>60); GFR (African American) 43 ML/MIN (>60)
[2021-09-30 15:40] LABS: Albumin Level 3.9 g/dl (3.5-5.0); Albumin/Globulin Ratio 1.1 (1.1-1.8); Alkaline Phosphatase 128 U/L (38-126); Anion Gap 9.6 mEq/L (5-15); Bilirubin,Total 0.9 mg/dl (0.2-1.3); Calcium 9.3 mg/dl (8.4-10.2); Carbon Dioxide 26 mmol/L (22.0-30.0); Globulin 3.7 g/dL (1.3-3.2); Glucose 122 mg/dl (74-100); Total Protein,Serum 7.6 g/dl (6.3-8.2)
--- NOTE | 2021-09-30 15:40 | PC.NURSE ---
checked on pt at this time, pt given additional warm blanket. Pt reports no other needs
[2021-09-30 15:49] LABS: NT Pro Brain Natriuretic Pep. 1200 pg/mL (0-450)
--- NOTE | 2021-09-30 16:38 | PC.NURSE ---
pt son ezequiel called to check on pt at this time, reported to him we do plan to admit pt, ER has not spoken with anyone to admit her yet but that is the plan. Son requests a call back when admission is finalized. Verified son's phone number that is in pt chart.
[2021-09-30 17:09] LABS: Microscopic, Urine URINE MICROSCOPIC (MICROSCOPIC)
--- NOTE | 2021-09-30 17:11 | PC.NURSE ---
doper operator paging dr wyatt who is wealth management consultant for dr. salas
--- NOTE | 2021-09-30 17:12 | PC.NURSE ---
BARI HUERTA speaking with
--- NOTE | 2021-09-30 17:13 | PC.NURSE ---
notified care management of admission, spoke with sanna, states she is an OBS admission
[2021-09-30 17:41] LABS: Appearance,Urine CLEAR (Clear); Bilirubin,Urine Negative (Negative); Blood, Urine TRACE-I (Negative); Color,Urine YELLOW (Yellow); Glucose,Urine (UA) Negative (Negative); Ketones,Urine Negative (Negative); Leukocyte Esterase,Urine Negative (Negative); Nitrate,Urine Negative (Negative); Protein,Urine Negative (Negative); Urobilinogen,Urine 0.2 EU/dl (0.2)
[2021-09-30 17:53] LABS: Bacteria,Urine Trace /lpf; Squamous Epithelial Cell,Urine Occasional #/hpf (0-5)
--- NOTE | 2021-09-30 18:06 | PC.NURSE ---
REPORT CALLED TO FLOOR
--- NOTE | 2021-09-30 21:09 | P.CONPHA_ITS ---
[facility] Pharmacy VTE Monitoring - Patient Demographics Admission date: 09/30/21 Report Date: 09/30/21 Time: 21:09 Allergies/Adverse Reactions: Patient Allergies Penicillins [PENICILLINS] Allergy (Severe, Verified 07/01/21 13:09) [id number]/THROAT codeine [CODEINE] Allergy (Unknown, Verified 07/01/21 13:09) NA-DIARRHEA Height: 1.65 m Weight: 73.595 kg Patient Problems: Current Active Problems Fluid overload (Acute) CHF exacerbation (Acute) Dependent edema (Acute) - VTE Risk Labs: VTE Related Lab Results Hgb 10.6 g/dL (12.2-16.2) L 09/30/21 15:05 Hct 33.8 % (37.0-47.0) L 09/30/21 15:05 Plt Count 276 K/mm3 (142-424) 09/30/21 15:05 BUN 22 mg/dl (7-17) H 09/30/21 15:05 Creatinine 1.40 mg/dl (0.52-1.04) H 09/30/21 15:05 Estimated Creat Clear 32 mL/min (50-200) 09/30/21 15:05 VTE Score: 2 - Prophylaxis VTE Prophylaxis Ordered?: Yes Types of VTE Prophylaxis: TEDS Knee High Location of Applied Device: Bilateral Lower Extremeties
[2021-10-01 05:30] VITALS: BP 138/69; PULSE 76; RESP 16; TEMP 36.5; O2SAT 96; BMI 25.9
--- NOTE | 2021-10-01 06:05 | PC.NURSE ---
Pt a + o x4. Pt has not voiced any complaints to staff t/o shift. Able to get to [facility] with 1x assist. Call light within reach.
[2021-10-01 06:58] LABS: Basophils % 0.6 % (0.1-2.0); Eosinophils # 0.1 K/mm3 (0.0-0.4); Eosinophils % 1.7 % (0.1-12.0); Hematocrit 32.3 % (37.0-47.0); Hemoglobin 10.5 g/dL (12.2-16.2); Lymphocytes # 1.7 K/mm3 (0.7-4.5); Lymphocytes % 26.2 % (10-50); Mean Corpuscular HGB Conc 32.6 g/dL (31.8-35.4); Mean Corpuscular Hemoglobin 28.5 pg (27.0-31.2); Mean Corpuscular Volume 87.6 fl (81-99); Mean Platelet Volume 7.5 fl (7.4-10.4); Monocytes # 0.4 K/mm3 (0.1-1.0); Monocytes % 6.3 % (1.7-9.3); Neutrophils # 4.1 K/mm3 (1.8-7.8); Neutrophils % 65.2 % (37.0-80.0); Platelet Count 280 K/mm3 (142-424); Red Blood Count 3.69 M/mm3 (4.20-5.40); White Blood Count 6.3 K/mm3 (4.8-10.8)
--- NOTE | 2021-10-01 07:00 | XR_ITS ---
PROCEDURE INFORMATION: Exam: XR Chest Exam date and time: 10/01/2021 5:44 AM Age: 85 years old Clinical indication: Cardiovascular condition or disease; Congestive heart failure (chf); Cause unknown TECHNIQUE: Imaging protocol: XR of the chest. Views: 1 view. COMPARISON: CR XR CHEST PORTABLE 09/30/2021 3:08 PM FINDINGS: Tubes, catheters and devices: Surgical clips overlying the LEFT chest wall and axilla. Lungs: Confluent and focal areas of airspace opacities in the lung bases. Upper lobe emphysema and scarring. Pleural spaces: Small to moderate LEFT pleural effusion with atelectasis and consolidation in the adjacent lung. Cardiomegaly with pulmonary vascular congestion. Heart/Mediastinum: See Pleural spaces finding. Bones/joints: Chronic degenerative changes in the visualized spine and shoulder joint(s). Chronic healed LEFT clavicle fracture. IMPRESSION: 1. Findings suggestive of CHF, pulmonary edema and LEFT pleural effusion. 2. Possibility of lower lobe pneumonia cannot be excluded. Recommend followup to complete resolution.
--- NOTE | 2021-10-01 07:02 | HMH.PHAINT ---
MEDICATION RECONCILIATION COMPLETED ON PATIENT USING EXTERNAL FILL HISTORY FROM PHARMACY. -[facility], LEENAD
[2021-10-01 07:05] LABS: Chloride 104 mmol/L (98-107)
[2021-10-01 07:06] LABS: Potassium 3.7 mmoL/L (3.5-5.1); Sodium 141 mmol/L (136-145)
[2021-10-01 07:09] LABS: Anion Gap 9.7 mEq/L (5-15); Blood Urea Nitrogen 20 mg/dl (7-17); Calcium 9.3 mg/dl (8.4-10.2); Carbon Dioxide 31 mmol/L (22.0-30.0); Creatinine Clearance Estimated 35 mL/min (50-200); Estimated Glomerular Filt Rate 39 ml/min (>60); GFR (African American) 47 ML/MIN (>60); Glucose 118 mg/dl (74-100)
[2021-10-01 08:00] VITALS: BP 140/74; PULSE 77; RESP 16; TEMP 36.4; O2SAT 95
--- NOTE | 2021-10-01 08:18 | HMH.HPDC ---
General - General Admission date:: 09/30/21 Discharge date: 10/01/21 *Admission Date: 09/30/21 *Chief complaint: swelling in legs, weakness *History of present illness: 85-year-old female who came to the ER yesterday because of increased shortness of breath, difficulty walking, and swelling in her legs. States this has been going on and getting worse for the past several days to week. Was previously a resident for short-term at [facility] before going home. Has been at home since. In the outpatient setting has been on Lasix 20 mg daily, but noted increased swelling on this dose. Work-up in the ER positive for mild CHF, chronic kidney disease at baseline. Is chronically on 2 L of oxygen at home. Given swelling in legs, pain, CHF exacerbation, admitted for diuresis and monitoring overnight. On evaluation this morning, states she is feeling somewhat better. Stable oxygen requirement. Denies nausea or vomiting. Denies chest pain. No cough that she reports of been present for several weeks. [facility] History I have reviewed the patient's past medical history: Yes Medical History: Reports:: Asthma, Atrial Fibrillation, Cancer (BREAST), Congestive Heart Failure, Depression, Diabetes Mellitus Type 2, Gastroesophageal Reflux Disease(GERD), Hyperlipidemia, Hypertension Denies:: Diabetes Mellitus Type 1, MRSA *Have you ever received a pneumonia vaccine?: Yes *Have you received a flu vaccine this season?: Yes Other Medical History: Reports: Anemia, Arthritis Laterality Cases: Left: Mastectomy Amputation: No Fractures: No - *Social History Last grade of school completed: 5th or 6th Smoking Status: Former smoker Alcohol Intake: never *Occupational Status:: retired, disabled Housing: house Household Members: spouse *Travel in the last 8 weeks: None - Psychiatric History Pschychiatric History:: Reports:: Depression Family Hx:: Unable to obtain Review of Systems - Review of Systems Review of systems:: pertinent systems reviewed and negative unless documented below (14 point review of systems performed, pertinent positives and negatives as per HPI) - *Neurologic Reports weakness, Denies dizziness, Denies headache(s) Exam Vital signs and Labs for Last 24 Hours: Temp Pulse Resp BP Pulse Ox 97.7 F 76 16 138/69 96 10/01/21 05:30 10/01/21 05:30 10/01/21 05:30 10/01/21 05:30 10/01/21 05:30 Laboratory Results - last 24 hr 09/30/21 15:05: WBC 8.5, RBC 3.72 L, Hgb 10.6 L, Hct 33.8 L, MCV 91.0, MCH 28.4, MCHC 31.3 L, RDW 15.8, Plt Count 276, MPV 8.1, Neut % (Auto) 60.6, Lymph % (Auto) 30.8, [place] % (Auto) 6.2, Eos % (Auto) 1.3, Baso % (Auto) 1.2, Neut # (Auto) 5.1, Lymph # (Auto) 2.6, [place] # (Auto) 0.5, Eos # (Auto) 0.1, Baso # (Auto) 0.1 09/30/21 15:05: Sodium 139, Potassium 4.6, Chloride 108 H, Carbon Dioxide 26, Anion Gap 9.6, BUN 22 H, Creatinine 1.40 H, Estimated Creat Clear 32, Estimated GFR 36 L, Est GFR ( Amer) 43 L, Glucose 122 H, Calcium 9.3, Total Bilirubin 0.9, AST 30, ALT 19, Alkaline Phosphatase 128 H, NT-Pro-B Natriuret Pep 1200 H, Total Protein 7.6, Albumin 3.9, Globulin 3.7 H, Albumin/Globulin Ratio 1.1 09/30/21 15:05: SARS-CoV-2 (PCR) Not detected, Influenza A Untype (PCR) Not detected, Influenza Type B (PCR) Not detected 09/30/21 17:04: Urine Color Yellow, Urine Appearance Clear, Urine pH 6.0, Ur Specific [place] 1.010, Urine Protein Negative, Urine Glucose (UA) Negative, Urine Ketones Negative, Urine Blood Trace-i, Urine Nitrate Negative, Urine Bilirubin Negative, Urine Urobilinogen 0.2, Ur Leukocyte Esterase Negative, Urine RBC None, Urine WBC 3-5, Ur Squamous Epith Cells Occasional, Urine Bacteria Trace 10/01/21 06:05: WBC 6.3 D, RBC 3.69 L, Hgb 10.5 L, Hct 32.3 L, MCV 87.6, MCH 28.5, MCHC 32.6, RDW 16.0, Plt Count 280, MPV 7.5, Neut % (Auto) 65.2, Lymph % (Auto) 26.2, [place] % (Auto) 6.3, Eos % (Auto) 1.7, Baso % (Auto) 0.6, Neut # (Auto) 4.1, Lymph # (Auto) 1.7, [place] # (Auto) 0.4, E
--- NOTE | 2021-10-01 09:00 | PC.NURSE ---
ATTEMPTED TO CONTACT SHRAVAN FRANCOIS BUT NO ANSWER. CALLED DARCIE OLIVA PT NEXT OF KIN AND NOTIFIED HIM OF DISCHARGE
--- NOTE | 2021-10-01 11:42 | SW/DCPLANNER ---
Addendum entered by Kathrine Goodrich 10/01/21 14:09: Lilliam courtney/ Marisol vides MD stated that services will begin tomorrow for this patient. Original Note: Patient information/order has been faxed to [facility] for home health: PT/OT. I will follow up with Marisol once information is reviewed.
--- NOTE | 2021-10-04 14:55 | CARE MANAGER ---
Attempted to call patient on 10/03 and again on 10/04, but was unable to reach.
== END 2021-10-01 09:55 | disposition home health service (06) ==
LOC: ER 16:14 → 2ND 17:49
PROVIDERS: Admitting Provider Family Medicine; Emergency Provider Emergency Medicine; PCP Internal Medicine Adolescent Medicine; Visit Provider Internal Medicine Adolescent Medicine
DX: I50.9 Heart failure, unspecified (principal); E11.22 Type 2 diabetes mellitus with diabetic chronic kidney disease; I13.0 Hypertensive heart and chronic kidney disease with heart failure and stage 1 through stage 4 chronic kidney disease, or unspecified chronic kidney disease; N18.30 Chronic kidney disease, stage 3 unspecified; Z79.4 Long term (current) use of insulin; E78.5 Hyperlipidemia, unspecified; D64.9 Anemia, unspecified; J96.10 Chronic respiratory failure, unspecified whether with hypoxia or hypercapnia; I48.91 Unspecified atrial fibrillation; Z99.81 Dependence on supplemental oxygen; K21.9 Gastro-esophageal reflux disease without esophagitis; Z90.12 Acquired absence of left breast and nipple; Z85.3 Personal history of malignant neoplasm of breast
CPT/HCPCS: G0378; 36415; 71045; 80048; 80053; 81001; 83880; 85025; 93005; 94760; 99285; C9803; U0003; U0005

== ENCOUNTER → 2021-10-25 07:30 | Outpatient (CLI) | payer MEDICARE, MEDICAID, SELFPAY ==
[2021-10-24 16:59] LABS: Chloride 106 mmol/L (98-107); Potassium 5.4 mmoL/L (3.5-5.1); Sodium 139 mmol/L (136-145)
[2021-10-24 17:02] LABS: Anion Gap 11.4 mEq/L (5-15); Blood Urea Nitrogen 23 mg/dl (7-17); Calcium 9.5 mg/dl (8.4-10.2); Carbon Dioxide 27 mmol/L (22.0-30.0); Estimated Glomerular Filt Rate 28 ml/min (>60); GFR (African American) 34 ML/MIN (>60); Glucose 153 mg/dl (74-100)
== END ==
PROVIDERS: PCP Internal Medicine Adolescent Medicine; Visit Provider Internal Medicine Adolescent Medicine
DX: R60.0 Localized edema (principal)
CPT/HCPCS: 80048

== ENCOUNTER → 2021-12-12 06:22 | Outpatient (CLI) | payer MEDICARE, MEDICAID, SELFPAY ==
[2021-12-12 18:28] LABS: Chloride 102 mmol/L (98-107); Sodium 135 mmol/L (136-145)
[2021-12-12 18:29] LABS: Potassium 5.3 mmoL/L (3.5-5.1)
[2021-12-12 18:31] LABS: Anion Gap 14.3 mEq/L (5-15); Blood Urea Nitrogen 39 mg/dl (7-17); Carbon Dioxide 24 mmol/L (22.0-30.0); Estimated Glomerular Filt Rate 20 ml/min (>60); GFR (African American) 24 ML/MIN (>60)
[2021-12-12 18:32] LABS: Calcium 9.6 mg/dl (8.4-10.2); Glucose 193 mg/dl (74-100); Magnesium 2.4 mg/dl (1.6-2.3)
[2021-12-12 18:40] LABS: Basophils % 0.4 % (0.1-2.0); Eosinophils % 0.1 % (0.1-12.0); Hematocrit 37.2 % (37.0-47.0); Hemoglobin 11.3 g/dL (12.2-16.2); Lymphocytes # 1.4 K/mm3 (0.7-4.5); Lymphocytes % 15.5 % (10-50); Mean Corpuscular HGB Conc 30.2 g/dL (31.8-35.4); Mean Corpuscular Volume 92.6 fl (81-99); Mean Platelet Volume 8.3 fl (7.4-10.4); Monocytes # 0.7 K/mm3 (0.1-1.0); Monocytes % 7.9 % (1.7-9.3); Neutrophils # 7.1 K/mm3 (1.8-7.8); Neutrophils % 76.2 % (37.0-80.0); Platelet Count 323 K/mm3 (142-424); Red Blood Count 4.02 M/mm3 (4.20-5.40); Red Cell Distribution Width 16.4 % (11.5-17.5); White Blood Count 9.3 K/mm3 (4.8-10.8)
== END ==
PROVIDERS: PCP Internal Medicine Adolescent Medicine; Visit Provider Internal Medicine Adolescent Medicine
DX: R05.9 Cough, unspecified (principal); R60.0 Localized edema; Z20.822 Contact with and (suspected) exposure to COVID-19
CPT/HCPCS: 80048; 83735; 85025; C9803; U0003; U0005

== ENCOUNTER 2021-12-14 11:42 | Emergency (ER) | payer MEDICARE, MEDICAID, SELFPAY ==
[2021-12-14] VITALS (10 sets, daily range): BP systolic 123–144; BP diastolic 50–70; PULSE 81–89; RESP 15–24; TEMP 37.2–37.4; O2SAT 93–96; BMI 58.6; BMI 26.6
--- NOTE | 2021-12-14 11:40 | XR_ITS ---
PROCEDURE INFORMATION: Exam: XR Chest Exam date and time: 12/14/2021 11:59 AM Age: 85 years old Clinical indication: Cough and shortness of breath; Additional info: Cough, SOB TECHNIQUE: Imaging protocol: Radiologic exam of the chest. Views: 1 view. COMPARISON: CR XR CHEST PORTABLE 10/01/2021 5:44 AM FINDINGS: Lungs: Patchy airspace opacities at both lung bases, left worse than right. Pleural spaces: Small left pleural effusion suspected. Heart/Mediastinum: Cardiac silhouette stable. Bones/joints: Unremarkable. Soft tissues: Stable left axillary clips. IMPRESSION: 1. Patchy airspace opacities at both lung bases, left worse than right. 2. Small left pleural effusion suspected.
--- NOTE | 2021-12-14 11:41 | PC.NURSE ---
Called Radiology several times to notify them of order. Unable to get through.. Called HOUSE, spoke with Toni and she was going to try as well.
--- NOTE | 2021-12-14 11:44 | PC.NURSE ---
BARI HUERTA at for patient eval
--- NOTE | 2021-12-14 11:49 | PC.NURSE ---
XRAY AT BEDSIDE.
--- NOTE | 2021-12-14 11:50 | HMH.EDGENADL ---
ED Disposition Clinical Impression: Pneumonia Qualifiers: Pneumonia type: due to unspecified organism Laterality: bilateral Lung location: lower lobe of lung Qualified Code(s): J18.9 - Pneumonia, unspecified organism Disposition: Home, Self-Care Condition on Discharge: Fair Instructions: DI for Pneumonia -- Adult Additional Instructions: Take Levaquin as prescribed starting tomorrow. Benzonatate as needed for cough. Tylenol as needed for pain. Follow-up with Dr. Cristobal in the office this week, call Thursday for appointment. Additional instructions for PNEUMONIA: Take antibiotics as prescribed. See your physician as soon as possible for further evaluation. Return immediately if you have an uncontrollable fever greater than 102 degrees, difficulty breathing or shortness of breath, persistent vomiting, or severe chest pain. Prescriptions: Benzonatate [Benzonatate 100mg cap] 100 mg PO TIDP PRN #15 cap PRN Reason: Cough [id number] levoFLOXacin [Levaquin 500mg tab] 500 mg PO DAILY #7 tab Transmission Status: Pending to [id number] Referrals: Danny Cristobal MD [Primary Care Provider] - - Critical Care Critical Care Time: No Attestation: On , the high probability of a clinically significant, sudden or life threatening deterioration of the following system(s) required my full and direct attention, intervention and personal management. The time I documented below is in addition to time spent performing reported procedures but includes the following listed in this critical care notation. Medical Decision Making - Medical Records Medical records reviewed: Yes: I reviewed the patient's medical records. MR Comment: Reviewed office note from Dr. Cristobal 12/12/2021. Reviewed associated labs and COVID test (negative). - Ed Inquiry Pt receiving controlled substance: No Vital Signs: 12/14/21 11:30 12/14/21 11:41 12/14/21 12:00 Temperature 99.3 F Temperature Source Oral Pulse Rate 88 83 Pulse Rate [Right Radial] 86 Respiratory Rate 16 24 Blood Pressure 123/53 L 126/57 L Blood Pressure [Right Arm] 128/52 L Blood Pressure Mean 76 80 Blood Pressure Mean [Right Arm] 77 Blood Pressure Source Automatic Cuff Blood Pressure Source [Right Arm] Automatic Cuff Blood Pressure Position Sitting Blood Pressure Position [Right Arm] Sitting 02 Sat by Pulse Oximetry 93 L 93 L 96 Oxygen Delivery Method Nasal Cannula Nasal Cannula Oxygen Flow Rate (LPM) 2 2 12/14/21 12:30 12/14/21 13:00 Temperature Temperature Source Pulse Rate 86 82 Pulse Rate [Right Radial] Respiratory Rate 15 Blood Pressure 128/59 L 133/60 Blood Pressure [Right Arm] Blood Pressure Mean 82 84 Blood Pressure Mean [Right Arm] Blood Pressure Source Blood Pressure Source [Right Arm] Blood Pressure Position Blood Pressure Position [Right Arm] 02 Sat by Pulse Oximetry 94 L 95 Oxygen Delivery Method Nasal Cannula Oxygen Flow Rate (LPM) 2 - Lab Data Lab Results 12/14/21 11:50: WBC 8.0, RBC 3.81 L, Hgb 10.8 L, Hct 34.8 L, MCV 91.5, MCH 28.2, MCHC 30.9 L, RDW 16.2, Plt Count 357, MPV 7.8, Neut % (Auto) 70.1, Lymph % (Auto) 20.9, [place] % (Auto) 8.3, Eos % (Auto) 0.3, Baso % (Auto) 0.4, Neut # (Auto) 5.6, Lymph # (Auto) 1.7, [place] # (Auto) 0.7, Eos # (Auto) 0.0, Baso # (Auto) 0.0 12/14/21 11:50: Sodium 135 L, Potassium 5.8 H, Chloride 102, Carbon Dioxide 24, Anion Gap 14.8, BUN 39 H, Creatinine 2.70 H, Estimated Creat Clear 17, Estimated GFR 17 L*, Est GFR ( Amer) 20 L, Glucose 218 H, Calcium 9.6, Total Bilirubin 1.4 H, AST 21, ALT 18, Alkaline Phosphatase 149 H, Troponin I < 0.01, Total Protein 7.9, Albumin 3.8, Globulin 4.1 H, Albumin/Globulin Ratio 0.9 L 12/14/21 11:50: Lactate 1.8 12/14/21 11:50: SARS-CoV-2 (PCR) Not detected, Influenza A Untype (PCR) Not detected, Influenza Type B (PCR) Not detected 12/14/21 11:50: Lipase 31 12/14/21 11:50: NT-P
--- NOTE | 2021-12-14 11:51 | CT_ITS ---
PROCEDURE INFORMATION: Exam: CT Abdomen And Pelvis Without Contrast Exam date and time: 12/14/2021 11:56 AM Age: 85 years old Clinical indication: Abdominal pain; Additional info: Abdo pain TECHNIQUE: Imaging protocol: Computed tomography of the abdomen and pelvis without contrast. Radiation optimization: All CT scans at this facility use at least one of these dose optimization techniques: automated exposure control; mA and/or kV adjustment per patient size (includes targeted exams where dose is matched to clinical indication); or iterative reconstruction. COMPARISON: CT ABDOMEN PELVIS WO CON 01/04/2019 1:10 PM FINDINGS: Lungs: Patchy airspace densities at both lower lungs, may be atelectasis although pneumonia cannot be excluded. Liver: Stable hepatic cyst in the left lobe measures 1.3 x 1.7 cm. Gallbladder and bile ducts: Normal. No calcified stones. No ductal dilation. Pancreas: Normal. No ductal dilation. Spleen: Normal. No splenomegaly. Adrenal glands: Normal. No mass. Kidneys and ureters: Diffuse cortical thinning both kidneys. No hydronephrosis. Stomach and bowel: Colonic diverticulosis without CT evidence of diverticulitis. Appendix: No evidence of appendicitis. Intraperitoneal space: Unremarkable. No free air. No significant fluid collection. Vasculature: Unremarkable. No abdominal aortic aneurysm. Lymph nodes: Unremarkable. No enlarged lymph nodes. Urinary bladder: Unremarkable as visualized. Reproductive: Stable left adnexal cyst measures 2.9 x 3.5 cm. Bones/joints: Unremarkable. No acute fracture. Soft tissues: Unremarkable. IMPRESSION: 1. Colonic diverticulosis without CT evidence of diverticulitis. 2. Stable left adnexal cyst measures 2.9 x 3.5 cm. 3. Patchy airspace densities at both lower lungs, may be atelectasis although pneumonia cannot be excluded.
--- NOTE | 2021-12-14 11:57 | ECG_ITS ---
APPROVED REPORT Exam: Resting ECG HR:83 bpm ECG Measurements Heart Rate 83 AXES RI 225 P 68 QRSd 82 QRS 10 QT 323 T 59 QTc 362 Conclusion SINUS RHYTHM WITH FIRST DEGREE AV BLOCK NONSPECIFIC ST & T-WAVE ABNORMALITY ABNORMAL ECG UNCONFIRMED REPORT Electronically signed by : Danny Cristobal MD 12/15/2021 09:13:20
[2021-12-14 11:58] LABS: Coronavirus 19, PCR Not Detected (NotDetected); Influenza A, PCR Not Detected (NotDetected); Influenza B, PCR Not Detected (NotDetected)
[2021-12-14 11:59] LABS: Basophils % 0.4 % (0.1-2.0); Eosinophils % 0.3 % (0.1-12.0); Hematocrit 34.8 % (37.0-47.0); Hemoglobin 10.8 g/dL (12.2-16.2); Lymphocytes # 1.7 K/mm3 (0.7-4.5); Lymphocytes % 20.9 % (10-50); Mean Corpuscular HGB Conc 30.9 g/dL (31.8-35.4); Mean Corpuscular Hemoglobin 28.2 pg (27.0-31.2); Mean Corpuscular Volume 91.5 fl (81-99); Mean Platelet Volume 7.8 fl (7.4-10.4); Monocytes # 0.7 K/mm3 (0.1-1.0); Monocytes % 8.3 % (1.7-9.3); Neutrophils # 5.6 K/mm3 (1.8-7.8); Neutrophils % 70.1 % (37.0-80.0); Platelet Count 357 K/mm3 (142-424); Red Blood Count 3.81 M/mm3 (4.20-5.40); Red Cell Distribution Width 16.2 % (11.5-17.5)
--- NOTE | 2021-12-14 12:05 | PC.NURSE ---
pt transported to radiology via stretcher.
--- NOTE | 2021-12-14 12:06 | PC.NURSE ---
Attempted to collect urine sample via bedpan but pt was unable to void at this time. Will try again shortly.
[2021-12-14 12:07] LABS: Alanine Aminotransferase 18 U/L (12-78); Albumin Level 3.8 g/dl (3.5-5.0); Albumin/Globulin Ratio 0.9 (1.1-1.8); Alkaline Phosphatase 149 U/L (38-126); Anion Gap 14.8 mEq/L (5-15); Aspartate Amino Transferase 21 U/L (14-36); Bilirubin,Total 1.4 mg/dl (0.2-1.3); Blood Urea Nitrogen 39 mg/dl (7-17); Calcium 9.6 mg/dl (8.4-10.2); Carbon Dioxide 24 mmol/L (22.0-30.0); Chloride 102 mmol/L (98-107); Creatinine Clearance Estimated 17 mL/min (50-200); Estimated Glomerular Filt Rate 17 ml/min (>60); GFR (African American) 20 ML/MIN (>60); Globulin 4.1 g/dL (1.3-3.2); Glucose 218 mg/dl (74-100); Lipase 31 U/L (23-300); Potassium 5.8 mmoL/L (3.5-5.1); Sodium 135 mmol/L (136-145); Total Protein,Serum 7.9 g/dl (6.3-8.2)
[2021-12-14 12:10] LABS: Lactic Acid 1.8 mmol/L (0.7-2.1)
--- NOTE | 2021-12-14 12:15 | PC.NURSE ---
Pt returned from radiology.
[2021-12-14 12:16] LABS: NT Pro Brain Natriuretic Pep. 2310 pg/mL (0-450)
[2021-12-14 12:22] LABS: Troponin I < 0.01 ng/ml (0.00-0.034)
--- NOTE | 2021-12-14 13:09 | PC.NURSE ---
cath urine sent to lab
--- NOTE | 2021-12-14 13:10 | PC.NURSE ---
Rounded on patient, she reports I just wetted on myself and asked that we change her brief. Other than that, her and her son voice no other needs at this time. Call light within reach.
--- NOTE | 2021-12-14 13:22 | PC.NURSE ---
AMRIT Rodgers and GILBERTO Mcgrath at changing patients brief.
[2021-12-14 13:44] LABS: Microscopic, Urine URINE MICROSCOPIC (MICROSCOPIC)
[2021-12-14 13:49] LABS: Appearance,Urine CLEAR (Clear); Bilirubin,Urine Negative (Negative); Blood, Urine Negative (Negative); Color,Urine YELLOW (Yellow); Glucose,Urine (UA) Negative (Negative); Ketones,Urine Negative (Negative); Leukocyte Esterase,Urine Negative (Negative); Nitrate,Urine Negative (Negative); PH,Urine 5.5 (5.0-8.5); Protein,Urine TRACE (Negative); Urobilinogen,Urine 0.2 EU/dl (0.2)
--- NOTE | 2021-12-14 13:55 | PC.NURSE ---
MYRIAM HUERTA SPEAKING WITH DR. GARRISON
[2021-12-14 14:04] LABS: Bacteria,Urine 1+ /lpf; WBC,Urine Occasional #/hpf (0-3)
--- NOTE | 2021-12-14 14:04 | PC.NURSE ---
ED MD SPEAKING WITH PT AND FAMILY
--- NOTE | 2021-12-14 14:15 | PC.NURSE ---
1415 ABX STARTED AT THIS TIME, PT WITHOUT NEEDS. FAMILY AT BEDSIDE
--- NOTE | 2021-12-14 14:59 | PC.NURSE ---
ROUNDED ON PT, SLEEPING SOUNDLY. NO DISTRESS NOTED. TOLERATING IV ABX
--- NOTE | 2021-12-14 15:18 | PC.NURSE ---
PT PLACED ON BEDPAN, INSTRUCTED TO USE CALL LIGHT TO NOTIFY STAFF WHEN COMPLETE
== END 2021-12-14 15:55 | disposition home or self-care (01) ==
PROVIDERS: Emergency Provider Emergency Medicine; PCP Internal Medicine Adolescent Medicine
DX: J18.9 Pneumonia, unspecified organism (principal); R06.02 Shortness of breath
CPT/HCPCS: 71045; 74176; 80053; 81001; 83605; 83690; 83880; 84484; 85025; 87040; 93005; 96365; 96366; 99285; C9803; J1956; U0003; U0005

== ENCOUNTER 2021-12-18 14:11 | Emergency (ER) | payer MEDICARE, MEDICAID, SELFPAY ==
[2021-12-18 14:18] VITALS: BMI 23.3
--- NOTE | 2021-12-18 14:19 | XR_ITS ---
FINAL REPORT CLINICAL HISTORY: shortness of breath COMPARISON: December 14, 2021 FINDINGS: The heart size is mildly enlarged. The mediastinum is normal. The lungs are underinflated. There is some pleural and parenchymal scarring at the bases, left greater than right. There are no pleural effusions. There is no pneumothorax. There are multiple surgical clips in the left axilla. IMPRESSION: Underinflated lungs. Pleural and parenchymal scarring at the bases, left greater than right. Reviewed, Interpreted and Dictated by Sy Pichardo MD Transcribed by Lilliam Elliott Authenticated and [facility]
[2021-12-18 14:30] VITALS: BP 129/48; PULSE 81; RESP 17; TEMP 37.2; O2SAT 98; BMI 23.3
--- NOTE | 2021-12-18 14:34 | PC.NURSE ---
Notified rad of CXR
--- NOTE | 2021-12-18 14:43 | PC.NURSE ---
portable rad at bedside
[2021-12-18 14:45] LABS: Coronavirus 19, PCR Not Detected (NotDetected); Influenza A, PCR Not Detected (NotDetected); Influenza B, PCR Not Detected (NotDetected)
[2021-12-18 14:53] LABS: Basophils % 0.4 % (0.1-2.0); Eosinophils # 0.1 K/mm3 (0.0-0.4); Hematocrit 34.7 % (37.0-47.0); Hemoglobin 10.5 g/dL (12.2-16.2); Lymphocytes # 1.8 K/mm3 (0.7-4.5); Lymphocytes % 19.4 % (10-50); Mean Corpuscular HGB Conc 30.4 g/dL (31.8-35.4); Mean Corpuscular Hemoglobin 28.3 pg (27.0-31.2); Mean Corpuscular Volume 93.3 fl (81-99); Monocytes # 0.4 K/mm3 (0.1-1.0); Monocytes % 4.5 % (1.7-9.3); Neutrophils # 6.8 K/mm3 (1.8-7.8); Neutrophils % 74.7 % (37.0-80.0); Platelet Count 471 K/mm3 (142-424); Red Blood Count 3.72 M/mm3 (4.20-5.40); Red Cell Distribution Width 16.3 % (11.5-17.5)
[2021-12-18 15:00] LABS: Alanine Aminotransferase 21 U/L (12-78); Albumin Level 3.6 g/dl (3.5-5.0); Albumin/Globulin Ratio 0.9 (1.1-1.8); Alkaline Phosphatase 141 U/L (38-126); Anion Gap 11.4 mEq/L (5-15); Aspartate Amino Transferase 31 U/L (14-36); Bilirubin,Total 0.3 mg/dl (0.2-1.3); Blood Urea Nitrogen 31 mg/dl (7-17); Calcium 9.4 mg/dl (8.4-10.2); Carbon Dioxide 24 mmol/L (22.0-30.0); Chloride 109 mmol/L (98-107); Creatinine Clearance Estimated 18 mL/min (50-200); Estimated Glomerular Filt Rate 20 ml/min (>60); GFR (African American) 24 ML/MIN (>60); Globulin 4.1 g/dL (1.3-3.2); Glucose 156 mg/dl (74-100); Lactic Acid 1.6 mmol/L (0.7-2.1); Potassium 5.4 mmoL/L (3.5-5.1); Sodium 139 mmol/L (136-145); Total Protein,Serum 7.7 g/dl (6.3-8.2)
[2021-12-18 15:09] LABS: NT Pro Brain Natriuretic Pep. 2060 pg/mL (0-450)
--- NOTE | 2021-12-18 15:23 | PC.NURSE ---
rounded on pt. Pt was uncomfortable in the bed. pt was readjusted and stated that it was much better, asked if she needed anything else and pt stated not at this time.
--- NOTE | 2021-12-18 16:19 | PC.NURSE ---
calling son for update and d/c
--- NOTE | 2021-12-18 16:25 | PC.NURSE ---
pt assisted to restroom, staff assist x2. Pt now sitting up in the chair. Calling for supper tray for pt.
--- NOTE | 2021-12-18 16:37 | PC.NURSE ---
pt eating supper tray at this time, will continue to monitor
[2021-12-18 18:15] VITALS: BP 126/54; PULSE 80; RESP 98; TEMP 37.2
--- NOTE | 2021-12-18 18:17 | HMH.EDGENADL ---
Discharge Plan Disposition Patient Disposition: Home, Self-Care Condition: Good Chief Complaint: Shortness of Breath/Dyspnea Prescriptions Prescriptions: No Action potassium chloride 10 mEq capsule, extended release 10 meq PO DAILY (DME) blood-glucose meter [True Metrix Glucose Meter] Misc See Rx Instructions .ROUTE .MEDSUPPLY Qty: 1 Rx Instructions: As directed (DME) True Metrix Glucose Test Strip Strip See Rx Instructions .ROUTE .MEDSUPPLY Qty: 10 Rx Instructions: As directed (DME) lancets [TRUEplus Lancets] 28 gauge misc See Rx Instructions .ROUTE .MEDSUPPLY Qty: 100 Rx Instructions: As directed diclofenac sodium [Arthritis Pain (diclofenac)] 1 % gel 2 gm TP QID Qty: 100 4RF Rx Instructions: apply to single elbow, wrist or hand; for hand includes palm/fingers/back of hand calcium carbonate-vitamin D3 [Calcium 600 with Vitamin D3] 600 mg-12.5 mcg (500 unit) capsule PO triamcinolone acetonide 0.5 % ointment 1 applic TP BID Qty: 15 3RF furosemide 40 mg tablet 80 mg PO DAILY Qty: 60 2RF spironolactone 50 mg tablet 25 mg PO BID Qty: 60 5RF omeprazole 20 mg capsule,delayed release(DR/EC) 20 mg PO DAILY 90 Days Qty: 90 1RF ipratropium-albuterol 0.5 mg-3 mg(2.5 mg base)/3 mL solution for nebulization 3 ml IH Q4HP PRN (Reason: Shortness Of Breath) 30 Days Qty: 180 2RF nifedipine 30 MG tablet extended release 24hr 30 mg PO DAILY magnesium oxide 250 MG tablet 125 mg PO DAILY albuterol sulfate 18 GM HFA aerosol inhaler 2 puff IH Q4HP PRN (Reason: Shortness Of Breath Or Wheezing) fluticasone propion-salmeterol 1 EACH blister with device 1 puff IH BID psyllium husk 0.52 GM capsule 0.36 gm PO DAILY insulin regular human 100 UNIT/ML solution 0 units SQ ACHS PRN (Reason: diabetes) Rx Instructions: PER SLIDING SCALE bisacodyl 5 MG tablet,delayed release (DR/EC) 5 mg PO DAILY atorvastatin 40 MG tablet 40 mg PO HS montelukast 5 MG tablet,chewable 5 mg PO HS cetirizine 10 MG tablet 10 mg PO DAILY cranberry extract 250 MG capsule 250 mg PO DAILY fluticasone propionate 120 SPR/BOT bottle 1 spr NS DAILY tiotropium bromide 1 PUFF capsule, w/inhalation device 2 puff IH DAILY levofloxacin 500 MG tablet 500 mg PO DAILY Qty: 7 0RF benzonatate 100 MG capsule 100 mg PO TIDP PRN (Reason: Cough) Qty: 15 0RF Referrals Referrals: Danny Cristobal MD [Primary Care Provider] - Enter time for follow up Clinical Impressions Clinical Impression: Shortness of breath Discharge ED Provider: Marko Og General Adult HPI General Chief complaint: Shortness of Breath/Dyspnea Stated complaint: shortness of breath Time Seen by Provider: 12/18/21 18:16 Mode of Arrival: EMS Source of Information: Patient Limitations: No Limitations Description of Symptoms (Recalled from ER Triage Doc. by RN): pt to ed via ems c/o shortness of breath. pt states she was dx with pneumonia on thursday and d/c home with abx. pt states she was more weak and short of breath today than normal. pt reports some diarrhea since starting abx. Related Data Home Medications Medication Instructions Recorded Confirmed atorvastatin 40 mg tablet 40 mg PO HS Cholesterol 10/09/18 12/12/21 cetirizine 10 mg tablet 10 mg PO DAILY Allergy symptoms 10/09/18 12/12/21 cranberry extract 250 mg capsule 250 mg PO DAILY Supplement 10/09/18 12/12/21 montelukast 5 mg chewable tablet 5 mg PO HS Allergy symptoms 10/09/18 12/12/21 fluticasone propionate 50 1 spr intranasal DAILY Allergy 12/13/18 12/12/21 mcg/actuation nasal symptoms spray,suspension tiotropium bromide 18 mcg capsule 2 puff inhalation DAILY COPD 12/13/18 12/12/21 with inhalation device albuterol sulfate 90 mcg/actuation 2 puff inhalation Q4HP PRN 01/04/19 12/12/21 aerosol inhaler Shortness Of Breath Or Wheezing ma
--- NOTE | 2021-12-20 09:21 | EXP.EVENT.NO ---
The patient was in the emergency department on 12/18/2021 during my shift. At the time that I went into see her noted that she had been discharged. I had accidentally put her chart in the discharge rack and the nurse had discharged her prior to my evaluation. I did review her laboratory work. I had previously seen her in this emergency department on 12/14/2021 for the same complaint. There were no actionable items on her laboratory and radiographic data from that visit. The nurse did call her son who had picked her up to take her home and left a message on his phone that she could be brought back for me to evaluate. I also spoke with Dr. Cristobal. The patient already had a scheduled appointment to see him on 12/19/2021. I advised him of the events and he will follow-up.
== END 2021-12-18 18:17 | disposition home or self-care (01) ==
PROVIDERS: Emergency Provider Emergency Medicine; PCP Internal Medicine Adolescent Medicine
DX: R06.02 Shortness of breath (principal); R53.1 Weakness; R19.7 Diarrhea, unspecified
CPT/HCPCS: 71045; 80053; 83605; 83880; 85025; 87040; 99282; C9803; U0003; U0005

== ENCOUNTER → 2022-01-16 07:06 | Outpatient (CLI) | payer MEDICARE, MEDICAID, SELFPAY ==
[2022-01-16 17:25] LABS: Basophils % 0.4 % (0.1-2.0); Eosinophils # 0.1 K/mm3 (0.0-0.4); Eosinophils % 1.3 % (0.1-12.0); Hematocrit 33.2 % (37.0-47.0); Hemoglobin 10.6 g/dL (12.2-16.2); Lymphocytes # 1.6 K/mm3 (0.7-4.5); Lymphocytes % 21.6 % (10-50); Mean Corpuscular Hemoglobin 29.7 pg (27.0-31.2); Mean Corpuscular Volume 92.9 fl (81-99); Mean Platelet Volume 8.6 fl (7.4-10.4); Monocytes # 0.5 K/mm3 (0.1-1.0); Monocytes % 6.5 % (1.7-9.3); Neutrophils # 5.2 K/mm3 (1.8-7.8); Neutrophils % 70.2 % (37.0-80.0); Platelet Count 316 K/mm3 (142-424); Red Blood Count 3.57 M/mm3 (4.20-5.40); Red Cell Distribution Width 16.1 % (11.5-17.5); White Blood Count 7.4 K/mm3 (4.8-10.8)
[2022-01-16 17:26] LABS: Chloride 105 mmol/L (98-107); Potassium 5.4 mmoL/L (3.5-5.1); Sodium 138 mmol/L (136-145)
[2022-01-16 17:28] LABS: Blood Urea Nitrogen 24 mg/dl (7-17); Estimated Glomerular Filt Rate 27 ml/min (>60); GFR (African American) 32 ML/MIN (>60)
[2022-01-16 17:29] LABS: Alanine Aminotransferase 13 U/L (12-78); Albumin Level 3.6 g/dl (3.5-5.0); Alkaline Phosphatase 114 U/L (38-126); Anion Gap 16.4 mEq/L (5-15); Aspartate Amino Transferase 23 U/L (14-36); Bilirubin,Total 0.7 mg/dl (0.2-1.3); Calcium 8.8 mg/dl (8.4-10.2); Carbon Dioxide 22 mmol/L (22.0-30.0); Chol/HDL Ratio 3.1 (1-3.5); Cholesterol 140 mg/dl (140-200); Globulin 3.5 g/dL (1.3-3.2); Glucose 166 mg/dl (74-100); HDL Cholesterol 45 mg/dl (40-60); Total Protein,Serum 7.1 g/dl (6.3-8.2); Triglycerides 91 mg/dl (30-150); VLDL Cholesterol 18 mg/dL (0-40)
[2022-01-16 17:40] LABS: Direct LDL Cholesterol 62.36 mg/dL (100-129)
[2022-01-16 18:18] LABS: Hemoglobin A1C 6.5 % (4.0-6.0)
== END ==
PROVIDERS: PCP Internal Medicine Adolescent Medicine; Visit Provider Internal Medicine Adolescent Medicine
DX: H66.001 Acute suppurative otitis media without spontaneous rupture of ear drum, right ear (principal); E11.9 Type 2 diabetes mellitus without complications; N17.9 Acute kidney failure, unspecified; E46 Unspecified protein-calorie malnutrition; Z79.4 Long term (current) use of insulin
CPT/HCPCS: 80053; 80061; 83036; 85025

== ENCOUNTER → 2022-05-12 11:30 | Outpatient (CLI) | payer MEDICARE, MEDICAID, SELFPAY ==
[2022-05-12 18:40] LABS: Albumin Level 3.9 g/dl (3.5-5.0); Anion Gap 12.4 mEq/L (5-15); Blood Urea Nitrogen 34 mg/dl (7-17); Calcium 8.8 mg/dl (8.4-10.2); Carbon Dioxide 24 mmol/L (22.0-30.0); Chloride 104 mmol/L (98-107); Estimated Glomerular Filt Rate 21 ml/min (>60); GFR (African American) 26 ML/MIN (>60); Glucose 246 mg/dl (74-100); Phosphorous 3.3 mg/dl (2.5-4.5); Potassium 4.4 mmoL/L (3.5-5.1); Sodium 136 mmol/L (136-145)
[2022-05-12 18:59] LABS: 25-OH Vitamin D, Total 34.7 ng/mL (30-100)
[2022-05-12 19:53] LABS: Intact Parathyroid Hormone 85.2 pg/mL (7.5-53.5)
[2022-05-19 06:08] LABS: C-Telopeptide Serum 567 pg/mL (.)
[2022-05-19 14:16] LABS: Tandem-R Ostase 19.7 ug/L (.)
== END ==
PROVIDERS: Internal Medicine Nephrology; PCP Family Medicine; Visit Provider Family Medicine
DX: N18.32 Chronic kidney disease, stage 3b (principal); M81.0 Age-related osteoporosis without current pathological fracture
CPT/HCPCS: 80048; 80069; 82306; 82523; 83970; 84080

== ENCOUNTER → 2022-06-17 23:47 | Outpatient (CLI) | payer MEDICARE, MEDICAID, SELFPAY ==
[2022-06-17 17:56] LABS: Basophils % 0.4 % (0.1-2.0); Eosinophils # 0.1 K/mm3 (0.0-0.4); Eosinophils % 1.7 % (0.1-12.0); Hematocrit 35.7 % (37.0-47.0); Lymphocytes # 1.8 K/mm3 (0.7-4.5); Lymphocytes % 26.6 % (10-50); Mean Corpuscular HGB Conc 30.9 g/dL (31.8-35.4); Mean Corpuscular Hemoglobin 28.5 pg (27.0-31.2); Mean Corpuscular Volume 92.2 fl (81-99); Mean Platelet Volume 8.2 fl (7.4-10.4); Monocytes # 0.5 K/mm3 (0.1-1.0); Monocytes % 7.5 % (1.7-9.3); Neutrophils # 4.3 K/mm3 (1.8-7.8); Neutrophils % 63.8 % (37.0-80.0); Platelet Count 407 K/mm3 (142-424); Red Blood Count 3.88 M/mm3 (4.20-5.40); Red Cell Distribution Width 16.2 % (11.5-17.5); White Blood Count 6.7 K/mm3 (4.8-10.8)
[2022-06-17 19:22] LABS: Anion Gap 13.3 mEq/L (5-15); Blood Urea Nitrogen 43 mg/dl (7-17); Calcium 9.3 mg/dl (8.4-10.2); Carbon Dioxide 26 mmol/L (22.0-30.0); Chloride 100 mmol/L (98-107); Estimated Glomerular Filt Rate 20 ml/min (>60); GFR (African American) 24 ML/MIN (>60); Glucose 282 mg/dl (74-100); Potassium 4.3 mmoL/L (3.5-5.1); Sodium 135 mmol/L (136-145)
== END ==
PROVIDERS: PCP Family Medicine; Visit Provider Family Medicine
DX: I10 Essential (primary) hypertension (principal)
CPT/HCPCS: 80048; 85025

== ENCOUNTER 2022-06-22 12:09 | Emergency (ER) | payer MEDICARE, MEDICAID, SELFPAY ==
[2022-06-22 12:10] VITALS: BP 108/51; PULSE 71; RESP 20; TEMP 36.6; O2SAT 94; BMI 26.8
--- NOTE | 2022-06-22 12:31 | HMH.EDGENADL ---
Discharge Plan Disposition Patient Disposition: Home, Self-Care Condition: Good Chief Complaint: Wound/Laceration Prescriptions Prescriptions: No Action (DME) blood-glucose meter [True Metrix Glucose Meter] Misc See Rx Instructions .ROUTE .MEDSUPPLY Qty: 1 Rx Instructions: As directed (DME) True Metrix Glucose Test Strip Strip See Rx Instructions .ROUTE .MEDSUPPLY Qty: 10 Rx Instructions: As directed (DME) lancets [TRUEplus Lancets] 28 gauge misc See Rx Instructions .ROUTE .MEDSUPPLY Qty: 100 Rx Instructions: As directed albuterol sulfate 90 mcg/actuation HFA aerosol inhaler 2 puff IH Q4HP PRN (Reason: Shortness Of Breath Or Wheezing) Qty: 8.5 2RF bisacodyl 5 mg tablet,delayed release (DR/EC) 5 mg PO DAILY Qty: 30 0RF cetirizine 10 mg tablet 10 mg PO DAILY Qty: 30 0RF fluticasone propionate 50 mcg/actuation spray,suspension 1 spray NS DAILY Qty: 16 3RF calcium carbonate-vitamin D3 [Calcium 600 with Vitamin D3] 600 mg-12.5 mcg (500 unit) capsule 600 cap PO DAILY meclizine 25 mg tablet 25 mg PO DAILY PRN (Reason: nausea) Qty: 30 0RF ipratropium-albuterol 0.5 mg-3 mg(2.5 mg base)/3 mL solution for nebulization 3 ml IH Q4HP PRN (Reason: Shortness Of Breath) 30 Days Qty: 180 2RF hydrocortisone [Anusol-HC] 2.5 % cream with perineal applicator 1 applic PA QD-BID PRN (Reason: hemorrhoids) Qty: 30 0RF atorvastatin 40 mg tablet 40 mg PO HS 90 Days Qty: 90 0RF montelukast 5 mg tablet,chewable 5 mg PO HS 90 Days Qty: 90 0RF omeprazole 20 mg capsule,delayed release(DR/EC) 20 mg PO DAILY 90 Days Qty: 90 0RF magnesium oxide 250 MG tablet 125 mg PO DAILY psyllium husk 0.52 GM capsule 0.36 gm PO DAILY insulin regular human 100 UNIT/ML solution 0 units SQ ACHS PRN (Reason: diabetes) Rx Instructions: PER SLIDING SCALE nifedipine 30 mg tablet extended release 24hr See Rx Instructions .ROUTE .COMPLEX Rx Instructions: TAKE 1 TABLET BY MOUTH ONCE DAILY furosemide 40 mg tablet 40 mg PO BID triamcinolone acetonide 0.5 % ointment 1 applic topical DAILY fluticasone propion-salmeterol [Wixela Inhub] 500-50 mcg/dose blister with device See Rx Instructions .ROUTE .COMPLEX Rx Instructions: INHALE 1 PUFF BY MOUTH TWICE DAILY bumetanide 1 mg tablet 1 mg PO Q OTHER DAY spironolactone 50 mg tablet 25 mg PO BID diclofenac sodium [Arthritis Pain (diclofenac)] 1 % gel 2 g TP QID Rx Instructions: apply to single elbow, wrist or hand; for hand includes palm/fingers/back of hand cranberry extract 250 MG capsule 250 mg PO DAILY Referrals Follow up/Referrals: Provider,Referral, MD [Referring] - See instructions Activity Restrictions/Add. Instructions Additional Instructions/Restrictions: Take metolazone 5 mg daily for another 6 days. Continue to elevate your legs. Bandage legs with gauze provided and changed whenever it becomes moistened. Continue your other medications including spironolactone and Lasix. See Dr. Elliott in his office this week for follow-up. Clinical Impressions Clinical Impression: Edema, peripheral Instructions Patient Instructions: DI for Peripheral Edema -- Bilateral Discharge ED Provider: Marko Og Adult [facility] General Chief complaint: Wound/Laceration Stated complaint: wounds Time Seen by Provider: 06/22/22 12:31 Mode of Arrival: EMS Source of Information: Patient Limitations: No Limitations Description of Symptoms (Recalled from ER Triage Doc. by RN): pt states her legs have been weeping for a few days, she went to the dr Thursday for the same issues and he advised her to keep her legs elevated, she states she has been occasionally, she also reports her renal dr put her on a new medication but she is afraid to take it so; she hasn't started it yet, also reports productive cough for the last few
--- NOTE | 2022-06-22 12:36 | XR_ITS ---
PROCEDURE INFORMATION: Exam: XR Chest Exam date and time: 06/22/2022 12:55 PM Age: 86 years old Clinical indication: Other: Swelling in feet and lower legs. TECHNIQUE: Imaging protocol: Radiologic exam of the chest. Views: 1 view. COMPARISON: CR XR CHEST PORTABLE 12/18/2021 2:46 PM FINDINGS: Lungs: The lungs are underinflated. Stable pleural and parenchymal scarring at the bases, left greater than right. Pleural spaces: No pleural effusions. No pneumothorax. There are multiple surgical clips in the left axilla. Heart/Mediastinum: Stable cardiomegaly. Aortic atherosclerosis. Bones/joints: Unremarkable. IMPRESSION: Stable pleural and parenchymal scarring at the bases, left greater than right, unchanged compared to radiograph 12/18/2021.
[2022-06-22 12:44] LABS: Basophils # 0.1 K/mm3 (0-0.2); Basophils % 0.8 % (0.1-2.0); Chloride 104 mmol/L (98-107); Eosinophils # 0.3 K/mm3 (0.0-0.4); Eosinophils % 3.7 % (0.1-12.0); Hematocrit 32.6 % (37.0-47.0); Hemoglobin 10.4 g/dL (12.2-16.2); Lymphocytes # 2.2 K/mm3 (0.7-4.5); Lymphocytes % 28.9 % (10-50); Mean Corpuscular HGB Conc 31.8 g/dL (31.8-35.4); Mean Corpuscular Hemoglobin 28.3 pg (27.0-31.2); Mean Corpuscular Volume 89.2 fl (81-99); Mean Platelet Volume 7.7 fl (7.4-10.4); Monocytes # 0.5 K/mm3 (0.1-1.0); Monocytes % 6.8 % (1.7-9.3); Neutrophils # 4.6 K/mm3 (1.8-7.8); Neutrophils % 59.7 % (37.0-80.0); Platelet Count 362 K/mm3 (142-424); Red Blood Count 3.65 M/mm3 (4.20-5.40); Red Cell Distribution Width 16.1 % (11.5-17.5); Sodium 138 mmol/L (136-145); White Blood Count 7.7 K/mm3 (4.8-10.8)
[2022-06-22 12:45] LABS: Potassium 4.8 mmoL/L (3.5-5.1)
[2022-06-22 12:47] LABS: Alanine Aminotransferase 24 U/L (12-78); Albumin Level 4.2 g/dl (3.5-5.0); Albumin/Globulin Ratio 1.1 (1.1-1.8); Alkaline Phosphatase 116 U/L (38-126); Anion Gap 10.8 mEq/L (5-15); Aspartate Amino Transferase 29 U/L (14-36); Bilirubin,Total 0.8 mg/dl (0.2-1.3); Blood Urea Nitrogen 39 mg/dl (7-17); Carbon Dioxide 28 mmol/L (22.0-30.0); Creatinine Clearance Estimated 21 mL/min (50-200); Estimated Glomerular Filt Rate 21 ml/min (>60); GFR (African American) 26 ML/MIN (>60); Total Protein,Serum 8.2 g/dl (6.3-8.2)
[2022-06-22 12:48] LABS: Calcium 9.4 mg/dl (8.4-10.2); Glucose 208 mg/dl (74-100)
--- NOTE | 2022-06-22 12:50 | PC.NURSE ---
pt given warm blanket and repositioned
[2022-06-22 12:52] VITALS: BP 116/56; PULSE 69; RESP 18; O2SAT 96
[2022-06-22 12:57] LABS: NT Pro Brain Natriuretic Pep. 657 pg/mL (0-450)
[2022-06-22 13:00] VITALS: BP 115/53; PULSE 64; RESP 18; O2SAT 96
[2022-06-22 13:00] LABS: Troponin I < 0.01 ng/ml (0.00-0.034)
--- NOTE | 2022-06-22 13:18 | ECG_ITS ---
APPROVED REPORT Exam: Resting ECG HR:70 bpm ECG Measurements Heart Rate 70 AXES QRSd 84 QRS 24 QT 378 T 59 QTc 398 Conclusion ATRIAL FIBRILLATION NONSPECIFIC T-WAVE ABNORMALITY ABNORMAL RHYTHM ECG UNCONFIRMED REPORT Electronically signed by : Danny Cristobal MD 06/23/2022 19:26:51
--- NOTE | 2022-06-22 13:22 | PC.NURSE ---
PLACED PURWICK ON PT. RESTING IN BED. CALL LIGHT WITHIN REACH. NO QUESTIONS OR CONCERNS VOICED AT THIS TIME.
[2022-06-22 14:00] VITALS: BP 118/59; PULSE 56; RESP 18; O2SAT 96
--- NOTE | 2022-06-22 14:11 | PC.NURSE ---
called pt son for transport home
[2022-06-22 14:58] VITALS: BP 137/56; PULSE 82; RESP 18; TEMP 36.7; O2SAT 96
== END 2022-06-22 15:00 | disposition home or self-care (01) ==
PROVIDERS: Emergency Provider Emergency Medicine; PCP Family Medicine
DX: R60.9 Edema, unspecified (principal); J45.909 Unspecified asthma, uncomplicated; I50.9 Heart failure, unspecified; J96.20 Acute and chronic respiratory failure, unspecified whether with hypoxia or hypercapnia; N18.30 Chronic kidney disease, stage 3 unspecified; E11.22 Type 2 diabetes mellitus with diabetic chronic kidney disease; K21.9 Gastro-esophageal reflux disease without esophagitis; I13.0 Hypertensive heart and chronic kidney disease with heart failure and stage 1 through stage 4 chronic kidney disease, or unspecified chronic kidney disease; Z87.891 Personal history of nicotine dependence; Z90.10 Acquired absence of unspecified breast and nipple; Z82.49 Family history of ischemic heart disease and other diseases of the circulatory system
CPT/HCPCS: 71045; 80053; 83880; 84484; 85025; 93005; 96374; 99285

== ENCOUNTER → 2022-06-25 14:30 | Outpatient (CLI) | payer MEDICARE, MEDICAID, SELFPAY ==
[2022-06-25 17:18] LABS: Basophils # 0.1 K/mm3 (0-0.2); Basophils % 0.6 % (0.1-2.0); Eosinophils # 0.2 K/mm3 (0.0-0.4); Eosinophils % 1.9 % (0.1-12.0); Hemoglobin 10.9 g/dL (12.2-16.2); Lymphocytes # 1.8 K/mm3 (0.7-4.5); Lymphocytes % 21.9 % (10-50); Mean Corpuscular Hemoglobin 28.6 pg (27.0-31.2); Mean Corpuscular Volume 92.3 fl (81-99); Mean Platelet Volume 8.2 fl (7.4-10.4); Monocytes # 0.5 K/mm3 (0.1-1.0); Monocytes % 6.1 % (1.7-9.3); Neutrophils # 5.7 K/mm3 (1.8-7.8); Neutrophils % 69.5 % (37.0-80.0); Platelet Count 362 K/mm3 (142-424); Red Blood Count 3.79 M/mm3 (4.20-5.40); Red Cell Distribution Width 16.1 % (11.5-17.5); White Blood Count 8.3 K/mm3 (4.8-10.8)
[2022-06-25 18:03] LABS: Anion Gap 10.3 mEq/L (5-15); Blood Urea Nitrogen 39 mg/dl (7-17); Calcium 9.4 mg/dl (8.4-10.2); Carbon Dioxide 30 mmol/L (22.0-30.0); Chloride 98 mmol/L (98-107); Estimated Glomerular Filt Rate 20 ml/min (>60); GFR (African American) 24 ML/MIN (>60); Glucose 189 mg/dl (74-100); Potassium 4.3 mmoL/L (3.5-5.1); Sodium 134 mmol/L (136-145)
== END ==
PROVIDERS: PCP Family Medicine; Visit Provider Family Medicine
DX: D64.9 Anemia, unspecified (principal); J96.10 Chronic respiratory failure, unspecified whether with hypoxia or hypercapnia; L89.159 Pressure ulcer of sacral region, unspecified stage; N18.30 Chronic kidney disease, stage 3 unspecified; R60.9 Edema, unspecified
CPT/HCPCS: 80048; 85025

== ENCOUNTER 2022-07-25 12:13 | Emergency (ER) | payer MEDICARE, MEDICAID, SELFPAY ==
[2022-07-25 12:18] VITALS: BP 112/72; PULSE 79; RESP 20; TEMP 36.7; O2SAT 92; BMI 27.6
--- NOTE | 2022-07-25 12:22 | HMH.EDGENADL ---
Discharge Plan Disposition Patient Disposition: Home, Self-Care Prescriptions Prescriptions: No Action (DME) blood-glucose meter [True Metrix Glucose Meter] Misc See Rx Instructions .ROUTE .MEDSUPPLY Qty: 1 Rx Instructions: As directed (DME) True Metrix Glucose Test Strip Strip See Rx Instructions .ROUTE .MEDSUPPLY Qty: 10 Rx Instructions: As directed (DME) lancets [TRUEplus Lancets] 28 gauge misc See Rx Instructions .ROUTE .MEDSUPPLY Qty: 100 Rx Instructions: As directed albuterol sulfate 90 mcg/actuation HFA aerosol inhaler 2 puff IH Q4HP PRN (Reason: Shortness Of Breath Or Wheezing) Qty: 8.5 2RF bisacodyl 5 mg tablet,delayed release (DR/EC) 5 mg PO DAILY Qty: 30 0RF cetirizine 10 mg tablet 10 mg PO DAILY Qty: 30 0RF calcium carbonate-vitamin D3 [Calcium 600 with Vitamin D3] 600 mg-12.5 mcg (500 unit) capsule 600 cap PO DAILY meclizine 25 mg tablet 25 mg PO DAILY PRN (Reason: nausea) Qty: 30 0RF metolazone 5 mg tablet 5 mg PO .every other day Qty: 20 0RF hydrocortisone [Anusol-HC] 2.5 % cream with perineal applicator 1 applic CO QD-BID PRN (Reason: hemorrhoids) Qty: 30 3RF atorvastatin 40 mg tablet 40 mg PO HS 90 Days Qty: 90 0RF montelukast 5 mg tablet,chewable 5 mg PO HS 90 Days Qty: 90 0RF omeprazole 20 mg capsule,delayed release(DR/EC) 20 mg PO DAILY 90 Days Qty: 90 0RF furosemide 40 mg tablet 40 mg PO BID 30 Days Qty: 60 1RF ipratropium-albuterol 0.5 mg-3 mg(2.5 mg base)/3 mL solution for nebulization See Rx Instructions .ROUTE .COMPLEX Qty: 360 1RF Dose Instruction: 3 ML INHALED EVERY 4 HOURS NEEDED NEEDED FOR SHORTNESS OF BREATH FOR 30 DAYS Rx Instructions: 3 ML INHALED EVERY 4 HOURS NEEDED NEEDED FOR SHORTNESS OF BREATH FOR 30 DAYS fluticasone propionate 50 mcg/actuation spray,suspension See Rx Instructions .ROUTE .COMPLEX Qty: 16 2RF Dose Instruction: 1 SPRAY INTRANASALLY DAILY FOR ALLERGY SYMPTOMS Rx Instructions: 1 SPRAY INTRANASALLY DAILY FOR ALLERGY SYMPTOMS magnesium oxide 250 MG tablet 125 mg PO DAILY psyllium husk 0.52 GM capsule 0.36 gm PO DAILY insulin regular human 100 UNIT/ML solution 0 units SQ ACHS PRN (Reason: diabetes) Rx Instructions: PER SLIDING SCALE nifedipine 30 mg tablet extended release 24hr See Rx Instructions .ROUTE .COMPLEX Rx Instructions: TAKE 1 TABLET BY MOUTH ONCE DAILY triamcinolone acetonide 0.5 % ointment 1 applic topical DAILY fluticasone propion-salmeterol [Wixela Inhub] 500-50 mcg/dose blister with device See Rx Instructions .ROUTE .COMPLEX Rx Instructions: INHALE 1 PUFF BY MOUTH TWICE DAILY bumetanide 1 mg tablet 1 mg PO Q OTHER DAY spironolactone 50 mg tablet 25 mg PO BID diclofenac sodium [Arthritis Pain (diclofenac)] 1 % gel 2 g TP QID Rx Instructions: apply to single elbow, wrist or hand; for hand includes palm/fingers/back of hand cranberry extract 250 MG capsule 250 mg PO DAILY Referrals Follow up/Referrals: Provider,Referral, MD [Referring] - See instructions Activity Restrictions/Add. Instructions Additional Instructions/Restrictions: Your work-up today for abdominal pain and back pain were nonspecific and did not show any emergent medical conditions. That being said there remains diagnostic uncertainty as no condition was ruled out either. Please return to the emergency department in 12 to 24 hours if you have worsening of your symptoms. Otherwise you may follow-up with primary care doctor next week. Clinical Impressions Clinical Impression: Nonspecific abdominal pain, Back pain, Cyst of left ovary Instructions Patient Instructions: DI for Acute Abdominal Pain Discharge ED Provider: Jane Fountain General Adult HPI General Chief complaint: Abdominal Pain Stated complaint: abdominal pain Time Seen by
--- NOTE | 2022-07-25 12:27 | PC.NURSE ---
BARI HUERTA at
--- NOTE | 2022-07-25 12:29 | CT_ITS ---
FINAL REPORT TECHNIQUE: Thin section axial images were obtained from the lung bases to the pubic symphysis without IV contrast. Coronal reconstruction images were obtained from the axial data. Exam was performed using dose reduction technique. CLINICAL HISTORY: Left flank and LLQ abd pain COMPARISON: 01/04/2019 FINDINGS: There is right middle lobe and left lower lobe atelectasis. Otherwise, the previously seen lower lobe opacities have resolved. There are no obstructing renal or ureteral stones. There is a nonobstructing right renal stone which is unchanged from the prior exam. There is no hydronephrosis or perinephric stranding. There is bilateral renal cortical atrophy. The unenhanced liver, spleen, adrenals and pancreas are without acute abnormality. The gallbladder is present. There is no evidence of small bowel obstruction. The appendix is normal. There is diverticulosis without evidence of diverticulitis. There is no acute GI tract abnormality. There is a stable left ovarian cyst measuring 3.7 cm. The uterus is small. There is no lymphadenopathy or ascites. No acute osseous abnormality is identified. IMPRESSION: 1. No obstructing renal or ureteral stones. No hydronephrosis. 2. Stable nonobstructing right renal stone and bilateral cortical atrophy. 3. Stable left ovarian cyst which is not normal in a patient of this age. Recommend continued surveillance to ensure stability. Reviewed, Interpreted and Dictated by Vi Carter MD Transcribed by Autumn Solares Authenticated and [facility]
[2022-07-25 12:48] LABS: Basophils # 0.1 K/mm3 (0-0.2); Basophils % 0.5 % (0.1-2.0); Eosinophils # 0.1 K/mm3 (0.0-0.4); Hematocrit 35.3 % (37.0-47.0); Lymphocytes # 2.1 K/mm3 (0.7-4.5); Lymphocytes % 19.1 % (10-50); Mean Corpuscular HGB Conc 31.2 g/dL (31.8-35.4); Mean Corpuscular Hemoglobin 28.6 pg (27.0-31.2); Mean Corpuscular Volume 91.5 fl (81-99); Mean Platelet Volume 7.7 fl (7.4-10.4); Monocytes # 0.7 K/mm3 (0.1-1.0); Monocytes % 6.2 % (1.7-9.3); Neutrophils # 8.2 K/mm3 (1.8-7.8); Neutrophils % 73.2 % (37.0-80.0); Platelet Count 356 K/mm3 (142-424); Red Blood Count 3.86 M/mm3 (4.20-5.40); Red Cell Distribution Width 15.8 % (11.5-17.5); White Blood Count 11.2 K/mm3 (4.8-10.8)
[2022-07-25 12:56] LABS: Chloride 97 mmol/L (98-107); Potassium 4.8 mmoL/L (3.5-5.1); Sodium 134 mmol/L (136-145)
[2022-07-25 12:58] LABS: Blood Urea Nitrogen 47 mg/dl (7-17); Creatinine Clearance Estimated 17 mL/min (50-200); Estimated Glomerular Filt Rate 17 ml/min (>60); GFR (African American) 20 ML/MIN (>60)
[2022-07-25 12:59] LABS: Alanine Aminotransferase 27 U/L (12-78); Albumin Level 4.4 g/dl (3.5-5.0); Alkaline Phosphatase 153 U/L (38-126); Anion Gap 12.8 mEq/L (5-15); Aspartate Amino Transferase 30 U/L (14-36); Calcium 9.5 mg/dl (8.4-10.2); Carbon Dioxide 29 mmol/L (22.0-30.0); Globulin 4.3 g/dL (1.3-3.2); Glucose 252 mg/dl (74-100); Lipase 83 U/L (23-300); Total Protein,Serum 8.7 g/dl (6.3-8.2)
--- NOTE | 2022-07-25 13:15 | PC.NURSE ---
PIV removed from left FA d/t infiltration. PIV 20g inserted to RAC. Fluids initiated. Warm blankets provided. Pt to CT.
--- NOTE | 2022-07-25 13:34 | PC.NURSE ---
Critical lab received, Lactate 4.0. notified.
--- NOTE | 2022-07-25 13:45 | PC.NURSE ---
From CT. Pt resting at this time. Fluids infusing. No complaints at this time.
--- NOTE | 2022-07-25 15:03 | PC.NURSE ---
Spoke with son, Paolo Salgado, regarding arranging transportation.
[2022-07-25 15:04] VITALS: BP 141/75; PULSE 86; RESP 18; TEMP 36.5; O2SAT 94
--- NOTE | 2022-07-25 15:22 | PC.NURSE ---
Assisted patient to the bathroom. Dietary called and delivered meal. on his way. Pt updated.
--- NOTE | 2022-07-25 15:46 | PC.NURSE ---
food tray gotten for patient. 100% eaten. call light within reach
[2022-07-25 17:16] LABS: Reflex Lactic Add Lactic Reflex
== END 2022-07-25 16:05 | disposition home or self-care (01) ==
PROVIDERS: Emergency Provider Student in an Organized Health Care Education/Training Program; PCP Family Medicine
DX: R10.32 Left lower quadrant pain (principal); N83.202 Unspecified ovarian cyst, left side; M54.9 Dorsalgia, unspecified
CPT/HCPCS: 74176; 80053; 83605; 83690; 85025; 96360; 96374; 96375; 99285; J2405

== ENCOUNTER → 2022-08-05 09:56 | Outpatient (CLI) | payer MEDICARE, MEDICAID, SELFPAY ==
[2022-07-23 21:03] LABS: Hemoglobin A1C 8.3 % (4.0-6.0)
== END ==
PROVIDERS: PCP Family Medicine; Visit Provider Family Medicine
DX: E11.9 Type 2 diabetes mellitus without complications (principal); Z79.84 Long term (current) use of oral hypoglycemic drugs
CPT/HCPCS: 83036

== ENCOUNTER → 2022-08-20 10:17 | Outpatient (CLI) | payer MEDICARE, MEDICAID, SELFPAY ==
[2022-08-20 11:32] LABS: Chloride 96 mmol/L (98-107); Potassium 4.5 mmoL/L (3.5-5.1); Sodium 134 mmol/L (136-145)
[2022-08-20 11:33] LABS: Albumin Level 4.2 g/dl (3.5-5.0)
[2022-08-20 11:35] LABS: Anion Gap 16.5 mEq/L (5-15); Blood Urea Nitrogen 51 mg/dl (7-17); Carbon Dioxide 26 mmol/L (22.0-30.0); Estimated Glomerular Filt Rate 18 ml/min (>60); GFR (African American) 22 ML/MIN (>60)
[2022-08-20 11:36] LABS: Calcium 9.5 mg/dl (8.4-10.2); Glucose 288 mg/dl (74-100); Phosphorous 4.1 mg/dl (2.5-4.5)
== END ==
PROVIDERS: PCP Family Medicine; Visit Provider Internal Medicine Nephrology
DX: N18.32 Chronic kidney disease, stage 3b (principal); M81.0 Age-related osteoporosis without current pathological fracture; E21.3 Hyperparathyroidism, unspecified; I10 Essential (primary) hypertension
CPT/HCPCS: 36415; 80069

== ENCOUNTER 2022-10-27 10:28 | Observation (INO) | payer MEDICARE, MEDICAID, SELFPAY ==
[2022-10-27] VITALS (24 sets, daily range): BP systolic 85–142; BP diastolic 43–84; PULSE 69–143; RESP 16–26; TEMP 36.7–37; O2SAT 90–97; BMI 27.6; BMI 27.5
--- NOTE | 2022-10-27 10:40 | XR_ITS ---
FINAL REPORT CLINICAL HISTORY: Shortness of breath COMPARISON: 06/22/2022 FINDINGS: A single portable view of the chest was obtained. The heart size and pulmonary vascularity are within normal limits. The mediastinum is within normal limits. Persistent right base scarring. No acute pulmonary abnormality is identified. The bony thorax is intact. Postop left axilla. IMPRESSION: No active cardiopulmonary disease. Reviewed, Interpreted and Dictated by Leland Anderson III, MD Transcribed by Cherie Segal Authenticated and [facility]
--- NOTE | 2022-10-27 10:40 | CT_ITS ---
FINAL REPORT TECHNIQUE: Axial images through the abdomen and pelvis were performed without contrast.This study was performed with techniques to keep radiation doses as low as reasonably achievable, (ALARA). Individualized dose reduction techniques using automated exposure control or adjustment of mA and/or kV according to the patient's size were employed. CLINICAL HISTORY: LLQ abd pain, n/v/d COMPARISON: 06/25/2022 FINDINGS: ABDOMEN: Atelectasis or scarring is seen at the lung bases. The heart size is normal. A small, presumed cyst is seen in the medial segment of the left hepatic lobe which is stable from prior exam. However, there is new hepatic heterogenicity of uncertain etiology. Hepatic metastatic disease is not excluded. This can be further evaluated with liver mass protocol CT or MRI. The spleen is normal. No adrenal mass is identified. The aorta is normal in caliber. There is no significant free fluid or adenopathy. There is bilateral renal cortical thinning. Small, nonobstructing right renal stone is again seen. There is no hydronephrosis. There are diffuse vascular calcifications. Wall thickening is seen of the the ascending colon which may be inflammatory or neoplastic. Recommend correlation with colonoscopy. There were scattered diverticula without evidence of diverticulitis. PELVIS: The appendix is not identified. There is a persistent left ovarian cystic mass measuring 3.5 cm which could represent a cyst or benign cystic neoplasm. The urinary bladder is unremarkable. There is no significant free fluid or adenopathy. IMPRESSION: New hepatic heterogenicity of uncertain etiology. Hepatic metastatic disease not excluded. Recommend further evaluation with liver mass protocol CT or MRI. Wall thickening of the ascending colon which may be inflammatory or neoplastic. Recommend colonoscopy for further evaluation. Persistent left ovarian cystic mass. Reviewed, Interpreted and Dictated by Leland Anderson III, MD Transcribed by Shana Proctor Authenticated and [facility]
--- NOTE | 2022-10-27 10:41 | HMH.EDGENADL ---
Discharge Plan Disposition Patient Disposition: Admitted Chief Complaint: Nausea/Vomiting/Diarrhea Prescriptions Prescriptions: No Action (DME) blood-glucose meter [True Metrix Glucose Meter] [facility] [place] See Rx Instructions .ROUTE .MEDSUPPLY Qty: 1 Rx Instructions: As directed (DME) lancets [TRUEplus Lancets] [address] [facility] See Rx Instructions .ROUTE .MEDSUPPLY Qty: 100 Rx Instructions: As directed bisacodyl 5 mg tablet,delayed release (DR/EC) 5 mg PO DAILY Qty: 30 0RF cetirizine 10 mg tablet 10 mg PO DAILY Qty: 30 0RF albuterol sulfate 90 mcg/actuation HFA aerosol inhaler 2 puff IH Q4HP PRN (Reason: Shortness Of Breath Or Wheezing) Qty: 8.5 2RF calcium carbonate-vitamin D3 [Calcium 600 with Vitamin D3] 600 mg-12.5 mcg (500 unit) capsule 600 cap PO DAILY fluticasone propionate 50 mcg/actuation spray,suspension See Rx Instructions .ROUTE .COMPLEX Qty: 16 2RF Dose Instruction: 1 SPRAY INTRANASALLY DAILY FOR ALLERGY SYMPTOMS Rx Instructions: 1 SPRAY INTRANASALLY DAILY FOR ALLERGY SYMPTOMS nifedipine 30 mg tablet extended release 24hr See Rx Instructions .ROUTE .COMPLEX Qty: 90 0RF Dose Instruction: TAKE 1 TABLET BY MOUTH ONCE DAILY Rx Instructions: TAKE 1 TABLET BY MOUTH ONCE DAILY (DME) True Metrix Glucose Test Strip Strip See Rx Instructions .ROUTE .COMPLEX Qty: 50 4RF Dose Instruction: TEST BLOOD SUGAR ONCE DAILY Rx Instructions: TEST BLOOD SUGAR ONCE DAILY metolazone 5 mg tablet 5 mg PO .every other day Qty: 20 2RF insulin glargine 100 unit/mL (3 mL) insulin pen 10 unit SQ DAILY Qty: 15 3RF atorvastatin 40 mg tablet 40 mg PO HS 90 Days Qty: 90 0RF ipratropium-albuterol 0.5 mg-3 mg(2.5 mg base)/3 mL solution for nebulization See Rx Instructions .ROUTE .COMPLEX Qty: 360 1RF Dose Instruction: 3 ML INHALED EVERY 4 HOURS NEEDED NEEDED FOR SHORTNESS OF BREATH FOR 30 DAYS Rx Instructions: 3 ML INHALED EVERY 4 HOURS NEEDED NEEDED FOR SHORTNESS OF BREATH FOR 30 DAYS diclofenac sodium [Arthritis Pain (diclofenac)] 1 % gel 2 g TP QID 30 Days Qty: 100 2RF Rx Instructions: apply to single elbow, wrist or hand; for hand includes palm/fingers/back of hand hydrocortisone [Anusol-HC] 2.5 % cream with perineal applicator 1 applic PA QD-BID PRN (Reason: hemorrhoids) Qty: 30 3RF montelukast 5 mg tablet,chewable 5 mg PO HS 90 Days Qty: 90 0RF triamcinolone acetonide 0.5 % ointment See Rx Instructions .ROUTE .COMPLEX Qty: 30 2RF Dose Instruction: APPLY TOPICALLY DAILY FOR 30 DAYS Rx Instructions: APPLY TOPICALLY DAILY FOR 30 DAYS furosemide 40 mg tablet 40 mg PO BID 30 Days Qty: 60 1RF glipizide 2.5 mg tablet extended release 24hr 2.5 mg PO DAILY Qty: 30 2RF omeprazole 20 mg capsule,delayed release(DR/EC) 20 mg PO DAILY 90 Days Qty: 90 0RF spironolactone 50 mg tablet 25 mg PO BID 90 Days Qty: 90 0RF fluticasone propion-salmeterol [Wixela Inhub] 500-50 mcg/dose blister with device See Rx Instructions .ROUTE .COMPLEX Qty: 60 0RF Dose Instruction: INHALE 1 PUFF BY MOUTH TWICE DAILY Rx Instructions: INHALE 1 PUFF BY MOUTH TWICE DAILY magnesium oxide 250 MG tablet 125 mg PO DAILY psyllium husk 0.52 GM capsule 0.36 gm PO DAILY insulin regular human 100 UNIT/ML solution 0 units SQ ACHS PRN (Reason: diabetes) Rx Instructions: PER SLIDING SCALE cranberry extract 250 MG capsule 250 mg PO DAILY Referrals Follow up/Referrals: Matthew Elliott MD [Primary Care Provider] - See instructions Clinical Impressions Clinical Impression: Nausea vomiting and diarrhea, Atrial fibrillation with RVR Instructions Patient Instructions: DI for Diarrhea and Traveler's Diarrhea -- Adult, DI for Diarrhea and Traveler's Diarrhea -- Child, DI for Nausea -- Adult, DI for Nausea -- Child Discharge
[2022-10-27 10:58] LABS: Basophils % 0.4 % (0.1-2.0); Eosinophils # 1.1 K/mm3 (0.0-0.4); Eosinophils % 12.5 % (0.1-12.0); Hematocrit 33.7 % (37.0-47.0); Hemoglobin 10.4 g/dL (12.2-16.2); Lymphocytes # 2.3 K/mm3 (0.7-4.5); Lymphocytes % 25.4 % (10-50); Mean Corpuscular HGB Conc 30.8 g/dL (31.8-35.4); Mean Corpuscular Hemoglobin 27.9 pg (27.0-31.2); Mean Corpuscular Volume 90.8 fl (81-99); Mean Platelet Volume 8.1 fl (7.4-10.4); Monocytes # 0.5 K/mm3 (0.1-1.0); Neutrophils # 5.1 K/mm3 (1.8-7.8); Neutrophils % 56.7 % (37.0-80.0); Platelet Count 347 K/mm3 (142-424); Red Blood Count 3.71 M/mm3 (4.20-5.40); Red Cell Distribution Width 16.2 % (11.5-17.5); White Blood Count 9.1 K/mm3 (4.8-10.8)
[2022-10-27 11:05] LABS: Chloride 101 mmol/L (98-107); Sodium 140 mmol/L (136-145)
[2022-10-27 11:08] LABS: Alanine Aminotransferase 24 U/L (12-78); Albumin Level 3.8 g/dl (3.5-5.0); Albumin/Globulin Ratio 0.9 (1.1-1.8); Alkaline Phosphatase 114 U/L (38-126); Aspartate Amino Transferase 26 U/L (14-36); Blood Urea Nitrogen 40 mg/dl (7-17); Calcium 9.1 mg/dl (8.4-10.2); Carbon Dioxide 31 mmol/L (22.0-30.0); Estimated Glomerular Filt Rate 16 ml/min (>60); GFR (African American) 19 ML/MIN (>60); Globulin 4.2 g/dL (1.3-3.2); Glucose 204 mg/dl (74-100); Lipase 32 U/L (23-300)
--- NOTE | 2022-10-27 11:13 | ECG_ITS ---
APPROVED REPORT Exam: Resting ECG HR:131 bpm ECG Measurements Heart Rate 131 AXES QRSd 79 QRS 9 QT 280 T 120 QTc 357 Conclusion ATRIAL FLUTTER/TACHYCARDIA WITH RAPID VENTRICULAR RESPONSE NONSPECIFIC ST & T-WAVE ABNORMALITY ABNORMAL ECG UNCONFIRMED REPORT Electronically signed by : Danny Cristobal MD 10/27/2022 19:35:20
--- NOTE | 2022-10-27 11:18 | PC.NURSE ---
PT STATED SHE DIDNT NEED ANYTHING AT THIS TIME, FAMILY AT BS
--- NOTE | 2022-10-27 11:24 | PC.NURSE ---
pt to ct
[2022-10-27 11:27] LABS: Lactic Acid 1.6 mmol/L (0.7-2.1)
--- NOTE | 2022-10-27 11:36 | PC.NURSE ---
PT RETURNED FROM CT
--- NOTE | 2022-10-27 12:41 | PC.NURSE ---
UNHOOKED PT TO GO TO RESTROOM ASSISTED HER WALKING TO THE RESTROOM
--- NOTE | 2022-10-27 12:50 | PC.NURSE ---
DR FISCHER AT BEDSIDE TO UPDATE PT AND FAMILY
[2022-10-27 12:51] LABS: Microscopic, Urine URINE MICROSCOPIC (MICROSCOPIC)
[2022-10-27 12:52] LABS: Appearance,Urine CLEAR (Clear); Bilirubin,Urine Negative (Negative); Blood, Urine Negative (Negative); Color,Urine YELLOW (Yellow); Glucose,Urine (UA) Negative (Negative); Ketones,Urine Negative (Negative); Leukocyte Esterase,Urine Negative (Negative); Nitrate,Urine Negative (Negative); PH,Urine 6.5 (5.0-8.5); Protein,Urine Negative (Negative); Urobilinogen,Urine 0.2 EU/dl (0.2)
--- NOTE | 2022-10-27 12:52 | PC.NURSE ---
HELPED PT WALK BACK TO BED FROM RESTROOM, HOOKED PT BACK UP TO DATA MACHINE AND HEART MONITOR, FAMILY AT BS
[2022-10-27 12:55] LABS: Coronavirus 19, PCR Not Detected (NotDetected); Influenza A, PCR Not Detected (NotDetected); Influenza B, PCR Not Detected (NotDetected)
[2022-10-27 13:03] LABS: Bacteria,Urine Trace /lpf; Squamous Epithelial Cell,Urine Occasional #/hpf (0-5); WBC,Urine Occasional #/hpf (0-3)
--- NOTE | 2022-10-27 13:47 | ECG_ITS ---
APPROVED REPORT Exam: Resting ECG HR:131 bpm ECG Measurements Heart Rate 131 AXES QRSd 78 QRS 3 QT 288 T 104 QTc 365 Conclusion ATRIAL FIBRILLATION WITH RAPID VENTRICULAR RESPONSE WITH ABERRANT CONDUCTION OR VENTRICULAR PREMATURE COMPLEXES PROBABLE INFERIOR MYOCARDIAL INFARCTION , PROBABLY OLD [35 ms Q WAVE IN II/aVF] ABNORMAL ECG UNCONFIRMED REPORT Electronically signed by : Danny Cristobal MD 10/27/2022 19:32:52
--- NOTE | 2022-10-27 13:53 | PC.NURSE ---
DR. FISCHER AT BS
--- NOTE | 2022-10-27 14:04 | PC.NURSE ---
Dr Fountain speaking with Dr Macias
--- NOTE | 2022-10-27 14:05 | PC.NURSE ---
DR FISCHER SPEAKING WITH DR HARRIS FOR ADMISSION
--- NOTE | 2022-10-27 14:12 | PC.NURSE ---
CARE MANAGEMENT NOTIFIED OF ADMISSION
--- NOTE | 2022-10-27 14:25 | PC.NURSE ---
CHECKED ON PT NOTHING NEEDED AT THIS TIME, DAUGHTER AT BEDSIDE
--- NOTE | 2022-10-27 14:26 | PC.NURSE ---
ULTRASOUND AT BEDSIDE
--- NOTE | 2022-10-27 14:26 | PC.NURSE ---
ECHO AT BEDSIDE
--- NOTE | 2022-10-27 14:28 | PC.NURSE ---
vascular here for echo
[2022-10-27 14:41] LABS: Hemoglobin A1C 9.8 % (4.0-6.0)
[2022-10-27 15:10] LABS: Thyroid Stimulating Hormone 8.35 uIU/mL (0.465-4.68)
--- NOTE | 2022-10-27 15:30 | PC.NURSE ---
diltiazem titrated to 10 mg bp 129/51 hr 117
--- NOTE | 2022-10-27 16:00 | PC.NURSE ---
diltiazem titrated to 15 mg bp 120/83 hr 143
--- NOTE | 2022-10-27 16:32 | PC.NURSE ---
waiting on home medication list from pt's son to reconcile medication list
--- NOTE | 2022-10-27 16:51 | PC.NURSE ---
VS stable while on cardizem drip. No complaints noted. Patient still in afib with rvr rhythm. 2LNC, patient baseline. Cough noted, patient baseline. Lung sounds coarse. No sputum production.
[2022-10-27 17:17] LABS: POC Glucose,Bedside 145 (70-110)
--- NOTE | 2022-10-27 18:06 | PC.NURSE ---
diltazem titrated to 10 mg bp 98/43 hr 93
--- NOTE | 2022-10-27 18:06 | EXP.HP ---
History of Present Illness *Admission Date: 10/27/22 *Reason for visit:: fast heart rate, diarrhea *History of present illness: Ms. Lay is a pleasant 86-year-old female with history significant for A-fib, chronic pain, chronic hypoxemic respiratory failure, diabetes, and CKD. Presented to the ER after having nausea and diarrhea for the past 24 hours. States diarrhea is somewhat improved today. Also having complaint of feeling her heart racing at times. Had her check her vitals at home, O2 sats were stable on her baseline 2 L nasal cannula. Heart rate found to be fast however. Came to the ER for further evaluation. Has been having some lower abdominal discomfort. No dawson vomiting today. Denies any blood in her vomit or stool. Denies any fever, chest pain, confusion. Still feels like her heart is racing however. Heart rate elevated in the ER. EKG showing A-fib with RVR. Patient started on diltiazem drip, medicine consulted for admission. On arrival to the floor, patient is eating dinner. States she feels somewhat better. Heart rate 90-110. Denies any headache or confusion. [facility] Disclaimer: The information contained in this section may have been updated after the patient was seen, as this information can be updated by other users. Medical History Acute kidney injury (nontraumatic) ELINOR (acute kidney injury) Anasarca ARF (acute renal failure) Asthma exacerbation Blood loss anemia Brain benign neoplasm CHF (congestive heart failure) CHF exacerbation Chronic respiratory failure CKD (chronic kidney disease) stage 3, GFR 30-59 ml/min Dependent edema Diabetes Diabetic foot Edema of lower extremity GERD (gastroesophageal reflux disease) Hyperlipidemia Hypertension Hypoalbuminemia due to protein-calorie malnutrition Hypokalemia Lower GI bleed Lung collapse MRSA pneumonia New onset atrial fibrillation Onychodystrophy Respiratory failure with hypoxia Surgical History History of mastectomy Family History Heart attack Father Social History Smoking Status: Never smoker alcohol intake: never current occupational status: retired and disabled Travel in the last 8 weeks: None household members: spouse housing: house caffeine: No Meds Home Medications and Allergies Home Medications Medication Instructions Recorded Confirmed Type cranberry extract 250 mg capsule 250 mg PO DAILY Supplement 10/09/18 10/07/22 History magnesium oxide 125 mg PO DAILY vitamin 01/04/19 10/07/22 History insulin regular human 100 unit/mL 0 units SQ ACHS PRN diabetes 09/26/20 10/07/22 History injection solution psyllium husk 0.52 gram capsule 0.36 gm PO DAILY CONSTIPATION 09/26/20 10/07/22 History calcium carbonate 600 mg-vitamin 600 cap PO DAILY Supplement 12/12/21 10/07/22 History D3 12.5 mcg (500 unit) capsule (Calcium 600 with Vitamin D3) bisacodyl 5 mg tablet,delayed 5 mg PO DAILY constipation #30 tabs 01/16/22 10/07/22 Rx release cetirizine 10 mg tablet 10 mg PO DAILY Allergy symptoms 01/16/22 10/07/22 Rx #30 tabs insulin glargine 100 unit/mL (3 10 unit (0.1 mL) SQ DAILY #15 mL 08/19/22 10/07/22 Rx mL) subcutaneous pen albuterol sulfate 90 mcg/actuation 2 puff inhalation Q4HP PRN 09/03/22 10/07/22 Rx aerosol inhaler Shortness Of Breath Or Wheezing #8.5 grams atorvastatin 40 mg tablet 40 mg PO HS Cholesterol 90 days 09/12/22 10/07/22 Rx #90 tabs diclofenac sodium 1 % topical gel 2 g topical QID Pain 30 days #100 09/18/22 10/07/22 Rx (Arthritis Pain (diclofenac)) grams montelukast 5 mg chewable tablet 5 mg PO HS Allergy symptoms 90 09/26/22 10/07/22 Rx days #90 tabs glipizide 2.5 mg tablet, extended 2.5 mg PO DAILY #30 tabs 10/24/22 Rx release 24 hr omeprazole 20 mg
[2022-10-27 21:44] LABS: POC Glucose,Bedside 240 (70-110)
[2022-10-28] VITALS (11 sets, daily range): BP systolic 102–134; BP diastolic 55–68; PULSE 62–110; RESP 18–22; TEMP 36.7–37.1; O2SAT 93–98; BMI 28.0
--- NOTE | 2022-10-28 01:16 | PC.NURSE ---
2027--increased Dilt to 20--HR 112 2114--decreased Dilt to 15--HR 102 2219--decreased Dilt to 10--HR 84 2304--decreased Dilt to 5--HR 71 2334--turned off Dilt--HR 66 Pt resting comfortably with no acute distress noted. Will continue to monitor.
[2022-10-28 05:25] LABS: POC Glucose,Bedside 185 (70-110)
[2022-10-28 07:13] LABS: Basophils % 0.2 % (0.1-2.0); Eosinophils # 1.1 K/mm3 (0.0-0.4); Eosinophils % 13.7 % (0.1-12.0); Hematocrit 30.6 % (37.0-47.0); Hemoglobin 9.5 g/dL (12.2-16.2); Lymphocytes # 2.6 K/mm3 (0.7-4.5); Lymphocytes % 33.6 % (10-50); Mean Corpuscular HGB Conc 30.9 g/dL (31.8-35.4); Mean Corpuscular Hemoglobin 27.9 pg (27.0-31.2); Mean Corpuscular Volume 90.1 fl (81-99); Mean Platelet Volume 7.9 fl (7.4-10.4); Monocytes # 0.5 K/mm3 (0.1-1.0); Monocytes % 6.2 % (1.7-9.3); Neutrophils # 3.6 K/mm3 (1.8-7.8); Neutrophils % 46.3 % (37.0-80.0); Platelet Count 364 K/mm3 (142-424); Red Cell Distribution Width 16.2 % (11.5-17.5); White Blood Count 7.7 K/mm3 (4.8-10.8)
[2022-10-28 07:25] LABS: Chloride 103 mmol/L (98-107); Potassium 4.4 mmoL/L (3.5-5.1); Sodium 140 mmol/L (136-145)
[2022-10-28 07:27] LABS: Blood Urea Nitrogen 37 mg/dl (7-17); Creatinine Clearance Estimated 18 mL/min (50-200); Estimated Glomerular Filt Rate 17 ml/min (>60); GFR (African American) 21 ML/MIN (>60)
[2022-10-28 07:28] LABS: Alanine Aminotransferase 19 U/L (12-78); Albumin Level 3.4 g/dl (3.5-5.0); Albumin/Globulin Ratio 0.9 (1.1-1.8); Alkaline Phosphatase 107 U/L (38-126); Anion Gap 12.4 mEq/L (5-15); Aspartate Amino Transferase 29 U/L (14-36); Bilirubin,Total 0.8 mg/dl (0.2-1.3); Calcium 8.6 mg/dl (8.4-10.2); Carbon Dioxide 29 mmol/L (22.0-30.0); Globulin 3.8 g/dL (1.3-3.2); Glucose 180 mg/dl (74-100); Total Protein,Serum 7.2 g/dl (6.3-8.2)
[2022-10-28 07:29] LABS: Magnesium 2.5 mg/dl (1.6-2.3)
--- NOTE | 2022-10-28 09:15 | PC.NURSE ---
Turned cardizem drip off per Dr Macias. Pt tolerating well thus far. Will continue to monitor.
--- NOTE | 2022-10-28 11:24 | EXP.DC.SUM ---
General Admission date:: 10/27/22 Discharge date: 10/28/22 HPI HPI HPI: Ms. Lay is a pleasant 86-year-old female with history significant for A-fib, chronic pain, chronic hypoxemic respiratory failure, diabetes, and CKD. Presented to the ER after having nausea and diarrhea for the past 24 hours. States diarrhea is somewhat improved today. Also having complaint of feeling her heart racing at times. Had her check her vitals at home, O2 sats were stable on her baseline 2 L nasal cannula. Heart rate found to be fast however. Came to the ER for further evaluation. Has been having some lower abdominal discomfort. No dawson vomiting today. Denies any blood in her vomit or stool. Denies any fever, chest pain, confusion. Still feels like her heart is racing however. Heart rate elevated in the ER. EKG showing A-fib with RVR. Patient started on diltiazem drip, medicine consulted for admission. On arrival to the floor, patient is eating dinner. States she feels somewhat better. Heart rate 90-110. Denies any headache or confusion. Hospital Course Hospital Course Hospital Course: 86-year-old female with chronic respiratory failure, CKD, hypertension, diabetes. Presents with 1 to 2 days of diarrhea. Found to be in A-fib with RVR. Started on diltiazem drip. Did well during admission. Improved rate control. Stable for discharge home. Problems addressed as follows: A-fib with RVR -Initiated on diltiazem drip. Tolerated well. Able to initiate oral diltiazem therapy. We will continue 180 mg extended release diltiazem. Has had good rate control with the equivalent of this dosing. Initiated on Lovenox 1 mg/kg daily during admission, renally dosed. Will transition to Eliquis 2.5 mg twice daily to start morning after discharge. Echo obtained. EF appears preserved and pulmonary read. Formal read still pending at time of discharge. Given improvement in rate control, discharge home with close follow-up with PCP. Further adjustments to regimen as an outpatient. Discontinue home nifedipine regimen so she is not on dual calcium channel blockade as her blood pressure has been well controlled with addition of diltiazem to her other hypertensive regimen. COPD Chronic hypoxemic respiratory failure -Continue supplemental oxygen, goal sats greater 90%. On 2 L. Continue home inhaler regimen. Stable on baseline oxygen. Hypothyroid -TSH 8.3 on admission. Not on any medication at home. Initiated 50 mcg levothyroxine daily. Repeat TSH needed in 6 weeks Diabetes - A1c obtained on admission 9.8, elevated from last check 4 months ago. Initiated on sliding scale insulin during hospitalization. Held home regimen due to risk of hypoglycemia from glipizide. Treated with 10 units nightly of glargine. Tolerated well with fair glucose control. Defer further escalation of therapy to PCP at follow-up. Heart rate has been well controlled throughout the day with discontinuation of diltiazem drip. Stable for discharge home. Close follow-up with PCP. Spent 40 minutes in discharge counseling and direct care with patient. Exam Data for Last 24 hours Vital signs and Labs for Last 24 Hours: Temp Pulse Resp BP Pulse Ox 98.8 F 76 18 115/64 96 10/28/22 11:09 10/28/22 10:15 10/28/22 10:15 10/28/22 10:15 10/28/22 10:15 Laboratory Results - last 24 hr 10/27/22 10:40: Hemoglobin A1c 9.8 H, TSH 8.35 H 10/27/22 11:00: Lactate 1.6 10/27/22 11:57: SARS-CoV-2 (PCR) Not detected, Influenza A Untype (PCR) Not detected, Influenza Type B (PCR) Not detected 10/27/22 12:45: Urine Color Yellow, Urine Appearance Clear, Urine pH 6.5, Ur Specific [place] 1.010, Urine Protein Negative, Urine Glucose (UA) Negative, Urine Ketones Negative, Urine Blood Negative, Urine Nitrate Negative, Urine Bilirubin Negative, Urine Urobilinogen 0.2, Ur Leukocyte Esterase Negative, Urine RBC None, Urine WBC Occasional, Ur Squamous Epith Cells Occasional, Urine Bacteria T
[2022-10-28 11:27] LABS: POC Glucose,Bedside 221 (70-110)
--- NOTE | 2022-10-28 13:58 | P.CONPHA_ITS ---
Pharmacy Intervention Comments: DISCHARGE MEDICATION COUNSELING PROVIDED. DISCUSSED STOPPING THE NIFEDIPINE AND STARTING THE FOLLOWING -DILTIAZEM (FOR HR/BP, DAILY AT BEDTIME, PERIPHERAL EDEMA POSSIBLE, SLOWED HR, LOW BP, DIZZINESS/LIGHTHEADEDNESS POSSIBLE) -ELIQUIS (BLOOD THINNER, TWICE DAILY, WITH OR WITHOUT FOOD, START TOMORROW MOR MICHELE, BLEED/BRUISE RISK, BLEED LOCATION AND APPEARANCE, BUMP HEAD = GO TO ER TO RULE OUT HEAD BLEED) -LEVOTHYROXINE (FOR LOW THYROID, DAILY, TAKE 30-60 MINUTES BEFORE BREAKFAST ON EMPTY STOMACH, TAKE WITH GLASS OF WATER, REMAIN UPRIGHT FOR 30 MINUTES) PATIENT VERBALIZED NO QUESTIONS AT THIS TIME.
--- NOTE | 2022-10-28 14:00 | PC.NURSE ---
All drip titrations and critical care of patient provided by Fidelia Wallis RN was provided under my direct supervision.
--- NOTE | 2022-10-29 10:32 | CARE MANAGER ---
Called and spoke with patient's son regarding recent discharge. He stated that patient was able to picking tech new medication from the pharmacy this morning and has made a f/u appt for next Thursday. No voiced concerns or needs at time of call.
== END 2022-10-28 14:30 | disposition home or self-care (01) ==
LOC: ER 13:56 → 2ND 14:38
PROVIDERS: Admitting Provider Internal Medicine Adolescent Medicine; Emergency Provider Student in an Organized Health Care Education/Training Program; PCP Family Medicine; Visit Provider Internal Medicine Adolescent Medicine
DX: R11.2 Nausea with vomiting, unspecified (principal); I48.91 Unspecified atrial fibrillation; E11.22 Type 2 diabetes mellitus with diabetic chronic kidney disease; I12.9 Hypertensive chronic kidney disease with stage 1 through stage 4 chronic kidney disease, or unspecified chronic kidney disease; N18.4 Chronic kidney disease, stage 4 (severe); J44.9 Chronic obstructive pulmonary disease, unspecified; E78.2 Mixed hyperlipidemia; E03.9 Hypothyroidism, unspecified
CPT/HCPCS: G0378; 36415; 71045; 74176; 80053; 81001; 82962; 83036; 83605; 83690; 83735; 84443; 85025; 87040; 87636; 93005; 93306; 94640; 94760; 94761; 99291

== ENCOUNTER → 2022-12-09 11:55 | Outpatient (CLI) | payer MEDICARE, MEDICAID, SELFPAY ==
[2022-12-09 12:34] LABS: Basophils % 0.2 % (0.1-2.0); Eosinophils # 0.4 K/mm3 (0.0-0.4); Eosinophils % 4.8 % (0.1-12.0); Hematocrit 29.3 % (37.0-47.0); Hemoglobin 8.9 g/dL (12.2-16.2); Lymphocytes # 1.7 K/mm3 (0.7-4.5); Lymphocytes % 22.6 % (10-50); Mean Corpuscular HGB Conc 30.5 g/dL (31.8-35.4); Mean Corpuscular Hemoglobin 26.6 pg (27.0-31.2); Mean Corpuscular Volume 87.4 fl (81-99); Mean Platelet Volume 8.4 fl (7.4-10.4); Monocytes # 0.5 K/mm3 (0.1-1.0); Monocytes % 5.9 % (1.7-9.3); Neutrophils # 5.1 K/mm3 (1.8-7.8); Neutrophils % 66.5 % (37.0-80.0); Platelet Count 421 K/mm3 (142-424); Red Blood Count 3.36 M/mm3 (4.20-5.40); Red Cell Distribution Width 15.8 % (11.5-17.5); White Blood Count 7.7 K/mm3 (4.8-10.8)
[2022-12-09 13:51] LABS: Albumin Level 3.9 g/dl (3.5-5.0); Anion Gap 15.1 mEq/L (5-15); Blood Urea Nitrogen 49 mg/dl (7-17); Calcium 9.4 mg/dl (8.4-10.2); Carbon Dioxide 28 mmol/L (22.0-30.0); Chloride 99 mmol/L (98-107); Estimated Glomerular Filt Rate 14 ml/min (>60); GFR (African American) 17 ML/MIN (>60); Glucose 258 mg/dl (74-100); Phosphorous 4.6 mg/dl (2.5-4.5); Potassium 5.1 mmoL/L (3.5-5.1); Sodium 137 mmol/L (136-145)
[2022-12-09 14:05] LABS: Intact Parathyroid Hormone 103.7 pg/mL (7.5-53.5)
[2022-12-09 14:10] LABS: 25-OH Vitamin D, Total 60.6 ng/mL (30-100)
[2022-12-10 12:44] LABS: Thyroid Stimulating Hormone 2.48 uIU/mL (0.465-4.68)
[2022-12-11 18:19] LABS: Osteocalcin 28.3 ng/mL (.)
[2022-12-13 14:19] LABS: C-Telopeptide Serum 1058 pg/mL (.)
== END ==
PROVIDERS: PCP Family Medicine; Visit Provider Internal Medicine Nephrology
DX: N18.32 Chronic kidney disease, stage 3b (principal); M81.0 Age-related osteoporosis without current pathological fracture; E21.3 Hyperparathyroidism, unspecified; I10 Essential (primary) hypertension
CPT/HCPCS: 36415; 80069; 82306; 82523; 83937; 83970; 84080; 84443; 85025

== ENCOUNTER → 2022-12-25 11:30 | Outpatient (CLI) | payer MEDICARE, MEDICAID, SELFPAY ==
[2022-12-23 18:37] LABS: Basophils % 0.2 % (0.1-2.0); Eosinophils # 0.1 K/mm3 (0.0-0.4); Eosinophils % 0.7 % (0.1-12.0); Hematocrit 29.7 % (37.0-47.0); Hemoglobin 8.8 g/dL (12.2-16.2); Lymphocytes # 0.6 K/mm3 (0.7-4.5); Lymphocytes % 6.9 % (10-50); Mean Corpuscular HGB Conc 29.8 g/dL (31.8-35.4); Mean Corpuscular Hemoglobin 26.7 pg (27.0-31.2); Mean Corpuscular Volume 89.6 fl (81-99); Monocytes # 0.4 K/mm3 (0.1-1.0); Monocytes % 4.3 % (1.7-9.3); Neutrophils # 8.2 K/mm3 (1.8-7.8); Neutrophils % 88.1 % (37.0-80.0); Platelet Count 370 K/mm3 (142-424); Red Blood Count 3.31 M/mm3 (4.20-5.40); Red Cell Distribution Width 16.1 % (11.5-17.5); White Blood Count 9.3 K/mm3 (4.8-10.8)
[2022-12-23 18:41] LABS: MANUAL DIFFERENTIAL MANUAL DIFFERENTIAL (MANUAL DIFF)
[2022-12-23 19:01] LABS: Anion Gap 20.7 mEq/L (5-15); Blood Urea Nitrogen 40 mg/dl (7-17); Calcium 8.6 mg/dl (8.4-10.2); Carbon Dioxide 21 mmol/L (22.0-30.0); Chloride 97 mmol/L (98-107); Estimated Glomerular Filt Rate 17 ml/min (>60); GFR (African American) 20 ML/MIN (>60); Glucose 369 mg/dl (74-100); Potassium 5.7 mmoL/L (3.5-5.1); Sodium 133 mmol/L (136-145)
[2022-12-23 19:07] LABS: NT Pro Brain Natriuretic Pep. 1990 pg/mL (0-450)
[2022-12-23 19:31] LABS: Lymphocytes % 5 % (10-50); Monocytes % 5 % (2-9); Neutrophils % 90 % (42-76); Total Cells Counted 100
[2022-12-23 19:32] LABS: Platelet Estimate Normal; RBC Morphology Normal
== END ==
PROVIDERS: PCP Family Medicine; Visit Provider Family Medicine
DX: I50.9 Heart failure, unspecified (principal); N18.30 Chronic kidney disease, stage 3 unspecified
CPT/HCPCS: 80048; 83880; 85007; 85025

== ENCOUNTER → 2023-03-11 13:00 | Outpatient (CLI) | payer MEDICARE, MEDICAID, SELFPAY ==
--- NOTE | 2023-03-11 13:08 | XR_ITS ---
FINAL REPORT CLINICAL HISTORY: pain near tailbone FINDINGS: Pelvis A single view was obtained. There is no acute fracture or dislocation. There is moderate bilateral joint space narrowing. There are hypertrophic changes at the right acetabular margin. There is sclerosis in the left sacroiliac joint. No soft tissue abnormality is identified. IMPRESSION: Degenerative changes as above. Reviewed, Interpreted and Dictated by Sy Pichardo MD Transcribed by Stormy Godoy Authenticated and [facility]
--- NOTE | 2023-03-11 13:08 | XR_ITS ---
FINAL REPORT CLINICAL HISTORY: congestion COMPARISON: 10/27/2022 FINDINGS: TWO-VIEW CHEST There is mild cardiomegaly. The mediastinum is normal. There are surgical clips in left axilla. There is scarring at the right base. The lungs are otherwise clear. There is no pneumothorax. IMPRESSION: No acute cardiopulmonary process. Reviewed, Interpreted and Dictated by Sy Pichardo MD Transcribed by Stormy Godoy Authenticated and [facility]
== END ==
PROVIDERS: PCP Family Medicine; Visit Provider Family Medicine
DX: J96.10 Chronic respiratory failure, unspecified whether with hypoxia or hypercapnia (principal); N18.4 Chronic kidney disease, stage 4 (severe)
CPT/HCPCS: 71046; 72170

== ENCOUNTER → 2023-03-12 10:43 | Outpatient (CLI) | payer MEDICARE, MEDICAID, SELFPAY ==
[2023-03-12 11:34] LABS: Basophils % 0.5 % (0.1-2.0); Eosinophils # 0.2 K/mm3 (0.0-0.4); Eosinophils % 3.4 % (0.1-12.0); Hematocrit 26.8 % (37.0-47.0); Hemoglobin 8.4 g/dL (12.2-16.2); Lymphocytes # 1.5 K/mm3 (0.7-4.5); Lymphocytes % 21.7 % (10-50); Mean Corpuscular HGB Conc 31.3 g/dL (31.8-35.4); Mean Corpuscular Hemoglobin 25.7 pg (27.0-31.2); Mean Corpuscular Volume 82.1 fl (81-99); Mean Platelet Volume 8.1 fl (7.4-10.4); Monocytes # 0.6 K/mm3 (0.1-1.0); Monocytes % 8.9 % (1.7-9.3); Neutrophils # 4.4 K/mm3 (1.8-7.8); Neutrophils % 65.6 % (37.0-80.0); Platelet Count 483 K/mm3 (142-424); Red Blood Count 3.27 M/mm3 (4.20-5.40); Red Cell Distribution Width 20.4 % (11.5-17.5); White Blood Count 6.7 K/mm3 (4.8-10.8)
[2023-03-12 12:17] LABS: Alanine Aminotransferase 46 U/L (12-78); Albumin Level 3.1 g/dl (3.5-5.0); Albumin/Globulin Ratio 0.8 (1.1-1.8); Alkaline Phosphatase 94 U/L (38-126); Anion Gap 16.6 mEq/L (5-15); Aspartate Amino Transferase 42 U/L (14-36); Bilirubin,Total 0.6 mg/dl (0.2-1.3); Blood Urea Nitrogen 42 mg/dl (7-17); Calcium 8.7 mg/dl (8.4-10.2); Carbon Dioxide 15 mmol/L (22.0-30.0); Chloride 110 mmol/L (98-107); Estimated Glomerular Filt Rate 18 ml/min (>60); GFR (African American) 22 ML/MIN (>60); Glucose 117 mg/dl (74-100); Potassium 5.6 mmoL/L (3.5-5.1); Sodium 136 mmol/L (136-145); Total Protein,Serum 7.1 g/dl (6.3-8.2)
[2023-03-12 12:22] LABS: NT Pro Brain Natriuretic Pep. 2870 pg/mL (0-450)
[2023-03-12 12:43] LABS: Thyroid Stimulating Hormone 7.89 uIU/mL (0.465-4.68)
== END ==
PROVIDERS: PCP Family Medicine; Visit Provider Family Medicine
DX: J96.10 Chronic respiratory failure, unspecified whether with hypoxia or hypercapnia (principal); N18.4 Chronic kidney disease, stage 4 (severe); E46 Unspecified protein-calorie malnutrition; I50.22 Chronic systolic (congestive) heart failure; N17.9 Acute kidney failure, unspecified; Z68.24 Body mass index [BMI] 24.0-24.9, adult
CPT/HCPCS: 36415; 80053; 80162; 83880; 84443; 85025

== ENCOUNTER → 2023-03-25 13:48 | Outpatient (CLI) | payer MEDICARE, MEDICAID, SELFPAY ==
[2023-03-25 14:37] LABS: Basophils % 0.2 % (0.1-2.0); Eosinophils # 0.2 K/mm3 (0.0-0.4); Eosinophils % 2.5 % (0.1-12.0); Hematocrit 26.8 % (37.0-47.0); Hemoglobin 7.8 g/dL (12.2-16.2); Lymphocytes # 1.4 K/mm3 (0.7-4.5); Lymphocytes % 19.8 % (10-50); Mean Corpuscular HGB Conc 29.1 g/dL (31.8-35.4); Mean Corpuscular Hemoglobin 24.8 pg (27.0-31.2); Mean Corpuscular Volume 85.2 fl (81-99); Mean Platelet Volume 8.1 fl (7.4-10.4); Monocytes # 0.3 K/mm3 (0.1-1.0); Monocytes % 4.7 % (1.7-9.3); Neutrophils # 5.1 K/mm3 (1.8-7.8); Neutrophils % 72.8 % (37.0-80.0); Platelet Count 594 K/mm3 (142-424); Red Blood Count 3.15 M/mm3 (4.20-5.40); Red Cell Distribution Width 21.7 % (11.5-17.5); White Blood Count 7.1 K/mm3 (4.8-10.8)
[2023-03-25 14:50] LABS: Albumin Level 2.9 g/dl (3.5-5.0); Chloride 109 mmol/L (98-107); Sodium 134 mmol/L (136-145)
[2023-03-25 14:52] LABS: Blood Urea Nitrogen 53 mg/dl (7-17); Estimated Glomerular Filt Rate 19 ml/min (>60); GFR (African American) 23 ML/MIN (>60); Iron 41 ug/dL (37-170)
[2023-03-25 14:53] LABS: Anion Gap 13.5 mEq/L (5-15); Calcium 8.4 mg/dl (8.4-10.2); Carbon Dioxide 18 mmol/L (22.0-30.0); Glucose 141 mg/dl (74-100)
[2023-03-25 15:02] LABS: Total Iron Binding Capacity 232 ug/dL (265-497)
[2023-03-25 15:19] LABS: Potassium 6.5 mmoL/L (3.5-5.1)
[2023-03-25 15:28] LABS: Ferritin 16.1 ng/ml (11.1-264)
== END ==
PROVIDERS: PCP Family Medicine; Visit Provider Internal Medicine Nephrology
DX: N18.32 Chronic kidney disease, stage 3b (principal)
CPT/HCPCS: 36415; 80069; 82728; 83540; 83550; 85025

== ENCOUNTER 2023-03-25 16:54 | Observation (INO) | payer MEDICARE, SELFPAY ==
[2023-03-25] VITALS (9 sets, daily range): BP systolic 138–144; BP diastolic 52–63; PULSE 59–76; RESP 18–20; TEMP 36.8–36.9; O2SAT 95–100; BMI 25.1; BMI 25.2
--- NOTE | 2023-03-25 17:13 | HMH.EDGENADL ---
Discharge Plan Disposition Patient Disposition: Admitted Chief Complaint: Recheck/Abnormal Lab/Rx Clinical Impressions Clinical Impression: Acute hyperkalemia, CKD (chronic kidney disease) Discharge ED Provider: Venkatesh Ma General Adult HPI General Chief complaint: Recheck/Abnormal Lab/Rx Stated complaint: elevated potassium Time Seen by Provider: 03/25/23 17:00 History of Present Illness HPI narrative: Patient is a 87-year-old female with past medical history of scv-gsbfvgv-wiscpglex diabetes, hypertension, hyperlipidemia, CKD, hypothyroidism, CHF on 2 L nasal cannula at baseline on furosemide 40 mg daily who presents emergency department for evaluation of elevated potassium. Patient follows with Dr. Etienne at the [facility] and was having routine outpatient labs drawn when his office contacted her and instructed her to present to the emergency department for evaluation of her elevated potassium. Per chart review potassium is 6.5 today, CKD is stable. Patient has no acute complaints. Related Data Home Medications Medication Instructions Recorded Confirmed cranberry extract 250 mg capsule 250 mg PO DAILY Supplement 10/09/18 03/11/23 magnesium oxide 125 mg PO DAILY Supplement 01/04/19 03/11/23 psyllium husk 0.52 gram capsule 0.52 gm PO DAILY CONSTIPATION 09/26/20 03/11/23 calcium carbonate 600 mg-vitamin 600 cap PO DAILY Supplement 12/12/21 03/11/23 D3 12.5 mcg (500 unit) capsule (Calcium 600 with Vitamin D3) fluticasone propionate 50 1 spray intranasal DAILY Allergy 10/27/22 03/11/23 mcg/actuation nasal Symptoms spray,suspension triamcinolone acetonide 0.5 % 1 applic topical DAILY Skin 10/27/22 03/11/23 topical ointment Condition Previous Rx's Medication Instructions Recorded bisacodyl 5 mg tablet,delayed 5 mg PO DAILY constipation #30 tabs 01/16/22 release albuterol sulfate 90 mcg/actuation 2 puff inhalation Q4HP PRN 11/05/22 aerosol inhaler Shortness Of Breath Or Wheezing #8.5 grams apixaban 2.5 mg tablet (Eliquis) 2.5 mg PO BID 30 days #180 tabs 11/24/22 guaifenesin 600 mg tablet, 600 mg PO BID 30 days #60 tabs 12/08/22 extended release 12 hr (Mucinex) nystatin 100,000 unit/gram topical 1 applic topical BID #30 grams 12/10/22 cream atorvastatin 40 mg tablet See Rx Instructions .Route 12/15/22 .COMPLEX #90 tabs furosemide 40 mg tablet See Rx Instructions .Route 12/15/22 .COMPLEX #60 tabs hydrocortisone 2.5 % topical cream 1 applic IN BIDP PRN hemorrhoids 01/01/23 with perineal applicator #30 grams (Anusol-HC) glipizide 2.5 mg tablet, extended 2.5 mg PO DAILYDM Diabetes 30 days 01/19/23 release 24 hr #30 tabs ipratropium 0.5 mg-albuterol 3 mg 3 ml inhalation Q4HP PRN Shortness 01/19/23 (2.5 mg base)/3 mL nebulization Of Breath Or Wheezing #180 mL soln omeprazole 20 mg capsule,delayed 20 mg PO DAILY GERD 90 days #90 01/19/23 release caps spironolactone 50 mg tablet 25 mg PO BID Fluid 30 days #60 tabs 01/19/23 levocetirizine 5 mg tablet 5 mg PO DAILY #30 tabs 01/22/23 mupirocin 2 % topical ointment See Rx Instructions .Route 02/10/23 .COMPLEX #22 grams fluticasone 500 mcg-salmeterol 50 See Rx Instructions .Route 03/04/23 mcg/dose blistr powdr for .COMPLEX #60 ea inhalation (Wixela Inhub) digoxin 125 mcg (0.125 mg) tablet 62.5 mcg PO DAILY 30 days #15 tabs 03/12/23 levothyroxine 50 mcg tablet 50 mcg PO DAILY #90 tabs 03/12/23 (Synthroid) diclofenac sodium 1 % topical gel See Rx Instructions .Route 03/16/23 .COMPLEX #100 grams metolazone 5 mg tablet 5 mg PO Q48H Fluid 30 days #15 tabs 03/24/23 montelukast 5 mg chewable tablet 5 mg PO HS Allergy symptoms 90 03/24/23 days #90 tabs Allergies Allergy/AdvReac Type Severity Reaction Status Date / Time Penicillins [PENICILLINS] Allergy Severe S-SWELLS-OR Verified 03/11/23 10:34 AL/THROAT codeine [CODEINE] Allergy Unknown NA-DIARRHEA Verified 03/11/23 10:34 PFS PFS Disclaimer: The information co
--- NOTE | 2023-03-25 17:21 | ECG_ITS ---
APPROVED REPORT Exam: Resting ECG HR:67 bpm ECG Measurements Heart Rate 67 AXES QRSd 75 QRS -12 QT 332 T -30 QTc 348 Conclusion SUPRAVENTRICULAR RHYTHM LOW QRS VOLTAGE IN PRECORDIAL LEADS [QRS DEFLECTION < 1.0 mV IN CHEST LEADS] VOLTAGE CRITERIA FOR LVH [MEETS CRITERIA IN ONE OF: R(aVL), S(V1), R(V5), R(V5/V6)+S(V1)] ANTERIOR MYOCARDIAL INFARCTION , PROBABLY OLD [40+ ms Q WAVE AND/OR ST/T ABNORMALITY IN V3/V4] INFERIOR MYOCARDIAL INFARCTION , OF INDETERMINATE AGE [40+ ms Q WAVE AND/OR ST/T ABNORMALITY IN II/aVF] ABNORMAL ECG UNCONFIRMED REPORT Electronically signed by : Danny Cristobal MD 03/27/2023 16:37:20
[2023-03-25 17:47] LABS: Basophils % 0.2 % (0.1-2.0); Eosinophils # 0.1 K/mm3 (0.0-0.4); Eosinophils % 1.9 % (0.1-12.0); Hematocrit 25.6 % (37.0-47.0); Hemoglobin 7.6 g/dL (12.2-16.2); Lymphocytes # 1.4 K/mm3 (0.7-4.5); Lymphocytes % 21.9 % (10-50); Mean Corpuscular HGB Conc 29.8 g/dL (31.8-35.4); Mean Corpuscular Hemoglobin 25.1 pg (27.0-31.2); Mean Corpuscular Volume 84.4 fl (81-99); Mean Platelet Volume 8.5 fl (7.4-10.4); Monocytes # 0.3 K/mm3 (0.1-1.0); Monocytes % 4.6 % (1.7-9.3); Neutrophils # 4.7 K/mm3 (1.8-7.8); Neutrophils % 71.4 % (37.0-80.0); Platelet Count 559 K/mm3 (142-424); Red Blood Count 3.04 M/mm3 (4.20-5.40); Red Cell Distribution Width 21.4 % (11.5-17.5); White Blood Count 6.6 K/mm3 (4.8-10.8)
[2023-03-25 17:49] LABS: Chloride 107 mmol/L (98-107); Sodium 133 mmol/L (136-145)
[2023-03-25 17:52] LABS: Alanine Aminotransferase 37 U/L (12-78); Albumin Level 3.2 g/dl (3.5-5.0); Albumin/Globulin Ratio 0.7 (1.1-1.8); Alkaline Phosphatase 124 U/L (38-126); Anion Gap 12.1 mEq/L (5-15); Aspartate Amino Transferase 41 U/L (14-36); Bilirubin,Total 0.5 mg/dl (0.2-1.3); Blood Urea Nitrogen 53 mg/dl (7-17); Carbon Dioxide 20 mmol/L (22.0-30.0); Creatinine Clearance Estimated 18 mL/min (50-200); Estimated Glomerular Filt Rate 19 ml/min (>60); GFR (African American) 23 ML/MIN (>60); Globulin 4.4 g/dL (1.3-3.2); Total Protein,Serum 7.6 g/dl (6.3-8.2)
[2023-03-25 17:53] LABS: Calcium 8.3 mg/dl (8.4-10.2); Glucose 151 mg/dl (74-100)
[2023-03-25 17:54] LABS: Potassium 6.1 mmoL/L (3.5-5.1)
--- NOTE | 2023-03-25 18:04 | PC.NURSE ---
called [facility] per Dr Ma. to speak with vp communications medical doctor about this pt
--- NOTE | 2023-03-25 18:47 | PC.NURSE ---
speaking with at this time
--- NOTE | 2023-03-25 19:45 | PC.NURSE ---
notified editor house organ of admission
--- NOTE | 2023-03-25 19:50 | PC.NURSE ---
Addendum entered by Ana Zarate RN 03/25/23 20:15: CORRECTION DX HYPERKALEMIA. Original Note: OBSERVATION ADMISSION TO 213 WITH DX OF HYPOKALEMIA TO SERVICE OF THE HOSPITALIST.
--- NOTE | 2023-03-25 19:52 | EXP.HP ---
History of Present Illness *Admission Date: 03/25/23 *Reason for visit:: hyperkalemia *History of present illness: This is a 87-year-old female with past medical history of tjy-copnvap-wvevxwxvy diabetes, hypertension, hyperlipidemia, CKD, hypothyroidism, CHF on 2 L nasal cannula at baseline on furosemide 40 mg daily who presents emergency department for evaluation of elevated potassium. Patient follows with Dr. Etienne at the [facility] and was having routine outpatient labs drawn when his office contacted her and instructed her to present to the emergency department for evaluation of her elevated potassium. Per chart review potassium is 6.5 today, CKD is stable. Patient has no acute complaints. Admitted for treatment and management. [facility] Disclaimer: The information contained in this section may have been updated after the patient was seen, as this information can be updated by other users. Medical History (Updated 03/26/23 @ 02:39 by Rober Velasco APRN) Acute kidney injury (nontraumatic) ELINOR (acute kidney injury) Anasarca ARF (acute renal failure) Asthma exacerbation Blood loss anemia Brain benign neoplasm CHF (congestive heart failure) CHF exacerbation Chronic respiratory failure CKD (chronic kidney disease) stage 3, GFR 30-59 ml/min Cyst of left ovary Dependent edema Diabetes Diabetic foot Edema of lower extremity GERD (gastroesophageal reflux disease) Hyperlipidemia Hypertension Hypoalbuminemia due to protein-calorie malnutrition Hypokalemia Lower GI bleed Lung collapse MRSA pneumonia New onset atrial fibrillation Onychodystrophy Respiratory failure with hypoxia Sacral decubitus ulcer Surgical History History of mastectomy Family History Father Heart attack Social History (Updated 03/25/23 @ 21:45 by Maribeth Gonzalez RN) Smoking Status: Never smoker alcohol intake: never current occupational status: retired and disabled Travel in the last 8 weeks: None household members: spouse housing: house caffeine: No Review of Systems Review of Systems Review of systems:: pertinent systems reviewed and negative unless documented below Meds Home Medications and Allergies Home Medications Medication Instructions Recorded Confirmed Type cranberry extract 250 mg capsule 250 mg PO DAILY Supplement 10/09/18 03/11/23 History magnesium oxide 125 mg PO DAILY Supplement 01/04/19 03/11/23 History psyllium husk 0.52 gram capsule 0.52 gm PO DAILY CONSTIPATION 09/26/20 03/11/23 History calcium carbonate 600 mg-vitamin 600 cap PO DAILY Supplement 12/12/21 03/11/23 History D3 12.5 mcg (500 unit) capsule (Calcium 600 with Vitamin D3) bisacodyl 5 mg tablet,delayed 5 mg PO DAILY constipation #30 tabs 01/16/22 03/11/23 Rx release fluticasone propionate 50 1 spray intranasal DAILY Allergy 10/27/22 03/11/23 History mcg/actuation nasal Symptoms spray,suspension triamcinolone acetonide 0.5 % 1 applic topical DAILY Skin 10/27/22 03/11/23 History topical ointment Condition albuterol sulfate 90 mcg/actuation 2 puff inhalation Q4HP PRN 11/05/22 03/11/23 Rx aerosol inhaler Shortness Of Breath Or Wheezing #8.5 grams apixaban 2.5 mg tablet (Eliquis) 2.5 mg PO BID 30 days #180 tabs 11/24/22 03/11/23 Rx guaifenesin 600 mg tablet, 600 mg PO BID 30 days #60 tabs 12/08/22 03/11/23 Rx extended release 12 hr (Mucinex) nystatin 100,000 unit/gram topical 1 applic topical BID #30 grams 12/10/22 03/11/23 Rx cream atorvastatin 40 mg tablet See Rx Instructions .Route 12/15/22 03/11/23 Rx .COMPLEX #90 tabs furosemide 40 mg tablet See Rx Instructions .Route 12/15/22 03/11/23 Rx .COMPLEX #60 tabs hydrocortisone 2.5 % topical cream 1 applic [place] BIDP PRN hemorrhoids 01/01/23 03/11/23 Rx with perineal applicator #30 grams (Anusol-HC) glipizide 2.5 mg tablet, extended 2.5 mg PO
--- NOTE | 2023-03-25 20:49 | PC.NURSE ---
Patient transferred to unit from ED via bed. Patient alert and orient X4. Denies pain. No SOB voiced. Patient is on 2L per NC, which is patients baseline. Bit Grinder oriented patient to room, educated patient seasonal sales associate light and bed controller with a voice of understanding. Caregiver present at time of arrival. Patient is very pleasant and cooperative. Bed in lowest position with call in reach.
--- NOTE | 2023-03-25 20:57 | PC.NURSE ---
pt arrived to the floor @20:49
[2023-03-26 00:03] LABS: POC Glucose,Bedside 91 (70-110)
[2023-03-26 04:00] VITALS: BP 113/44; PULSE 75; RESP 17; TEMP 36.7; O2SAT 97; BMI 25.2
[2023-03-26 06:49] LABS: Basophils % 0.2 % (0.1-2.0); Eosinophils # 0.2 K/mm3 (0.0-0.4); Eosinophils % 2.4 % (0.1-12.0); Hemoglobin 7.6 g/dL (12.2-16.2); Lymphocytes # 1.5 K/mm3 (0.7-4.5); Lymphocytes % 25.1 % (10-50); Mean Corpuscular HGB Conc 30.3 g/dL (31.8-35.4); Mean Corpuscular Hemoglobin 25.2 pg (27.0-31.2); Mean Corpuscular Volume 83.2 fl (81-99); Mean Platelet Volume 8.5 fl (7.4-10.4); Monocytes # 0.3 K/mm3 (0.1-1.0); Monocytes % 5.1 % (1.7-9.3); Neutrophils % 67.1 % (37.0-80.0); Platelet Count 546 K/mm3 (142-424); Red Blood Count 3.01 M/mm3 (4.20-5.40); Red Cell Distribution Width 21.5 % (11.5-17.5)
[2023-03-26 06:57] LABS: Alanine Aminotransferase 29 U/L (12-78); Albumin Level 2.6 g/dl (3.5-5.0); Albumin/Globulin Ratio 0.7 (1.1-1.8); Alkaline Phosphatase 106 U/L (38-126); Anion Gap 7.8 mEq/L (5-15); Aspartate Amino Transferase 29 U/L (14-36); Bilirubin,Total 0.4 mg/dl (0.2-1.3); Blood Urea Nitrogen 49 mg/dl (7-17); Calcium 7.9 mg/dl (8.4-10.2); Carbon Dioxide 23 mmol/L (22.0-30.0); Chloride 108 mmol/L (98-107); Creatinine Clearance Estimated 18 mL/min (50-200); Estimated Glomerular Filt Rate 20 ml/min (>60); GFR (African American) 24 ML/MIN (>60); Glucose 72 mg/dl (74-100); Magnesium 2.7 mg/dl (1.6-2.3); Potassium 4.8 mmoL/L (3.5-5.1); Sodium 134 mmol/L (136-145); Total Protein,Serum 6.6 g/dl (6.3-8.2)
[2023-03-26 07:20] LABS: POC Glucose,Bedside 74 (70-110)
[2023-03-26 07:49] VITALS: BP 114/49; PULSE 90; RESP 18; TEMP 37.2; O2SAT 97
--- NOTE | 2023-03-26 08:25 | HMH.PHAINT1 ---
Pharmacy Intervention Comments: Med reconciliation completed using external fill history, patient interview, and physician notes. She states that she does not use the nystatin and triamcinolone from the last office visit note. There was a note on the levothyroxine which said 50 mcg on odd number days and 100 mcg on even number days, but the last office visit note and the external fill history both suggest 50 mcg daily. She states that she gets bisacodyl, a fiber supplement, mucinex, calcium+D3 over the counter.
[2023-03-26 10:49] LABS: POC Glucose,Bedside 146 (70-110)
--- NOTE | 2023-03-26 11:39 | EXP.DC.SUM ---
General Admission date:: 03/25/23 Discharge date: 03/26/23 HPI HPI HPI: This is a 87-year-old female with past medical history of ptr-vgvdwvz-lhirulydf diabetes, hypertension, hyperlipidemia, CKD, hypothyroidism, CHF on 2 L nasal cannula at baseline on furosemide 40 mg daily who presents emergency department for evaluation of elevated potassium. Patient follows with Dr. Etienne at the [facility] and was having routine outpatient labs drawn when his office contacted her and instructed her to present to the emergency department for evaluation of her elevated potassium. Per chart review potassium is 6.5 today, CKD is stable. Patient has no acute complaints. Admitted for treatment and management. Hospital Course Hospital Course Hospital Course: Patient was seen and evaluated at the bedside on the day of discharge. Patient is stable for discharge. Patient wishes to be discharged. All patient questions were answered and patient was given time to ask questions. Patient was discharged in stable condition. 87-year-old female with past medical history of ieg-cgqxgwj-xgzhasweo diabetes, hypertension, hyperlipidemia, CKD, hypothyroidism, CHF on 2 L nasal cannula at baseline on furosemide 40 mg daily who presents emergency department for evaluation of elevated potassium. patient asymptomatic on arrival. ER work up confirmed elevated K+. DIscussion made with Physician Credentialing Specialist at for interconsult and management. Their recommendations are 10 g of Lokelma 3 times daily for 48 hours, redosing insulin and dextrose as needed during that time, low potassium diet, holding oral potassium supplementation, hold KASANDRA inhibitors or angiotensin receptor blockers, holding spironolactone, trial of IV Lasix 40 mg. It is felt that the Lasix is reasonable given that patient is chronically overloaded volume saucedo and has acceptable blood pressures with stable CKD. Lasix, and lokelma given at ER. admitted for further treatment. Plan as follow: Acute hypekalemia; -improved, f/u with your portfolio manager as OP -Edema of lower extremity Chronic: patient had Hx of chronically overload. Lasix ALANA daily monitor for renal output routine I/Os The rest of the chronic conditions: Conditions reviewed. Seem stable. resumed home regime on 2L NC. monitor O2 sat SSL before meals . Accucheck on syntroid statin and aspirin on eliquis Exam Data for Last 24 hours Vital signs and Labs for Last 24 Hours: Temp Pulse Resp BP Pulse Ox O2 Del Method O2 Flow Rate 99.0 F 90 18 114/49 L 97 Nasal Cannula 2 03/26/23 07:49 03/26/23 07:49 03/26/23 07:49 03/26/23 07:49 03/26/23 07:49 03/26/23 11:00 03/26/23 11:00 Laboratory Results - last 24 hr 03/25/23 17:35: WBC 6.6, RBC 3.04 L, Hgb 7.6 L, Hct 25.6 L, MCV 84.4, MCH 25.1 L, MCHC 29.8 L, RDW 21.4 H, Plt Count 559 H, MPV 8.5, Neut % (Auto) 71.4, Lymph % (Auto) 21.9, [place] % (Auto) 4.6, Eos % (Auto) 1.9, Baso % (Auto) 0.2, Neut # (Auto) 4.7, Lymph # (Auto) 1.4, [place] # (Auto) 0.3, Eos # (Auto) 0.1, Baso # (Auto) 0.0, Sodium 133 L, Potassium 6.1 H*, Chloride 107, Carbon Dioxide 20 L, Anion Gap 12.1, BUN 53 H, Creatinine 2.40 H, Estimated Creat Clear 18, Estimated GFR 19 L*, Est GFR ( Amer) 23 L, Glucose 151 H, Calcium 8.3 L, Total Bilirubin 0.5, AST 41 H, ALT 37, Alkaline Phosphatase 124, Total Protein 7.6, Albumin 3.2 L D, Globulin 4.4 H, Albumin/Globulin Ratio 0.7 L 03/25/23 23:49: POC Glucose 91 03/26/23 06:18: WBC 6.0, RBC 3.01 L, Hgb 7.6 L, Hct 25.0 L, MCV 83.2, MCH 25.2 L, MCHC 30.3 L, RDW 21.5 H, Plt Count 546 H, MPV 8.5, Neut % (Auto) 67.1, Lymph % (Auto) 25.1, [place] % (Auto) 5.1, Eos % (Auto) 2.4, Baso % (Auto) 0.2, Neut # (Auto) 4.0, Lymph # (Auto) 1.5, [place] # (Auto) 0.3, Eos # (Auto) 0.2, Baso # (Auto) 0.0, Sodium 134 L, Potassium 4.8 D, Chloride 108 H, Carbon Dioxide 23, Anion Gap 7.8, BUN 49 H, Creatinine 2.30 H, Estimated Creat Clear 18, Estimated GFR 20 L, Est GFR ( Amer) 24 L, Glucose 72 L D, Calci
--- NOTE | 2023-03-26 13:46 | SW/DCPLANNER ---
Addendum entered by Kathrine Goodrich 03/26/23 15:39: Yasmin w/ [facility] stated that services will begin tomorrow for this patient. Original Note: I spoke w/ patient's son regarding plans once medically stable for discharge. PT/OT evaluated patient and recommended returning home w/ home health services. Patient's son stated that patient resides at home w/ her and sitter's at home. Son is agreeable to home health services at this time. Patient has used [facility] in the past. Patient information/order will be faxed to [facility]. Patient will discharge home today.
--- NOTE | 2023-03-26 13:49 | HMH.OTEV ---
OT Inpatient Evaluation Rehab OT IP Evaluation Start: 03/26/23 10:50 Freq: ONCE Status: Discharge Protocol: [facility]23 [facility] (Rec: 03/26/23 13:48 [facility] [id number]) Rehab OT IP Assessment Subjective History Pt oriented x 3 on arrival. Pt agreeable to engage in therapy evaluation. Pt admitted on 03/25/23 due to hyperkalemia. This is a 87-year-old female with past medical history of ehr-acxjpsy-dkkxorurp diabetes , hypertension, hyperlipidemia , CKD, hypothyroidism, CHF on 2 L nasal cannula at baseline on furosemide 40 mg daily who presents emergency department for evaluation of elevated potassium. Patient follows with Dr. Etienne at the [facility] and was having routine outpatient labs drawn when his office contacted her and instructed her to present to the emergency department for evaluation of her elevated potassium. Per chart review potassium is 6.5 today, CKD is stable. Patient has no acute complaints. Admitted for treatment and management. Prior to being in the hospital , pt lived at home with her . Normally pt has a caregiver come to the house daily to assist her with ADL such as dressing and bathing. She is able to feed herself. She is dependent upon family for completion of all IADLs. SHe does use a walker during functional transfers. At baseline she is able to complete stand pivot transfers independently. Subjective I am ready to go now. Objective Patient Orientation Person,Place,Birthday Right Upper Extremity Gross ROM WFL Left Upper Extremity Gross ROM WFL Chair Transfer Ability Contact Guard/Hand Hold
--- NOTE | 2023-03-26 14:13 | HMH.PTEV ---
Physical Therapy Evaluation Rehab PT IP Evaluation Start: 03/26/23 10:50 Freq: ONCE Status: Discharge Protocol: Document 03/26/23 14:07 [facility] (Rec: 03/26/23 14:13 [facility] [id number]) Subjective/History History History Patient is an 87 year old female admitted to [facility] secondary to hyperkalemia. Patient currently lives at home with , where she has a caregiver to come daily and assist with ADL's/IADL's and household duties. Previously ambulatory with [facility]. Subjective Subjective I'm ready to go home. New diagnosis of cancer in past 12 No months? Rehab PT IP Eval Objective Appearance Patient Behavior Appropriate,Cooperative Patient Orientation Person,Place,Birthday Difficulty following instructions none Speech Pattern Clear,Appropriate Ambulation Patient Able to Ambulate Yes Ambulation Observation IP General Gait Pattern Observation Wide Based Gait Ambulation Distance (feet) 6 Ambulation Assistive Device Rolling Walker Ambulation Ability Contact Guard/Hand Hold Balance Ability to Arise Able, uses arms to help Sitting Balance Steady, safe Standing Balance Steady, wide stance Dynamic Sitting Balance Ability Normal Dynamic Standing Balance Ability Good Transfers Sit to Stand Chair Transfer Ability Contact Guard/Hand Hold ROM All Extremities PT ROM Status WFL MMT All Extremities PT MMT WFL Rehab PT IP prob,goals,plan Problems Date of Evaluation: 03/26/23 Discharge Plan PT Discharge Plan Patient has already been set to DC to home under care of and caregiver. Eval Complexity Eval Charge Codes 60482 - High Complexity PHYSICIAN CERTIFICATION: I certify the specified therapy services for Filomena Curtis are required, authorized, and reviewed every 30 days.
--- NOTE | 2023-03-27 12:53 | CARE MANAGER ---
Spoke with patient's son related to patient discharge from hospital. He states she is doing well and they are aware of follow up appointment. Deny any questions or concerns. [facility] Resendiz
== END 2023-03-26 13:45 | disposition home health service (06) ==
LOC: ER 16:59 → 2ND 19:55
PROVIDERS: Nurse Practitioner Family; Admitting Provider Internal Medicine; Emergency Provider Emergency Medicine; PCP Family Medicine; Visit Provider Internal Medicine
DX: I13.0 Hypertensive heart and chronic kidney disease with heart failure and stage 1 through stage 4 chronic kidney disease, or unspecified chronic kidney disease; E87.5 Hyperkalemia; N18.4 Chronic kidney disease, stage 4 (severe); I50.9 Heart failure, unspecified; J96.11 Chronic respiratory failure with hypoxia; E78.2 Mixed hyperlipidemia; E03.9 Hypothyroidism, unspecified; E11.22 Type 2 diabetes mellitus with diabetic chronic kidney disease; Z79.899 Other long term (current) drug therapy; Z79.01 Long term (current) use of anticoagulants; R60.0 Localized edema; Z79.4 Long term (current) use of insulin
CPT/HCPCS: 36415; 80053; 80069; 82728; 82962; 83540; 83550; 83735; 85025; 93005; 97163; 97166; 99291; G0378

== ENCOUNTER → 2023-03-27 16:59 | Outpatient (CLI) | payer MEDICARE, SELFPAY ==
[2023-03-27 17:17] LABS: Microscopic, Urine URINE MICROSCOPIC (MICROSCOPIC)
[2023-03-27 17:22] LABS: Appearance,Urine CLEAR (Clear); Bilirubin,Urine Negative (Negative); Blood, Urine Negative (Negative); Color,Urine YELLOW (Yellow); Glucose,Urine (UA) Negative (Negative); Ketones,Urine Negative (Negative); Leukocyte Esterase,Urine TRACE (Negative); Nitrate,Urine Negative (Negative); PH,Urine 5.5 (5.0-8.5); Protein,Urine Negative (Negative); Urobilinogen,Urine 0.2 EU/dl (0.2)
[2023-03-27 18:11] LABS: Bacteria,Urine Trace /lpf; Squamous Epithelial Cell,Urine Occasional #/hpf (0-5)
== END ==
PROVIDERS: PCP Family Medicine; Visit Provider Family Medicine
DX: R41.0 Disorientation, unspecified (principal); B96.1 Klebsiella pneumoniae [K. pneumoniae] as the cause of diseases classified elsewhere
CPT/HCPCS: 81001; 87086

== ENCOUNTER → 2023-04-02 16:07 | Outpatient (CLI) | payer MEDICARE, SELFPAY ==
[2023-04-02 17:04] LABS: Chloride 108 mmol/L (98-107); Sodium 134 mmol/L (136-145)
[2023-04-02 17:05] LABS: Basophils % 0.4 % (0.1-2.0); Eosinophils # 0.1 K/mm3 (0.0-0.4); Eosinophils % 2.1 % (0.1-12.0); Hematocrit 24.2 % (37.0-47.0); Hemoglobin 7.3 g/dL (12.2-16.2); Lymphocytes # 1.8 K/mm3 (0.7-4.5); Lymphocytes % 26.3 % (10-50); Mean Corpuscular HGB Conc 30.3 g/dL (31.8-35.4); Mean Corpuscular Hemoglobin 25.5 pg (27.0-31.2); Mean Corpuscular Volume 84.2 fl (81-99); Mean Platelet Volume 8.5 fl (7.4-10.4); Monocytes # 0.5 K/mm3 (0.1-1.0); Monocytes % 7.3 % (1.7-9.3); Neutrophils # 4.3 K/mm3 (1.8-7.8); Neutrophils % 63.9 % (37.0-80.0); Platelet Count 559 K/mm3 (142-424); Red Blood Count 2.87 M/mm3 (4.20-5.40); White Blood Count 6.7 K/mm3 (4.8-10.8)
[2023-04-02 17:06] LABS: Alanine Aminotransferase 35 U/L (12-78); Alkaline Phosphatase 106 U/L (38-126); Aspartate Amino Transferase 41 U/L (14-36); Bilirubin,Total 0.5 mg/dl (0.2-1.3); Blood Urea Nitrogen 52 mg/dl (7-17); Estimated Glomerular Filt Rate 17 ml/min (>60); GFR (African American) 21 ML/MIN (>60)
[2023-04-02 17:07] LABS: Albumin/Globulin Ratio 0.7 (1.1-1.8); Calcium 8.2 mg/dl (8.4-10.2); Carbon Dioxide 22 mmol/L (22.0-30.0); Globulin 4.3 g/dL (1.3-3.2); Glucose 119 mg/dl (74-100); Total Protein,Serum 7.3 g/dl (6.3-8.2)
[2023-04-02 17:39] LABS: Anion Gap 9.9 mEq/L (5-15); Potassium 5.9 mmoL/L (3.5-5.1)
== END ==
PROVIDERS: PCP Family Medicine; Visit Provider Family Medicine
DX: N18.30 Chronic kidney disease, stage 3 unspecified (principal); E87.5 Hyperkalemia; I50.9 Heart failure, unspecified
CPT/HCPCS: 80053; 80162; 85025

== ENCOUNTER 2023-04-30 09:49 | Inpatient (IN) | payer MEDICARE, SELFPAY ==
[2023-04-30] VITALS (13 sets, daily range): BP systolic 106–128; BP diastolic 40–79; PULSE 62–90; RESP 15–20; TEMP 36.7–37.7; O2SAT 91–97; BMI 25.7; BMI 29.2
--- NOTE | 2023-04-30 09:44 | ECG_ITS ---
APPROVED REPORT Exam: Resting ECG HR:67 bpm ECG Measurements Heart Rate 67 AXES QRSd 77 QRS 7 QT 338 T -60 QTc 354 Conclusion SUPRAVENTRICULAR RHYTHM LOW QRS VOLTAGE IN PRECORDIAL LEADS [QRS DEFLECTION < 1.0 mV IN CHEST LEADS] NONSPECIFIC ST & T-WAVE ABNORMALITY ABNORMAL ECG UNCONFIRMED REPORT Electronically signed by : Danny Cristobal MD 04/30/2023 20:31:11
--- NOTE | 2023-04-30 09:57 | PC.NURSE ---
Dr. Ma at [facility] for pt eval
[2023-04-30 09:59] LABS: Basophils % 0.2 % (0.1-2.0); Eosinophils % 0.1 % (0.1-12.0); Hematocrit 25.6 % (37.0-47.0); Hemoglobin 7.3 g/dL (12.2-16.2); Lymphocytes # 1.9 K/mm3 (0.7-4.5); Lymphocytes % 11.7 % (10-50); Mean Corpuscular HGB Conc 28.5 g/dL (31.8-35.4); Mean Corpuscular Hemoglobin 27.2 pg (27.0-31.2); Mean Corpuscular Volume 95.4 fl (81-99); Mean Platelet Volume 8.1 fl (7.4-10.4); Monocytes # 0.6 K/mm3 (0.1-1.0); Monocytes % 3.7 % (1.7-9.3); Neutrophils # 13.7 K/mm3 (1.8-7.8); Neutrophils % 84.3 % (37.0-80.0); Platelet Count 509 K/mm3 (142-424); Red Blood Count 2.68 M/mm3 (4.20-5.40); White Blood Count 16.2 K/mm3 (4.8-10.8)
--- NOTE | 2023-04-30 10:01 | XR_ITS ---
FINAL REPORT CLINICAL HISTORY: fall FINDINGS: Left tibia fibula Two views were obtained. There is no acute fracture or dislocation. There is severe medial compartment degenerative change of the knee. No soft tissue abnormality is identified. IMPRESSION: No acute process. Reviewed, Interpreted and Dictated by Leland Anderson III, MD Transcribed by Stormy Godoy Authenticated and [facility]
--- NOTE | 2023-04-30 10:01 | XR_ITS ---
FINAL REPORT CLINICAL HISTORY: fall FINDINGS: Right tibia fibula Two views were obtained. There is no acute fracture or dislocation. There are mild degenerative changes of the knee. No soft tissue abnormality is identified. IMPRESSION: No acute process. Reviewed, Interpreted and Dictated by Leland Anderson III, MD Transcribed by Stormy Godoy Authenticated and [facility]
--- NOTE | 2023-04-30 10:01 | CT_ITS ---
FINAL REPORT TECHNIQUE: Axial imaging of the lumbar spine was obtained without contrast. Sagittal and coronal reformatted images were also obtained and reviewed. This study was performed with techniques to keep radiation doses as low as reasonably achievable (ALARA). Individualized dose reduction techniques using automated exposure control or adjustment of mA and/or kV according to the patient's size were employed. CLINICAL HISTORY: fall FINDINGS: There is a moderate T12 compression fracture of uncertain age. No lumbar spine fracture is identified. The bones are osteopenic. There are mild degenerative changes. Vascular calcification is identified. There is mild anterolisthesis of L3 on 4 and L4 on 5. There is a 3 mm nonobstructing right renal stone. IMPRESSION: Moderate T12 compression fracture of uncertain age, favor chronic but could be further evaluated with MRI. Degenerative changes as detailed above. Reviewed, Interpreted and Dictated by Leland Anderson III, MD Transcribed by Stormy Godoy Authenticated and [facility]
--- NOTE | 2023-04-30 10:01 | XR_ITS ---
FINAL REPORT CLINICAL HISTORY: fall FINDINGS: Pelvis A single view was obtained. There is no acute fracture or dislocation. There are mild degenerative changes. No soft tissue abnormality is identified. IMPRESSION: No acute process. Reviewed, Interpreted and Dictated by Leland Anderson III, MD Transcribed by Stormy Godoy Authenticated and [facility]
--- NOTE | 2023-04-30 10:01 | CT_ITS ---
FINAL REPORT TECHNIQUE: Axial images through the pelvis were performed by computed tomography. Sagittal and coronal reformatted images were obtained and reviewed. This study was performed with techniques to keep radiation doses as low as reasonably achievable (ALARA). Individualized dose reduction techniques using automated exposure control or adjustment of mA and/or kV according to the patient's size were employed. CLINICAL HISTORY: fall FINDINGS: There are chronic fractures of the right superior and inferior pubic rami. No acute fracture is identified. Mild degenerative changes are present. The musculature is intact. IMPRESSION: No acute bony abnormality. Reviewed, Interpreted and Dictated by Leland Anderson III, MD Transcribed by Stormy Godoy Authenticated and [facility]
--- NOTE | 2023-04-30 10:02 | XR_ITS ---
FINAL REPORT CLINICAL HISTORY: cough COMPARISON: 03/11/2023 FINDINGS: SINGLE-VIEW CHEST The heart size is normal. The mediastinum is normal. There is mild atelectasis or scar in the right lung base. There are postoperative changes in the left axilla. There is no pneumothorax. IMPRESSION: Right lung base atelectasis or scar. Reviewed, Interpreted and Dictated by Leland Anderson III, MD Transcribed by Stormy Godoy Authenticated and [facility]
--- NOTE | 2023-04-30 10:02 | HMH.EDGENADL ---
Discharge Plan Disposition Patient Disposition: Admitted Chief Complaint: Abdominal Pain Prescriptions Prescriptions: No Action bisacodyl 5 mg tablet,delayed release (DR/EC) 5 mg PO DAILY Qty: 30 0RF nifedipine 30 mg tablet extended release 24hr 30 mg PO DAILY azelastine 0.05 % drops 1 drp ophthalmic (eye) BID triamcinolone acetonide 0.5 % ointment 1 applic topical BID hydrocortisone [Procto-Med HC] 2.5 % cream with perineal applicator 1 applic AZ QD-BID PRN polyethylene glycol 3350 [Miralax] 17 gram/dose powder 17 g PO DAILY acetaminophen 500 mg capsule 500 mg PO Q6H PRN tiotropium bromide [Spiriva with HandiHaler] 18 mcg capsule, w/inhalation device 1 cap inhalation DAILY Rx Instructions: puncture 1 cap using device; one dose = 2 inhalations calcium carbonate-vitamin D3 [Calcium 600 with Vitamin D3] 600 mg-12.5 mcg (500 unit) capsule 600 cap PO DAILY albuterol sulfate 90 mcg/actuation HFA aerosol inhaler 2 puff IH Q4HP PRN (Reason: Shortness Of Breath Or Wheezing) Qty: 8.5 2RF guaifenesin [Mucinex] 600 mg tablet extended release 12hr 600 mg PO BID 30 Days Qty: 60 2RF montelukast 5 mg tablet,chewable 5 mg PO HS 90 Days Qty: 90 0RF cranberry extract 250 mg capsule 250 mg PO DAILY Qty: 30 0RF Rx Instructions: administer with a meal magnesium oxide 250 mg magnesium tablet 250 mg PO DAILY Qty: 30 0RF cholecalciferol (vitamin D3) 25 mcg (1,000 unit) capsule 25 mcg PO DAILY Qty: 30 0RF Prolia 60 mg/mL syringe 60 mg SQ [id number] Qty: 1 2RF phytonadione (vitamin K1) 100 mcg tablet 100 mcg PO DAILY Qty: 30 0RF sulfamethoxazole-trimethoprim 800-160 mg tablet 1 tab PO BID Qty: 20 0RF ipratropium-albuterol 0.5 mg-3 mg(2.5 mg base)/3 mL solution for nebulization 3 ml inhalation Q4HP PRN (Reason: Shortness Of Breath Or Wheezing) Qty: 180 2RF ferrous sulfate 325 mg (65 mg iron) tablet 325 mg PO DAILY Qty: 30 0RF levocetirizine [Xyzal] 5 mg tablet 5 mg PO DAILY Qty: 30 2RF glipizide 2.5 mg tablet extended release 24hr 2.5 mg PO DAILYDM 30 Days Qty: 30 2RF omeprazole 20 mg capsule,delayed release(DR/EC) 20 mg PO DAILY 90 Days Qty: 90 0RF levothyroxine [Synthroid] 50 mcg tablet 50 mcg PO DAILY 30 Days Qty: 48 2RF Rx Instructions: (2) tablets 4 days a week and (1) tablet 3 days a week psyllium husk 0.52 GM capsule 0.52 gm PO DAILY fluticasone propionate 50 mcg/actuation spray,suspension 1 spray intranasal DAILY atorvastatin 40 mg tablet 40 mg PO DAILY Rx Instructions: TAKE 1 TABLET BY MOUTH AT BEDTIME NIGHTLY FOR CHOLESTEROL FOR 90 DAYS fluticasone propion-salmeterol [Wixela Inhub] 500-50 mcg/dose blister with device 1 inh inhalation BID Rx Instructions: INHALE 1 PUFF BY MOUTH TWICE DAILY diclofenac sodium 1 % gel 2 g topical QID PRN (Reason: Pain) Rx Instructions: 2 GIVE TOPICALLY FOUR TIMES A DAY FOR PAIN FOR 30 DAYS; APPLY TO SINGLE ELBOW, WRIST OR HAND; FOR HAND INCLUDES PALM/FINGERS/BACK OF HAND Eliquis 2.5 mg tablet 2.5 mg PO BID digoxin 125 mcg (0.125 mg) tablet 125 mcg PO DAILY Clinical Impressions Clinical Impression: Cellulitis, Acute hyperkalemia Discharge ED Provider: Venkatesh Ma General Adult HPI General Chief complaint: Abdominal Pain Stated complaint: weakness Time Seen by Provider: 04/30/23 09:52 Mode of Arrival: EMS Source of Information: Patient and EMS Limitations: No Limitations Description of Symptoms (Recalled from ER Triage Doc. by RN): pt presents from home to ED for abdominal pain, weakness, cough. pt reports symptoms ongoing for a while . History of Present Illness HPI narrative: Patient is a 87-year-old female with multiple comorbidities who presents emergency department for multiple complaints. A little over a month ago patient was admitted here for hyperkalemia and subsequently discharged. Over the last 2 weeks patient has had intermittent nonproductive cough, erythema and warmth of her left lower extremity. She has taken oral antibiotics however it is unknown which ones. In her chart it looks like she was recently prescribed Bactrim. Patient also suffered a ground-level fall approximately 1 week ago and is complaining of bilateral proximal hip pain and bilateral tib-fib pain. She says that over the last week she has had weakness and is no longer able to complete her activities of daily living. At baseline she gets around with a walker, she is no longer able to ambulate with assistance. She lives at home with her who is unable to assist her in her activities of daily living. She also has nonbloody diarrhea over the last few days. No other acute complaints at this time. Related Data Home Medications Medication Instructions Recorded Confirmed psyllium husk 0.52 gram capsule 0.52 gm PO DAILY CONSTIPATION 09/26/20 04/08/23 calcium carbonate 600 mg-vitamin 600 cap PO DAILY Supplement 12/12/21 04/08/23 D3 12.5 mcg (500 unit) capsule (Calcium 600 with Vitamin D3) fluticasone propionate 50 1 spray intranasal DAILY Allergy 10/27/22 04/08/23 mcg/actuation nasal Symptoms spray,suspension apixaban 2.5 mg tablet (Eliquis) 2.5 mg PO BID Blood Thinner 03/26/23 04/08/23 atorvastatin 40 mg tablet 40 mg PO DAILY hyperlipidemia 03/26/23 04/08/23 diclofenac sodium 1 % topical gel 2 g topical QID PRN Pain 03/26/23 04/08/23 digoxin 125 mcg (0.125 mg) tablet 125 mcg PO DAILY 03/26/23 04/08/23 fluticasone 500 mcg-salmeterol 50 1 inh inhalation BID 03/26/23 04/08/23 mcg/dose blistr powdr for inhalation (Wixela Inhub) acetaminophen 500 mg capsule 500 mg PO Q6H PRN 04/08/23 04/08/23 azelastine 0.05 % eye drops 1 drp ophthalmic (eye) BID 04/08/23 04/08/23 hydrocortisone 2.5 % topical cream 1 applic AZ QD-BID PRN 04/08/23 04/08/23 with perineal applicator (Procto-Med HC) nifedipine 30 mg tablet,extended 30 mg PO DAILY HTN 04/08/23 04/08/23 release 24 hr polyethylene glycol 3350 17 17 g PO DAILY 04/08/23 04/08/23 gram/dose oral powder (Miralax) tiotropium bromide 18 mcg capsule 1 cap inhalation DAILY 04/08/23 04/08/23 with inhalation device (Spiriva with HandiHaler) triamcinolone acetonide 0.5 % 1 applic topical BID 04/08/23 04/08/23 topical ointment Previous Rx's Medication Instructions Recorded bisacodyl 5 mg tablet,delayed 5 mg PO DAILY constipation #30 tabs 01/16/22 release albuterol sulfate 90 mcg/actuation 2 puff inhalation Q4HP PRN 11/05/22 aerosol inhaler Shortness Of Breath Or Wheezing #8.5 grams guaifenesin 600 mg tablet, 600 mg PO BID 30 days #60 tabs 12/08/22 extended release 12 hr (Mucinex) montelukast 5 mg chewable tablet 5 mg PO HS Allergy symptoms 90 03/24/23 days #90 tabs cholecalciferol (vitamin D3) 25 25 mcg PO DAILY #30 caps 03/30/23 mcg (1,000 unit) capsule cranberry extract 250 mg capsule 250 mg PO DAILY #30 caps 03/30/23 denosumab 60 mg/mL subcutaneous 60 mg SQ [id number] #1 mL 03/30/23 syringe (Prolia) magnesium oxide 250 mg PO DAILY #30 tabs 03/30/23 phytonadione (vitamin K1) 100 mcg 100 mcg PO DAILY #30 tabs 03/30/23 tablet sulfamethoxazole 800 1 tab PO BID #20 tabs 04/01/23 mg-trimethoprim 160 mg tablet ipratropium 0.5 mg-albuterol 3 mg 3 ml inhalation Q4HP PRN Shortness 04/02/23 (2.5 mg base)/3 mL nebulization Of Breath Or Wheezing #180 mL soln ferrous sulfate 325 mg (65 mg 325 mg PO DAILY #30 tabs 04/17/23 iron) tablet glipizide 2.5 mg tablet, extended 2.5 mg PO DAILYDM Diabetes 30 days 04/21/23 release 24 hr #30 tabs levocetirizine 5 mg tablet (Xyzal) 5 mg PO DAILY #30 tabs 04/21/23 omeprazole 20 mg capsule,delayed 20 mg PO DAILY GERD 90 days #90 04/21/23 release caps levothyroxine 50 mcg tablet 50 mcg PO DAILY hypothyroid 30 04/29/23 (Synthroid) days #48 tabs Allergies Allergy/AdvReac Type Severity Reaction Status Date / Time Penicillins [PENICILLINS] Allergy Severe S-SWELLS-OR Verified 04/30/23 09:58 AL/THROAT codeine [CODEINE] Allergy Unknown NA-DIARRHEA Verified 04/30/23 09:58 [facility] Disclaimer: The information contained in this section may have been updated after the patient was seen, as this information can be updated by other users. Medical History Acute hyperkalemia Acute kidney injury (nontraumatic) ELINOR (acute kidney injury) Anasarca ARF (acute renal failure) Asthma exacerbation Atrial fibrillation with RVR Blood loss anemia Brain benign neoplasm CHF (congestive heart failure) CHF exacerbation Chronic respiratory failure CKD (chronic kidney disease) CKD (chronic kidney disease) stage 3, GFR 30-59 ml/min CKD (chronic kidney disease) stage 4, GFR 15-29 ml/min Cyst of left ovary Dependent edema Diabetes Diabetic foot Edema of lower extremity GERD (gastroesophageal reflux disease) Hyperlipidemia Hypertension Hypoalbuminemia due to protein-calorie malnutrition Hypokalemia Hypothyroid Lower GI bleed Lung collapse MRSA pneumonia New onset atrial fibrillation Onychodystrophy Respiratory failure with hypoxia Sacral decubitus ulcer Type 2 diabetes mellitus without complication, with long-term current use of insulin Surgical History History of mastectomy Family History Father Heart attack Social History Smoking Status: Never smoker alcohol intake: never current occupational status: retired and disabled Travel in the last 8 weeks: None household members: spouse housing: house caffeine: No ROS Obtained: Yes Systems reviewed as appropriate & no additional complaints except as documented Physical Exam General General appearance: alert and in no apparent distress Head Head exam: atraumatic and normocephalic Eye Eye exam: Present PERRL and EOMI ENT ENT exam: Present mucous membranes moist Neck Neck exam: Present normal inspection Chest Chest inspection: Present normal inspection and symmetric chest wall rise Respiratory Respiratory exam: Present normal lung sounds bilaterally; Absent respiratory distress Cardiovascular Cardiovascular exam: Present regular rate and normal rhythm Abdominal Exam Abdominal exam: Present soft; Absent tenderness Extremities Exam Extremities exam: Present other (Erythematous and warm left lower extremity, multiple abrasions bilateral shins that are oozing blood.) Neurological Exam Neurological exam: Present alert Psychiatric Psychiatric exam: Present normal affect Skin Skin exam: Present warm and dry Medical Decision Making Ed Inquiry Pt receiving controlled substance: No Vital Signs: 04/30/23 09:49 04/30/23 10:00 04/30/23 11:00 Temperature 98.6 F Temperature Source Oral Pulse Rate 72 67 Pulse Rate [Left Radial] 68 Respiratory Rate 15 Blood Pressure 110/59 L 118/43 L Blood Pressure [Right Arm] 124/41 L Blood Pressure Mean [Right Arm] 68 02 Sat by Pulse Oximetry 97 92 L 95 Oxygen Delivery Method Nasal Cannula Room Air Oxygen Flow Rate (LPM) 2 04/30/23 11:30 04/30/23 12:00 Temperature Temperature Source Pulse Rate 72 69 Pulse Rate [Left Radial] Respiratory Rate Blood Pressure 123/47 L 119/45 L Blood Pressure [Right Arm] Blood Pressure Mean [Right Arm] 02 Sat by Pulse Oximetry 91 L 94 L Oxygen Delivery Method Room Air Room Air Oxygen Flow Rate (LPM) Lab Data Lab Results 04/30/23 09:47: WBC 16.2 H, RBC 2.68 L, Hgb 7.3 L, Hct 25.6 L, MCV 95.4, MCH 27.2, MCHC 28.5 L, RDW 26.7 H*, Plt Count 509 H, MPV 8.1, Neut % (Auto) 84.3 H, Lymph % (Auto) 11.7, Osborne % (Auto) 3.7, Eos % (Auto) 0.1, Baso % (Auto) 0.2, Neut # (Auto) 13.7 H, Lymph # (Auto) 1.9, Osborne # (Auto) 0.6, Eos # (Auto) 0.0, Baso # (Auto) 0.0, Total Counted 100, Neutrophils % (Manual) 76, Band Neutrophils % 14.0 H, Lymphocytes % (Manual) 6 L, Monocytes % (Manual) 4, Differential Comment , Platelet Estimate Moderate increase, Hypochromasia 1+, Poikilocytosis 1+, Anisocytosis 1+, Macrocytosis 1+, Spherocytes 1+, Stomatocytes 1+, Rouleaux 1+, Sodium 133 L, Potassium 6.7 H*, Chloride 110 H, Carbon Dioxide 16 L, Anion Gap 13.7, BUN 46 H, Creatinine 2.10 H, Estimated Creat Clear 20, Estimated GFR 22 L, Est GFR ( Amer) 27 L, Glucose 143 H, Calcium 8.7, Magnesium 3.1 H, Total Bilirubin 0.6, AST 58 H, ALT 52, Alkaline Phosphatase 109, Total Protein 6.7, Albumin 2.7 L, Globulin 4.0 H, Albumin/Globulin Ratio 0.7 L 04/30/23 10:05: SARS-CoV-2 (PCR) Not detected, Influenza A Untype (PCR) Not detected, Influenza Type B (PCR) Not detected 04/30/23 10:10: Urine Color Yellow, Urine Appearance Clear, Urine pH 5.5, Ur Specific [place] 1.015, Urine Protein Negative, Urine Glucose (UA) Negative, Urine Ketones Negative, Urine Blood Negative, Urine Nitrate Negative, Urine Bilirubin Negative, Urine Urobilinogen 0.2, Ur Leukocyte Esterase Negative, Urine RBC None, Urine WBC None, Ur Squamous Epith Cells Occasional, Urine Bacteria Trace, Hyaline Casts 3-5, Urine Mucus Trace 04/30/23 09:47 04/30/23 09:47 Orders (Tests/Meds): ED MEDICATIONS Generic Name Dose Route Start Last Admin Trade Name Freq PRN Reason Stop Dose Admin Vancomycin/PEG/NADA/Lysine/Water 1.25 gm in 250 mls @ 125 mls/hr 04/30/23 11:00 Vancomycin 1.25gm/250ml (Peg) Premix IV 04/30/23 12:59 ONCE ONE Sodium Chloride 10 ml 04/30/23 10:07 Sodium Chloride 0.9% 10ml Flush Syringe IV 05/30/23 10:06 NEEDED PRN Maintain IV Site Sodium Zirconium Cyclosilicate 10 gm 04/30/23 11:12 04/30/23 11:16 Lokelma 5gm Packet PO 05/01/23 11:11 10 gm TID ALANA Administration Discontinued Medications Generic Name Dose Route Start Last Admin Trade Name Freq PRN Reason Stop Dose Admin Dextrose 50 ml 04/30/23 10:30 04/30/23 11:08 Dextrose 50% 50ml Syringe (Crash Cart) IV 04/30/23 10:31 50 ml ONCE ONE Administration Calcium Gluconate 2,000 mg/ 120 mls @ 60 mls/hr 04/30/23 10:15 04/30/23 11:06 Sodium Chloride IV 04/30/23 12:14 60 mls/hr ONCE ONE Administration Insulin Human Regular 10 unit 04/30/23 10:30 04/30/23 11:09 Insulin Human Regular 100 Units/Ml 10ml Vial IV 04/30/23 10:31 10 unit ONCE ONE Administration Tetanus/Reduced Diphtheria/Acell Pertussis 0.5 ml 04/30/23 10:12 04/30/23 11:08 Tet/Diphth/Pert-Adult 0.5ml Syringe IM 04/30/23 10:13 0.5 ml .ONCE ONE Administration ORDERS Category Date Time Status CT bony pelvis Stat Cat Scan 04/30/23 10:[address] lumbar spine wo con Stat Cat Scan 04/30/23 10:01 Completed CXR --portable [XR chest portable] Stat Exams 04/30/23 10:02 Completed Fibula/tibia XR left 2 views [XR tibia fibula LT 2V] Exams 04/30/23 10:01 Completed Stat Fibula/tibia XR right 2 views [XR tibia fibula RT 2V] Exams 04/30/23 10:01 Completed Stat Pelvis XR 1-2 views [XR pelvis 1-2V] Stat Exams 04/30/23 10:01 Completed CBC w/Auto Diff [Complete Blood Count Auto Diff] Stat Lab 04/30/23 09:47 Completed CMP [Comprehensive Metabolic Panel] Stat Lab 04/30/23 09:47 Completed MG [Magnesium] Stat Lab 04/30/23 09:47 Completed Rapid PCR Covid and Flu A/B Stat Lab 04/30/23 10:05 Completed UA [Urinalysis and Microscopic] Stat Lab 04/30/23 10:10 Completed ECG initial Besson Routine Y 04/30/23 09:44 Completed ECG Data Tracing #1: Independently interpreted by me, rate is 67, rhythm is regular, axis is normal, no ST elevation in anatomical contiguous leads, QTc 354. Medical Decision Narrative: In summary patient is 87-year-old female with past medical history described above presents emergency department for multiple complaints. With respect to cough differential includes chronic cough, influenza, COVID, pneumonia, among others. With respect to ground-level fall secondary to weakness differential includes hyperkalemia, tib-fib fractures, lumbar spine fracture, pelvic girdle fracture, among others. With respect to weakness differential includes urinary tract infection, hyperkalemia, hypomagnesemia, among others. Workup will be conducted with hematologic labs, viral swab, urinalysis, chest x-ray, CT lumbar spine and bony pelvis, plain films of the bilateral tibias. Tdap will be updated as she has oozing wounds on her bilateral lower extremities and last Tdap administration is unknown. After GFR is determined antibiotics for lower extremity cellulitis will be initiated with vancomycin. Workup reviewed by me, significant leukocytosis, anemia is at baseline. Patient has significant hyperkalemia for which calcium gluconate, insulin, dextrose, Lokelma will be administered. I suspect that patient will have similar response as she was previously responded to Lokelma and does not have worsening CKD, rather her creatinine is better compared to her recent baseline. Vancomycin was dosed by pharmacy for left lower extremity cellulitis in the setting of CKD. Aggressive fluid resuscitation was deferred given that patient is well-perfused, afebrile, no tachycardia, history of volume overload at baseline. Traumatic imaging no acute traumatic pathology. Given refractory cellulitis to Bactrim, acute hyperkalemia, acute functional John and need for likely placement after medical issues have been addressed the case was discussed with hospital medicine regarding management who admitted the patient to their service for continued evaluation at this time. Critical Care Critical Care Time Critical Care Time: Yes Attestation: On 04/30/23, the high probability of a clinically significant, sudden or life threatening deterioration of the following system(s) required my full and direct attention, intervention and personal management. The time I documented below is in addition to time spent performing reported procedures but includes the following listed in this critical care notation. Total Time Total Critical Care Time: 40
[2023-04-30 10:03] LABS: Red Cell Distribution Width 26.7 % (11.5-17.5)
[2023-04-30 10:04] LABS: MANUAL DIFFERENTIAL MANUAL DIFFERENTIAL (MANUAL DIFF)
[2023-04-30 10:08] LABS: Coronavirus 19, PCR Not Detected (NotDetected); Influenza A, PCR Not Detected (NotDetected); Influenza B, PCR Not Detected (NotDetected)
[2023-04-30 10:10] LABS: Alanine Aminotransferase 52 U/L (12-78); Albumin Level 2.7 g/dl (3.5-5.0); Albumin/Globulin Ratio 0.7 (1.1-1.8); Alkaline Phosphatase 109 U/L (38-126); Anion Gap 13.7 mEq/L (5-15); Aspartate Amino Transferase 58 U/L (14-36); Bilirubin,Total 0.6 mg/dl (0.2-1.3); Blood Urea Nitrogen 46 mg/dl (7-17); Calcium 8.7 mg/dl (8.4-10.2); Carbon Dioxide 16 mmol/L (22.0-30.0); Chloride 110 mmol/L (98-107); Creatinine Clearance Estimated 20 mL/min (50-200); Estimated Glomerular Filt Rate 22 ml/min (>60); GFR (African American) 27 ML/MIN (>60); Glucose 143 mg/dl (74-100); Magnesium 3.1 mg/dl (1.6-2.3); Sodium 133 mmol/L (136-145); Total Protein,Serum 6.7 g/dl (6.3-8.2)
[2023-04-30 10:13] LABS: Potassium 6.7 mmoL/L (3.5-5.1)
[2023-04-30 10:16] LABS: Microscopic, Urine URINE MICROSCOPIC (MICROSCOPIC)
--- NOTE | 2023-04-30 10:16 | PC.NURSE ---
Pt gone to RAD via stretcher
[2023-04-30 10:19] LABS: Appearance,Urine CLEAR (Clear); Bilirubin,Urine Negative (Negative); Blood, Urine Negative (Negative); Color,Urine YELLOW (Yellow); Glucose,Urine (UA) Negative (Negative); Ketones,Urine Negative (Negative); Leukocyte Esterase,Urine Negative (Negative); Nitrate,Urine Negative (Negative); PH,Urine 5.5 (5.0-8.5); Protein,Urine Negative (Negative); Specific Gravity, Urine 1.015 (1.005-1.030); Urobilinogen,Urine 0.2 EU/dl (0.2)
[2023-04-30 10:34] LABS: Bacteria,Urine Trace /lpf; Mucus,Urine Trace /lpf; Squamous Epithelial Cell,Urine Occasional #/hpf (0-5)
--- NOTE | 2023-04-30 10:45 | PC.NURSE ---
Pt returned from RAD
--- NOTE | 2023-04-30 11:01 | PC.NURSE ---
Pt legs cleaned with soap and warm water per Dr. Ma request
--- NOTE | 2023-04-30 11:01 | PC.NURSE ---
Dr. Ma voiced he was comfortable with pt O2 being 88% or above on room air
[2023-04-30] MEDS: CALCIUM GLUCONATE 2,000 MG in 0.9 % SODIUM CHLORIDE 100 ML 60 MG IV (11:06)
[2023-04-30] MEDS: TET/DIPHTH/PERT-ADULT 0.5ML SYRINGE 0.5 ML IM (11:08)
[2023-04-30] MEDS: DEXTROSE 50% 50ML SYRINGE (CRASH CART) 50 ML IV ×2 (11:08→17:38)
[2023-04-30] MEDS: INSULIN HUMAN REGULAR 100 UNITS/ML 10ML VIAL 10 UNIT IV (11:09)
[2023-04-30] MEDS: LOKELMA 5GM PACKET 10 GM PO (11:16)
--- NOTE | 2023-04-30 11:18 | EXP.PHA.CONS ---
Pharmacy Consult Date: 04/30/23 Time: 11:18 Referring provider: DR. MARTÍNEZ Reason for Consult:: VANCOMYCIN DOSING Allergies Allergy/AdvReac Type Severity Reaction Status Date / Time Penicillins [PENICILLINS] Allergy Severe S-SWELLS-OR Verified 04/30/23 09:58 AL/THROAT codeine [CODEINE] Allergy Unknown NA-DIARRHEA Verified 04/30/23 09:58 Home Medications Medication Instructions Recorded Confirmed Type psyllium husk 0.52 gram capsule 0.52 gm PO DAILY CONSTIPATION 09/26/20 04/08/23 History calcium carbonate 600 mg-vitamin 600 cap PO DAILY Supplement 12/12/21 04/08/23 History D3 12.5 mcg (500 unit) capsule (Calcium 600 with Vitamin D3) bisacodyl 5 mg tablet,delayed 5 mg PO DAILY constipation #30 tabs 01/16/22 04/08/23 Rx release fluticasone propionate 50 1 spray intranasal DAILY Allergy 10/27/22 04/08/23 History mcg/actuation nasal Symptoms spray,suspension albuterol sulfate 90 mcg/actuation 2 puff inhalation Q4HP PRN 11/05/22 04/08/23 Rx aerosol inhaler Shortness Of Breath Or Wheezing #8.5 grams guaifenesin 600 mg tablet, 600 mg PO BID 30 days #60 tabs 12/08/22 04/08/23 Rx extended release 12 hr (Mucinex) montelukast 5 mg chewable tablet 5 mg PO HS Allergy symptoms 90 03/24/23 04/08/23 Rx days #90 tabs apixaban 2.5 mg tablet (Eliquis) 2.5 mg PO BID Blood Thinner 03/26/23 04/08/23 History atorvastatin 40 mg tablet 40 mg PO DAILY hyperlipidemia 03/26/23 04/08/23 History diclofenac sodium 1 % topical gel 2 g topical QID PRN Pain 03/26/23 04/08/23 History digoxin 125 mcg (0.125 mg) tablet 125 mcg PO DAILY 03/26/23 04/08/23 History fluticasone 500 mcg-salmeterol 50 1 inh inhalation BID 03/26/23 04/08/23 History mcg/dose blistr powdr for inhalation (Wixela Inhub) cholecalciferol (vitamin D3) 25 25 mcg PO DAILY #30 caps 03/30/23 04/08/23 Rx mcg (1,000 unit) capsule cranberry extract 250 mg capsule 250 mg PO DAILY #30 caps 03/30/23 04/08/23 Rx denosumab 60 mg/mL subcutaneous 60 mg SQ [id number] #1 mL 03/30/23 04/08/23 Rx syringe (Prolia) magnesium oxide 250 mg PO DAILY #30 tabs 03/30/23 04/08/23 Rx phytonadione (vitamin K1) 100 mcg 100 mcg PO DAILY #30 tabs 03/30/23 04/08/23 Rx tablet sulfamethoxazole 800 1 tab PO BID #20 tabs 04/01/23 04/08/23 Rx mg-trimethoprim 160 mg tablet ipratropium 0.5 mg-albuterol 3 mg 3 ml inhalation Q4HP PRN Shortness 04/02/23 04/08/23 Rx (2.5 mg base)/3 mL nebulization Of Breath Or Wheezing #180 mL soln acetaminophen 500 mg capsule 500 mg PO Q6H PRN 04/08/23 04/08/23 History azelastine 0.05 % eye drops 1 drp ophthalmic (eye) BID 04/08/23 04/08/23 History hydrocortisone 2.5 % topical cream 1 applic MA QD-BID PRN 04/08/23 04/08/23 History with perineal applicator (Procto-Med HC) nifedipine 30 mg tablet,extended 30 mg PO DAILY HTN 04/08/23 04/08/23 History release 24 hr polyethylene glycol 3350 17 17 g PO DAILY 04/08/23 04/08/23 History gram/dose oral powder (Miralax) tiotropium bromide 18 mcg capsule 1 cap inhalation DAILY 04/08/23 04/08/23 History with inhalation device (Spiriva with HandiHaler) triamcinolone acetonide 0.5 % 1 applic topical BID 04/08/23 04/08/23 History topical ointment ferrous sulfate 325 mg (65 mg 325 mg PO DAILY #30 tabs 04/17/23 Rx iron) tablet glipizide 2.5 mg tablet, extended 2.5 mg PO DAILYDM Diabetes 30 days 04/21/23 Rx release 24 hr #30 tabs levocetirizine 5 mg tablet (Xyzal) 5 mg PO DAILY #30 tabs 12/26/23 Rx omeprazole 20 mg capsule,delayed 20 mg PO DAILY GERD 90 days #90 04/21/23 Rx release caps levothyroxine 50 mcg tablet 50 mcg PO DAILY hypothyroid 30 04/29/23 Rx (Synthroid) days #48 tabs New Prescriptions to Start Prescriptions: Height: 1.63 m Weight: 68.039 kg Laboratory Results:: Laboratory Results - last 24 hr 04/30/23 09:47: WBC 16.2 H, RBC 2.68 L, Hgb 7.3 L, Hct 25.6 L, MCV 95.4, MCH 27.2, MCHC 28.5 L, RDW 26.7 H*, Plt Count 509 H, MPV 8.1, Neut % (Auto) 84.3 H, Lymph % (Auto) 11.7, [place] % (Auto) 3.7, Eos % (Auto) 0.1, Baso % (Auto) 0.2, Neut # (Auto) 13.7 H, Lymph # (Auto) 1.9, [place] # (Auto) 0.6, Eos # (Auto) 0.0, Baso # (Auto) 0.0, Sodium 133 L, Potassium 6.7 H*, Chloride 110 H, Carbon Dioxide 16 L, Anion Gap 13.7, BUN 46 H, Creatinine 2.10 H, Estimated Creat Clear 20, Estimated GFR 22 L, Est GFR ( Amer) 27 L, Glucose 143 H, Calcium 8.7, Magnesium 3.1 H, Total Bilirubin 0.6, AST 58 H, ALT 52, Alkaline Phosphatase 109, Total Protein 6.7, Albumin 2.7 L, Globulin 4.0 H, Albumin/Globulin Ratio 0.7 L 04/30/23 10:05: SARS-CoV-2 (PCR) Not detected, Influenza A Untype (PCR) Not detected, Influenza Type B (PCR) Not detected 04/30/23 10:10: Urine Color Yellow, Urine Appearance Clear, Urine pH 5.5, Ur Specific [place] 1.015, Urine Protein Negative, Urine Glucose (UA) Negative, Urine Ketones Negative, Urine Blood Negative, Urine Nitrate Negative, Urine Bilirubin Negative, Urine Urobilinogen 0.2, Ur Leukocyte Esterase Negative, Urine RBC None, Urine WBC None, Ur Squamous Epith Cells Occasional, Urine Bacteria Trace, Hyaline Casts 3-5, Urine Mucus Trace Medical History: Medical History (Updated 03/30/23 @ 00:00 by Background Chantal) Acute hyperkalemia Acute kidney injury (nontraumatic) ELINOR (acute kidney injury) Anasarca ARF (acute renal failure) Asthma exacerbation Atrial fibrillation with RVR Blood loss anemia Brain benign neoplasm CHF (congestive heart failure) CHF exacerbation Chronic respiratory failure CKD (chronic kidney disease) CKD (chronic kidney disease) stage 3, GFR 30-59 ml/min CKD (chronic kidney disease) stage 4, GFR 15-29 ml/min Cyst of left ovary Dependent edema Diabetes Diabetic foot Edema of lower extremity GERD (gastroesophageal reflux disease) Hyperlipidemia Hypertension Hypoalbuminemia due to protein-calorie malnutrition Hypokalemia Hypothyroid Lower GI bleed Lung collapse MRSA pneumonia New onset atrial fibrillation Onychodystrophy Respiratory failure with hypoxia Sacral decubitus ulcer Type 2 diabetes mellitus without complication, with long-term current use of insulin Assessment and Plan Assessment and plan all Dx Assessment and Plan for all problems:: RECOMMEND VANCOMYCIN 1250 MG X1 DOSE THEN VANCOMYCIN 1 GM Q48H. AUC 0-24 /DINA Data: DINA 0.5 mcg/mL: AUC/DINA: 1020.4 DINA 1.0 mcg/mL: AUC/DINA: 510.2 --------- DINA 1.5 mcg/mL: AUC/DINA: 340.1 DINA 2.0 mcg/mL: AUC/DINA: 255.1
[2023-04-30 11:28] LABS: Lymphocytes % 6 % (10-50); Monocytes % 4 % (2-9); Neutrophils % 76 % (42-76); Total Cells Counted 100
[2023-04-30 11:29] LABS: Anisocytosis 1+; Platelet Estimate Moderate Increase
[2023-04-30 11:30] LABS: Macrocytosis 1+; Poikilocytosis 1+; Spherocytes 1+
[2023-04-30 11:31] LABS: Rouleaux 1+
[2023-04-30 11:32] LABS: Hypochromasia 1+
[2023-04-30 11:34] LABS: Stomatocytes 1+
--- NOTE | 2023-04-30 12:40 | PC.NURSE ---
on phone with hospitalist.
--- NOTE | 2023-04-30 12:42 | PC.NURSE ---
Admissions called for bed.
--- NOTE | 2023-04-30 12:43 | PC.NURSE ---
Care management called for bed.
[2023-04-30] MEDS: VANCOMYCIN/WATER FOR INJ (PEG) 1.25 GM/250 ML PIGGYBACK IV (12:47)
--- NOTE | 2023-04-30 13:21 | PC.NURSE ---
Rounded on pt. Brief dry at this time. No other needs voiced. Call light remains within reach.
--- NOTE | 2023-04-30 13:31 | PC.NURSE ---
report called to hiral on second floor
[2023-04-30 16:35] LABS: Potassium 6.9 mmoL/L (3.5-5.1)
--- NOTE | 2023-04-30 17:36 | EXP.HP ---
History of Present Illness *Admission Date: 04/30/23 *Reason for visit:: elevated K level *History of present illness: Patient is a 87-year-old female with past medical history of diabetes mellitus hypertension hyperlipidemia CKD hypothyroidism CHF who presents to the hospital due to elevated potassium. Patient is very poor historian. Most of the history is from patient's chart. Patient had blood work performed at nursing facility visit show elevated potassium. Patient was sent to the hospital for further evaluation. Patient was recently started on Bactrim for left lower extremity cellulitis. [facility] Disclaimer: The information contained in this section may have been updated after the patient was seen, as this information can be updated by other users. Medical History Acute hyperkalemia Acute kidney injury (nontraumatic) ELINOR (acute kidney injury) Anasarca ARF (acute renal failure) Asthma exacerbation Atrial fibrillation with RVR Blood loss anemia Brain benign neoplasm CHF (congestive heart failure) CHF exacerbation Chronic respiratory failure CKD (chronic kidney disease) CKD (chronic kidney disease) stage 3, GFR 30-59 ml/min CKD (chronic kidney disease) stage 4, GFR 15-29 ml/min Cyst of left ovary Dependent edema Diabetes Diabetic foot Edema of lower extremity GERD (gastroesophageal reflux disease) Hyperlipidemia Hypertension Hypoalbuminemia due to protein-calorie malnutrition Hypokalemia Hypothyroid Hypothyroid Lower GI bleed Lung collapse MRSA pneumonia New onset atrial fibrillation Onychodystrophy Respiratory failure with hypoxia Sacral decubitus ulcer Type 2 diabetes mellitus without complication, with long-term current use of insulin Surgical History History of mastectomy Family History Father Heart attack Social History (Updated 04/30/23 @ 13:55 by Meenu Curtis RN) Smoking Status: Never smoker alcohol intake: never current occupational status: retired and disabled Travel in the last 8 weeks: None household members: spouse housing: house caffeine: No Meds Home Medications and Allergies Home Medications Medication Instructions Recorded Confirmed Type psyllium husk 0.52 gram capsule 0.52 gm PO DAILY CONSTIPATION 09/26/20 04/08/23 History calcium carbonate 600 mg-vitamin 600 cap PO DAILY Supplement 12/12/21 04/08/23 History D3 12.5 mcg (500 unit) capsule (Calcium 600 with Vitamin D3) bisacodyl 5 mg tablet,delayed 5 mg PO DAILY constipation #30 tabs 01/16/22 04/08/23 Rx release fluticasone propionate 50 1 spray intranasal DAILY Allergy 10/27/22 04/08/23 History mcg/actuation nasal Symptoms spray,suspension albuterol sulfate 90 mcg/actuation 2 puff inhalation Q4HP PRN 11/05/22 04/30/23 Rx aerosol inhaler Shortness Of Breath Or Wheezing #8.5 grams guaifenesin 600 mg tablet, 600 mg PO BID 30 days #60 tabs 12/08/22 04/30/23 Rx extended release 12 hr (Mucinex) montelukast 5 mg chewable tablet 5 mg PO HS Allergy symptoms 90 03/24/23 04/30/23 Rx days #90 tabs apixaban 2.5 mg tablet (Eliquis) 2.5 mg PO BID Blood Thinner 03/26/23 04/30/23 History atorvastatin 40 mg tablet 40 mg PO DAILY hyperlipidemia 03/26/23 04/30/23 History diclofenac sodium 1 % topical gel 2 g topical QID PRN Pain 03/26/23 04/30/23 History digoxin 125 mcg (0.125 mg) tablet 125 mcg PO DAILY 03/26/23 04/30/23 History fluticasone 500 mcg-salmeterol 50 1 inh inhalation BID 03/26/23 04/30/23 History mcg/dose blistr powdr for inhalation (Wixela Inhub) cholecalciferol (vitamin D3) 25 25 mcg PO DAILY #30 caps 03/30/23 04/08/23 Rx mcg (1,000 unit) capsule cranberry extract 250 mg capsule 250 mg PO DAILY #30 caps 03/30/23 04/08/23 Rx denosumab 60 mg/mL subcutaneous 60 mg SQ [id number] #1 mL 03/30/23 04/08/23 Rx syringe (Prolia) magnesium oxide 250 mg PO DAILY #30 tabs 03/30/23 04/08/23 Rx phytonadione (vitamin K1) 100 mcg 100 mcg PO DAILY #30 tabs 03/30/23 04/08/23 Rx tablet sulfamethoxazole 800 1 tab PO BID #20 tabs 04/01/23 04/08/23 Rx mg-trimethoprim 160 mg tablet ipratropium 0.5 mg-albuterol 3 mg 3 ml inhalation Q4HP PRN Shortness 04/02/23 04/30/23 Rx (2.5 mg base)/3 mL nebulization Of Breath Or Wheezing #180 mL soln acetaminophen 500 mg capsule 500 mg PO Q6H PRN PAIN/FEVER 04/08/23 04/30/23 History azelastine 0.05 % eye drops 1 drp ophthalmic (eye) BID 04/08/23 04/08/23 History hydrocortisone 2.5 % topical cream 1 applic OR QD-BID PRN 04/08/23 04/08/23 History with perineal applicator (Procto-Med HC) nifedipine 30 mg tablet,extended 30 mg PO DAILY HTN 04/08/23 04/30/23 History release 24 hr polyethylene glycol 3350 17 17 g PO DAILY 04/08/23 04/08/23 History gram/dose oral powder (Miralax) tiotropium bromide 18 mcg capsule 1 cap inhalation DAILY 04/08/23 04/08/23 History with inhalation device (Spiriva with HandiHaler) triamcinolone acetonide 0.5 % 1 applic topical BID 04/08/23 04/08/23 History topical ointment ferrous sulfate 325 mg (65 mg 325 mg PO DAILY #30 tabs 04/17/23 Rx iron) tablet glipizide 2.5 mg tablet, extended 2.5 mg PO DAILYDM Diabetes 30 days 04/21/23 04/30/23 Rx release 24 hr #30 tabs levocetirizine 5 mg tablet (Xyzal) 5 mg PO DAILY #30 tabs 04/21/23 04/30/23 Rx omeprazole 20 mg capsule,delayed 20 mg PO DAILY GERD 90 days #90 04/21/23 04/30/23 Rx release caps levothyroxine 50 mcg tablet 50 mcg PO DAILY hypothyroid 30 04/29/23 04/30/23 Rx (Synthroid) days #48 tabs spironolactone 50 mg tablet 50 mg PO DAILY Fluid 04/30/23 04/30/23 History New Prescriptions to Start Prescriptions: Allergies Allergy/AdvReac Type Severity Reaction Status Date / Time Penicillins [PENICILLINS] Allergy Severe S-SWELLS-OR Verified 04/30/23 09:58 AL/THROAT codeine [CODEINE] Allergy Unknown NA-DIARRHEA Verified 04/30/23 09:58 Exam Data for Last 24 hours Vital signs and Labs for Last 24 Hours: Temp Pulse Resp BP Pulse Ox O2 Del Method O2 Flow Rate 98.7 F 64 17 124/41 L 95 Room Air 2 04/30/23 16:00 04/30/23 16:00 04/30/23 16:00 04/30/23 16:00 04/30/23 16:00 04/30/23 16:38 04/30/23 09:49 Laboratory Results - last 24 hr 04/30/23 09:47: WBC 16.2 H, RBC 2.68 L, Hgb 7.3 L, Hct 25.6 L, MCV 95.4, MCH 27.2, MCHC 28.5 L, RDW 26.7 H*, Plt Count 509 H, MPV 8.1, Neut % (Auto) 84.3 H, Lymph % (Auto) 11.7, [place] % (Auto) 3.7, Eos % (Auto) 0.1, Baso % (Auto) 0.2, Neut # (Auto) 13.7 H, Lymph # (Auto) 1.9, [place] # (Auto) 0.6, Eos # (Auto) 0.0, Baso # (Auto) 0.0, Total Counted 100, Neutrophils % (Manual) 76, Band Neutrophils % 14.0 H, Lymphocytes % (Manual) 6 L, Monocytes % (Manual) 4, Differential Comment , Platelet Estimate Moderate increase, Hypochromasia 1+, Poikilocytosis 1+, Anisocytosis 1+, Macrocytosis 1+, Spherocytes 1+, Stomatocytes 1+, Rouleaux 1+, Sodium 133 L, Potassium 6.7 H*, Chloride 110 H, Carbon Dioxide 16 L, Anion Gap 13.7, BUN 46 H, Creatinine 2.10 H, Estimated Creat Clear 20, Estimated GFR 22 L, Est GFR ( Amer) 27 L, Glucose 143 H, Calcium 8.7, Magnesium 3.1 H, Total Bilirubin 0.6, AST 58 H, ALT 52, Alkaline Phosphatase 109, Total Protein 6.7, Albumin 2.7 L, Globulin 4.0 H, Albumin/Globulin Ratio 0.7 L 04/30/23 10:05: SARS-CoV-2 (PCR) Not detected, Influenza A Untype (PCR) Not detected, Influenza Type B (PCR) Not detected 04/30/23 10:10: Urine Color Yellow, Urine Appearance Clear, Urine pH 5.5, Ur Specific [place] 1.015, Urine Protein Negative, Urine Glucose (UA) Negative, Urine Ketones Negative, Urine Blood Negative, Urine Nitrate Negative, Urine Bilirubin Negative, Urine Urobilinogen 0.2, Ur Leukocyte Esterase Negative, Urine RBC None, Urine WBC None, Ur Squamous Epith Cells Occasional, Urine Bacteria Trace, Hyaline Casts 3-5, Urine Mucus Trace 04/30/23 15:54: Potassium 6.9 H* I & O for Last 24 hours: Intake & Output 04/27/23 04/28/23 04/29/23 04/30/23 23:59 23:59 23:59 23:59 Weight 77.621 kg Constitutional Constitutional: no acute distress *Routine HEENT Exam Head: Present normocephalic Eye: Present EOMI and PERRL ENT: Present mucous membranes moist *Routine Neck Exam Neck: Present supple; Absent lymphadenopathy *Routine Respiratory Exam Respiratory: Present CTA bilaterally *Routine Cardiovascular Exam Cardiovascular: Present RRR *Routine Abdominal Exam Abdominal: Present soft and normoactive bowel sounds; Absent tenderness *Routine Rectal Exam Rectal:: deferred *Routine Genitalia Exam Genitalia:: deferred *Routine Extremities Exam Extremities: Absent cyanosis, clubbing or edema Comments: LLE is warm and red *Routine Skin Exam Skin: Present warm; Absent rash *Routine Neurological Exam Neurological: Present alert and oriented X3 Assessment and Plan *Assessment and plan (1) Acute hyperkalemia: Status: Acute Category: Medical Code(s): E87.5 - Hyperkalemia (2) Cellulitis: Status: Acute Category: Medical Code(s): L03.90 - Cellulitis, unspecified Plan Patient is a 87-year-old female with past medical history of diabetes mellitus hypertension hyperlipidemia CKD hypothyroidism CHF who presents to the hospital due to elevated potassium. Patient is very poor historian. Most of the history is from patient's chart. Patient had blood work performed at nursing facility visit show elevated potassium. Patient was sent to the hospital for further evaluation. Patient was recently started on Bactrim for left lower extremity cellulitis. Assessment Severe hyperkalemia Left lower extremity cellulitis Chronic lower extremity edema Diabetes mellitus Hypertension Hyperlipidemia CKD stage IV CHF Plan S/p IV insulin in ED and on floor, IV calcium gluconate, Lasix, Lokelma Recheck potassium level Started on vancomycin Insulin sliding scale Resume home medications Hold home spironolactone DVT prophylaxis-on home Eliquis
[2023-04-30] MEDS: FUROSEMIDE 40MG/4ML VIAL 40 MG IV (17:37)
[2023-04-30] MEDS: INSULIN HUMAN REGULAR 100 UNITS/ML 10ML VIAL 5 UNIT IV (17:38)
[2023-04-30] MEDS: CALCIUM GLUCONATE 1,000 MG in 0.9 % SODIUM CHLORIDE 50 ML 60 MG IV (17:40)
[2023-04-30] MEDS: ATORVASTATIN 40MG TABLET 40 MG PO (18:33)
[2023-04-30] MEDS: DIGOXIN 0.125MG TABLET 125 MCG PO (18:34)
[2023-04-30] MEDS: NIFEdipine XL 30MG TABLET 30 MG PO (18:34)
[2023-04-30] MEDS: LORATADINE 10MG TABLET 10 MG PO (18:34)
[2023-04-30] MEDS: LEVOTHYROXINE 50MCG (0.05MG) TAB 50 MCG PO (18:35)
[2023-04-30 18:54] LABS: Potassium 5.5 mmoL/L (3.5-5.1)
[2023-04-30] MEDS: HEPARIN SODIUM 5,000 UNIT/ML VIAL 5000 UNIT SQ (21:25)
[2023-04-30] MEDS: PANTOPRAZOLE 40MG TABLET 40 MG PO (21:25)
[2023-04-30] MEDS: guaiFENesin 600 MG TAB.ER.12H PO (21:25)
[2023-04-30] MEDS: MONTELUKAST 5 MG 5 EACH PO (21:25)
[2023-04-30] MEDS: PATIENT'S OWN HOME MEDICATION (Apixaban [Eliquis] 2.5 mg tablet) 2.5 EACH PO (21:26)
[2023-04-30] MEDS: FLUTICASONE/SALMETEROL 500/50MCG DISKUS 1 PUFF IH (21:35)
[2023-04-30] MEDS: IPRATROPIUM/ALBUTEROL 3 ML NEB IH (21:43)
[2023-05-01] VITALS (18 sets, daily range): BP systolic 102–122; BP diastolic 34–62; PULSE 69–93; RESP 14–22; TEMP 36.6–37.3; O2SAT 90–100; BMI 25.1
[2023-05-01] MEDS: IPRATROPIUM/ALBUTEROL 3 ML NEB IH (04:57)
[2023-05-01] MEDS: FLUTICASONE/SALMETEROL 500/50MCG DISKUS 1 PUFF IH ×2 (06:43→21:37)
[2023-05-01 07:13] LABS: Basophils % 0.3 % (0.1-2.0); Eosinophils # 0.1 K/mm3 (0.0-0.4); Eosinophils % 0.6 % (0.1-12.0); Lymphocytes # 1.4 K/mm3 (0.7-4.5); Lymphocytes % 14.6 % (10-50); Mean Corpuscular HGB Conc 29.7 g/dL (31.8-35.4); Mean Corpuscular Hemoglobin 28.4 pg (27.0-31.2); Mean Corpuscular Volume 95.7 fl (81-99); Mean Platelet Volume 8.5 fl (7.4-10.4); Monocytes # 0.6 K/mm3 (0.1-1.0); Monocytes % 6.3 % (1.7-9.3); Neutrophils # 7.7 K/mm3 (1.8-7.8); Neutrophils % 78.1 % (37.0-80.0); Platelet Count 381 K/mm3 (142-424); Red Blood Count 1.95 M/mm3 (4.20-5.40); White Blood Count 9.8 K/mm3 (4.8-10.8)
[2023-05-01 07:22] LABS: Anion Gap 7.3 mEq/L (5-15); Blood Urea Nitrogen 50 mg/dl (7-17); Calcium 8.4 mg/dl (8.4-10.2); Carbon Dioxide 20 mmol/L (22.0-30.0); Chloride 111 mmol/L (98-107); Creatinine Clearance Estimated 24 mL/min (50-200); Estimated Glomerular Filt Rate 24 ml/min (>60); GFR (African American) 28 ML/MIN (>60); Glucose 122 mg/dl (74-100); Potassium 5.3 mmoL/L (3.5-5.1); Sodium 133 mmol/L (136-145)
[2023-05-01 07:32] LABS: Red Cell Distribution Width 27.2 % (11.5-17.5)
[2023-05-01 07:37] LABS: Hematocrit 18.7 % (37.0-47.0)
[2023-05-01 07:40] LABS: Hemoglobin 5.5 g/dL (12.2-16.2)
[2023-05-01] MEDS: LOKELMA 5GM PACKET 10 GM PO (09:27)
[2023-05-01] MEDS: DOCUSATE SODIUM 100 MG CAPSULE PO (09:29)
[2023-05-01] MEDS: DIGOXIN 0.125MG TABLET 125 MCG PO (09:29)
[2023-05-01] MEDS: LORATADINE 10MG TABLET 10 MG PO (09:29)
[2023-05-01] MEDS: NIFEdipine XL 30MG TABLET 30 MG PO (09:29)
[2023-05-01] MEDS: guaiFENesin 600 MG TAB.ER.12H PO ×2 (09:29→21:45)
--- NOTE | 2023-05-01 10:17 | P.PN_ITS ---
Subjective *Date: 05/01/23 *Time: 10:17 Interval history: patient was seen and evaluated at the bedside. No reported acute events overnight, denies chest pain, shortness of breath, nausea, vomiting, abdominal pain. Exam Data for Last 24 hours Vital signs and Labs for Last 24 Hours: Temp Pulse Resp BP Pulse Ox O2 Del Method O2 Flow Rate 98.1 F 80 18 116/52 L 95 Room Air 1 05/01/23 08:00 05/01/23 09:29 05/01/23 08:00 05/01/23 08:00 05/01/23 08:00 05/01/23 08:09 05/01/23 08:00 Laboratory Results - last 24 hr 04/30/23 09:47: Total Counted 100, Neutrophils % (Manual) 76, Band Neutrophils % 14.0 H, Lymphocytes % (Manual) 6 L, Monocytes % (Manual) 4, Differential Comment , Platelet Estimate Moderate increase, Hypochromasia 1+, Poikilocytosis 1+, Anisocytosis 1+, Macrocytosis 1+, Spherocytes 1+, Stomatocytes 1+, Rouleaux 1+ 04/30/23 10:05: SARS-CoV-2 (PCR) Not detected, Influenza A Untype (PCR) Not detected, Influenza Type B (PCR) Not detected 04/30/23 10:10: Urine Color Yellow, Urine Appearance Clear, Urine pH 5.5, Ur Specific [place] 1.015, Urine Protein Negative, Urine Glucose (UA) Negative, Urine Ketones Negative, Urine Blood Negative, Urine Nitrate Negative, Urine Bilirubin Negative, Urine Urobilinogen 0.2, Ur Leukocyte Esterase Negative, Urine RBC None, Urine WBC None, Ur Squamous Epith Cells Occasional, Urine Bacteria Trace, Hyaline Casts 3-5, Urine Mucus Trace 04/30/23 15:54: Potassium 6.9 H* 04/30/23 18:33: Potassium 5.5 H D 05/01/23 06:50: WBC 9.8 D, RBC 1.95 L* D, Hgb 5.5 L* D, Hct 18.7 L*, MCV 95.7, MCH 28.4, MCHC 29.7 L, RDW 27.2 H*, Plt Count 381 D, MPV 8.5, Neut % (Auto) 78.1, Lymph % (Auto) 14.6, [place] % (Auto) 6.3, Eos % (Auto) 0.6, Baso % (Auto) 0.3, Neut # (Auto) 7.7, Lymph # (Auto) 1.4, [place] # (Auto) 0.6, Eos # (Auto) 0.1, Baso # (Auto) 0.0, Sodium 133 L, Potassium 5.3 H, Chloride 111 H, Carbon Dioxide 20 L, Anion Gap 7.3, BUN 50 H, Creatinine 2.00 H, Estimated Creat Clear 24, Estimated GFR 24 L, Est GFR ( Amer) 28 L, Glucose 122 H, Calcium 8.4 05/01/23 09:00: Blood Type A Positive, Antibody Screen Negative, Crossmatch (AHG) See Detail I & O for Last 24 hours: Intake & Output 04/28/23 04/29/23 04/30/23 05/01/23 23:59 23:59 23:59 23:59 Intake Total Output Total 0 / 0 0 / 0 Balance Weight 77.621 kg 66.706 kg Constitutional Constitutional: no acute distress *Routine HEENT Exam Head: Present normocephalic Eye: Present EOMI and PERRL ENT: Present mucous membranes moist *Routine Neck Exam Neck: Present supple; Absent lymphadenopathy *Routine Respiratory Exam Respiratory: Present CTA bilaterally *Routine Cardiovascular Exam Cardiovascular: Present RRR *Routine Abdominal Exam Abdominal: Present soft and normoactive bowel sounds; Absent tenderness *Routine Extremities Exam Extremities: Absent cyanosis, clubbing or edema *Routine Skin Exam Skin: Present warm; Absent rash *Routine Neurological Exam Neurological: Present alert and oriented X3 Assessment and Plan *Assessment and plan (1) Acute hyperkalemia: Status: Acute Category: Medical Code(s): E87.5 - Hyperkalemia (2) Cellulitis: Status: Acute Category: Medical Code(s): L03.90 - Cellulitis, unspecified Plan Patient is a 87-year-old female with past medical history of diabetes mellitus hypertension hyperlipidemia CKD hypothyroidism CHF who presents to the hospital due to elevated potassium. Patient is very poor historian. Most of the history is from patient's chart. Patient had blood work performed at nursing facility visit show elevated potassium. Patient was sent to the hospital for further evaluation. Patient was recently started on Bactrim for left lower extremity cellulitis. Assessment Severe hyperkalemia Left lower extremity cellulitis Chronic lower extremity edema Diabetes mellitus Hypertension Hyperlipidemia CKD stage IV CHF Plan continue lokelma Hb drop today, hold Eliquis, Heparin, monitor HB, check stool occult, ordered 1 unit PRBC Started on vancomycin Insulin sliding scale Resume home medications Hold home spironolactone DVT prophylaxis-on home Eliquis (on Hold)
[2023-05-01 11:49] LABS: POC Glucose,Bedside 127 (70-110)
--- NOTE | 2023-05-01 12:03 | HMH.PHAINT1 ---
Pharmacy Intervention Comments: Home med list verified with patient and son at bedside, Rx bottles from patient's home were provided, and external pharmacy list was used.
--- NOTE | 2023-05-01 13:38 | SW/DCPLANNER ---
Addendum entered by Kathrine Goodrich 05/04/23 13:20: Per Swapnil courtney/ [facility] patient has been approved SNF level of care once medically stable for discharge. Addendum entered by Kathrine Goodrich 05/04/23 08:26: Swapnil courtney/ [facility] stated that precert will be started this AM on patient. I will continue to follow up w/ , Antionette Payne and patient/family. Original Note: I spoke w/ patient and her family regarding plans once medically stable for discharge. PT/OT evaluated patient and recommended SNF level of care for this patient. Patient and family are agreeable and prefer [facility]. Patient information will be faxed to Swapnil courtney/ [facility] today. I will follow up once patient information is reviewed. Discharge date is unknown at this time.
--- NOTE | 2023-05-01 14:03 | PC.NURSE ---
pt. aox1, turn every 2 hours, hgb of 5.5 and one unit of prbc's given, pt's family spoke to cm about placement, PT ordered to see patient.
--- NOTE | 2023-05-01 14:06 | HMH.OTEV ---
OT Inpatient Evaluation Rehab OT IP Evaluation Start: 05/01/23 10:08 Freq: ONCE Status: Active Protocol: Document 05/01/23 13:59 ESPERANZAYOUNG (Rec: 05/01/23 14:06 ALEX [id number]) Rehab OT IP Assessment Subjective History Patient is a 87-year-old female with past medical history of diabetes mellitus hypertension hyperlipidemia CKD hypothyroidism CHF who presents to the hospital due to elevated potassium. Patient is very poor historian . Most of the history is from patient's chart. Patient had blood work performed at nursing facility visit show elevated potassium. Patient was sent to the hospital for further evaluation. Patient was recently started on Bactrim for left lower extremity cellulitis. Patient lives at home with . Used a RW for ambulation purposes. completed all ADLs and fx'l mobility independently. Family reported a decline with patient's ADLs and fx'l mobility for the past month. is no longer able to provide care for patient anymore. Family is looking into ad terminal makeup operator care placement. Subjective I can sit up. Instructed patient on proper hand and foot placement to complete bed mobility from supine->sit @ EOB->stand with usage of RW requiring Mod A. Patient required Mod A x2 for standing. Unable to take steps at this time. Requested to lay back in bed. Assisted patient back to bed with needs met and call light in reach. Objective Patient Orientation Person,Place,Name,Age,Birthday ,Year Right Upper Extremity Gross ROM WFL Left Upper Extremity Gross ROM WFL Bed Mobility bed mobility - supine/sit Assist Level Moderate x 1 (50% assist) Transfer Training Sit/Stand/Pivot Transfer Assist Level Moderate x 2 (50% assist) Chair Transfer Ability Moderate x 2 (50% assist) Chair Transfer Technique Sit to/from Ambulatory Chair Transfer Assistive Devices Rolling Walker Rehab OT IP prob,goals,plan Problems Date of Evaluation: 05/01/23 OT IP Problems Bed Mobility,Transfers,Balance ,Self care,Safety Rehab Potential Rehab Potential Good Plan OT intervention Plan Bed Mobility,Transfers,Balance ,Self care,Safety,Therapeutic Exercise OT Plan Frequency Daily Duration LOS Discharge Goals Bed Mobility Ability Assistance x1 Sit to Stand Chair Transfer Ability Moderate x 2 (50% assist) Chair Transfer Ability Moderate x 2 (50% assist) Chair Transfer Technique Sit to/from Ambulatory Discharge Plan OT Discharge Plan Recommend placement at this time. Patient needs 17/11 care and is unable to provide for her. Patient to continue skilled OT IP services while here at [facility]. Eval Complexity Eval Charge Codes 86839 - Low Complexity PHYSICIAN CERTIFICATION: I certify the specified therapy services for Filomena Curtis are required, authorized, and reviewed every 30 days.
[2023-05-01 15:18] LABS: Hematocrit 23.1 % (37.0-47.0)
--- NOTE | 2023-05-01 15:36 | HMH.PTEV ---
Physical Therapy Evaluation Rehab PT IP Evaluation Start: 05/01/23 10:08 Freq: ONCE Status: Active Protocol: Document 05/01/23 15:34 SHELBI (Rec: 05/01/23 15:36 SHELBI [id number]) Subjective/History History History Patient is a 87-year-old female with past medical history of diabetes mellitus hypertension hyperlipidemia CKD hypothyroidism CHF who presents to the hospital due to elevated potassium. Patient is very poor historian . Most of the history is from patient's chart. Patient had blood work performed at nursing facility visit show elevated potassium. Patient was sent to the hospital for further evaluation. Patient was recently started on Bactrim for left lower extremity cellulitis. Patient lives at home with . Used a RW for ambulation purposes. completed all ADLs and fx'l mobility independently. Family reported a decline with patient's ADLs and fx'l mobility for the past month. is no longer able to provide care for patient anymore. Family is looking into termite renewal inspector care placement. [ End ] Subjective Subjective I can get up. New diagnosis of cancer in past 12 No months? Rehab PT IP Eval Objective Appearance Patient Behavior Appropriate,Cooperative Patient Orientation Person,Place,Birthday Difficulty following instructions none Speech Pattern Clear,Appropriate Ambulation Patient Able to Ambulate No Balance Ability to Arise Able, uses arms to help Sitting Balance Steady, safe Standing Balance Steady, wide stance Dynamic Sitting Balance Ability Good Dynamic Standing Balance Ability Good Transfers Bed Transfer Ability Minimal x 2 (25% assist) Sit to Stand Bed Transfer Ability Moderate x 2 (50% assist) ROM All Extremities PT ROM Status WFL MMT All Extremities PT MMT WFL Rehab PT IP prob,goals,plan Problems Date of Evaluation: 05/01/23 PT IP Problems Bed Mobility,Transfers,Gait, Balance,Self care,Safety Rehab Potential Rehab Potential Good Plan PT Intervention Plan Bed Mobility,Transfers,Gait, Balance,Self care,Safety, Therapeutic Exercise PT Plan Frequency BID Duration LOS Discharge Goals Bed Transfer Ability Minimal x 2 (25% assist) Sit to Stand Chair Transfer Ability Minimal x 2 (25% assist) Ambulation Assistive Device Rolling Walker Ambulation Distance (feet) 20 Discharge Plan PT Discharge Plan PT suggests short term placement once found medically stable by . Eval Complexity Eval Charge Codes 45963 - High Complexity PHYSICIAN CERTIFICATION: I certify the specified therapy services for Filomena Delene Gaunce are required, authorized, and reviewed every 30 days.
[2023-05-01 16:34] LABS: POC Glucose,Bedside 159 (70-110)
--- NOTE | 2023-05-01 18:28 | PC.NURSE ---
Bilateral dressings to both legs changed with non adherent and kerlix. Pictures in chart.
[2023-05-01] MEDS: ATORVASTATIN 40MG TABLET 40 MG PO (21:45)
[2023-05-01 21:53] LABS: POC Glucose,Bedside 146 (70-110)
[2023-05-01] MEDS: PANTOPRAZOLE 40MG TABLET 40 MG PO (22:09)
[2023-05-01 22:13] LABS: POC Glucose,Bedside 112 (70-110)
[2023-05-02] VITALS (11 sets, daily range): BP systolic 102–120; BP diastolic 41–57; PULSE 68–89; RESP 16–28; TEMP 36.5–37.2; O2SAT 84–99; BMI 26.2
[2023-05-02] MEDS: ACETAMINOPHEN 325MG TAB 650 MG PO ×2 (05:52→20:40)
[2023-05-02] MEDS: LEVOTHYROXINE 50MCG (0.05MG) TAB 50 MCG PO (06:00)
[2023-05-02] MEDS: FLUTICASONE/SALMETEROL 500/50MCG DISKUS 1 PUFF IH (06:15)
[2023-05-02 06:33] LABS: POC Glucose,Bedside 98 (70-110)
[2023-05-02 07:00] LABS: Anion Gap 3.5 mEq/L (5-15); Blood Urea Nitrogen 44 mg/dl (7-17); Calcium 8.1 mg/dl (8.4-10.2); Carbon Dioxide 22 mmol/L (22.0-30.0); Chloride 112 mmol/L (98-107); Creatinine Clearance Estimated 21 mL/min (50-200); Estimated Glomerular Filt Rate 24 ml/min (>60); GFR (African American) 28 ML/MIN (>60); Glucose 107 mg/dl (74-100); Potassium 4.5 mmoL/L (3.5-5.1); Sodium 133 mmol/L (136-145)
[2023-05-02 07:09] LABS: Basophils % 0.3 % (0.1-2.0); Eosinophils # 0.1 K/mm3 (0.0-0.4); Eosinophils % 2.4 % (0.1-12.0); Hematocrit 23.7 % (37.0-47.0); Hemoglobin 7.3 g/dL (12.2-16.2); Lymphocytes # 1.4 K/mm3 (0.7-4.5); Lymphocytes % 27.3 % (10-50); Mean Corpuscular HGB Conc 30.9 g/dL (31.8-35.4); Mean Corpuscular Hemoglobin 27.8 pg (27.0-31.2); Mean Platelet Volume 7.9 fl (7.4-10.4); Monocytes # 0.4 K/mm3 (0.1-1.0); Monocytes % 8.8 % (1.7-9.3); Neutrophils # 3.1 K/mm3 (1.8-7.8); Neutrophils % 61.1 % (37.0-80.0); Platelet Count 357 K/mm3 (142-424); Red Blood Count 2.63 M/mm3 (4.20-5.40)
[2023-05-02 07:10] LABS: Red Cell Distribution Width 25.2 % (11.5-17.5)
[2023-05-02] MEDS: LORATADINE 10MG TABLET 10 MG PO (08:41)
[2023-05-02] MEDS: guaiFENesin 600 MG TAB.ER.12H PO ×2 (08:41→20:40)
[2023-05-02] MEDS: DIGOXIN 0.125MG TABLET 125 MCG PO (08:41)
[2023-05-02] MEDS: DOCUSATE SODIUM 100 MG CAPSULE PO (08:41)
--- NOTE | 2023-05-02 08:52 | PC.NURSE ---
crush pts meds or put in pudding/applesauce.
--- NOTE | 2023-05-02 11:13 | PC.NURSE ---
checked on pt, pt stated i feel funny, i just feel tired . fsbg 208. vss, rr 28. rle very red and slightly swollen. ble dsgs in place. +2 non pitting edema to lue. no c/o pain or n/v. md notified.
[2023-05-02 11:14] LABS: POC Glucose,Bedside 208 (70-110)
--- NOTE | 2023-05-02 11:25 | ECG_ITS ---
APPROVED REPORT Exam: Resting ECG HR:78 bpm ECG Measurements Heart Rate 78 AXES QRSd 74 QRS -1 QT 279 T 0 QTc 312 Conclusion ATRIAL FIBRILLATION LOW QRS VOLTAGE IN PRECORDIAL LEADS [QRS DEFLECTION < 1.0 mV IN CHEST LEADS] POSSIBLE ANTERIOR MYOCARDIAL INFARCTION , PROBABLY OLD [30 ms Q WAVE IN V3/V4, OR R < 0.2 mV IN V4] ABNORMAL RHYTHM ECG INTERPRETATION BASED ON A DEFAULT AGE OF 40 YEARS UNCONFIRMED REPORT Electronically signed by : Danny Cristobal MD 05/03/2023 09:03:49
[2023-05-02] MEDS: VANCOMYCIN HCL 1,000 MG in 0.9 % SODIUM CHLORIDE 250 ML 125 MG IV (11:47)
[2023-05-02 11:58] LABS: Troponin I 0.04 ng/ml (0.00-0.034)
--- NOTE | 2023-05-02 15:58 | P.PN_ITS ---
Subjective *Date: 05/02/23 *Time: 15:58 Interval history: patient was seen and evaluated at the bedside. No reported acute events overnight, denies chest pain, shortness of breath, nausea, vomiting, abdominal pain. Exam Data for Last 24 hours Vital signs and Labs for Last 24 Hours: Temp Pulse Resp BP Pulse Ox O2 Del Method O2 Flow Rate 97.9 F 73 18 102/49 L 96 Nasal Cannula 2 05/02/23 15:23 05/02/23 15:23 05/02/23 15:23 05/02/23 15:23 05/02/23 15:23 05/02/23 15:23 05/02/23 15:23 Laboratory Results - last 24 hr 05/01/23 05:41: POC Glucose 146 H 05/01/23 16:27: POC Glucose 159 H 05/01/23 22:01: POC Glucose 112 H 05/02/23 05:45: POC Glucose 98 05/02/23 06:39: WBC 5.0 D, RBC 2.63 L D, Hgb 7.3 L, Hct 23.7 L, MCV 90.0, MCH 27.8, MCHC 30.9 L, RDW 25.2 H*, Plt Count 357, MPV 7.9, Neut % (Auto) 61.1, Lymp h % (Auto) 27.3, [place] % (Auto) 8.8, Eos % (Auto) 2.4, Baso % (Auto) 0.3, Neut # (Auto) 3.1, Lymph # (Auto) 1.4, [place] # (Auto) 0.4, Eos # (Auto) 0.1, Baso # (Auto) 0.0, Sodium 133 L, Potassium 4.5, Chloride 112 H, Carbon Dioxide 22, Anion Gap 3.5 L, BUN 44 H, Creatinine 2.00 H, Estimated Creat Clear 21, Estimated GFR 24 L, Est GFR ( Amer) 28 L, Glucose 107 H, Calcium 8.1 L 05/02/23 11:08: POC Glucose 208 H 05/02/23 11:30: Troponin I 0.04 H I & O for Last 24 hours: Intake & Output 04/29/23 04/30/23 05/01/23 05/02/23 23:59 23:59 23:59 23:59 Intake Total 580 / 700 480 / 480 Output Total 0 / 0 0 / 0 Balance 0 / 10 580 / 700 480 / 480 Weight 77.621 kg 66.706 kg 69.853 kg Constitutional Constitutional: no acute distress *Routine HEENT Exam Head: Present normocephalic Eye: Present EOMI and PERRL ENT: Present mucous membranes moist *Routine Neck Exam Neck: Present supple; Absent lymphadenopathy *Routine Respiratory Exam Respiratory: Present CTA bilaterally *Routine Cardiovascular Exam Cardiovascular: Present RRR *Routine Abdominal Exam Abdominal: Present soft and normoactive bowel sounds; Absent tenderness *Routine Extremities Exam Extremities: Absent cyanosis, clubbing or edema *Routine Skin Exam Skin: Present warm; Absent rash *Routine Neurological Exam Neurological: Present alert and oriented X3 Assessment and Plan *Assessment and plan (1) Acute hyperkalemia: Status: Acute Category: Medical Code(s): E87.5 - Hyperkalemia (2) Cellulitis: Status: Acute Category: Medical Code(s): L03.90 - Cellulitis, unspecified Plan Patient is a 87-year-old female with past medical history of diabetes mellitus hypertension hyperlipidemia CKD hypothyroidism CHF who presents to the hospital due to elevated potassium. Patient is very poor historian. Most of the history is from patient's chart. Patient had blood work performed at nursing facility visit show elevated potassium. Patient was sent to the hospital for further evaluation. Patient was recently started on Bactrim for left lower extremity cellulitis. Assessment Severe hyperkalemia - resolved Left lower extremity cellulitis - continue IV abx Chronic lower extremity edema Diabetes mellitus Hypertension Hyperlipidemia CKD stage IV CHF Plan continue lokelma Hb drop today, hold Eliquis, Heparin, monitor HB, check stool occult, ordered 1 unit PRBC Started on vancomycin Insulin sliding scale Resume home medications Hold home spironolactone DVT prophylaxis-on home Eliquis (on Hold) continue IV abx, monitor Hb tonight
[2023-05-02 17:16] LABS: POC Glucose,Bedside 174 (70-110)
[2023-05-02] MEDS: MONTELUKAST SODIUM 10MG TAB 10 MG PO (18:08)
--- NOTE | 2023-05-02 18:28 | PC.WOUNDNOTE ---
LLE TOP OF LLE RLE
[2023-05-02] MEDS: ATORVASTATIN 40MG TABLET 40 MG PO (20:40)
[2023-05-02] MEDS: PANTOPRAZOLE 40MG TABLET 40 MG PO (20:40)
[2023-05-02 21:53] LABS: POC Glucose,Bedside 189 (70-110)
[2023-05-03] VITALS (9 sets, daily range): BP systolic 113–133; BP diastolic 51–57; PULSE 80–95; RESP 17–18; TEMP 36.6–37.1; O2SAT 95–98; BMI 25.9
[2023-05-03] MEDS: FLUTICASONE/SALMETEROL 500/50MCG DISKUS 1 PUFF IH ×2 (06:51→20:23)
[2023-05-03] MEDS: LEVOTHYROXINE 50MCG (0.05MG) TAB 50 MCG PO (06:57)
[2023-05-03 07:13] LABS: POC Glucose,Bedside 109 (70-110)
[2023-05-03 08:15] LABS: Blood Urea Nitrogen 39 mg/dl (7-17); Calcium 7.2 mg/dl (8.4-10.2); Carbon Dioxide 21 mmol/L (22.0-30.0); Chloride 113 mmol/L (98-107); Creatinine Clearance Estimated 25 mL/min (50-200); Estimated Glomerular Filt Rate 28 ml/min (>60); GFR (African American) 34 ML/MIN (>60); Glucose 95 mg/dl (74-100); Sodium 135 mmol/L (136-145)
[2023-05-03 08:21] LABS: Basophils % 0.2 % (0.1-2.0); Eosinophils # 0.2 K/mm3 (0.0-0.4); Eosinophils % 3.7 % (0.1-12.0); Lymphocytes # 1.8 K/mm3 (0.7-4.5); Lymphocytes % 34.6 % (10-50); Mean Corpuscular HGB Conc 30.6 g/dL (31.8-35.4); Mean Corpuscular Hemoglobin 27.3 pg (27.0-31.2); Mean Corpuscular Volume 89.3 fl (81-99); Mean Platelet Volume 8.1 fl (7.4-10.4); Monocytes # 0.5 K/mm3 (0.1-1.0); Monocytes % 9.6 % (1.7-9.3); Neutrophils # 2.7 K/mm3 (1.8-7.8); Neutrophils % 51.9 % (37.0-80.0); Platelet Count 344 K/mm3 (142-424); Red Blood Count 2.58 M/mm3 (4.20-5.40); Red Cell Distribution Width 24.4 % (11.5-17.5); White Blood Count 5.2 K/mm3 (4.8-10.8)
[2023-05-03] MEDS: DIGOXIN 0.125MG TABLET 125 MCG PO (08:52)
[2023-05-03] MEDS: LORATADINE 10MG TABLET 10 MG PO (08:52)
[2023-05-03] MEDS: DOCUSATE SODIUM 100 MG CAPSULE PO (08:52)
[2023-05-03] MEDS: guaiFENesin 600 MG TAB.ER.12H PO ×2 (08:52→21:48)
[2023-05-03] MEDS: ACETAMINOPHEN 325MG TAB 650 MG PO ×2 (08:57→21:48)
[2023-05-03] MEDS: 0.9 % SODIUM CHLORIDE 1000ML 1,000 ML 50 ML IV (12:50)
[2023-05-03] MEDS: CEFEPIME HCL 1 GM in 0.9 % SODIUM CHLORIDE 50 ML IV (12:50)
--- NOTE | 2023-05-03 16:18 | P.PN_ITS ---
Subjective *Date: 05/03/23 *Time: 16:18 Interval history: patient was seen and evaluated at the bedside. No reported acute events overnight, denies chest pain, shortness of breath, nausea, vomiting, abdominal pain. Exam Data for Last 24 hours Vital signs and Labs for Last 24 Hours: Temp Pulse Resp BP Pulse Ox O2 Del Method O2 Flow Rate 98.7 F 93 H 18 120/54 L 98 Nasal Cannula 2 05/03/23 16:00 05/03/23 16:00 05/03/23 16:00 05/03/23 16:00 05/03/23 16:00 05/03/23 16:00 05/03/23 16:00 Laboratory Results - last 24 hr 05/02/23 17:04: POC Glucose 174 H 05/02/23 20:54: POC Glucose 189 H 05/03/23 06:54: POC Glucose 109 05/03/23 07:00: WBC 5.2, RBC 2.58 L, Hgb 7.0 L, Hct 23.0 L, MCV 89.3, MCH 27.3, MCHC 30.6 L, RDW 24.4 H, Plt Count 344, MPV 8.1, Neut % (Auto) 51.9, Lymph % (Auto) 34.6, [place] % (Auto) 9.6 H, Eos % (Auto) 3.7, Baso % (Auto) 0.2, Neut # (A uto) 2.7, Lymph # (Auto) 1.8, [place] # (Auto) 0.5, Eos # (Auto) 0.2, Baso # (Auto) 0.0, Sodium 135 L, Potassium 4.0, Chloride 113 H, Carbon Dioxide 21 L, Anion Gap 5.0, BUN 39 H, Creatinine 1.70 H, Estimated Creat Clear 25, Estimated GFR 28 L, Est GFR ( Amer) 34 L D, Glucose 95, Calcium 7.2 L I & O for Last 24 hours: Intake & Output 04/30/23 05/01/23 05/02/23 05/03/23 23:59 23:59 23:59 23:59 Intake Total 580 / 700 720 / 720 600 / 600 Output Total 0 / 0 0 / 0 0 / 0 0 / 0 Balance 0 / 10 580 / 700 720 / 720 600 / 600 Weight 77.621 kg 66.706 kg 69.853 kg 68.81 kg Constitutional Constitutional: no acute distress *Routine HEENT Exam Head: Present normocephalic Eye: Present EOMI and PERRL ENT: Present mucous membranes moist *Routine Neck Exam Neck: Present supple; Absent lymphadenopathy *Routine Respiratory Exam Respiratory: Present CTA bilaterally *Routine Cardiovascular Exam Cardiovascular: Present RRR *Routine Abdominal Exam Abdominal: Present soft and normoactive bowel sounds; Absent tenderness *Routine Extremities Exam Extremities: Absent cyanosis, clubbing or edema *Routine Skin Exam Skin: Present warm; Absent rash *Routine Neurological Exam Neurological: Present alert and oriented X3 Assessment and Plan *Assessment and plan (1) Acute hyperkalemia: Status: Acute Category: Medical Code(s): E87.5 - Hyperkalemia (2) Cellulitis: Status: Acute Category: Medical Code(s): L03.90 - Cellulitis, unspecified Plan Patient is a 87-year-old female with past medical history of diabetes mellitus hypertension hyperlipidemia CKD hypothyroidism CHF who presents to the hospital due to elevated potassium. Patient is very poor historian. Most of the history is from patient's chart. Patient had blood work performed at nursing facility visit show elevated potassium. Patient was sent to the hospital for further evaluation. Patient was recently started on Bactrim for left lower extremity cellulitis. Assessment Severe hyperkalemia - resolved Left lower extremity cellulitis - continue IV abx Chronic lower extremity edema Diabetes mellitus Hypertension Hyperlipidemia CKD stage IV CHF Plan Hb drop today, continue to hold hold Eliquis, monitor HB, check stool occult - negtative, ordered 1 unit PRBC Started on vancomycin, added on Zosyn for cellulitis Insulin sliding scale Resume home medications Hold home spironolactone DVT prophylaxis-on home Eliquis (on Hold) continue IV abx, monitor Hb tonight, dc 1-2 days
[2023-05-03 16:38] LABS: POC Glucose,Bedside 151 (70-110)
[2023-05-03] MEDS: MONTELUKAST SODIUM 10MG TAB 10 MG PO (17:59)
[2023-05-03] MEDS: HYDROCODONE/APAP 5/325 MG TABLET 1 TAB PO (18:15)
[2023-05-03] MEDS: PANTOPRAZOLE 40MG TABLET 40 MG PO (21:48)
[2023-05-03] MEDS: ATORVASTATIN 40MG TABLET 40 MG PO (21:48)
[2023-05-03 22:15] LABS: POC Glucose,Bedside 163 (70-110)
[2023-05-04] VITALS (9 sets, daily range): BP systolic 99–138; BP diastolic 48–62; PULSE 74–109; RESP 14–20; TEMP 36.4–37.7; O2SAT 92–100; BMI 26.4
[2023-05-04] MEDS: CEFEPIME HCL 1 GM in 0.9 % SODIUM CHLORIDE 50 ML IV ×2 (00:57→11:39)
[2023-05-04] MEDS: FLUTICASONE/SALMETEROL 500/50MCG DISKUS 1 PUFF IH ×2 (06:26→18:22)
[2023-05-04] MEDS: LEVOTHYROXINE 50MCG (0.05MG) TAB 50 MCG PO (06:45)
[2023-05-04] MEDS: 0.9 % SODIUM CHLORIDE 1000ML 1,000 ML 50 ML IV (09:05)
[2023-05-04] MEDS: LORATADINE 10MG TABLET 10 MG PO (09:06)
[2023-05-04] MEDS: DOCUSATE SODIUM 100 MG CAPSULE PO (09:06)
[2023-05-04] MEDS: DIGOXIN 0.125MG TABLET 125 MCG PO (09:06)
[2023-05-04] MEDS: guaiFENesin 600 MG TAB.ER.12H PO ×2 (09:06→22:03)
[2023-05-04 11:12] LABS: Basophils % 0.3 % (0.1-2.0); Chloride 114 mmol/L (98-107); Eosinophils # 0.3 K/mm3 (0.0-0.4); Eosinophils % 2.9 % (0.1-12.0); Hematocrit 27.1 % (37.0-47.0); Hemoglobin 8.1 g/dL (12.2-16.2); Lymphocytes # 2.1 K/mm3 (0.7-4.5); Lymphocytes % 22.6 % (10-50); Mean Corpuscular Hemoglobin 28.2 pg (27.0-31.2); Mean Corpuscular Volume 93.9 fl (81-99); Mean Platelet Volume 8.4 fl (7.4-10.4); Monocytes # 0.7 K/mm3 (0.1-1.0); Monocytes % 7.5 % (1.7-9.3); Neutrophils # 6.1 K/mm3 (1.8-7.8); Neutrophils % 66.8 % (37.0-80.0); Platelet Count 403 K/mm3 (142-424); Red Blood Count 2.89 M/mm3 (4.20-5.40); Red Cell Distribution Width 24.4 % (11.5-17.5); Sodium 138 mmol/L (136-145); White Blood Count 9.1 K/mm3 (4.8-10.8)
[2023-05-04 11:15] LABS: Blood Urea Nitrogen 31 mg/dl (7-17); Creatinine Clearance Estimated 29 mL/min (50-200); Estimated Glomerular Filt Rate 33 ml/min (>60); GFR (African American) 40 ML/MIN (>60)
[2023-05-04 11:16] LABS: Calcium 7.1 mg/dl (8.4-10.2); Carbon Dioxide 20 mmol/L (22.0-30.0); Glucose 110 mg/dl (74-100)
[2023-05-04] MEDS: PHA TO NURSING INSTRUCTION 1 EACH NOTAPPLIC (11:35)
[2023-05-04 11:39] LABS: Hemoglobin A1C 5.1 % (4.0-6.0)
--- NOTE | 2023-05-04 12:12 | P.CONPHA_ITS ---
Pharmacy Consult Date: 05/04/23 Time: 12:12 Referring provider: DR. AGUILAR Reason for Consult:: VANCOMYCIN TROUGH LEVEL Allergies Allergy/AdvReac Type Severity Reaction Status Date / Time Penicillins [PENICILLINS] Allergy Severe S-SWELLS-OR Verified 04/30/23 09:58 AL/THROAT codeine [CODEINE] Allergy Unknown NA-DIARRHEA Verified 04/30/23 09:58 Home Medications Medication Instructions Recorded Confirmed Type psyllium husk 0.52 gram capsule 0.52 gm PO DAILY 09/26/20 05/01/23 History fluticasone propionate 50 1 spray intranasal DAILYP PRN 10/27/22 05/01/23 History mcg/actuation nasal Allergies spray,suspension guaifenesin 600 mg tablet, 600 mg PO BID 30 days #60 tabs 12/08/22 04/30/23 Rx extended release 12 hr (Mucinex) montelukast 5 mg chewable tablet 5 mg PO HS Allergy symptoms 90 03/24/23 04/30/23 Rx days #90 tabs apixaban 2.5 mg tablet (Eliquis) 2.5 mg PO BID 03/26/23 04/30/23 History atorvastatin 40 mg tablet 40 mg PO HS 03/26/23 05/01/23 History diclofenac sodium 1 % topical gel 4 g topical QID PRN Pain 03/26/23 05/01/23 History digoxin 125 mcg (0.125 mg) tablet 125 mcg PO DAILY 03/26/23 04/30/23 History cranberry extract 250 mg capsule 250 mg PO DAILY #30 caps 03/30/23 05/01/23 Rx denosumab 60 mg/mL subcutaneous 60 mg SQ [id number] #1 mL 03/30/23 05/01/23 Rx syringe (Prolia) magnesium oxide 250 mg PO DAILY #30 tabs 03/30/23 05/01/23 Rx ipratropium 0.5 mg-albuterol 3 mg 3 ml inhalation Q4HP PRN Shortness 04/02/23 04/30/23 Rx (2.5 mg base)/3 mL nebulization Of Breath Or Wheezing #180 mL soln acetaminophen 500 mg capsule 500 mg PO Q6H PRN PAIN/FEVER 04/08/23 04/30/23 History azelastine 0.05 % eye drops 1 drp Eye-Both BID 04/08/23 05/01/23 History triamcinolone acetonide 0.5 % 1 applic topical BID 04/08/23 05/01/23 History topical ointment ferrous sulfate 325 mg (65 mg 325 mg PO DAILY #30 tabs 04/17/23 05/01/23 Rx iron) tablet levocetirizine 5 mg tablet (Xyzal) 5 mg PO DAILY #30 tabs 04/21/23 04/30/23 Rx bisacodyl 5 mg tablet,delayed 5 mg PO HS 05/01/23 05/01/23 History release glipizide 2.5 mg tablet, extended 2.5 mg PO DAILY 05/01/23 05/01/23 History release 24 hr levothyroxine 50 mcg tablet 50 mcg PO DAILY 05/01/23 05/01/23 History omeprazole 20 mg capsule,delayed 20 mg PO DAILY 05/01/23 05/01/23 History release New Prescriptions to Start Prescriptions: Height: 1.63 m Weight: 70.261 kg Laboratory Results:: Laboratory Results - last 24 hr 05/03/23 16:22: POC Glucose 151 H 05/03/23 22:07: POC Glucose 163 H 05/04/23 10:10: WBC 9.1 D, RBC 2.89 L, Hgb 8.1 L, Hct 27.1 L, MCV 93.9, MCH 28.2, MCHC 30.0 L, RDW 24.4 H, Plt Count 403, MPV 8.4, Neut % (Auto) 66.8, Lymph % (Auto) 22.6, [place] % (Auto) 7.5, Eos % (Auto) 2.9, Baso % (Auto) 0.3, Neut # (Auto) 6.1, Lymph # (Auto) 2.1, [place] # (Auto) 0.7, Eos # (Auto) 0.3, Baso # (Auto) 0.0, Sodium 138, Potassium 4.0, Chloride 114 H, Carbon Dioxide 20 L, Anion Gap 8.0, BUN 31 H, Creatinine 1.50 H, Estimated Creat Clear 29, Estimated GFR 33 L, Est GFR ( Amer) 40 L, Glucose 110 H, Hemoglobin A1c 5.1, Calcium 7.1 L, Vancomycin Trough 12.0 H Medical History: Medical History (Updated 04/30/23 @ 13:54 by Meenu Curtis RN) Acute hyperkalemia Acute kidney injury (nontraumatic) ELINOR (acute kidney injury) Anasarca ARF (acute renal failure) Asthma exacerbation Atrial fibrillation with RVR Blood loss anemia Brain benign neoplasm CHF (congestive heart failure) CHF exacerbation Chronic respiratory failure CKD (chronic kidney disease) CKD (chronic kidney disease) stage 3, GFR 30-59 ml/min CKD (chronic kidney disease) stage 4, GFR 15-29 ml/min Cyst of left ovary Dependent edema Diabetes Diabetic foot Edema of lower extremity GERD (gastroesophageal reflux disease) Hyperlipidemia Hypertension Hypoalbuminemia due to protein-calorie malnutrition Hypokalemia Hypothyroid Hypothyroid Lower GI bleed Lung collapse MRSA pneumonia New onset atrial fibrillation Onychodystrophy Respiratory failure with hypoxia Sacral decubitus ulcer Type 2 diabetes mellitus without complication, with long-term current use of insulin Assessment and Plan Assessment and plan all Dx Assessment and Plan for all problems:: VANCOMYCIN TROUGH LEVEL WAS 12.0 MCG/ML THIS AM. RECOMMEND CONTINUING WITH VANCOMYCIN 1000 MG Q48H AT THIS TIME.
[2023-05-04] MEDS: VANCOMYCIN HCL 1,000 MG in 0.9 % SODIUM CHLORIDE 250 ML 125 MG IV (12:49)
--- NOTE | 2023-05-04 12:56 | PC.NURSE ---
Report given to Meghan Duckworth.
--- NOTE | 2023-05-04 15:26 | P.PN_ITS ---
Subjective *Date: 05/04/23 *Time: 15:26 Interval history: patient was seen and evaluated at the bedside. No reported acute events overnight, denies chest pain, shortness of breath, nausea, vomiting, abdominal pain. Exam Data for Last 24 hours Vital signs and Labs for Last 24 Hours: Temp Pulse Resp BP Pulse Ox O2 Del Method O2 Flow Rate 97.8 F 109 H 18 99/55 L 95 Nasal Cannula 1.5 05/04/23 12:00 05/04/23 12:00 05/04/23 12:00 05/04/23 12:00 05/04/23 12:00 05/04/23 12:55 05/04/23 12:55 Laboratory Results - last 24 hr 05/03/23 16:22: POC Glucose 151 H 05/03/23 22:07: POC Glucose 163 H 05/04/23 10:10: WBC 9.1 D, RBC 2.89 L, Hgb 8.1 L, Hct 27.1 L, MCV 93.9, MCH 28.2, MCHC 30.0 L, RDW 24.4 H, Plt Count 403, MPV 8.4, Neut % (Auto) 66.8, Lymph % (Auto) 22.6, [place] % (Auto) 7.5, Eos % (Auto) 2.9, Baso % (Auto) 0.3, Neut # (Auto) 6.1, Lymph # (Auto) 2.1, [place] # (Auto) 0.7, Eos # (Auto) 0.3, Baso # (Auto) 0.0, Sodium 138, Potassium 4.0, Chloride 114 H, Carbon Dioxide 20 L, Anion Gap 8.0, BUN 31 H, Creatinine 1.50 H, Estimated Creat Clear 29, Estimated GFR 33 L, Est GFR ( Amer) 40 L, Glucose 110 H, Hemoglobin A1c 5.1, Calcium 7.1 L, Vancomycin Trough 12.0 H I & O for Last 24 hours: Intake & Output 05/01/23 05/02/23 05/03/23 05/04/23 23:59 23:59 23:59 23:59 Intake Total 580 / 700 720 / 720 1195 / 1495 1580 / 1580 Output Total 0 / 0 0 / 0 0 / 0 Balance 580 / 700 720 / 720 1195 / 1495 1580 / 1580 Weight 66.706 kg 69.853 kg 68.81 kg 70.261 kg Constitutional Constitutional: no acute distress *Routine HEENT Exam Head: Present normocephalic Eye: Present EOMI and PERRL ENT: Present mucous membranes moist *Routine Neck Exam Neck: Present supple; Absent lymphadenopathy *Routine Respiratory Exam Respiratory: Present CTA bilaterally *Routine Cardiovascular Exam Cardiovascular: Present RRR *Routine Abdominal Exam Abdominal: Present soft and normoactive bowel sounds; Absent tenderness *Routine Extremities Exam Extremities: Absent cyanosis, clubbing or edema *Routine Skin Exam Skin: Present warm; Absent rash *Routine Neurological Exam Neurological: Present alert and oriented X3 Assessment and Plan *Assessment and plan (1) Acute hyperkalemia: Status: Acute Category: Medical Code(s): E87.5 - Hyperkalemia (2) Cellulitis: Status: Acute Category: Medical Code(s): L03.90 - Cellulitis, unspecified Plan Patient is a 87-year-old female with past medical history of diabetes mellitus hypertension hyperlipidemia CKD hypothyroidism CHF who presents to the hospital due to elevated potassium. Patient is very poor historian. Most of the history is from patient's chart. Patient had blood work performed at nursing facility visit show elevated potassium. Patient was sent to the hospital for further evaluation. Patient was recently started on Bactrim for left lower extremity cellulitis. Assessment Severe hyperkalemia - resolved Left lower extremity cellulitis - continue IV abx Chronic lower extremity edema Diabetes mellitus Hypertension Hyperlipidemia CKD stage IV CHF Plan Hb drop today, continue to hold hold Eliquis, monitor HB, check stool occult - negtative, ordered 1 unit PRBC Started on vancomycin, added on cefepime for cellulitis US DVT order to r/o underlying DVT Insulin sliding scale Resume home medications Hold home spironolactone DVT prophylaxis-on home Eliquis (on Hold) continue IV abx, monitor Hb tonight, dc 1-2 days
[2023-05-04 16:04] LABS: Vancomycin,Peak 22.7 ug/ml (11-39)
[2023-05-04 16:43] LABS: POC Glucose,Bedside 132 (70-110)
[2023-05-04] MEDS: MONTELUKAST SODIUM 10MG TAB 10 MG PO (18:42)
[2023-05-04] MEDS: ATORVASTATIN 40MG TABLET 40 MG PO (22:02)
[2023-05-04] MEDS: APIXABAN 5MG TABLET 2.5 MG PO (22:02)
[2023-05-04] MEDS: PANTOPRAZOLE 40MG TABLET 40 MG PO (22:03)
[2023-05-05] VITALS (8 sets, daily range): BP systolic 118–135; BP diastolic 60–75; PULSE 84–100; RESP 20–22; TEMP 36.6–36.9; O2SAT 93–99; BMI 25.8
[2023-05-05] MEDS: CEFEPIME HCL 1 GM in 0.9 % SODIUM CHLORIDE 50 ML IV ×2 (01:00→13:31)
[2023-05-05 01:44] LABS: POC Glucose,Bedside 101 (70-110)
[2023-05-05] MEDS: FLUTICASONE/SALMETEROL 500/50MCG DISKUS 1 PUFF IH (05:37)
[2023-05-05 07:09] LABS: Anion Gap 5.9 mEq/L (5-15); Blood Urea Nitrogen 20 mg/dl (7-17); Calcium 6.9 mg/dl (8.4-10.2); Carbon Dioxide 20 mmol/L (22.0-30.0); Chloride 115 mmol/L (98-107); Creatinine Clearance Estimated 35 mL/min (50-200); Estimated Glomerular Filt Rate 42 ml/min (>60); GFR (African American) 51 ML/MIN (>60); Glucose 93 mg/dl (74-100); Potassium 3.9 mmoL/L (3.5-5.1); Sodium 137 mmol/L (136-145)
[2023-05-05 07:11] LABS: POC Glucose,Bedside 87 (70-110)
--- NOTE | 2023-05-05 08:07 | EXP.DC.SUM ---
General Admission date:: 04/30/23 Discharge date: 05/05/23 HPI HPI HPI: Patient is a 87-year-old female with past medical history of diabetes mellitus hypertension hyperlipidemia CKD hypothyroidism CHF who presents to the hospital due to elevated potassium. Patient is very poor historian. Most of the history is from patient's chart. Patient had blood work performed at nursing facility visit show elevated potassium. Patient was sent to the hospital for further evaluation. Patient was recently started on Bactrim for left lower extremity cellulitis. Hospital Course Hospital Course Hospital Course: Ms. Curtis is an 87-year-old female with history of diabetes mellitus, hypertension, hyperlipidemia, CKD, hypothyroidism, and CHF who presents to the hospital due to elevated potassium. Patient is very poor historian. Most of the history is from patient's chart. Patient had blood work performed as an outpatient showing elevated potassium. Sent to the hospital for further evaluation. Recently started on Bactrim for left lower extremity cellulitis. Also noted to have an ELINOR. During admission, kidney function improved. Cellulitis improving with IV antibiotics. Transition to oral antibiotics to complete course. Given frailty, patient was evaluated by therapy and recommended for placement. Will discharge to [facility] today for further care. Stable for discharge. Problems addressed as follows: Lower extremity cellulitis Chronic lower extremity edema -Initiated on IV antibiotics. Was initially on Bactrim, likely culprit in her ELINOR and hyperkalemia. Transitioned to vancomycin and cefepime. Tolerated well with showing gradual improvement in erythema. Patient's white cell count normalized. Transition to Keflex to complete 5 more days of antibiotics. Hyperkalemia ELINOR CKD 3/4 -Likely secondary to medication with Bactrim. Held medication and saw gradual improvement in her levels. Potassium 3.9 on day of discharge, creatinine 1.2, BUN 20. Recommend repeat labs in 1 week to monitor kidney function and electrolytes. Diabetes: Continue glipizide 2.5 mg daily. A1c well-controlled during admission however patient also anemic. GERD: Continue pantoprazole 20 mg daily Iron deficient anemia, continue daily iron supplementation, status post transfusion of 1 unit during hospitalization Hypothyroidism: Continue levothyroxine 50 mcg daily COPD: Continue albuterol and Advair as prescribed A-fib: Continue Eliquis 2.5 mg twice daily and digoxin 125 mcg daily for rate control Of note, patient on 1.5 L oxygen. Sats have been in the low 90s. Overall doing well. Continue supplemental oxygen for goal sats greater than 90%. Necessitating 1 to 2 L continuous. Spent 30 minutes in discharge counseling, documentation, chart review, and direct care with patient. Exam Data for Last 24 hours Vital signs and Labs for Last 24 Hours: Temp Pulse Resp BP Pulse Ox O2 Del Method O2 Flow Rate 97.8 F 89 20 118/75 93 L Nasal Cannula 2 05/05/23 04:00 05/05/23 04:00 05/05/23 04:00 05/05/23 04:00 05/05/23 05:40 05/05/23 07:00 05/05/23 07:00 Laboratory Results - last 24 hr 05/04/23 10:10: WBC 9.1 D, RBC 2.89 L, Hgb 8.1 L, Hct 27.1 L, MCV 93.9, MCH 28.2, MCHC 30.0 L, RDW 24.4 H, Plt Count 403, MPV 8.4, Neut % (Auto) 66.8, Lymph % (Auto) 22.6, [place] % (Auto) 7.5, Eos % (Auto) 2.9, Baso % (Auto) 0.3, Neut # (Auto) 6.1, Lymph # (Auto) 2.1, [place] # (Auto) 0.7, Eos # (Auto) 0.3, Baso # (Auto) 0.0, Sodium 138, Potassium 4.0, Chloride 114 H, Carbon Dioxide 20 L, Anion Gap 8.0, BUN 31 H, Creatinine 1.50 H, Estimated Creat Clear 29, Estimated GFR 33 L, Est GFR ( Amer) 40 L, Glucose 110 H, Hemoglobin A1c 5.1, Calcium 7.1 L, Vancomycin Trough 12.0 H 05/04/23 11:45: POC Glucose 132 H 05/04/23 14:55: Vancomycin Peak 22.7 05/05/23 01:37: POC Glucose 101 05/05/23 06:23: POC Glucose 87 05/05/23 06:35: Sodium 137, Potassium 3.9, Chloride 115 H, Carbon Dioxide 20 L, Anion Gap 5.9, BUN 20 H D, Creatinine 1.20 H, Estimated Creat Clear 35, Estimated GFR 42 L, Est GFR ( Amer) 51 L D, Glucose 93, Calcium 6.9 L I & O for Last 24 hours: Intake & Output 05/02/23 05/03/23 05/04/23 05/05/23 23:59 23:59 23:59 23:59 Intake Total 720 / 720 1195 / 1495 1680 / 1680 Output Total 0 / 0 0 / 0 0 / 0 0 / 0 Balance 720 / 720 1195 / 1495 1680 / 1680 0 / 0 Weight 69.853 kg 68.81 kg 70.261 kg 68.663 kg Constitutional Constitutional: no acute distress, average body habitus, chronically ill appearing and disheveled *Routine HEENT Exam Head: Present normocephalic Eye: Present EOMI and PERRL ENT: Present mucous membranes moist *Routine Neck Exam Neck: Present supple; Absent lymphadenopathy *Routine Respiratory Exam Respiratory: Present prolonged expiratory phase and diminished air movement; Absent rhonchi, wheezes or crackles *Routine Cardiovascular Exam Cardiovascular: Present RRR *Routine Abdominal Exam Abdominal: Present soft and normoactive bowel sounds; Absent tenderness *Routine Extremities Exam Extremities: Present edema (Right upper extremity, trace in bilateral lower extremities); Absent cyanosis or clubbing *Routine Skin Exam Skin: Present erythema and warm; Absent rash Comments: Erythema bilateral ankles, wounds on bilateral lower legs, clean dry dressings in place. *Routine Neurological Exam Neurological: Present alert and moving all extremities; Absent altered mental status Results Data Completed and Pending Labs on day of discharge: Labs from last 24 hours 05/05/23 05/05/23 05/05/23 06:35 06:23 01:37 WBC RBC Hgb Hct MCV MCH MCHC RDW Plt Count MPV Neut % (Auto) Lymph % (Auto) [place] % (Auto) Eos % (Auto) Baso % (Auto) Neut # (Auto) Lymph # (Auto) [place] # (Auto) Eos # (Auto) Baso # (Auto) Sodium 137 Potassium 3.9 Chloride 115 H Carbon Dioxide 20 L Anion Gap 5.9 BUN 20 H D Creatinine 1.20 H Estimated Creat Clear 35 Estimated GFR 42 L Est GFR ( Amer) 51 L D Glucose 93 POC Glucose 87 101 Hemoglobin A1c Calcium 6.9 L Vancomycin Peak Vancomycin Trough 05/04/23 05/04/23 05/04/23 14:55 11:45 10:10 WBC 9.1 D RBC 2.89 L Hgb 8.1 L Hct 27.1 L MCV 93.9 MCH 28.2 MCHC 30.0 L RDW 24.4 H Plt Count 403 MPV 8.4 Neut % (Auto) 66.8 Lymph % (Auto) 22.6 [place] % (Auto) 7.5 Eos % (Auto) 2.9 Baso % (Auto) 0.3 Neut # (Auto) 6.1 Lymph # (Auto) 2.1 [place] # (Auto) 0.7 Eos # (Auto) 0.3 Baso # (Auto) 0.0 Sodium 138 Potassium 4.0 Chloride 114 H Carbon Dioxide 20 L Anion Gap 8.0 BUN 31 H Creatinine 1.50 H Estimated Creat Clear 29 Estimated GFR 33 L Est GFR ( Amer) 40 L Glucose 110 H POC Glucose 132 H Hemoglobin A1c 5.1 Calcium 7.1 L Vancomycin Peak 22.7 Vancomycin Trough 12.0 H DS: Diagnosis Discharge Diagnosis (1) Acute hyperkalemia: Status: Acute Code(s): E87.5 - Hyperkalemia (2) Cellulitis: Status: Acute Code(s): L03.90 - Cellulitis, unspecified (3) Hypothyroid: Status: Chronic Code(s): E03.9 - Hypothyroidism, unspecified Qualifiers: Hypothyroidism type: acquired Qualified Code(s): E03.9 - Hypothyroidism, unspecified (4) Hypertension: Status: Chronic Code(s): I10 - Essential (primary) hypertension Qualifiers: Hypertension type: essential hypertension Qualified Code(s): I10 - Essential (primary) hypertension (5) Diabetes: Status: Chronic Code(s): E11.9 - Type 2 diabetes mellitus without complications Qualifiers: Diabetes mellitus type: type 2 (6) CKD (chronic kidney disease) stage 3, GFR 30-59 ml/min: Status: Chronic Code(s): N18.30 - Chronic kidney disease, stage 3 unspecified Meds Home Medications and Allergies Home Medications Medication Instructions Recorded Confirmed Type psyllium husk 0.52 gram capsule 0.52 gm PO DAILY 09/26/20 05/01/23 History fluticasone propionate 50 1 spray intranasal DAILYP PRN 10/27/22 05/01/23 History mcg/actuation nasal Allergies spray,suspension guaifenesin 600 mg tablet, 600 mg PO BID 30 days #60 tabs 12/08/22 04/30/23 Rx extended release 12 hr (Mucinex) montelukast 5 mg chewable tablet 5 mg PO HS Allergy symptoms 90 03/24/23 04/30/23 Rx days #90 tabs apixaban 2.5 mg tablet (Eliquis) 2.5 mg PO BID 03/26/23 04/30/23 History atorvastatin 40 mg tablet 40 mg PO HS 03/26/23 05/01/23 History diclofenac sodium 1 % topical gel 4 g topical QID PRN Pain 03/26/23 05/01/23 History digoxin 125 mcg (0.125 mg) tablet 125 mcg PO DAILY 03/26/23 04/30/23 History cranberry extract 250 mg capsule 250 mg PO DAILY #30 caps 03/30/23 05/01/23 Rx denosumab 60 mg/mL subcutaneous 60 mg SQ [id number] #1 mL 03/30/23 05/01/23 Rx syringe (Prolia) magnesium oxide 250 mg PO DAILY #30 tabs 03/30/23 05/01/23 Rx ipratropium 0.5 mg-albuterol 3 mg 3 ml inhalation Q4HP PRN Shortness 04/02/23 04/30/23 Rx (2.5 mg base)/3 mL nebulization Of Breath Or Wheezing #180 mL soln acetaminophen 500 mg capsule 500 mg PO Q6H PRN PAIN/FEVER 04/08/23 04/30/23 History azelastine 0.05 % eye drops 1 drp Eye-Both BID 04/08/23 05/01/23 History triamcinolone acetonide 0.5 % 1 applic topical BID 04/08/23 05/01/23 History topical ointment ferrous sulfate 325 mg (65 mg 325 mg PO DAILY #30 tabs 04/17/23 05/01/23 Rx iron) tablet levocetirizine 5 mg tablet (Xyzal) 5 mg PO DAILY #30 tabs 04/21/23 04/30/23 Rx bisacodyl 5 mg tablet,delayed 5 mg PO HS 05/01/23 05/01/23 History release glipizide 2.5 mg tablet, extended 2.5 mg PO DAILY 05/01/23 05/01/23 History release 24 hr levothyroxine 50 mcg tablet 50 mcg PO DAILY 05/01/23 05/01/23 History albuterol sulfate 90 mcg/actuation 2 puff inhalation Q4HP PRN 05/05/23 Rx aerosol inhaler (Ventolin HFA) Shortness Of Breath Or Wheezing #0 grams fluticasone 500 mcg-salmeterol 50 1 inh inhalation BIDRT #0 ea 05/05/23 Rx mcg/dose blistr powdr for inhalation (Advair Diskus) pantoprazole 40 mg tablet,delayed 40 mg PO HS #0 tabs 05/05/23 Rx release New Prescriptions to Start Prescriptions: Allergies Allergy/AdvReac Type Severity Reaction Status Date / Time Penicillins [PENICILLINS] Allergy Severe S-SWELLS-OR Verified 04/30/23 09:58 AL/THROAT codeine [CODEINE] Allergy Unknown NA-DIARRHEA Verified 04/30/23 09:58 Discharge Plan Disposition Patient Disposition: [facility] Condition: Fair Discharge Order Discharge Orders: Discharge Order (Routine); Ordered 05/05/23 Ordered By: Luan Macias Follow up Plan Prescriptions/Medication Reconciliation: New pantoprazole 40 mg Tablet,Delayed Release (Dr/Ec) 40 mg PO HS Qty: 0 0RF fluticasone propion-salmeterol [Advair Diskus] 500-50 mcg/dose Blister With Device 1 inh inhalation BIDRT Qty: 0 0RF albuterol sulfate [Ventolin HFA] 90 mcg/actuation Hfa Aerosol Inhaler 2 puff inhalation Q4HP PRN (Reason: Shortness Of Breath Or Wheezing) Qty: 0 0RF Continued azelastine 0.05 % drops 1 drp Eye-Both BID triamcinolone acetonide 0.5 % ointment 1 applic topical BID acetaminophen 500 mg capsule 500 mg PO Q6H PRN (Reason: PAIN/FEVER) guaifenesin [Mucinex] 600 mg tablet extended release 12hr 600 mg PO BID 30 Days Qty: 60 2RF montelukast 5 mg tablet,chewable 5 mg PO HS 90 Days Qty: 90 0RF cranberry extract 250 mg capsule 250 mg PO DAILY Qty: 30 0RF magnesium oxide 250 mg magnesium tablet 250 mg PO DAILY Qty: 30 0RF Prolia 60 mg/mL syringe 60 mg SQ [id number] Qty: 1 2RF ipratropium-albuterol 0.5 mg-3 mg(2.5 mg base)/3 mL solution for nebulization 3 ml inhalation Q4HP PRN (Reason: Shortness Of Breath Or Wheezing) Qty: 180 2RF ferrous sulfate 325 mg (65 mg iron) tablet 325 mg PO DAILY Qty: 30 0RF levocetirizine [Xyzal] 5 mg tablet 5 mg PO DAILY Qty: 30 2RF psyllium husk 0.52 GM capsule 0.52 gm PO DAILY fluticasone propionate 50 mcg/actuation spray,suspension 1 spray intranasal DAILYP PRN (Reason: Allergies) atorvastatin 40 mg tablet 40 mg PO HS diclofenac sodium 1 % gel 4 g topical QID PRN (Reason: Pain) Rx Instructions: Apply 4g to knees QID as needed for pain Eliquis 2.5 mg tablet 2.5 mg PO BID digoxin 125 mcg (0.125 mg) tablet 125 mcg PO DAILY glipizide 2.5 mg tablet extended release 24hr 2.5 mg PO DAILY levothyroxine 50 mcg tablet 50 mcg PO DAILY bisacodyl 5 mg Tablet,Delayed Release (Dr/Ec) 5 mg PO HS Discontinued omeprazole 20 mg capsule,delayed release(DR/EC) 20 mg PO DAILY Problem Reconciliation Problems Reviewed?: Yes Patient Discharge Instructions ACTIVITY: Continue current activity and Ambulate as tolerated DIET: continue same diet Patient Instructions: DI for Cellulitis -- Adult, DI for Hyperkalemia Providers Primary Care Provider: Danny Cano Admit Provider: Ryder Vang Attending Provider: Ryder Vang
[2023-05-05] MEDS: DOCUSATE SODIUM 100 MG CAPSULE PO (09:41)
[2023-05-05] MEDS: LORATADINE 10MG TABLET 10 MG PO (09:41)
[2023-05-05] MEDS: guaiFENesin 600 MG TAB.ER.12H PO (09:41)
[2023-05-05] MEDS: APIXABAN 5MG TABLET 2.5 MG PO (09:41)
--- NOTE | 2023-05-05 09:41 | EXP.PHA.PN ---
Subjective *Date: 05/05/23 *Time: 09:41 Medical Exam Vital signs and Labs for Last 24 Hours: Vital Signs Temp Pulse Pulse Resp BP Pulse Ox O2 Del Method 05/05/23 07:54 90 05/05/23 08:00 98.0 F 90 20 120/72 99 Nasal Cannula 05/05/23 07:00 Nasal Cannula 05/05/23 04:00 97.8 F 89 20 118/75 97 05/05/23 05:40 93 L Nasal Cannula 05/05/23 04:00 84 05/05/23 05:00 Nasal Cannula 05/05/23 03:00 Nasal Cannula 05/05/23 01:00 Nasal Cannula 05/04/23 23:00 Nasal Cannula 05/04/23 21:00 Nasal Cannula 05/05/23 00:00 84 05/04/23 22:00 Nasal Cannula 05/04/23 20:00 90 05/05/23 00:00 98.0 F 93 H 20 118/69 98 05/04/23 20:00 97.6 F 94 H 20 114/58 L 97 Nasal Cannula 05/04/23 18:34 Nasal Cannula 05/04/23 18:23 98 Nasal Cannula 05/04/23 16:00 91 H 05/04/23 16:53 Nasal Cannula 05/04/23 15:00 Nasal Cannula 05/04/23 15:57 98.3 F 93 H 14 120/48 L 96 Nasal Cannula 05/04/23 12:00 85 05/04/23 12:55 Nasal Cannula 05/04/23 12:00 97.8 F 109 H 18 99/55 L 95 Room Air 05/04/23 11:00 Nasal Cannula O2 Flow Rate 05/05/23 07:54 05/05/23 08:00 1 05/05/23 07:00 2 05/05/23 04:00 05/05/23 05:40 2 05/05/23 04:00 05/05/23 05:00 1.5 05/05/23 03:00 2 05/05/23 01:00 2 05/04/23 23:00 2 05/04/23 21:00 2 05/05/23 00:00 05/04/23 22:00 1.5 05/04/23 20:00 05/05/23 00:00 01/08/24 20:00 2 05/04/23 18:34 1.5 05/04/23 18:23 2 05/04/23 16:00 05/04/23 16:53 1.5 05/04/23 15:00 1.5 05/04/23 15:57 1.5 05/04/23 12:00 05/04/23 12:55 1.5 05/04/23 12:00 05/04/23 11:00 2 Intake and Output 05/04/23 05/05/23 05/05/23 23:59 07:59 15:59 Intake Total 100 / 1680 240 / 240 Output Total 0 / 0 0 / 0 Balance 100 / 1680 0 / 240 240 / 240 Intake: Intake, Oral Amount 100 / 570 240 / 240 Output: Output, Urine Amount 0 / 0 0 / 0 Other: Number of Voids 0 Number of Unmeasured Voids 0 1 Number of Bowel Movements 1 Weight 68.663 kg Patient Weight 05/05/23 23:59 Weight 68.663 kg Laboratory Results - last 24 hr 05/04/23 10:10: WBC 9.1 D, RBC 2.89 L, Hgb 8.1 L, Hct 27.1 L, MCV 93.9, MCH 28.2, MCHC 30.0 L, RDW 24.4 H, Plt Count 403, MPV 8.4, Neut % (Auto) 66.8, Lymph % (Auto) 22.6, [place] % (Auto) 7.5, Eos % (Auto) 2.9, Baso % (Auto) 0.3, Neut # (Auto) 6.1, Lymph # (Auto) 2.1, [place] # (Auto) 0.7, Eos # (Auto) 0.3, Baso # (Auto) 0.0, Sodium 138, Potassium 4.0, Chloride 114 H, Carbon Dioxide 20 L, Anion Gap 8.0, BUN 31 H, Creatinine 1.50 H, Estimated Creat Clear 29, Estimated GFR 33 L, Est GFR ( Amer) 40 L, Glucose 110 H, Hemoglobin A1c 5.1, Calcium 7.1 L, Vancomycin Trough 12.0 H 05/04/23 11:45: POC Glucose 132 H 05/04/23 14:55: Vancomycin Peak 22.7 05/05/23 01:37: POC Glucose 101 05/05/23 06:23: POC Glucose 87 05/05/23 06:35: Sodium 137, Potassium 3.9, Chloride 115 H, Carbon Dioxide 20 L, Anion Gap 5.9, BUN 20 H D, Creatinine 1.20 H, Estimated Creat Clear 35, Estimated GFR 42 L, Est GFR ( Amer) 51 L D, Glucose 93, Calcium 6.9 L I & O for Labs for Last 24 Hours: Intake & Output 05/02/23 05/03/23 05/04/23 05/05/23 23:59 23:59 23:59 23:59 Intake Total 720 / 720 1195 / 1495 1680 / 1680 240 / 240 Output Total 0 / 0 0 / 0 0 / 0 0 / 0 Balance 720 / 720 1195 / 1495 1680 / 1680 240 / 240 Weight 69.853 kg 68.81 kg 70.261 kg 68.663 kg The patient's infection will respond to the chosen ABx?: Yes (EMPIRIC THERAPY) Is the patient receiving the right drug, dose, and route?: Yes Could a more targeted ABx be ordered?: No (CULTURES PENDING)
[2023-05-05] MEDS: DIGOXIN 0.125MG TABLET 125 MCG PO (09:42)
[2023-05-05] MEDS: LEVOTHYROXINE 50MCG (0.05MG) TAB 50 MCG PO (10:01)
[2023-05-06 03:14] LABS: POC Glucose,Bedside 140 (70-110)
--- NOTE | 2023-05-16 00:01 | PC.NURSE ---
MEDICAL RECORDS FAXED TO [facility].
== END 2023-05-05 17:18 | DRG 641 ==
LOC: ER 12:43 → 2ND 13:29
PROVIDERS: Admitting Provider Internal Medicine; Emergency Provider Emergency Medicine; PCP Family Medicine; Visit Provider Internal Medicine
DX: E87.5 Hyperkalemia (principal); N18.4 Chronic kidney disease, stage 4 (severe); I13.0 Hypertensive heart and chronic kidney disease with heart failure and stage 1 through stage 4 chronic kidney disease, or unspecified chronic kidney disease; L03.116 Cellulitis of left lower limb; Z79.4 Long term (current) use of insulin; E11.22 Type 2 diabetes mellitus with diabetic chronic kidney disease; I50.9 Heart failure, unspecified; K21.9 Gastro-esophageal reflux disease without esophagitis; E03.9 Hypothyroidism, unspecified; I48.91 Unspecified atrial fibrillation
CPT/HCPCS: 36415; 71045; 72131; 72170; 72192; 73590; 80048; 80053; 80202; 81001; 82962; 83036; 83735; 84132; 84484; 85007; 85014; 85018; 85025; 86850; 87636; 90715; 93005; 94640; 94760; 94761; 97163; 97165; 97530; 99291; J0692; J3370; P9016